=== PATIENT | male | born 1950 | race Caucasian/White ===

== ENCOUNTER 2017-03-16 16:30 | Inpatient (IN) | payer MEDICARE ==
[~2017-03-16] VITALS: Ht 182.9 cm; Wt 173.9 kg
[2017-03-16 16:53] LABS: POTASSIUM ISTAT 3.9 mmol/L (3.5-5.0)
[2017-03-16 17:15] LABS: BASO # 0.1 x10^3/uL (0.0-0.2); BASO % 1 % (0-3); EOS % 2 % (0-3); HEMATOCRIT 40.4 % (39.0-53.0); HEMOGLOBIN 13.7 g/dL (13.0-17.5); LYMPH # 2.6 x10^3/uL (1.0-4.8); LYMPH % 28 % (24-48); MEAN CORPUSCULAR HEMOGLOBIN 31 pg (25-35); MEAN CORPUSCULAR HGB CONC 34 g/dL (31-37); MEAN CORPUSCULAR VOLUME 91 fL (79-100); MONO % 8 % (0-9); NEUT % 61 % (31-73); PLATELET COUNT 238 x10^3/uL (140-400); RED BLOOD COUNT 4.44 x10^6/uL (4.30-5.70); RED CELL DISTRIBUTION WIDTH 12.5 % (11.5-14.5); WHITE BLOOD COUNT 9.3 x10^3/uL (4.0-11.0)
[2017-03-16] MEDS ORDERED: ASPIRIN 325 MG TABLET PO ONE (17:15)
[2017-03-16] MEDS ORDERED: MORPHINE SULFATE 4 MG/ML DISP.SYRIN. IV/SQ PRN (17:15)
[2017-03-16] MEDS ORDERED: NITROGLYCERIN SUBLINGUAL 0.4 MG BOTTLE OF 25. SL PRN ×2 (17:15→19:00)
[2017-03-16 17:20] LABS: CALCIUM 8.8 mg/dL (8.5-10.1); POTASSIUM 3.9 mmol/L (3.5-5.1)
[2017-03-16 17:25] LABS: ALBUMIN 3.2 g/dL (3.4-5.0); ALBUMIN/GLOBULIN RATIO 0.8 (1.0-1.7); PROTHROMBIN TIME PATIENT 12.4 SEC (11.7-14.0); TOTAL BILIRUBIN 0.3 mg/dL (0.2-1.0)
[2017-03-16] MEDS ORDERED: ACETAMINOPHEN 325 MG TABLET. PO PRN (19:00)
[2017-03-16] MEDS ORDERED: MORPHINE SULFATE 4 MG/ML DISP.SYRIN. IV PRN (19:00)
[2017-03-16] MEDS ORDERED: ONDANSETRON PF 4 MG/2 ML VIAL. IV PRN (19:00)
[2017-03-16 20:05] VITALS: BP 184/100
--- NOTE | 2017-03-16 21:14 | PHYS DOC ---
Past Medical History Past Medical History: CHF, COPD, High Cholesterol, Heart Disease, Hypertension , Stroke Past Surgical History: No Surgical History Alcohol Use: None Drug Use: None Adult General Chief Complaint Chief Complaint: CHEST PAIN HPI HPI Patient is a 66 year old male who presents with chest pain. The patient reports onset of pain about 2 hours prior to arrival while at rest. Pain is sharp, substernal, radiating to right arm. Associated with shortness of breath and nausea, denies diaphoresis. Denies fevers or chills, cough, reports bilateral lower extremity edema. Pain improved while being transported by EMS. Denies previous history of similar pain. History of CHF, HTN. Denies history of CAD or cardiac stents. He is a nonsmoker. 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 Review of Systems Review of Systems Constitutional: Denies fever or chills Eyes: Denies change in visual acuity HENT: Denies nasal congestion or sore throat Respiratory: Denies cough, reports shortness of breath Cardiovascular: Reports chest pain & edema GI: Denies abdominal pain, nausea, vomiting, bloody stools or diarrhea Musculoskeletal: Denies back pain or joint pain Integument: Denies rash or skin lesions Neurologic: Denies headache, focal weakness or sensory changes Current Medications Current Medications Current Medications Medications (Trade) Dose Ordered Sig/Mitul Start Time Stop Time Status Last Admin Dose Admin Aspirin ([place] Aspirin) 325 mg 1X ONCE 03/16/17 17:15 03/16/17 17:18 DC Morphine Sulfate 4 mg PRN Q15MIN PRN 03/16/17 17:15 03/17/17 17:14 Nitroglycerin (Nitrostat) 0.4 mg PRN Q5MIN PRN 03/16/17 17:15 03/16/17 18:58 0.4 MG Allergies Allergies Allergies Coded Allergies Type Severity Reaction Last Updated Verified No Known Drug Allergies 03/16/17 No Physical Exam Physical Exam Constitutional: morbidly obese, no acute distress, non-toxic appearance. HENT: Normocephalic, atraumatic, bilateral external ears normal, oropharynx moist, nose normal. Eyes: conjunctiva normal, no discharge. Neck: supple, no stridor. Cardiovascular: RRR, no murmurs, 2+ nonpitting edema to bilateral LE Lungs & Thorax: diminished, LCTAB, no wheezing, no respiratory distress. Abdomen: soft, nontender, nondistended. Skin: Warm, dry, no erythema, no rash. Back: No tenderness. Extremities: No tenderness, bilateral lower extremity edema as above. Neurologic: Alert and oriented X 3, no focal deficits noted. Psychologic: Affect normal, judgement normal, mood normal. Current Patient Data Vital Signs Vital Signs Date Time Temp Pulse Resp B/P (MAP) Pulse Ox O2 Delivery O2 Flow Rate FiO2 03/16/17 18:08 94 175/81 (112) 94 03/16/17 16:43 98.8 18 Room Air 98.8 Lab Values Laboratory Tests Test 03/16/17 16:41 03/16/17 16:44 03/16/17 16:48 White Blood Count 9.3 x10^3/uL (4.0-11.0) Red Blood Count 4.44 x10^6/uL (4.30-5.70) Hemoglobin 13.7 g/dL (13.0-17.5) Hematocrit 40.4 % (39.0-53.0) Mean Corpuscular Volume 91 fL (79-100) Mean Corpuscular Hemoglobin 31 pg (25-35) Mean Corpuscular Hemoglobin Concent 34 g/dL (31-37) Red Cell Distribution Width 12.5 % (11.5-14.5) Platelet Count 238 x10^3/uL (140-400) Neutrophils (%) (Auto) 61 % (31-73) Lymphocytes (%) (Auto) 28 % (24-48) Monocytes (%) (Auto) 8 % (0-9) Eosinophils (%) (Auto) 2 % (0-3) Basophils (%) (Auto) 1 % (0-3) Neutrophils # (Auto) 5.7 x10^3uL (1.8-7.7) Lymphocytes # (Auto) 2.6 x10^3/uL (1.0-4.8) Monocytes # (Auto) 0.7 x10^3/uL (0.0-1.1) Eosinophils # (Auto) 0.2 x10^3/uL (0.0-0.7) Basophils # (Auto) 0.1 x10^3/uL (0.0-0.2) Prothrombin Time 12.4 SEC (11.7-14.0) Prothrombin Time INR 1.0 (0.8-1.1) PTT 24 SEC (24-38) Sodium Level 140 mmol/L (136-145) Potassium Level 3.9 mmol/L (3.5-5.1) Chloride Level 102 mmol/L (98-107) Carbon Dioxide Level 33 mmol/L (21-32) H Anion Gap 5 (6-14) L 18 mmol/L (6-14) H Blood Urea Nitrogen 16 mg/dL (8-26) Creatinine 1.0 mg/dL (0.7-1.3) Estimated GFR (Cockcroft-Gault) 75.0 BUN/Creatinine Ratio 16 (6-20) Glucose Level 228 mg/dL (70-99) H 229 mg/dL (70-99) H Calcium Level 8.8 mg/dL (8.5-10.1) Total Bilirubin 0.3 mg/dL (0.2-1.0) Aspartate Amino Transferase (AST) 11 U/L (15-37) L Alanine Aminotransferase (ALT) 19 U/L (16-63) Alkaline Phosphatase 89 U/L (46-116) Troponin I Quantitative < 0.017 ng/mL (0.000-0.055) AA-Snf-P-Type Natriuretic Peptide 90 pg/mL (0-124) Total Protein 7.0 g/dL (6.4-8.2) Albumin 3.2 g/dL (3.4-5.0) L Albumin/Globulin Ratio 0.8 (1.0-1.7) L POC Troponin I 0.00 ng/ml (<0.08) POC Hemoglobin 13.6 g/dL (14-18) L POC Hematocrit 40 % (37-52) POC Sodium 137 mmol/L (135-145) POC Potassium 3.9 mmol/L (3.5-5.0) POC Chloride 96 mmol/L (98-110) L POC Total CO2 28 mmol/L (23-32) POC Blood Urea Nitrogen 15 mg/dL (8-26) POC Creatinine 0.8 mg/dL (0.5-1.4) POC Ionized Calcium (Sophy) 1.21 mmol/L (1.13-1.32) Laboratory Tests 03/16/17 16:41 Laboratory Tests 03/16/17 16:41 03/16/17 16:48 EKG EKG interpreted by me: 1633 NSR rate 99, no acute ST/T wave changes, Q waves in inferior leads as well as V1-V4, normal intervals, no ectopy. interpreted by me: 1859 NSR rate 97, no acute ST/T wave changes, Q waves persist, normal intervals, no ectopy. unchanged from prior.[] Radiology/Procedures Radiology/Procedures CXR: interpreted by me: cardiomegaly, no infiltrate, no pneumothorax. no prior for comparison.[] Course & Med Decision Making Course & Med Decision Making Pertinent Labs and Imaging studies reviewed. (See chart for details) The patient presents with chest pain. He was pain-free at time of arrival. Gave aspirin. Obtained labs, EKG, chest x-ray. No acute abnormality. When I reassessed him he had new onset of pain. Obtained repeat EKG which was unchanged from initial. DIANA score is 4. I did recommend admission to the hospital for further evaluation and treatment. Patient agrees with plan of care. Discussed with Dr. crockett who agrees to admit to inpatient status. Cardiology consult to Dr. Pennington. The patient is being admitted in stable condition. [] Dragon Disclaimer Dragon Disclaimer This electronic medical record was generated, in whole or in part, using a voice recognition dictation system. Departure Departure Impression: Primary Impression: Chest pain Additional Impression: Essential hypertension Disposition: ADMITTED INPATIENT Admitting Physician: Alea Crockett Condition: STABLE Referrals: UNKNOWN PCP NAME (PCP) Problem Qualifiers MARIA ELENA MENDEZ MD Mar 16, 2017 21:14
[2017-03-16] MEDS ORDERED: DONE10TA7 PO (21:21)
[2017-03-16] MEDS ORDERED: CLON0.2T PO (21:21)
[2017-03-16] MEDS ORDERED: DIPH25CA58 PO (21:21)
[2017-03-16] MEDS ORDERED: CARV25TA2 PO (21:21)
[2017-03-16] MEDS ORDERED: MELO7.5T29 PO (21:21)
[2017-03-16] MEDS ORDERED: INSU100C4 SQ (21:21)
[2017-03-16] MEDS ORDERED: PROAIR HFA8.5 GM INH (21:21)
[2017-03-16] MEDS ORDERED: GABA-586 PO (21:21)
[2017-03-16] MEDS ORDERED: METF-620 PO (21:21)
[2017-03-16] MEDS ORDERED: BUDE10.2 IH (21:21)
[2017-03-16] MEDS ORDERED: ASPI-482 PO (21:21)
[2017-03-16] MEDS ORDERED: LOSA100T6 PO (21:21)
[2017-03-16] MEDS ORDERED: ACET1TAB33 PO (21:21)
[2017-03-16] MEDS ORDERED: TRAZ50TA15 PO (21:21)
[2017-03-16] MEDS ORDERED: DOXY100T PO (21:21)
[2017-03-16] MEDS ORDERED: FURO20TA3 PO (21:21)
[2017-03-16] MEDS ORDERED: INSU100I13 SQ (21:21)
[2017-03-16] MEDS ORDERED: cloNIDine HCL 0.2 MG TABLET PO PRN (22:00)
[2017-03-16] MEDS ORDERED: NON FORMULARY ITEM (Albuterol Sulfate (Proair Hfa Inhaler) 1 PUFF) INH PRN (22:00)
[2017-03-16] MEDS ORDERED: LABETALOL 20 MG/4 ML DISP.SYRIN. IVP PRN (22:00)
[2017-03-16] MEDS ORDERED: ACETAMINOPHEN/CODEINE 300/30MG TABLET. PO PRN (22:00)
[2017-03-16] MEDS ORDERED: traZODone 50 MG TABLET. PO PRN (22:00)
[2017-03-16] MEDS ORDERED: ALBUTEROL SULFATE 2.5 MG/3 ML NEBU. NEB PRN (22:15)
--- NOTE | 2017-03-16 22:19 | PDOC1 ---
History and Physical Date of Admission Date of Admission DATE: 03/16/17 TIME: 22:10 History of Present Illness History of Present Illness Mr. Melchor, is a 66 year old male admit from ER with acute chest pain. Sudden pain tonight, mid sternal sharp pain, radiated to the right arm, some dyspnea , no nausea or diaphoresis. Hx The patient reports onset of pain about 2 hours prior to arrival while at rest. Pain is sharp, substernal, radiating to right arm. Associated with shortness of breath and nausea, denies diaphoresis. Denies fevers or chills, cough, reports bilateral lower extremity edema. Pain improved while being transported by EMS. Denies previous history of similar pain. History of CHF, HTN. Denies history of CAD or cardiac stents. He is a nonsmoker. 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 he is taking doxy for the past 4 days for a sinus infection Past Medical History Cardiovascular: CHF, HTN Pulmonary: No pertinent hx CENTRAL NERVOUS SYSTEM: CVA (with left leg weakness, gets outpatient PT at [facility], walks with a cane) GI: No pertinent hx Heme/Onc: No pertinent hx Hepatobiliary: No pertinent hx Psych: No pertinent hx Musculoskeletal: low back pain, Osteoarthritis Social History Smoke: No ALCOHOL: none Drugs: None Current Problem List Problem List Problems Medical Problems: (1) Essential hypertension Status: Acute Problems: Current Medications Current Medications Current Medications Aspirin ([place] Aspirin) 325 mg 1X ONCE PO ; Start 03/16/17 at 17:15; Stop 03/16 at 17:18; Status DC Nitroglycerin (Nitrostat) 0.4 mg PRN Q5MIN PRN SL CHEST PAIN Last administered on 03/16/17t 18:58; Start 03/16/17 at 17:15 Morphine Sulfate 4 mg PRN Q15MIN PRN IV/SQ PAIN GREATER THAN 3/10; Start at 17:15; Stop 03/17/17 at 17:14 Ondansetron HCl (Zofran) 4 mg PRN Q8HRS PRN IV NAUSEA/VOMITING; Start 03/16/17 at 19:00; Stop 03/17/17 at 18:59 Morphine Sulfate 4 mg PRN Q2HR PRN IV PAIN; Start 03/16/17 at 19:00; Stop 7/25 /17 at 18:59 Acetaminophen (Tylenol) 650 mg PRN Q4HRS PRN PO FEVER; Start 03/16/17 at 19:00 ; Stop 03/17/17 at 18:59 Nitroglycerin (Nitrostat) 0.4 mg PRN Q5MIN PRN SL CHEST PAIN; Start 03/16/17 at 19:00; Stop 03/17/17 at 18:59; Status UNV Active Scripts Active Reported Trazodone Hcl 50 Mg Tablet 50 Mg PO PRN QHS PRN Carvedilol 25 Mg Tablet 25 Mg PO BIDWMEALS Acetaminophen-Cod #3 Tablet (Acetaminophen/Codeine Phosphate) 1 Each Tablet 1 Tab PO PRN Q6HRS PRN Losartan Potassium 100 Mg Tablet 100 Mg PO DAILY Benadryl (Diphenhydramine Hcl) 25 Mg Capsule 1 Cap PO QHS Meloxicam 7.5 Mg Tablet 7.5 Mg PO DAILY Donepezil Hcl 10 Mg Tablet 1 Tab PO DAILY Furosemide 20 Mg Tablet 60 Mg PO DAILY Gabapentin 300 Mg Capsule 300 Mg PO TID Metformin Hcl 1,000 Mg Tablet 1,000 Mg PO TIDAFTMEAL Novolog (Insulin Aspart) 100 Unit/1 Ml Cartridge 20 Unit SQ TIDBFRMEAL Lantus Solostar (Insulin Glargine,Hum.rec.anlog) 100 Unit/1 Ml Insuln.pen 75 Unit SQ HS Proair Hfa Inhaler (Albuterol Sulfate) 8.5 Gm Hfa.aer.ad 1 Puff INH PRN Q4HRS PRN Symbicort 160-4.5 Mcg Inhaler (Budesonide/Formoterol Fumarate) 10.2 Gm Hfa.aer.ad 2 Puff IH BID Doxycycline Hyclate 100 Mg Tablet 1 Tab PO BID Clonidine Hcl 0.2 Mg Tablet 0.2 Mg PO PRN TID PRN if sbp > 180 and dbp>105 Aspir 81 (Aspirin) 81 Mg Tablet. 1 Tab PO DAILY Allergies Allergies: Coded Allergies: No Known Drug Allergies (Unverified , 03/16/17) ROS General: No: Chills, Night Sweats, Fatigue, Malaise, Appetite, Other PSYCHOLOGICAL ROS: No: Anxiety, Behavioral Disorder, Concentration difficultie , Decreased libido, Depression, Disorientation, Hallucinations, Hostility, Irritablity, Memory difficulties, Mood Swings, Obsessive thoughts, Physical abuse, Sexual abuse, Sleep disturbances, Suicidal ideation, Other Eyes: No Blurry vision, No Decreased vision, No Double vision, No Dry eyes, No Excessive tearing, No Eye Pain, No Itchy Eyes, No Loss of vision, No Photophobia , No Scotomata, No Uses contacts, No Uses glasses, No Other HEENT: No: Heacaches, Visual Changes, Hearing change, Nasal congestion, Nasal discharge, Oral lesions, Sinus pain, Sore Throat, Epistaxis, Sneezing, Snoring, Tinnitus, Vertigo, Vocal changes, Other Hematological and Lymphatic: No: Bleeding Problems, Blood Clots, Blood Transfusions, Brusing, Night Sweats, Pallor, Swollen Lymph Nodes, Other Respiratory: YES: SOB with excertion, No: Cough, Hemoptysis, Orthopnea, Pleuritic Pain, Shortness of breath, Sputum Changes, Stridor, Tachypnea, Wheezing, Other Cardiovascular: yes Chest Pain, No Palpitations, No Orthopnea, No Paroxysmal Noc. Dyspnea, No Edema, No Lt Headedness, No Other Gastrointestinal: No Nausea, No Vomiting, No Abdominal Pain, No Diarrhea, No Constipation, No Melena, No Hematochezia, No Other Genitourinary: No Dysuria, No Frequency, No Incontinence, No Hematuria, No Retention, No Discharge, No Urgency, No Pain, No Flank Pain, No Other, No , No , No , No , No , No , No Musculoskeletal: No Gait Disturbance, No Joint Pain, No Joint Stiffness, No Joint Swelling, No Muscle Pain, No Muscular Weakness, No Pain In:, No Swelling In:, No Other Neurological: No Behavorial Changes, No Bowel/Bladder ControlChng, No Confusion , No Dizziness, No Gait Disturbance, No Headaches, No Impaired Coord/balance, No Memory Loss, No Numbness/Tingling, No Seizures, No Speech Problems, No Tremors, No Visual Changes, No Weakness, No Other Skin: Yes Dry Skin, No Eczema, No Hair Changes, No Lumps, No Mole Changes, No Mottling, No Nail Changes, No Pruritus, No Rash, No Skin Lesion Changes, No Other, No Acne Physical Exam General: Alert, Oriented X3, Cooperative HEENT: Atraumatic, PERRLA Lungs: Clear to auscultation Abdomen: Normal bowel sounds, Soft (very obese) Rectal Exam: not examined Extremities: No clubbing, Normal pulses, Other (1+ BLE edema, he says normal for him) Skin: No rashes Neuro: Normal gait Vitals Vitals Vital Signs Date Time Temp Pulse Resp B/P (MAP) Pulse Ox O2 Delivery O2 Flow Rate FiO2 03/16/17 20:05 97.6 90 20 184/100 (128) 96 Room Air 97.6 Labs Labs Laboratory Tests Test 03/16/17 16:41 03/16/17 16:44 03/16/17 16:48 03/16/17 20:59 White Blood Count 9.3 x10^3/uL (4.0-11.0) Red Blood Count 4.44 x10^6/uL (4.30-5.70) Hemoglobin 13.7 g/dL (13.0-17.5) Hematocrit 40.4 % (39.0-53.0) Mean Corpuscular Volume 91 fL (79-100) Mean Corpuscular Hemoglobin 31 pg (25-35) Mean Corpuscular Hemoglobin Concent 34 g/dL (31-37) Red Cell Distribution Width 12.5 % (11.5-14.5) Platelet Count 238 x10^3/uL (140-400) Neutrophils (%) (Auto) 61 % (31-73) Lymphocytes (%) (Auto) 28 % (24-48) Monocytes (%) (Auto) 8 % (0-9) Eosinophils (%) (Auto) 2 % (0-3) Basophils (%) (Auto) 1 % (0-3) Neutrophils # (Auto) 5.7 x10^3uL (1.8-7.7) Lymphocytes # (Auto) 2.6 x10^3/uL (1.0-4.8) Monocytes # (Auto) 0.7 x10^3/uL (0.0-1.1) Eosinophils # (Auto) 0.2 x10^3/uL (0.0-0.7) Basophils # (Auto) 0.1 x10^3/uL (0.0-0.2) Prothrombin Time 12.4 SEC (11.7-14.0) Prothromb Time International Ratio 1.0 (0.8-1.1) Activated Partial Thromboplast Time 24 SEC (24-38) Sodium Level 140 mmol/L (136-145) Potassium Level 3.9 mmol/L (3.5-5.1) Chloride Level 102 mmol/L (98-107) Carbon Dioxide Level 33 mmol/L (21-32) Anion Gap 5 (6-14) 18 mmol/L (6-14) Blood Urea Nitrogen 16 mg/dL (8-26) Creatinine 1.0 mg/dL (0.7-1.3) Estimated GFR (Cockcroft-Gault) 75.0 BUN/Creatinine Ratio 16 (6-20) Glucose Level 228 mg/dL (70-99) 229 mg/dL (70-99) Calcium Level 8.8 mg/dL (8.5-10.1) Total Bilirubin 0.3 mg/dL (0.2-1.0) Aspartate Amino Transf (AST/SGOT) 11 U/L (15-37) Alanine Aminotransferase (ALT/SGPT) 19 U/L (16-63) Alkaline Phosphatase 89 U/L (46-116) Troponin I Quantitative < 0.017 ng/mL (0.000-0.055) BM-Apf-Z-Type Natriuretic Peptide 90 pg/mL (0-124) Total Protein 7.0 g/dL (6.4-8.2) Albumin 3.2 g/dL (3.4-5.0) Albumin/Globulin Ratio 0.8 (1.0-1.7) Bedside Troponin I 0.00 ng/ml (<0.08) Bedside Hemoglobin 13.6 g/dL (14-18) Bedside Hematocrit 40 % (37-52) Bedside Sodium 137 mmol/L (135-145) Bedside Potassium 3.9 mmol/L (3.5-5.0) Bedside Chloride 96 mmol/L (98-110) Bedside Total CO2 28 mmol/L (23-32) Bedside Blood Urea Nitrogen 15 mg/dL (8-26) Bedside Creatinine 0.8 mg/dL (0.5-1.4) Bedside Ionized Calcium (Sophy) 1.21 mmol/L (1.13-1.32) Glucose (Fingerstick) 175 mg/dL (70-99) Laboratory Tests Test 03/16/17 16:41 03/16/17 16:44 03/16/17 16:48 03/16/17 20:59 White Blood Count 9.3 x10^3/uL (4.0-11.0) Red Blood Count 4.44 x10^6/uL (4.30-5.70) Hemoglobin 13.7 g/dL (13.0-17.5) Hematocrit 40.4 % (39.0-53.0) Mean Corpuscular Volume 91 fL (79-100) Mean Corpuscular Hemoglobin 31 pg (25-35) Mean Corpuscular Hemoglobin Concent 34 g/dL (31-37) Red Cell Distribution Width 12.5 % (11.5-14.5) Platelet Count 238 x10^3/uL (140-400) Neutrophils (%) (Auto) 61 % (31-73) Lymphocytes (%) (Auto) 28 % (24-48) Monocytes (%) (Auto) 8 % (0-9) Eosinophils (%) (Auto) 2 % (0-3) Basophils (%) (Auto) 1 % (0-3) Neutrophils # (Auto) 5.7 x10^3uL (1.8-7.7) Lymphocytes # (Auto) 2.6 x10^3/uL (1.0-4.8) Monocytes # (Auto) 0.7 x10^3/uL (0.0-1.1) Eosinophils # (Auto) 0.2 x10^3/uL (0.0-0.7) Basophils # (Auto) 0.1 x10^3/uL (0.0-0.2) Prothrombin Time 12.4 SEC (11.7-14.0) Prothromb Time International Ratio 1.0 (0.8-1.1) Activated Partial Thromboplast Time 24 SEC (24-38) Sodium Level 140 mmol/L (136-145) Potassium Level 3.9 mmol/L (3.5-5.1) Chloride Level 102 mmol/L (98-107) Carbon Dioxide Level 33 mmol/L (21-32) Anion Gap 5 (6-14) 18 mmol/L (6-14) Blood Urea Nitrogen 16 mg/dL (8-26) Creatinine 1.0 mg/dL (0.7-1.3) Estimated GFR (Cockcroft-Gault) 75.0 BUN/Creatinine Ratio 16 (6-20) Glucose Level 228 mg/dL (70-99) 229 mg/dL (70-99) Calcium Level 8.8 mg/dL (8.5-10.1) Total Bilirubin 0.3 mg/dL (0.2-1.0) Aspartate Amino Transf (AST/SGOT) 11 U/L (15-37) Alanine Aminotransferase (ALT/SGPT) 19 U/L (16-63) Alkaline Phosphatase 89 U/L (46-116) Troponin I Quantitative < 0.017 ng/mL (0.000-0.055) BB-Hgc-C-Type Natriuretic Peptide 90 pg/mL (0-124) Total Protein 7.0 g/dL (6.4-8.2) Albumin 3.2 g/dL (3.4-5.0) Albumin/Globulin Ratio 0.8 (1.0-1.7) Bedside Troponin I 0.00 ng/ml (<0.08) Bedside Hemoglobin 13.6 g/dL (14-18) Bedside Hematocrit 40 % (37-52) Bedside Sodium 137 mmol/L (135-145) Bedside Potassium 3.9 mmol/L (3.5-5.0) Bedside Chloride 96 mmol/L (98-110) Bedside Total CO2 28 mmol/L (23-32) Bedside Blood Urea Nitrogen 15 mg/dL (8-26) Bedside Creatinine 0.8 mg/dL (0.5-1.4) Bedside Ionized Calcium (Sophy) 1.21 mmol/L (1.13-1.32) Glucose (Fingerstick) 175 mg/dL (70-99) VTE Prophylaxis Ordered VTE Prophylaxis Devices: No VTE Pharmacological Prophylaxi: Yes Assessment/Plan Assessment/Plan Acute chest pain, angina, Hx CAD, r.o ACS, CV consult to stratify risk, may need stress test, Dm2, insulin and metformin, hold metformin, may need cath, given small dose lantus tonight for NPO in AM for CV eval morbid obesity, BMI 52, with mild hypoalbuminemia htn prior CVA with left sided residual pickwickian, possible chronic resp acidosis with metabolic compensation, serum bicarb high admit GATITO LESLIE MD Mar 16, 2017 22:19
[2017-03-16] MEDS ORDERED: INSULIN DETEMIR 300 UNITS/3 ML INSULN.PEN. SQ SCH (22:30)
[2017-03-16] MEDS ORDERED: INSULIN DETEMIR 300 UNITS/3 ML INSULN.PEN. SQ ONE (22:30)
[2017-03-16] MEDS ORDERED: diphenhydrAMINE HCL 25 MG CAPSULE PO SCH (22:30)
[2017-03-16] MEDS: DOXYCYCLINE HYCLATE 100 MG TABLET PO SCH (22:41)
[2017-03-16] MEDS: GABAPENTIN 300 MG CAPSULE. PO SCH (22:41)
[2017-03-16 23:10] VITALS: BP 171/86
[2017-03-17 01:21] LABS: BASO # 0.1 x10^3/uL (0.0-0.2); BASO % 1 % (0-3); EOS % 3 % (0-3); HEMATOCRIT 38.5 % (39.0-53.0); HEMOGLOBIN 12.9 g/dL (13.0-17.5); LYMPH # 2.9 x10^3/uL (1.0-4.8); LYMPH % 31 % (24-48); MEAN CORPUSCULAR HEMOGLOBIN 31 pg (25-35); MEAN CORPUSCULAR HGB CONC 34 g/dL (31-37); MEAN CORPUSCULAR VOLUME 92 fL (79-100); MONO % 9 % (0-9); NEUT % 58 % (31-73); PLATELET COUNT 240 x10^3/uL (140-400); RED BLOOD COUNT 4.19 x10^6/uL (4.30-5.70); RED CELL DISTRIBUTION WIDTH 12.6 % (11.5-14.5); WHITE BLOOD COUNT 9.6 x10^3/uL (4.0-11.0)
[2017-03-17 01:36] LABS: ALBUMIN 2.8 g/dL (3.4-5.0); ALBUMIN/GLOBULIN RATIO 0.9 (1.0-1.7); CALCIUM 9.1 mg/dL (8.5-10.1); CREATININE 0.9 mg/dL (0.7-1.3); GFR 84.7; POTASSIUM 4.2 mmol/L (3.5-5.1); TOTAL BILIRUBIN 0.3 mg/dL (0.2-1.0)
--- NOTE | 2017-03-17 01:41 | ACF ---
Admission Forms Criteria CHEST PAIN Clinical Indications for Admission to Inpatient Care (Place 'X' for any and all applicable criteria): Admission is indicated for chest pain and ANY ONE of the following(1)(2)(3)(4)(5 ): [ ]I. Angina with acute coronary syndrome (Also use Myocardial Infarction or Angina guideline) [ ]II. Hemodynamic instability [ ]III. Angina needing acute intervention as indicated by ALL of the following( 11)(12): [ ]a) Unstable angina is present as indicated by angina that is ANY ONE of the following: [ ]i) New onset [ ]ii) Nocturnal [ ]iii) Prolonged at rest [ ]iv) Progressive [ ]b) Angina warrants acute intervention as indicated by ANY ONE of the following: [ ]i) Recurrent angina (e.g, not responding as previously to treatment) [ ]ii) Angina at rest or with low-level activities despite initial medical therapy [ ]iii) New or presumably new ST-segment depression on ECG [ ]iv) Signs or symptoms of heart failure (eg, dyspnea, pulmonary edema) [ ]v) New or worsening mitral regurgitation [ ]vi) Hemodynamic instability [ ]vii) Dangerous arrhythmia (eg, sustained ventricular tachycardia) [ ]viii) History of percutaneous coronary intervention within 6 months [ ]ix) History of coronary artery bypass graft surgery [ ]x) DIANA risk score of 2 or greater[A] [ ]xi) History of Diabetes(14) [ ]xii) High-risk cardiac ischemia findings on noninvasive testing (e.g, echocardiogram, treadmill testing, nuclear scan) [ ]xiii) Chronic renal insufficiency (ie, estimated GFR less than 60 mL/min/1.732m) [ ]xiv) Left ventricular ejection fraction less than 40% [ ]IV. Evidence of OH (eg, cardiac biomarkers positive, ST-segment elevation on ECG) also use Myocardial Infarction Criteria Form. [ ]V. Pulmonary edema [ ]. Respiratory distress [ ]VII. Chest pain indicative of serious diagnosis other than coronary artery disease (eg, aortic dissection) [ ]VIII. Contraindications and/or Inappropriate clinical situations for Observational Care in patients with Chest Pain, when ANY ONE of the following is required: [ ]a) Patient with risk factor for pulmonary embolism, acute coronary syndrome and myocardial infarction (18) [ ]b) Patient with Pulmonary embolism require an average LOS of 4.3 days, therefore emergency department observation management is inappropriate 18,23 [ ]c) Painful condition/s in the elderly, have the highest rate of recidivism after emergency department observation management (10.8%) 20,21,22 [ ]d) Elevated cardiac biomarker requires intensive and exhaustive care (19) [X]IX. General contraindications and/or Inappropriate clinical situations for Observational Care in patients with Chest Pain, when ANY ONE of the following is required: [X]a) Prediction of prolongation of LOS based on ANY ONE of the following may be considered as a contraindication for observational care 2, 3, 4, 5, 6, 7, 8, 9, 10, 11 [ ]i) Age > 65 yrs. [ ]ii) Patient arriving by ambulance [ ]iii) Patient with high acuity [X]iv) Patient requiring vital sign monitoring [ ]v) Patient on IV medication [ ]b) Systolic blood pressures 180mmHg 3,12 [ ]c) Patient with altered mental status including delirium and other alteration of consciousness, (3) [ ]d) Patient whose discharge disposition will be to a nursing home home or rehabilitation home should not be managed in Emergency Department Observation Unit. CMS rule requires 3 days hospital stay before such placement. 3,13 [ ]e) Patient with failure to thrive due to broad array of etiologies 3,16,17 [ ]f) Inability to ambulate 3,14 Extended stay beyond goal length of stay may be needed for (1)(28): [ ]a) Specific condition diagnosed after evaluation (eg, pulmonary embolism, aortic dissection) [ ]b) Unstable angina [ ]c) Continued suspicion of acute coronary syndrome with inability to complete needed cardiac evaluation (eg, patient clinically unable to undergo stress testing) [ ]d) Myocardial infarction (Contents from ANGINA and CHEST PAIN clinical indications for admission to inpatient care have been integrated in this form) The original [facility] content created by [employer] has been revised. The portions of the content which have been revised are identified through the use of italic text or in bold, and [facility] has neither reviewed nor approved the modified material. All other unmodified content is copyright [facility]. Please see references footnoted in the original [facility] [employer] edition 2016 Admission Criteria Met?: Yes MILTON HERNADEZ Mar 17, 2017 01:41
[2017-03-17 01:50] LABS: CHOLESTEROL/HDL RATIO 3.5
[2017-03-17 03:05] VITALS: BP 111/63
--- NOTE | 2017-03-17 07:04 | EKG ---
[facility] [address] [place] [address] Test Date: 2017-03-16 Test Time: 16:33:40 Pat Name: DOM RODRÍGUEZ Department: Room: 207 1 Gender: M Court Usher: : 1950 Requested By: MARIA ELENA MENDEZ Order Number: [id number] Reading MD: Jovany Pennington Measurements Intervals [place] Rate: 99 P: 38 [place]: 202 QRS: -34 QRSD: 76 T: 59 QT: 320 QTc: 416 Interpretive Statements SINUS RHYTHM ABNORMAL LEFT AXIS DEVIATION QRS(T) CONTOUR ABNORMALITY CONSISTENT WITH ANTERIOR INFARCT PROBABLY OLD CONSISTENT WITH INFERIOR INFARCT PROBABLY OLD ABNORMAL ECG Electronically Signed On 03-19-2017 8:43:15 CDT by Jovany Pennington
--- NOTE | 2017-03-17 07:09 | EKG ---
[facility] [address] [place] [address] Test Date: 2017-03-16 Test Time: 18:59:16 Pat Name: DOM RODRÍGUEZ Department: Room: 207 1 Gender: M Color Consultant: : 1950 Requested By: MARIA ELENA MENDEZ Order Number: [id number] Reading MD: Jovany Pennington Measurements Intervals [place] Rate: 97 P: 28 [place]: 200 QRS: -38 QRSD: 76 T: 49 QT: 330 QTc: 423 Interpretive Statements SINUS RHYTHM CONSISTENT WITH ANTERIOR INFARCT PROBABLY OLD Electronically Signed On 03-19-2017 8:44:46 CDT by Jovany Pennington
--- NOTE | 2017-03-17 07:16 | RAD ---
CHEST AP ONLY Clinical Indication: cp Comparison: None Findings: Low lung volumes. Bibasilar heterogenous air space opacities. Pulmonary vascular distinctness. Possible small bilateral pleural effusions. No pneumothorax. The cardiomediastinal silhouette is enlarged. The great vessels of the thorax are normal. No acute osseous abnormality. IMPRESSION: 1. Bibasilar heterogenous air space opacities. Although this could relate to atelectasis, pulmonary edema or an infectious process cannot be excluded. 2. Possible small bilateral pleural effusions. 3. Cardiomegaly.
[2017-03-17] MEDS: INSULIN ASPART 300 UNITS/3 ML INSULN.PEN SQ SCH ×2 (07:30→12:01)
[2017-03-17 07:40] VITALS: BP 122/71
--- NOTE | 2017-03-17 07:58 | EKG ---
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
[2017-03-17] MEDS ORDERED: CARVEDILOL 12.5 MG TABLET. PO SCH (08:00)
[2017-03-17] MEDS ORDERED: BUDESONIDE 0.5 MG/2 ML NEBU. NEB SCH (08:00)
[2017-03-17] MEDS ORDERED: MELOXICAM 7.5 MG TABLET PO SCH (09:00)
[2017-03-17] MEDS ORDERED: NON FORMULARY ITEM (Budesonide/Formoterol Fumarate (Symbicort 160-4.5 Mcg Inhaler) 2 PUFF) IH SCH (09:00)
[2017-03-17] MEDS ORDERED: ASPIRIN ENTERIC COATED 81 MG TABLET.DR. PO SCH ×2 (09:00→10:00)
[2017-03-17] MEDS ORDERED: DONEPEZIL HCL 10 MG TABLET. PO SCH (09:00)
[2017-03-17] MEDS ORDERED: LOSARTAN POTASSIUM 50 MG TABLET. PO SCH (09:00)
[2017-03-17] MEDS ORDERED: FUROSEMIDE 20 MG TABLET PO SCH (09:00)
--- NOTE | 2017-03-17 09:48 | PDOC2 ---
MARIE CAGLE SR. PAYROLL PROCESSOR 03/17/17 0948: CARDIAC CONSULT DATE OF CONSULT Date of Consult DATE: 03/17/17 TIME: 09:20 REASON FOR CONSULT Reason for Consult: Chest pain REFERRING PHYSICIAN Referring Physician: Juve SOURCE Source: Chart review, Patient HISTORY OF PRESENT ILLNESS HISTORY OF PRESENT ILLNESS This is a pleasant 66 yo male admitted for complains of chest pain. Reports that this started in the afternoon yesterday. This was retrosternal sharp that radiated to his right arm. This was associated with SOA as well. Denies any palpitations. Overnight he has done well with no recurrence of CP. His CP yesterday was relieved by EMS via 1 NTG. He was told of an AR in the but no intervention. Denies any orthopnea, increased leg swelling. He has chronic lymphedema, morbid obesity, GERA in which he is compliant with his CPAP. He has HTN, CHF, DM2 and compliant with his medications. Denies any VTE, bleeding history or arrhythmia. He mainly has limited mobility uses cane and WC. Has not had any recent MPI or seen a c recent circle saw operator. PAST MEDICAL HISTORY Cardiovascular: Other (pericarditis likely from infection per pt prompting pericardial window; chronic lymphedema) Pulmonary: COPD, Other (GERA) CENTRAL NERVOUS SYSTEM: CVA, Dementia GI: Other (ventral hernia) Heme/Onc: No pertinent hx Hepatobiliary: No pertinent hx Psych: No pertinent hx Musculoskeletal: Osteoarthritis, Other (morbid obesity) Rheumatologic: No pertinent hx Infectious disease: No pertinent hx ENT: No pertinent hx Renal/: No pertinent hx Endocrine: Diabetes (2) Dermatology: Other (foot venous stasis blisters) PAST SURGICAL HISTORY Past Surgical History: Appendectomy, Hernia Repair (9 ventral repairs), Tonsillectomy, Other (pericardial window; [facility]) FAMILY HISTORY Family History: Heart Disease (mother) SOCIAL HISTORY Smoke: No (kalpesh >30 pk yr) ALCOHOL: none Drugs: None Lives: with Family CURRENT MEDICATIONS CURRENT MEDICATIONS Current Medications Medications (Trade) Dose Ordered Sig/Mitul Route PRN Reason Start Time Stop Time Status Last Admin Dose Admin Nitroglycerin (Nitrostat) 0.4 mg PRN Q5MIN PRN SL CHEST PAIN 03/16/17 17:15 03/16/17 18:58 Acetaminophen/ Codeine Phosphate (Tylenol #3) 1 tab PRN Q6HRS PRN PO moderate pain 03/16/17 22:00 03/16/17 22:41 Clonidine HCl (Catapres) 0.2 mg PRN TID PRN PO HYPERTENSION 03/16/17 22:00 03/16/17 22:41 Diphenhydramine HCl (Benadryl) 25 mg QHS PO 03/16/17 22:30 03/16/17 22:40 Doxycycline Hyclate (Vibra-Tab) 100 mg BID PO 03/16/17 22:30 03/16/17 22:41 Gabapentin (Neurontin) 300 mg TID PO 03/16/17 22:30 03/16/17 22:41 Insulin Detemir (Levemir) 50 units 1X ONCE SQ 03/16/17 22:30 03/16/17 22:31 DC 03/16/17 22:44 ALLERGIES ALLERGIES: Coded Allergies: No Known Drug Allergies (Unverified , 03/16/17) ROS Review of System 14 poknt ROS evaluated with pertinent positives noted per HPI PHYSICAL EXAM General: Alert, Oriented X3, Cooperative, No acute distress HEENT: Atraumatic, Mucous membr. moist/pink Lungs: Clear to auscultation, Other Heart: Regular rate (SR), Other (distant heart sounds) Extremities: Other (3+ bilateral LE pitting edema. Chronic lymphedema) Skin: Other (venous stasis blisters to left foot) Neuro: Normal speech, Sensation intact Psych/Mental Status: Mood NL MUSCULOSKELETAL: Osteoarthritic changes both hands VITALS VITALS Vital Signs Date Time Temp Pulse Resp B/P (MAP) Pulse Ox O2 Delivery O2 Flow Rate FiO2 03/17/17 07:40 97.7 63 20 122/71 (88) 99 Nasal Cannula 2.0 97.7 LABS Lab: Laboratory Tests Test 03/16/17 16:41 03/16/17 16:44 03/16/17 16:48 03/16/17 20:59 White Blood Count 9.3 x10^3/uL (4.0-11.0) Red Blood Count 4.44 x10^6/uL (4.30-5.70) Hemoglobin 13.7 g/dL (13.0-17.5) Hematocrit 40.4 % (39.0-53.0) Mean Corpuscular Volume 91 fL (79-100) Mean Corpuscular Hemoglobin 31 pg (25-35) Mean Corpuscular Hemoglobin Concent 34 g/dL (31-37) Red Cell Distribution Width 12.5 % (11.5-14.5) Platelet Count 238 x10^3/uL (140-400) Neutrophils (%) (Auto) 61 % (31-73) Lymphocytes (%) (Auto) 28 % (24-48) Monocytes (%) (Auto) 8 % (0-9) Eosinophils (%) (Auto) 2 % (0-3) Basophils (%) (Auto) 1 % (0-3) Neutrophils # (Auto) 5.7 x10^3uL (1.8-7.7) Lymphocytes # (Auto) 2.6 x10^3/uL (1.0-4.8) Monocytes # (Auto) 0.7 x10^3/uL (0.0-1.1) Eosinophils # (Auto) 0.2 x10^3/uL (0.0-0.7) Basophils # (Auto) 0.1 x10^3/uL (0.0-0.2) Prothrombin Time 12.4 SEC (11.7-14.0) Prothromb Time International Ratio 1.0 (0.8-1.1) Activated Partial Thromboplast Time 24 SEC (24-38) Sodium Level 140 mmol/L (136-145) Potassium Level 3.9 mmol/L (3.5-5.1) Chloride Level 102 mmol/L (98-107) Carbon Dioxide Level 33 mmol/L (21-32) Anion Gap 5 (6-14) 18 mmol/L (6-14) Blood Urea Nitrogen 16 mg/dL (8-26) Creatinine 1.0 mg/dL (0.7-1.3) Estimated GFR (Cockcroft-Gault) 75.0 BUN/Creatinine Ratio 16 (6-20) Glucose Level 228 mg/dL (70-99) 229 mg/dL (70-99) Calcium Level 8.8 mg/dL (8.5-10.1) Total Bilirubin 0.3 mg/dL (0.2-1.0) Aspartate Amino Transf (AST/SGOT) 11 U/L (15-37) Alanine Aminotransferase (ALT/SGPT) 19 U/L (16-63) Alkaline Phosphatase 89 U/L (46-116) Troponin I Quantitative < 0.017 ng/mL (0.000-0.055) BJ-Jfl-U-Type Natriuretic Peptide 90 pg/mL (0-124) Total Protein 7.0 g/dL (6.4-8.2) Albumin 3.2 g/dL (3.4-5.0) Albumin/Globulin Ratio 0.8 (1.0-1.7) Bedside Troponin I 0.00 ng/ml (<0.08) Bedside Hemoglobin 13.6 g/dL (14-18) Bedside Hematocrit 40 % (37-52) Bedside Sodium 137 mmol/L (135-145) Bedside Potassium 3.9 mmol/L (3.5-5.0) Bedside Chloride 96 mmol/L (98-110) Bedside Total CO2 28 mmol/L (23-32) Bedside Blood Urea Nitrogen 15 mg/dL (8-26) Bedside Creatinine 0.8 mg/dL (0.5-1.4) Bedside Ionized Calcium (Sophy) 1.21 mmol/L (1.13-1.32) Glucose (Fingerstick) 175 mg/dL (70-99) Test 03/17/17 01:00 03/17/17 07:00 03/17/17 07:51 White Blood Count 9.6 x10^3/uL (4.0-11.0) Red Blood Count 4.19 x10^6/uL (4.30-5.70) Hemoglobin 12.9 g/dL (13.0-17.5) Hematocrit 38.5 % (39.0-53.0) Mean Corpuscular Volume 92 fL (79-100) Mean Corpuscular Hemoglobin 31 pg (25-35) Mean Corpuscular Hemoglobin Concent 34 g/dL (31-37) Red Cell Distribution Width 12.6 % (11.5-14.5) Platelet Count 240 x10^3/uL (140-400) Neutrophils (%) (Auto) 58 % (31-73) Lymphocytes (%) (Auto) 31 % (24-48) Monocytes (%) (Auto) 9 % (0-9) Eosinophils (%) (Auto) 3 % (0-3) Basophils (%) (Auto) 1 % (0-3) Neutrophils # (Auto) 5.5 x10^3uL (1.8-7.7) Lymphocytes # (Auto) 2.9 x10^3/uL (1.0-4.8) Monocytes # (Auto) 0.8 x10^3/uL (0.0-1.1) Eosinophils # (Auto) 0.3 x10^3/uL (0.0-0.7) Basophils # (Auto) 0.1 x10^3/uL (0.0-0.2) Sodium Level 139 mmol/L (136-145) Potassium Level 4.2 mmol/L (3.5-5.1) Chloride Level 101 mmol/L (98-107) Carbon Dioxide Level 33 mmol/L (21-32) Anion Gap 5 (6-14) Blood Urea Nitrogen 14 mg/dL (8-26) Creatinine 0.9 mg/dL (0.7-1.3) Estimated GFR (Cockcroft-Gault) 84.7 BUN/Creatinine Ratio 16 (6-20) Glucose Level 210 mg/dL (70-99) Calcium Level 9.1 mg/dL (8.5-10.1) Total Bilirubin 0.3 mg/dL (0.2-1.0) Aspartate Amino Transf (AST/SGOT) 12 U/L (15-37) Alanine Aminotransferase (ALT/SGPT) 15 U/L (16-63) Alkaline Phosphatase 77 U/L (46-116) Troponin I Quantitative < 0.017 ng/mL (0.000-0.055) < 0.017 ng/mL (0.000-0.055) Total Protein 6.0 g/dL (6.4-8.2) Albumin 2.8 g/dL (3.4-5.0) Albumin/Globulin Ratio 0.9 (1.0-1.7) Triglycerides Level 87 mg/dL (0-150) Cholesterol Level 166 mg/dL (0-200) LDL Cholesterol, Calculated 102 mg/dL (0-100) VLDL Cholesterol, Calculated 17 mg/dL (0-40) Non-HDL Cholesterol Calculated 119 mg/dL (0-129) HDL Cholesterol 47 mg/dL (40-60) Cholesterol/HDL Ratio 3.5 Glucose (Fingerstick) 98 mg/dL (70-99) ASSESSMENT/PLAN ASSESSMENT/PLAN 1. Chest pain: likely GI. Significant risk factors. 2. Chronic diastolic CHF: compensated 3. HTN 4. DM2/HLP 5. Morbid obesity/GERA 6. CAD 7. Hx of CVA: 2015 Recommendations 1. TTE, MPI today 2. Continue with po lasix, home CPAP, and secondary prevention Problems: ALICE ANDRADE MD 03/17/17 1723: CARDIAC CONSULT ALLERGIES ALLERGIES: Coded Allergies: No Known Drug Allergies (Unverified , 03/16/17) ASSESSMENT/PLAN ASSESSMENT/PLAN Patient seen and examined. Agree with CLEARING DISTRIBUTION CLERK's assessment and plan. Chest pain with atypical features and most probably GI etiology. Myocardial infarction ruled out 2-D echo showed normal LV function without any wall motion abnormalities. Nuclear stress test did not show any significant ischemia. Okay for discharge from cardiac standpoint. Thank you for your consultation.. Problems: MARIE CAGLE APRN Mar 17, 2017 09:48 ALICE ANDRADE MD Mar 17, 2017 17:23
[2017-03-17] MEDS ORDERED: REGADENOSON 0.4 MG/5 ML DISP.SYRIN. IV ONE (10:45)
[2017-03-17 11:28] VITALS: BP 149/86
[2017-03-17] MEDS: DOXYCYCLINE HYCLATE 100 MG TABLET PO SCH (11:55)
[2017-03-17] MEDS: GABAPENTIN 300 MG CAPSULE. PO SCH ×2 (11:55→14:00)
[2017-03-17] MEDS: ALBUTEROL SULFATE 2.5 MG/3 ML NEBU. NEB SCH ×2 (12:00→16:14)
--- NOTE | 2017-03-17 14:50 | RAD ---
APPROVED REPORT Test Type: Pharmacological Stress Nurse/Tech: Mesha Strong R.N. Test Indications: Chest pain. Cardiac History: Pericardial window, HTN Medications: SEE EMR Medical History: DM, Former smoker, CVA 2014 Resting ECG: SR Resting Heart Rate: 72 bpm Resting Blood Pressure: 142/67mmHg Pretest Chest Pain: None Nurse/Tech Notes S1S2, lungs CTA, denied chest pain, SOA and dizziness. Consent: The procedure was explained to the patient in lay terms. Informed consent was witnessed. Moshe eout was entered into [employer]. History and Stress Test performed by Mesha Strong R.N. Pharm. Details Pharmacologic stress testing was performed using 0.4mg per 5ml of regadenoson given intravenously ove r 7-10 seconds. Stress Symptoms Slightly SOA. POST EXERCISE Reason for Termination: Infusion complete Max HR: 82 bpm Max Blood Pressure: 164/64mmHg Blood Pressure response to exercise: Normal blood pressure response during stress. Heart Rate response to exercise: Normal Chest Pain: No. Arrhythmia: No. ST Change: No. INTERPRETATION Stress EKG Conclusion: No acute changes were noted. Imaging Protocol IMAGE PROTOCOL: Stress Tc-99m/rest Tc-99m 2 days Rest: Stress: Viability: Radiopharm.Tc99m Sestamibi Dose34.5mCi Duration 15min. Img Date 03/17/2017 Inj-Img [id number]. Rest Admin Site:lAdministrator: Stress Admin Site: IV - Right AntecubitalAdministrator: Kasi Quevedo, RT (R)(N) STRESS DATA End Diast. Vol.119.0mlAv. Heart Rate88.0bpm End Syst. Vol.34.0mlCO Index BSA0.0L/min Myocardial Ccba477.0gEject. Sekpkaor51.0% Stress Rates Pk. Fill Rate4.33EDV/secLVtime Pk. Fill 158.25msec Pk. Empty Rate4.31ESV/secLVtime Pk. Kgnhv250.54msec 08/26 Pk. Fill1.03EDV/sec Stress Scores Regional WT2.00Summed WT12.00 Regional WM0.00Summed WM4.00 LV Perfusion Normal perfusion at stress. Wall Motion normal. LV Perf. Quant 17 Seg. SSS0.00 Stress Defect Extent (% LAD)0.00Rest Defect Extent (% LAD)Rev. Defect Extent (% LAD)0.00 Stress Defect Extent (% LCX) 15.00Rest Defect Extent (% LCX)Rev. Defect Extent (% LCX)0.00 Stress Defect Extent (% RCA)0.00Rest Defect Extent (% RCA)Rev. Defect Extent (% RCA)0.00 Stress Defect Extent (% RUFINO)2.60Rest Defect Extent (% RUFINO)Rev. Defect Extent (% RUFINO)0.00 Other Information Quality:Average Risk Assessment: Low Risk Conclusion 1. No evidence of EKG changes with stress testing. Baseline EKG suggestive of prior inferior/anterola teral infarct but no perfusion abnormality seen on nuclear testing. 2. Normal perfusion at stress. Rest images not performed. 3. Low risk study. 4. EF > 60%.
[2017-03-17 15:00] VITALS: BP 112/53
--- NOTE | 2017-03-17 15:40 | CARD ---
APPROVED REPORT EXAM: Two-dimensional and M-mode echocardiogram with Doppler and color Doppler. Other Information Quality : Good INDICATION Chest Pain 2D DIMENSIONS RVDd3.2 (2.9-3.5cm)Left Atrium(2D)4.5 (1.6-4.0cm) IVSd1.2 (0.7-1.1cm)Aortic Root(2D)3.1 (2.0-3.7cm) LVDd4.3 (3.9-5.9cm)LVOT Diameter2.3 (1.8-2.4cm) PWd1.4 (0.7-1.1cm)LVDs2.5 (2.5-4.0cm) FS (%) 42.2 %SV61.4 ml LVEF(%)60.0 (>50%) Aortic Valve AoV Peak Koby.122.2cm/sAoV VTI25.2cm AO Peak GR.6.0mmHgLVOT Peak Koby.93.1cm/s LVOT VTI 18.65cmAO Mean GR.4mmHg NILTON (VMAX)3.18fq9ZIL (VTI)3.06cm2 Mitral Valve MV E Nytxsewh47.8cm/sMV DECEL AHKA680az MV A Cadheoee38.8cm/sMV COL60cd E/A Ratio1.2MVA (PHT)3.29cm2 TDI E/Lateral E'13.9E/Medial E'13.1 Tricuspid Valve TR P. Zalkrhti352qf/sRAP TJOOKGHH1wdFr TR Peak Gr.16jtXiFJYI37moVh Pulmonary Vein S1 Jisbfkua90.5cm/sD2 Epdffent39.0cm/s PVa cigviodq964qjfk LEFT VENTRICLE The left ventricle is normal size. There is mild concentric left ventricular hypertrophy. The left ve ntricular systolic function is normal and the ejection fraction is within normal range. The Ejection Fraction is 55-60%. There is normal LV segmental wall motion. Tissue Doppler imaging reveals moderate left ventricular diastolic dysfunction. RIGHT VENTRICLE The right ventricle is normal size. The right ventricular systolic function is normal. ATRIA The left atrium is mildly dilated. The right atrium size is normal. The interatrial septum is intact with no evidence for an atrial septal defect or patent foramen ovale as noted on 2-D or Doppler imagi ng. AORTIC VALVE Not well visualized. Doppler and Color Flow revealed no significant aortic regurgitation. There is no significant aortic valvular stenosis. MITRAL VALVE Not well visualized. There is no evidence of mitral valve prolapse. There is no mitral valve stenosis . Doppler and Color Flow revealed no mitral valve regurgitation noted. TRICUSPID VALVE Not well visualized. Doppler and Color Flow revealed physiological tricuspid regurgitation. The PA pr essure was estimated at 29 mmHg. There is no tricuspid valve stenosis. PULMONIC VALVE The pulmonary valve is not well visualized but appears to be functioniong normally by Doppler interro gation. Doppler and Color Flow revealed no pulmonic valvular regurgitation. There is no pulmonic valv ular stenosis. GREAT VESSELS The aortic root is normal in size. The ascending aorta is not well seen. The IVC is normal in size an d collapses >50% with inspiration. PERICARDIAL EFFUSION There is no evidence of significant pericardial effusion. Critical Notification Critical Value: No <Conclusion> The left ventricular systolic function is normal and the ejection fraction is within normal range. Th e Ejection Fraction is 55-60%. There is grossly normal LV segmental wall motion. Overall, images are suboptimal to ruleout any subtl e wall motion issues.
--- NOTE | 2017-03-17 16:19 | PDOC3 ---
Discharge Summary [facility] Date of Admission: Mar 16, 2017 Discharge Date: Mar 17, 2017 Admitting Diagnosis Acute chest pain, muscular pain likely h/o CAD Dm2, insulin and metformin, morbid obesity, BMI 52, with mild hypoalbuminemia htn prior CVA with left sided residual pickwickian, possible chronic resp acidosis with metabolic compensation, Problems: Final Diagnosis CONSULTS card Brief Hospital Course Mr. Melchor is a 66 old M, OBESITY, DM2 ON insulin , htn, remote history of CAD , came for chest pain, + tenderness. CE neg. pt is pain free now. MPI neg. dc home dc time 35min General: Alert, Oriented X3, Cooperative HEENT: Atraumatic, PERRLA Lungs: Clear to auscultation Abdomen: Normal bowel sounds, Soft (very obese) Rectal Exam: not examined Extremities: No clubbing, Normal pulses, Other (1+ BLE edema, he says normal for him) Skin: No rashes Neuro: Normal gait Patient History: FH: CHF (congestive heart failure) 32 MOTHER FH: pneumonia 32 MOTHER FH: skin cancer 33 FATHER Problems: Disposition home CONDITION AT DISCHARGE: Improved Diet cardiac Scheduled Aspirin (Aspir 81), 1 TAB PO DAILY, (Reported) Budesonide/Formoterol Fumarate (Symbicort 160-4.5 Mcg Inhaler), 2 PUFF IH BID, ( Reported) Carvedilol (Carvedilol), 25 MG PO BIDWMEALS, (Reported) Diphenhydramine Hcl (Benadryl), 1 CAP PO QHS, (Reported) Donepezil Hcl (Donepezil Hcl), 1 TAB PO DAILY, (Reported) Doxycycline Hyclate (Doxycycline Hyclate), 1 TAB PO BID, (Reported) Furosemide (Furosemide), 60 MG PO DAILY, (Reported) Gabapentin (Gabapentin), 300 MG PO TID, (Reported) Insulin Aspart (Novolog), 20 UNIT SQ TIDBFRMEAL, (Reported) Insulin Glargine,Hum.rec.anlog (Lantus Solostar), 75 UNIT SQ HS, (Reported) Losartan Potassium (Losartan Potassium), 100 MG PO DAILY, (Reported) Meloxicam (Meloxicam), 7.5 MG PO DAILY, (Reported) Metformin Hcl (Metformin Hcl), 1,000 MG PO TIDAFTMEAL, (Reported) Scheduled PRN Acetaminophen With Codeine (Acetaminophen-Cod #3 Tablet), 1 TAB PO PRN Q6HRS PRN for PAIN, (Reported) Albuterol Sulfate (Proair Hfa Inhaler), 1 PUFF INH PRN Q4HRS PRN for SHORTNESS OF BREATH, (Reported) Clonidine Hcl (Clonidine Hcl), 0.2 MG PO PRN TID PRN for tid, (Reported) Trazodone Hcl (Trazodone Hcl), 50 MG PO PRN QHS PRN for INSOMNIA, (Reported) Follow Up pcp in 2 weeks NIRMAL SCHWARTZ MD Mar 17, 2017 16:19
--- NOTE | 2017-03-17 16:37 | EKG ---
[facility] [address] [place] [address] Test Date: 2017-03-17 Test Time: 16:31:50 Pat Name: DOM RODRÍGUEZ Department: Room: 207 1 Gender: M Graphic Coordinator: SAMIA : 1950 Requested By: MARIA ELENA MENDEZ Order Number: [id number] Reading MD: Jovany Pennington Measurements Intervals [place] Rate: 74 P: 43 MT: 206 QRS: -42 QRSD: 76 T: 22 QT: 372 QTc: 413 Interpretive Statements SINUS RHYTHM ABNORMAL LEFT AXIS DEVIATION CONSISTENT WITH ANTERIOR INFARCT PROBABLY OLD CONSISTENT WITH INFERIOR INFARCT PROBABLY OLD Electronically Signed On 03-19-2017 8:52:18 CDT by Jovany Pennington
[2017-03-17] MEDS ORDERED: INSULIN DETEMIR 300 UNITS/3 ML INSULN.PEN. SQ SCH (21:00)
[2017-03-17] MEDS ORDERED: ATORVASTATIN CALCIUM 10 MG TABLET. PO SCH (21:00)
== END 2017-03-17 18:00 | disposition home or self-care (01) | DRG 313 ==
LOC: ER 16:30 → 2 NORTH 18:17
PROVIDERS: ADMIT Internal Medicine; ATTEND Internal Medicine
DX: R07.89 Other chest pain (principal); E66.2 Morbid (severe) obesity with alveolar hypoventilation; I50.32 Chronic diastolic (congestive) heart failure; Z68.43 Body mass index [BMI] 50.0-59.9, adult; E87.2 Acidosis; E11.9 Type 2 diabetes mellitus without complications; E78.00 Pure hypercholesterolemia, unspecified; E78.5 Hyperlipidemia, unspecified; F03.90 Unspecified dementia, unspecified severity, without behavioral disturbance, psychotic disturbance, mood disturbance, and anxiety; M19.90 Unspecified osteoarthritis, unspecified site; M54.5 Low back pain; R10.819 Abdominal tenderness, unspecified site; I87.8 Other specified disorders of veins; I11.0 Hypertensive heart disease with heart failure; G83.14 Monoplegia of lower limb affecting left nondominant side; I25.10 Atherosclerotic heart disease of native coronary artery without angina pectoris; I25.2 Old myocardial infarction; Z79.4 Long term (current) use of insulin; Z82.49 Family history of ischemic heart disease and other diseases of the circulatory system; Z86.73 Personal history of transient ischemic attack (TIA), and cerebral infarction without residual deficits; Z90.49 Acquired absence of other specified parts of digestive tract; Z87.891 Personal history of nicotine dependence; Z80.8 Family history of malignant neoplasm of other organs or systems
CPT/HCPCS: 36415; 71010; 78452; 80047; 80053; 80061; 82962; 83036; 83880; 84484; 85027; 85610; 85730; 93005; 93017; 93306; 94250; 94640; 94760; 96374; 96375; A9500; J1815; J2785; J7613; J7626; Q0163; 99285-25

== ENCOUNTER 2017-04-03 10:04 | Emergency (ER) | payer MEDICARE, OTHER ==
[~2017-04-03 10:04] MED LIST: ACET1TAB33 PO; ASPI-482 PO; BUDE10.2 IH; CARV25TA2 PO; CLON0.2T PO; DIPH25CA58 PO; DONE10TA7 PO; DOXY100T PO; FURO20TA3 PO; GABA-586 PO; INSU100C4 SQ; INSU100I13 SQ; LOSA100T6 PO; MELO7.5T29 PO; METF-620 PO; PROAIR HFA8.5 GM INH; TRAZ50TA15 PO
[2017-04-03] MEDS ORDERED: levETIRAcetam 500 MG TABLET PO ONE (10:30)
[2017-04-03] MEDS ORDERED: 0.9 % SODIUM CHLORIDE 10 ML DISP.SYRIN. IV PRN (10:30)
--- NOTE | 2017-04-03 10:31 | EKG ---
[facility] [address] [place] [address] Test Date: 2017-04-03 Test Time: 10:10:01 Pat Name: DOM RODRÍGUEZ Department: Room: Gender: M Multimedia Coordinator: : 1950 Requested By: GALINDO DIANE Order Number: [id number] Reading MD: Measurements Intervals [place] Rate: 97 P: 48 IA: 206 QRS: -38 QRSD: 80 T: 62 QT: 342 QTc: 438 Interpretive Statements SINUS RHYTHM PROLONGED IA INTERVAL ABNORMAL LEFT AXIS DEVIATION QRS(T) CONTOUR ABNORMALITY CONSISTENT WITH ANTEROSEPTAL INFARCT PROBABLY OLD CONSISTENT WITH INFERIOR INFARCT PROBABLY OLD RI6.01 Unconfirmed report No previous ECG available for comparison
[2017-04-03 10:32] LABS: BASO # 0.1 x10^3/uL (0.0-0.2); BASO % 1 % (0-3); EOS % 3 % (0-3); HEMATOCRIT 39.7 % (39.0-53.0); HEMOGLOBIN 13.7 g/dL (13.0-17.5); LYMPH # 2.9 x10^3/uL (1.0-4.8); LYMPH % 30 % (24-48); MEAN CORPUSCULAR HEMOGLOBIN 31 pg (25-35); MEAN CORPUSCULAR HGB CONC 35 g/dL (31-37); MEAN CORPUSCULAR VOLUME 90 fL (79-100); MONO % 8 % (0-9); NEUT % 59 % (31-73); PLATELET COUNT 232 x10^3/uL (140-400); RED BLOOD COUNT 4.41 x10^6/uL (4.30-5.70); RED CELL DISTRIBUTION WIDTH 12.6 % (11.5-14.5); WHITE BLOOD COUNT 9.8 x10^3/uL (4.0-11.0)
[2017-04-03 10:39] LABS: CALCIUM 8.5 mg/dL (8.5-10.1); CREATININE 1.2 mg/dL (0.7-1.3); GFR 60.8; POTASSIUM 3.9 mmol/L (3.5-5.1)
[2017-04-03 10:46] LABS: ALBUMIN 3.4 g/dL (3.4-5.0); DIRECT BILIRUBIN 0.2 mg/dL (0.0-0.2); TOTAL BILIRUBIN 0.6 mg/dL (0.2-1.0); TOTAL PROTEIN 7.4 g/dL (6.4-8.2)
[2017-04-03 10:54] LABS: PROTHROMBIN TIME PATIENT 12.8 SEC (11.7-14.0)
--- NOTE | 2017-04-03 11:09 | RAD ---
Indication seizure. Noncontrast images of the head were obtained. No prior imaging of the head is available. The calvarium appears unremarkable. The visualized paranasal sinuses appear normal. There is no subdural or epidural hematoma. There is no mass or midline shift. No hemorrhage is seen. No acute intracranial finding is apparent. IMPRESSION: No acute intracranial finding PQRS Compliance Statement: One or more of the following individualized dose reduction techniques were utilized for this examination: 1. Automated exposure control 2. Adjustment of the mA and/or kV according to patient size 3. Use of iterative reconstruction technique
--- NOTE | 2017-04-03 11:13 | PHYS DOC ---
Past Medical History Past Medical History: CHF, COPD, High Cholesterol, Heart Disease, Hypertension , Stroke Past Surgical History: No Surgical History Alcohol Use: None Drug Use: None Adult General Chief Complaint Chief Complaint: SEIZURE HPI HPI 66-year-old male presenting to the emergency department today after sustaining a seizure that was tonic-clonic in nature. It was there for approximately less than 1 minute. It was witnessed. He had a postictal period afterwards. He does not have a history of seizures. He denies any recent head injury or chronic drinking. He denies any drug use. After the patient arrived by ambulance the patient had a short period of seizure that was less than 30 seconds. He then returned to baseline and was feeling much better. He did not bite his tongue. ROS is negative for chest pain shortness of breath abdominal pain nausea vomiting fevers or chills. He denies neck stiffness confusion. All other review of systems is negative unless otherwise noted in history of present illness. ED course: 66-year-old gentleman presenting with a new onset seizure today in the emergency department. The patient was given oral Keppra after I discussed the case with Dr. Mello our neurologist. CT the head obtained along with blood work. EKG reviewed by myself shows sinus rhythm with a regular rate. [place] is mildly leftward. Intervals are within normal limits other than a mildly prolonged [place] interval. ST segments are congruent. Not suggestive of ACS. Dr. Mello recommends the patient be followed up in clinic with an outpatient MRI. The patient is feeling better now and is agreeable with plan. The patient was instructed not to drive. I prescribed him oral Keppra to be taken until he sees Dr. Mello tomorrow in clinic. Review of Systems Review of Systems SEE ABOVE. Current Medications Current Medications Current Medications Medications (Trade) Dose Ordered Sig/Mitul Start Time Stop Time Status Last Admin Dose Admin Levetiracetam (Keppra) 500 mg 1X ONCE 04/03/17 10:30 04/03/17 10:33 DC 04/03/17 11:05 500 MG Sodium Chloride (Normal Saline Flush) 10 ml QSHIFT PRN 04/03/17 10:30 Allergies Allergies Allergies Coded Allergies Type Severity Reaction Last Updated Verified Ewkincm-Igp-Veq Reductase Inhibitor Allergy Intermediate 04/03/17 Yes erythromycin base Allergy Intermediate 04/03/17 Yes iodine Allergy Intermediate 04/03/17 Yes niacin Allergy Intermediate 04/03/17 Yes simvastatin Allergy Intermediate 04/03/17 Yes Physical Exam Physical Exam SEE ABOVE Constitutional: Well developed, well nourished, no acute distress, non-toxic appearance. [] HENT: Normocephalic, atraumatic, bilateral external ears normal, oropharynx moist, no oral exudates, nose normal. [] Eyes: PERRLA, EOMI, conjunctiva normal, no discharge. [] Neck: Normal range of motion, no tenderness, supple, no stridor. [] Cardiovascular:Heart rate regular rhythm, no murmur [] Lungs & Thorax: Bilateral breath sounds clear to auscultation [] Abdomen: Bowel sounds normal, soft, no tenderness, no masses, no pulsatile masses. [] Skin: Warm, dry, no erythema, no rash. [] Back: No tenderness, no CVA tenderness. [] Extremities: No tenderness, no cyanosis, no clubbing, ROM intact, no edema. [] Neurologic: Mental status: Awake oriented and alert x3 Cranial nerves: Extraocular movements intact, eyebrows herbie bilaterally smile symmetric, uvula elevation, shoulder shrug intact, tongue protrusion normal DTRs: 2+ Sensation: equal and normal in all extremities Strength: 5/5 in upper and lower extremities bilaterally Psychologic: Affect normal, judgement normal, mood normal. [] Current Patient Data Vital Signs Vital Signs Date Time Temp Pulse Resp B/P (MAP) Pulse Ox O2 Delivery O2 Flow Rate FiO2 04/03/17 10:27 98.3 94 16 197/93 (127) 96 Nasal Cannula 3.0 98.3 Lab Values Laboratory Tests Test 04/03/17 10:16 04/03/17 10:31 04/03/17 11:35 White Blood Count 9.8 x10^3/uL (4.0-11.0) Red Blood Count 4.41 x10^6/uL (4.30-5.70) Hemoglobin 13.7 g/dL (13.0-17.5) Hematocrit 39.7 % (39.0-53.0) Mean Corpuscular Volume 90 fL (79-100) Mean Corpuscular Hemoglobin 31 pg (25-35) Mean Corpuscular Hemoglobin Concent 35 g/dL (31-37) Red Cell Distribution Width 12.6 % (11.5-14.5) Platelet Count 232 x10^3/uL (140-400) Neutrophils (%) (Auto) 59 % (31-73) Lymphocytes (%) (Auto) 30 % (24-48) Monocytes (%) (Auto) 8 % (0-9) Eosinophils (%) (Auto) 3 % (0-3) Basophils (%) (Auto) 1 % (0-3) Neutrophils # (Auto) 5.7 x10^3uL (1.8-7.7) Lymphocytes # (Auto) 2.9 x10^3/uL (1.0-4.8) Monocytes # (Auto) 0.8 x10^3/uL (0.0-1.1) Eosinophils # (Auto) 0.3 x10^3/uL (0.0-0.7) Basophils # (Auto) 0.1 x10^3/uL (0.0-0.2) Prothrombin Time 12.8 SEC (11.7-14.0) Prothrombin Time INR 1.0 (0.8-1.1) PTT 27 SEC (24-38) Sodium Level 134 mmol/L (136-145) L Potassium Level 3.9 mmol/L (3.5-5.1) Chloride Level 95 mmol/L (98-107) L Carbon Dioxide Level 33 mmol/L (21-32) H Anion Gap 6 (6-14) Blood Urea Nitrogen 20 mg/dL (8-26) Creatinine 1.2 mg/dL (0.7-1.3) Estimated GFR (Cockcroft-Gault) 60.8 Glucose Level 421 mg/dL (70-99) H Calcium Level 8.5 mg/dL (8.5-10.1) Magnesium Level 1.8 mg/dL (1.8-2.4) Total Bilirubin 0.6 mg/dL (0.2-1.0) Direct Bilirubin 0.2 mg/dL (0.0-0.2) Aspartate Amino Transferase (AST) 10 U/L (15-37) L Alanine Aminotransferase (ALT) 22 U/L (16-63) Alkaline Phosphatase 97 U/L (46-116) Ammonia 11 mcmol/L (11-34) Total Protein 7.4 g/dL (6.4-8.2) Albumin 3.4 g/dL (3.4-5.0) Lactic Acid Level 1.8 mmol/L (0.4-2.0) Urine Opiates Screen Neg (NEG) Urine Methadone Screen Neg (NEG) Urine Barbiturates Neg (NEG) Urine Phencyclidine Screen Neg (NEG) Urine Amphetamine/Methamphetamine Neg (NEG) Urine Benzodiazepines Screen Neg (NEG) Urine Cocaine Screen Neg (NEG) Urine Cannabinoids Screen Neg (NEG) Urine Ethyl Alcohol Neg (NEG) Laboratory Tests 04/03/17 10:16 Laboratory Tests 04/03/17 10:16 EKG EKG [] Radiology/Procedures Radiology/Procedures [] Course & Med Decision Making Course & Med Decision Making Pertinent Labs and Imaging studies reviewed. (See chart for details) [] Dragon Disclaimer Dragon Disclaimer This electronic medical record was generated, in whole or in part, using a voice recognition dictation system. Departure Departure Impression: Primary Impression: Seizure Disposition: HOME, SELF-CARE Condition: STABLE Referrals: UNKNOWN PCP NAME (PCP) MONICA AUSTIN MD Patient Instructions: Seizure, Adult Additional Instructions: Thank you for allowing us to participate in your care today. Do not drive for at least 6 months or until cleared by a physician because of the seizure you had today. Followup with Dr. Mello our neurologist tomorrow or the next day. You will need an MRI of the brain in the next 1-2 days. Call your Primary Doctor tomorrow and inform them of your visit today. If you do not have a primary care provider you can ask for a list of our primary care providers. Return to the emergency department you have any new or concerning findings. This should be evaluated by the primary care physician and any necessary consulting services for continued management within a few days after discharge. Return to emergency room if you have any new or concerning symptoms including but not limited to fever, chills, nausea, vomiting, intractable pain, any new rashes, chest pain, shortness of air, uncontrolled bleeding, difficulty breathing, and/or vision loss. Scripts Levetiracetam (KEPPRA) 500 Mg Tablet 1 TAB PO BID, #14 TAB 0 Refills Prov: GALINDO DIANE MD 04/03/17 GALINDO DIANE MD Apr 03, 2017 11:13
[2017-04-03] MEDS ORDERED: LEVE500T56 PO (11:17)
[2017-04-03 11:54] LABS: BARBITURATES NEG (NEG); BENZODIAZEPINES NEG (NEG); CANNABINOIDS NEG (NEG); COCAINE NEG (NEG); METHADONE NEG (NEG); OPIATES NEG (NEG); PHENCYCLIDINE NEG (NEG)
[2017-04-03] MEDS ORDERED: ACETAMINOPHEN 325 MG TABLET. PO ONE (12:30)
[2017-04-03 12:49] VITALS: BP 167/93
[2017-04-04] MEDS ORDERED: CLOP75TA PO (21:50)
[2017-04-04] MEDS ORDERED: DOXY100T PO (21:50)
[2017-04-04] MEDS ORDERED: AMLO10TA2 PO (21:50)
[2017-04-04] MEDS ORDERED: INSU100I17 SQ ×2 (21:50)
[2017-04-04] MEDS ORDERED: MULT-208 PO (21:50)
[2017-04-04] MEDS ORDERED: DOCU-109 PO (21:50)
[2017-04-04] MEDS ORDERED: HYDR-971 PO (21:50)
[2017-04-04] MEDS ORDERED: BENZ100C15 PO (21:50)
[2017-04-04] MEDS ORDERED: POTA20TA82 PO (21:50)
[2017-04-04] MEDS ORDERED: FURO40TA4 PO (21:50)
[2017-04-04] MEDS ORDERED: PANT40TA5 PO (21:50)
[2017-04-04] MEDS ORDERED: TRIA15CR3 TP (21:50)
[2017-04-04] MEDS ORDERED: POLY255P PO (21:50)
[2017-04-04] MEDS ORDERED: LEVO500T8 PO (21:50)
[2017-04-04] MEDS ORDERED: ACET325T9 PO (21:50)
[2017-04-04] MEDS ORDERED: METH-37 PO (21:50)
[2017-04-04] MEDS ORDERED: MAGN200T PO (21:50)
== END 2017-04-03 12:57 | disposition home or self-care (01) ==
LOC: ER 10:04
DX: R56.9 Unspecified convulsions (principal); I11.0 Hypertensive heart disease with heart failure; I50.9 Heart failure, unspecified; J44.9 Chronic obstructive pulmonary disease, unspecified; E78.00 Pure hypercholesterolemia, unspecified; Z86.73 Personal history of transient ischemic attack (TIA), and cerebral infarction without residual deficits; Z88.1 Allergy status to other antibiotic agents; Z88.8 Allergy status to other drugs, medicaments and biological substances
CPT/HCPCS: 36415; 70450; 80048; 80076; 80307; 82140; 83605; 83735; 85027; 85610; 85730; 93005; 99285-25; G0479

== ENCOUNTER 2017-04-04 18:02 | Inpatient (IN) | payer MEDICARE, OTHER ==
[~2017-04-04] VITALS: Ht 182.9 cm; Wt 158.9 kg
[~2017-04-04 18:02] MED LIST changes: +LEVE500T56 PO
[2017-04-04 19:08] LABS: BASO # 0.1 x10^3/uL (0.0-0.2); BASO % 1 % (0-3); EOS % 3 % (0-3); HEMATOCRIT 37.5 % (39.0-53.0); LYMPH % 32 % (24-48); MEAN CORPUSCULAR HEMOGLOBIN 31 pg (25-35); MEAN CORPUSCULAR HGB CONC 35 g/dL (31-37); MEAN CORPUSCULAR VOLUME 90 fL (79-100); MONO % 8 % (0-9); NEUT % 56 % (31-73); PLATELET COUNT 229 x10^3/uL (140-400); RED BLOOD COUNT 4.15 x10^6/uL (4.30-5.70); RED CELL DISTRIBUTION WIDTH 12.8 % (11.5-14.5); WHITE BLOOD COUNT 9.4 x10^3/uL (4.0-11.0)
[2017-04-04 19:28] LABS: CALCIUM 8.7 mg/dL (8.5-10.1); CREATININE 1.1 mg/dL (0.7-1.3); GFR 67.2; POTASSIUM 4.4 mmol/L (3.5-5.1)
[2017-04-04 19:31] LABS: ALBUMIN 3.4 g/dL (3.4-5.0); TOTAL BILIRUBIN 0.3 mg/dL (0.2-1.0); TOTAL PROTEIN 6.7 g/dL (6.4-8.2)
[2017-04-04] MEDS ORDERED: fentaNYL PF VIAL 100 MCG/2 ML VIAL IV PRN (20:15)
[2017-04-04] MEDS ORDERED: DEXTROSE 50% 25 GM / 50ML DISP.SYRIN. IV PRN (20:15)
[2017-04-04] MEDS ORDERED: IV NORMAL SALINE 500ML BAG 500 ML IV ONE (20:15)
[2017-04-04] MEDS ORDERED: ACETAMINOPHEN 325 MG TABLET. PO PRN (20:15)
[2017-04-04] MEDS ORDERED: cloNIDine HCL 0.1 MG TABLET PO PRN (20:15)
[2017-04-04] MEDS ORDERED: ONDANSETRON PF 4 MG/2 ML VIAL. IV PRN (20:15)
[2017-04-04] MEDS ORDERED: INSULIN REGULAR 100 UNIT/ML 10ML VIAL. SQ ONE (20:15)
[2017-04-04 21:15] VITALS: BP 154/85
[2017-04-04] MEDS ORDERED: MULT-208 PO (21:50)
[2017-04-04] MEDS ORDERED: ACET325T9 PO (21:50)
[2017-04-04] MEDS ORDERED: HYDR-971 PO (21:50)
[2017-04-04] MEDS ORDERED: POTA20TA82 PO (21:50)
[2017-04-04] MEDS ORDERED: BENZ100C15 PO (21:50)
[2017-04-04] MEDS ORDERED: AMLO10TA2 PO (21:50)
[2017-04-04] MEDS ORDERED: MAGN200T PO (21:50)
[2017-04-04] MEDS ORDERED: DOXY100T PO (21:50)
[2017-04-04] MEDS ORDERED: CLOP75TA PO (21:50)
[2017-04-04] MEDS ORDERED: PANT40TA5 PO (21:50)
[2017-04-04] MEDS ORDERED: INSU100I17 SQ ×2 (21:50)
[2017-04-04] MEDS ORDERED: LEVO500T8 PO (21:50)
[2017-04-04] MEDS ORDERED: TRIA15CR3 TP (21:50)
[2017-04-04] MEDS ORDERED: METH-37 PO (21:50)
[2017-04-04] MEDS ORDERED: DOCU-109 PO (21:50)
[2017-04-04] MEDS ORDERED: FURO40TA4 PO (21:50)
[2017-04-04] MEDS ORDERED: POLY255P PO (21:50)
[2017-04-04 23:15] VITALS: BP 152/72
--- NOTE | 2017-04-05 00:17 | PHYS DOC ---
Past Medical History Past Medical History: CHF, COPD, High Cholesterol, Heart Disease, Hypertension , Seizure, Stroke Past Surgical History: No Surgical History Alcohol Use: None Drug Use: None Adult General Chief Complaint Chief Complaint: SEIZURE HPI HPI Patient is a 66 year old male who presents with possible seizure activity. Patient presents after family witnessed 2 episodes of decreased level of consciousness associated with fluttering eyelids. Episodes were brief followed by extreme fatigue and confusion. Patient feels back to baseline at time of my exam. He denies headache, vision changes, extremity numbness or weakness. Denies tongue biting, bowel or bladder incontinence. Denies fall or injury during these episodes. Denies chest pain, palpitations, shortness of breath. Seen here yesterday after first time generalized tonic-clonic seizure, after emergency department workup was discharged home on Keppra 500 mg twice a day. He was instructed to follow-up in the neurology clinic and to undergo outpatient MRI. He has history of CVA in 2015. [facility] Review of Systems Review of Systems Constitutional: Denies fever or chills Eyes: Denies change in visual acuity HENT: Denies nasal congestion or sore throat Respiratory: Denies cough or shortness of breath Cardiovascular: Denies chest pain or edema GI: Denies abdominal pain, nausea, vomiting, or diarrhea Musculoskeletal: Denies back pain or joint pain Integument: Denies rash or skin lesions Neurologic: Reports possible seizure Denies headache, focal weakness or sensory changes Allergies Allergies Allergies Coded Allergies Type Severity Reaction Last Updated Verified Rakucnw-Mvq-Hae Reductase Inhibitor Allergy Intermediate 04/03/17 Yes erythromycin base Allergy Intermediate 04/03/17 Yes iodine Allergy Intermediate 04/03/17 Yes niacin Allergy Intermediate 04/03/17 Yes simvastatin Allergy Intermediate 04/03/17 Yes Physical Exam Physical Exam Constitutional: Obese, no acute distress, non-toxic appearance. HENT: Normocephalic, atraumatic, bilateral external ears normal, oropharynx moist, nose normal. Eyes: PERRLA, EOMI, conjunctiva normal, no discharge. Neck: supple, no stridor. No meningismus Cardiovascular: RRR, no murmurs, no edema. Lungs & Thorax: LCTAB, no wheezing, no respiratory distress. Abdomen: soft, nontender, nondistended. Skin: Warm, dry, no erythema, no rash. Back: No tenderness. Extremities: No tenderness, no edema. Neurologic: Alert and oriented X 3, cranial nerves II through XII grossly intact , symmetric strength and sensation upper and lower extremities, no focal deficits noted. Psychologic: Affect normal, judgement normal, mood normal. Current Patient Data Vital Signs Vital Signs Date Time Temp Pulse Resp B/P (MAP) Pulse Ox O2 Delivery O2 Flow Rate FiO2 04/04/17 20:00 92 18 185/82 (116) 98 Nasal Cannula 2.0 04/04/17 18:02 98.4 98.4 Lab Values Laboratory Tests Test 04/04/17 18:20 04/04/17 19:00 White Blood Count 9.4 x10^3/uL (4.0-11.0) Red Blood Count 4.15 x10^6/uL (4.30-5.70) L Hemoglobin 13.0 g/dL (13.0-17.5) Hematocrit 37.5 % (39.0-53.0) L Mean Corpuscular Volume 90 fL (79-100) Mean Corpuscular Hemoglobin 31 pg (25-35) Mean Corpuscular Hemoglobin Concent 35 g/dL (31-37) Red Cell Distribution Width 12.8 % (11.5-14.5) Platelet Count 229 x10^3/uL (140-400) Neutrophils (%) (Auto) 56 % (31-73) Lymphocytes (%) (Auto) 32 % (24-48) Monocytes (%) (Auto) 8 % (0-9) Eosinophils (%) (Auto) 3 % (0-3) Basophils (%) (Auto) 1 % (0-3) Neutrophils # (Auto) 5.2 x10^3uL (1.8-7.7) Lymphocytes # (Auto) 3.0 x10^3/uL (1.0-4.8) Monocytes # (Auto) 0.8 x10^3/uL (0.0-1.1) Eosinophils # (Auto) 0.3 x10^3/uL (0.0-0.7) Basophils # (Auto) 0.1 x10^3/uL (0.0-0.2) Sodium Level 133 mmol/L (136-145) L Potassium Level 4.4 mmol/L (3.5-5.1) Chloride Level 95 mmol/L (98-107) L Carbon Dioxide Level 35 mmol/L (21-32) H Anion Gap 3 (6-14) L Blood Urea Nitrogen 18 mg/dL (8-26) Creatinine 1.1 mg/dL (0.7-1.3) Estimated GFR (Cockcroft-Gault) 67.2 BUN/Creatinine Ratio 16 (6-20) Glucose Level 500 mg/dL (70-99) *H Calcium Level 8.7 mg/dL (8.5-10.1) Total Bilirubin 0.3 mg/dL (0.2-1.0) Aspartate Amino Transferase (AST) 9 U/L (15-37) L Alanine Aminotransferase (ALT) 22 U/L (16-63) Alkaline Phosphatase 121 U/L (46-116) H Troponin I Quantitative < 0.017 ng/mL (0.000-0.055) Total Protein 6.7 g/dL (6.4-8.2) Albumin 3.4 g/dL (3.4-5.0) Albumin/Globulin Ratio 1.0 (1.0-1.7) Ethyl Alcohol Level < 10 mg/dL (0-10) Lactic Acid Level 1.3 mmol/L (0.4-2.0) Laboratory Tests 04/04/17 18:20 Laboratory Tests 04/04/17 18:20 EKG EKG Interpreted by me: Normal sinus rhythm rate 93, no acute ST or T wave changes, Q waves in inferior leads as well as V1 through V4, normal intervals, no ectopy [] Radiology/Procedures Radiology/Procedures CXR, portable: interpreted by me: cardiomegaly, no infiltrate, no pneumothorax. Head CT from previous visit 04/03/2017 PROCEDURE: CT HEAD WO CONTRAST Indication seizure. Noncontrast images of the head were obtained. No prior imaging of the head is available. The calvarium appears unremarkable. The visualized paranasal sinuses appear normal. There is no subdural or epidural hematoma. There is no mass or midline shift. No hemorrhage is seen. No acute intracranial finding is apparent. IMPRESSION: No acute intracranial finding PQRS Compliance Statement: One or more of the following individualized dose reduction techniques were utilized for this examination: 1. Automated exposure control 2. Adjustment of the mA and/or kV according to patient size 3. Use of iterative reconstruction technique DICTATED and SIGNED BY: EMRE BRASHER MD DATE: 04/03/17 1102 [] Course & Med Decision Making Course & Med Decision Making Pertinent Labs and Imaging studies reviewed. (See chart for details) The patient presents with likely seizure episode although different from the episode that occurred yesterday. He is back to baseline at time of my evaluation , no seizure activity witnessed here. Obtained labs, EKG, chest x-ray. No acute abnormality identified. I did recommend admission to the hospital for further evaluation of seizure versus possibly syncope. Patient agrees with plan of care. Discussed with Dr. Vitale blocking machine operator second for neurology who recommends loading with Keppra 1000 mg IV, continue 500 mg IV twice a day thereafter. Glucose is elevated without DKA. This has been a recent trend for the patient. We'll give insulin and IV fluids, placed on sliding scale. Discussed with Dr. Sandoval who agrees to admit to inpatient status. The patient is being admitted in stable condition. [] Dragon Disclaimer Dragon Disclaimer This electronic medical record was generated, in whole or in part, using a voice recognition dictation system. Departure Departure Impression: Primary Impression: Seizure Additional Impression: Hyperglycemia Disposition: ADMITTED INPATIENT Admitting Physician: Jamie Sandoval Condition: STABLE Problem Qualifiers MARIA ELENA MENDEZ MD Apr 05, 2017 00:17
[2017-04-05 03:32] VITALS: BP 162/79
--- NOTE | 2017-04-05 04:37 | ACF ---
Admission Forms Criteria SEIZURE ( Place 'X' for any and all applicable criteria): Admission is indicated for seizure and 1 or more of the following (1)(2)(3)(4)( 5)(6) [X ]I. Inpatient admission required rather than observation care (Also use Seizure: Observation Care Criteria as appropriate) because of 1 or more of the following: [ ]1) Altered mental status that is severe or persistent [ ]2) New focal neurologic deficit that is severe or persistent [ ]3) Metabolic disorder (eg, hypoglycemia, hyponatremia) that is severe or persistent [X ]4) Recurrent seizure [ ]5) Outpatient antiseizure regimen cannot be established (eg , patient cannot tolerate medication, initiation requires inpatient care) [ ]6) Need for ongoing intravenous infusion of anti-seizure medication [ ]7) Cerebral bleeding, hydrocephalus, or vasospasm monitoring [ ]8) Increased intracranial pressure or cerebral edema monitoring [ ]9) Other conditions, treatment or monitoring requiring inpatient admission [ ]II. Status epilepticus [A] or repetitive seizures not controlled with emergent treatment (6)(8) [ ]III. Brain disorder (eg, tumor, edema, and hydrocephalus) that requiring monitoring or intervention available only at inpatient level of care. [ ]IV. Brain insult (eg, severe trauma, stroke, drug toxicity, or withdrawal) that requires monitoring or intervention available only at inpatient level of care (10)(11) [ ]V. Cardiac arrhythmias of immediate concern Extended stay beyond goal length of stay may be needed for (22) [ ]a) Complications of status epilepticus [ ]b) Refractory status epilepticus [ ]c) Etiology-specific therapy for conditions such as CHAIR PAD MAKER infection, head injury,eclampsia, severe metabolic abnormalities, and brain tumor [ ]d) Residual neurologic damage, [ ]e) Initiation of significant change to anticonvulsant treatment [ ]f) Older patients (65 years or older) [ ]g) Patient requiring intubation (eg, to protect airway) The original [employer] content created by [employer] has been revised. The portions of the content which have been revised are identified through the use of italic text, and [facility] has neither reviewed nor approved the modified material. All other unmodified content is copyright [employer] [employer]. Please see references footnoted in the original [email or web address] [employer] edition 2015 Admission Criteria Met?: Yes AVULA,PARIMALA Apr 05, 2017 04:37
[2017-04-05 05:31] LABS: BASO # 0.1 x10^3/uL (0.0-0.2); BASO % 1 % (0-3); EOS % 4 % (0-3); HEMATOCRIT 35.4 % (39.0-53.0); HEMOGLOBIN 12.7 g/dL (13.0-17.5); LYMPH # 2.7 x10^3/uL (1.0-4.8); LYMPH % 32 % (24-48); MEAN CORPUSCULAR HEMOGLOBIN 32 pg (25-35); MEAN CORPUSCULAR HGB CONC 36 g/dL (31-37); MEAN CORPUSCULAR VOLUME 89 fL (79-100); MONO % 8 % (0-9); NEUT % 55 % (31-73); PLATELET COUNT 209 x10^3/uL (140-400); RED BLOOD COUNT 3.99 x10^6/uL (4.30-5.70); WHITE BLOOD COUNT 8.6 x10^3/uL (4.0-11.0)
[2017-04-05 05:58] LABS: CALCIUM 8.5 mg/dL (8.5-10.1); POTASSIUM 3.9 mmol/L (3.5-5.1)
[2017-04-05 07:46] VITALS: BP 155/78
[2017-04-05 07:47] LABS: BILIRUBIN,URINE NEGATIVE (NEG); GLUCOSE,URINE >=1000 mg/dL (NEG); NITRITE,URINE NEGATIVE (NEG); PROTEIN,URINE 30 mg/dL (NEG-TRACE); UROBILINOGEN,URINE 0.2 mg/dL (0.2 mg/dL)
[2017-04-05 07:56] LABS: SQUAMOUS EPITHELIAL CELL,UR FEW /LPF
[2017-04-05 07:58] LABS: BACTERIA,URINE 0 /HPF (0-FEW); WBC,URINE OCC /HPF (0-4)
[2017-04-05] MEDS ORDERED: INSULIN ASPART 300 UNITS/3 ML INSULN.PEN SQ SCH ×2 (08:00→17:00)
[2017-04-05 08:03] LABS: BARBITURATES NEG (NEG); BENZODIAZEPINES NEG (NEG); CANNABINOIDS NEG (NEG); COCAINE NEG (NEG); METHADONE NEG (NEG); OPIATES NEG (NEG); PHENCYCLIDINE NEG (NEG)
[2017-04-05] MEDS ORDERED: ONDANSETRON PF 4 MG/2 ML VIAL. IV PRN (09:44)
[2017-04-05] MEDS ORDERED: ACETAMINOPHEN/CODEINE 300/30MG TABLET. PO PRN (09:45)
[2017-04-05] MEDS ORDERED: TRIAMCINOLONE ACETONIDE 0.1% TOPICAL CREAM 15GM TUBE. TP PRN (09:45)
[2017-04-05] MEDS ORDERED: NON FORMULARY ITEM (Albuterol Sulfate (Proair Hfa Inhaler) 1 PUFF) INH PRN (09:45)
[2017-04-05] MEDS ORDERED: traZODone 50 MG TABLET. PO PRN (09:45)
[2017-04-05] MEDS ORDERED: cloNIDine HCL 0.2 MG TABLET PO PRN (09:45)
[2017-04-05] MEDS ORDERED: HYDROcodone/APAP 5/325MG 1 TAB TABLET PO PRN (09:45)
[2017-04-05] MEDS ORDERED: METHOCARBAMOL 500 MG TABLET PO PRN (09:45)
[2017-04-05] MEDS: DOCUSATE SODIUM 100 MG CAPSULE. PO SCH ×2 (10:00→20:56)
[2017-04-05] MEDS ORDERED: ALBUTEROL SULFATE 2.5 MG/3 ML NEBU. NEB PRN (10:15)
[2017-04-05] MEDS: MAGNESIUM OXIDE 400 MG TABLET PO SCH (10:30)
[2017-04-05] MEDS: LOSARTAN POTASSIUM 50 MG TABLET. PO SCH (10:54)
[2017-04-05] MEDS: POLYETHYLENE GLYCOL 3350 17 GM PACKET. PO SCH ×2 (10:54→11:00)
[2017-04-05] MEDS: POTASSIUM CHLORIDE 20 MEQ TABLET.ER. PO SCH (10:54)
[2017-04-05] MEDS: FUROSEMIDE 40 MG TABLET. PO SCH (10:54)
[2017-04-05] MEDS: PANTOPRAZOLE 40 MG TABLET.DR. PO SCH (10:55)
[2017-04-05] MEDS: BENZONATATE 100 MG CAPSULE. PO SCH (10:55)
[2017-04-05] MEDS: MELOXICAM 7.5 MG TABLET PO SCH (10:55)
[2017-04-05] MEDS: ASPIRIN ENTERIC COATED 81 MG TABLET.DR. PO SCH (10:55)
[2017-04-05] MEDS: CLOPIDOGREL BISULFATE 75 MG TABLET PO SCH (10:55)
[2017-04-05] MEDS: CARVEDILOL 12.5 MG TABLET. PO SCH ×2 (10:55→17:22)
[2017-04-05] MEDS: MULTIVITAMIN with MINERAL TABLET. PO SCH (10:56)
[2017-04-05 11:10] VITALS: BP 152/71
--- NOTE | 2017-04-05 11:18 | RAD ---
AP portable chest radiograph 04/04/2017 Clinical History: Bilateral leg swelling and shortness of breath. Two AP portable erect digital radiographs of the chest were obtained. Comparison study is dated 03/16/2017. The cardiac silhouette is mild to moderately enlarged. The thoracic aorta is mildly tortuous. No acute pulmonary infiltrate is seen. No pleural effusion or pneumothorax is noted. Degenerative changes are seen involving the thoracic spine and both shoulders. Impression: No acute abnormality is seen.
[2017-04-05] MEDS: ALBUTEROL SULFATE 2.5 MG/3 ML NEBU. NEB SCH ×3 (11:48→20:07)
[2017-04-05] MEDS: BUDESONIDE 0.5 MG/2 ML NEBU. NEB SCH ×2 (11:48→20:07)
[2017-04-05] MEDS: INSULIN ASPART 300 UNITS/3 ML INSULN.PEN SQ SCH (12:09)
[2017-04-05] MEDS: ACETAMINOPHEN 325 MG TABLET. PO SCH ×3 (13:00→20:57)
[2017-04-05] MEDS ORDERED: IV NORMAL SALINE 500ML BAG 500 ML IV ONE (13:30)
[2017-04-05 14:23] VITALS: BP 132/64
[2017-04-05] MEDS: GABAPENTIN 300 MG CAPSULE. PO SCH ×2 (14:34→20:57)
--- NOTE | 2017-04-05 14:43 | EKG ---
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
[2017-04-05] MEDS ORDERED: VALPROIC ACID IV STA (15:28)
[2017-04-05] MEDS ORDERED: NORMAL SALINE IV STA (15:28)
--- NOTE | 2017-04-05 15:41 | PDOC1 ---
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 HE did it again few mins ago, total LOC but no GTC, lasted mins, DTtr at [facility], neuro. 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, Rt residual Past Medical History Cardiovascular: Other Pulmonary: COPD, Other CENTRAL NERVOUS SYSTEM: CVA, Dementia GI: Other Heme/Onc: No pertinent hx Hepatobiliary: No pertinent hx Psych: No pertinent hx Musculoskeletal: Osteoarthritis, Other Rheumatologic: No pertinent hx Infectious disease: No pertinent hx Renal/: No pertinent hx Endocrine: Diabetes Past Surgical History Past Surgical History: Appendectomy, Hernia Repair, Tonsillectomy, Other Family History Family History: Heart Disease Social History Smoke: No ALCOHOL: none Drugs: None Current Problem List Problem List Problems Medical Problems: (1) Hyperglycemia Status: Acute (2) Seizure Status: Acute Problems: Current Medications Current Medications Current Medications Ondansetron HCl (Zofran) 4 mg PRN Q8HRS PRN IV NAUSEA/VOMITING; Start 04/04/17 at 20:15; Stop 04/05/17 at 09:47; Status DC Fentanyl Citrate (Fentanyl 2ml Vial) 50 mcg PRN Q2HR PRN IV PAIN; Start at 20:15; Stop 04/05/17 at 20:14 Acetaminophen (Tylenol) 650 mg PRN Q4HRS PRN PO FEVER; Start 04/04/17 at 20:15 ; Stop 04/05/17 at 20:14 Insulin Aspart (NovoLOG) 0-7 UNITS TIDWMEALS SQ Last administered on 04/05/17t 08:33; Start 04/05/17 at 08:00; Stop 04/05/17 at 09:47; Status DC Dextrose (Dextrose 50%-Water Syringe) 12.5 gm PRN Q15MIN PRN IV SEE COMMENTS; Start 04/04/17 at 20:15 Levetiracetam 500 mg/Sodium Chloride 100 ml @ 400 mls/hr Q12HR IV Last administered on 04/05/17 08:25; Start 04/05/17 at 09:00 Levetiracetam 1000 mg/Sodium Chloride 110 ml @ 440 mls/hr 1X ONCE IV Last administered on 04/04/17 20:25; Start 04/04/17 at 20:30; Stop 04/04/17 at 20:44 ; Status DC Sodium Chloride 500 ml @ 0 mls/hr 1X ONCE IV Last administered on 04/04/17 20 :25; Start 04/04/17 at 20:15; Stop 04/05/17 at 13:35; Status DC Clonidine HCl (Catapres) 0.1 mg PRN Q1HR PRN PO HYPERTENSION, SEE COMMENTS Last administered on 04/04/17 20:26; Start 04/04/17 at 20:15; Stop 04/05/17 at 14:01; Status DC Insulin Human Regular (NovoLIN R VIAL) 10 unit 1X ONCE SQ Last administered on 04/04/17 20:24; Start 04/04/17 at 20:15; Stop 04/04/17 at 20:16; Status DC Ondansetron HCl (Zofran) 4 mg PRN Q6HRS PRN IV NAUSEA/VOMITING; Start 04/05/17 at 09:44; Stop 04/06/17 at 09:43 Lorazepam (Ativan) 2 mg PRN Q4HRS PRN IV ANXIETY / AGITATION Last administered on 04/05/17 15:30; Start 04/05/17 at 09:45 Acetaminophen (Tylenol) 650 mg QID PO ; Start 04/05/17 at 13:00 Acetaminophen/ Codeine Phosphate (Tylenol #3) 1 tab PRN Q6HRS PRN PO PAIN; Start 04/05/17 at 09:45 Amlodipine Besylate (Norvasc) 10 mg HS PO ; Start 04/05/17 at 21:00 Aspirin (Ecotrin) 81 mg DAILY PO Last administered on 04/05/17 10:55; Start at 10:30 Benzonatate (Tessalon Perle) 100 mg DAILY PO Last administered on 04/05/17 10: 55; Start 04/05/17 at 10:30 Clonidine HCl (Catapres) 0.2 mg PRN TID PRN PO HTN; Start 04/05/17 at 09:45 Clopidogrel Bisulfate (Plavix) 75 mg DAILY PO Last administered on 04/05/17 10 :55; Start 04/05/17 at 10:30 Diphenhydramine HCl (Benadryl) 25 mg QHS PO ; Start 04/05/17 at 21:00 Docusate Sodium (Colace) 100 mg BID PO ; Start 04/05/17 at 10:00 Furosemide (Lasix) 40 mg DAILY PO Last administered on 04/05/17 10:54; Start 04/05/17 at 10:00 Acetaminophen/ Hydrocodone Bitart (Lortab 5/325) 1 tab PRN Q8HRS PRN PO PAIN; Start 04/05/17 at 09:45 Insulin Aspart (NovoLOG) 18 units DAILYAC SQ Last administered on 04/05/17 12: 09; Start 04/05/17 at 10:00 Insulin Aspart (NovoLOG) 24 units DAILYBFRSUP SQ ; Start 04/05/17 at 17:00 Meloxicam (Mobic) 7.5 mg DAILY PO Last administered on 04/05/17 10:55; Start 04/05/17 at 10:00 Metformin HCl (Glucophage) 1,000 mg BIDWMEALS PO Last administered on 10:53; Start 04/05/17 at 10:00 Methocarbamol (Robaxin) 500 mg PRN QID PRN PO MUSCLE SPASMS; Start 04/05/17 at 09:45 Pantoprazole Sodium (Protonix) 40 mg DAILYAC PO Last administered on 04/05/17 10:55; Start 04/05/17 at 10:00 Polyethylene Glycol (miraLAX PACKET) 17 gm DAILY PO ; Start 04/05/17 at 11:00 Trazodone HCl (Desyrel) 50 mg PRN QHS PRN PO INSOMNIA; Start 04/05/17 at 09:45 Triamcinolone Acetonide (Kenalog) 1 uma PRN TID PRN TP RASH; Start 04/05/17 at 09:45 Non-Formulary Medication 1 puff PRN Q4HRS PRN INH SHORTNESS OF BREATH; Start at 09:45; Status UNV Non-Formulary Medication 2 puff BID IH ; Start 04/05/17 at 21:00; Status UNV Carvedilol (Coreg) 25 mg BIDWMEALS PO Last administered on 04/05/17 10:55; Start 04/05/17 at 10:30 Gabapentin (Neurontin) 300 mg TID PO Last administered on 04/05/17 14:34; Start 04/05/17 at 14:00 Insulin Detemir (Levemir) 75 units QHS SQ ; Start 04/05/17 at 21:00 Losartan Potassium (Cozaar) 100 mg DAILY PO Last administered on 04/05/17 10: 54; Start 04/05/17 at 10:30 Magnesium Oxide (Magnesium Oxide) 400 mg DAILY PO Last administered on 10:30; Start 04/05/17 at 10:30 Multivitamins (Thera M Plus) 1 tab DAILY PO Last administered on 04/05/17 10: 56; Start 04/05/17 at 10:30 Potassium Chloride (Klor-Con) 20 meq DAILYWBKFT PO Last administered on 10:54; Start 04/05/17 at 10:30 Albuterol Sulfate (Ventolin Neb Soln) 2.5 mg RTQID NEB Last administered on 11:48; Start 04/05/17 at 12:00 Albuterol Sulfate (Ventolin Neb Soln) 2.5 mg PRN Q4HRS PRN NEB SHORTNESS OF BREATH; Start 04/05/17 at 10:15 Budesonide (Pulmicort) 0.5 mg RTBID NEB Last administered on 04/05/17 11:48; Start 04/05/17 at 10:30 Sodium Chloride 500 ml @ 500 mls/hr 1X ONCE IV ; Start 04/05/17 at 13:30; Stop 04/05/17 at 14:29; Status DC Valproic Acid 1000 mg/Sodium Chloride 60 ml @ 55 mls/hr 1X STAT IV ; Start at 15:28; Stop 04/05/17 at 16:33 Valproic Acid 500 mg/Sodium Chloride 55 ml @ 55 mls/hr Q12HR IV ; Start at 21:00 Active Scripts Active Keppra (Levetiracetam) 500 Mg Tablet 1 Tab PO BID Reported Triamcinolone Acetonide 0.1% Cream (Triamcinolone Acetonide) 15 Gm Cream..g. 1 Uma TP PRN TID PRN Magnesium 200 Mg Tablet 400 Mg PO DAILY Potassium Chloride 20 Meq Tablet.er 20 Meq PO DAILY Polyethylene Glycol 3350 255 Gm Powder 17 Gm PO DAILY Pantoprazole Sodium 40 Mg Tablet.dr 40 Mg PO DAILY Multi-Day Vitamins (Multivitamin) 1 Each Tablet 1 Tab PO DAILY Robaxin (Methocarbamol) 500 Mg Tablet 500 Mg PO PRN QID PRN Levofloxacin 500 Mg Tablet 500 Mg PO DAILY Novolog Flexpen (Insulin Aspart) 100 Unit/1 Ml Insuln.pen 24 Unit SQ DAILYBFRSUP Novolog Flexpen (Insulin Aspart) 100 Unit/1 Ml Insuln.pen 18 Unit SQ DAILYAC [place] 5-325 Tablet (Acetaminophen/Hydrocodone Bitart) 1 Each Tablet 1-2 Tab PO PRN Q8HRS PRN Furosemide 40 Mg Tablet 1 Tab PO DAILY Doxycycline Hyclate 100 Mg Tablet 100 Mg PO BID Colace (Docusate Sodium) 100 Mg Capsule 1 Cap PO BID Clopidogrel (Clopidogrel Bisulfate) 75 Mg Tablet 75 Mg PO DAILY Benzonatate 100 Mg Capsule 1 Cap PO DAILY Amlodipine Besylate 10 Mg Tablet 10 Mg PO HS Tylenol (Acetaminophen) 325 Mg Tablet 650 Mg PO QID Trazodone Hcl 50 Mg Tablet 50 Mg PO PRN QHS PRN Carvedilol 25 Mg Tablet 25 Mg PO BIDWMEALS Acetaminophen-Cod #3 Tablet (Acetaminophen/Codeine Phosphate) 1 Each Tablet 1 Tab PO PRN Q6HRS PRN Losartan Potassium 100 Mg Tablet 100 Mg PO DAILY Benadryl (Diphenhydramine Hcl) 25 Mg Capsule 1 Cap PO QHS Meloxicam 7.5 Mg Tablet 7.5 Mg PO DAILY Gabapentin 300 Mg Capsule 300 Mg PO TID Metformin Hcl 1,000 Mg Tablet 1,000 Mg PO BIDWMEALS Lantus Solostar (Insulin Glargine,Hum.rec.anlog) 100 Unit/1 Ml Insuln.pen 75 Unit SQ HS Proair Hfa Inhaler (Albuterol Sulfate) 8.5 Gm Hfa.aer.ad 1 Puff INH PRN Q4HRS PRN Symbicort 160-4.5 Mcg Inhaler (Budesonide/Formoterol Fumarate) 10.2 Gm Hfa.aer.ad 2 Puff IH BID Clonidine Hcl 0.2 Mg Tablet 0.2 Mg PO PRN TID PRN if sbp > 180 and dbp>105 Aspir 81 (Aspirin) 81 Mg Tablet. 1 Tab PO DAILY Allergies Allergies: Coded Allergies: [id number] Reductase Inhibitor (Verified Allergy, Intermediate, ) erythromycin base (Verified Allergy, Intermediate, 04/03/17) iodine (Verified Allergy, Intermediate, 04/03/17) niacin (Verified Allergy, Intermediate, 04/03/17) simvastatin (Verified Allergy, Intermediate, 04/03/17) ROS Review of System unable to get now post ictal Physical Exam General: No acute distress, Other (drowsy just got ativan) HEENT: Atraumatic Lungs: Clear to auscultation Heart: S1S2 Cardiovascular: S1, S2 Breasts: Normal Abdomen: Normal bowel sounds, Soft, No tenderness, No hepatosplenomegaly, No masses Male Genitals Exam: normal genitalia, normal prostate Rectal Exam: not examined PELVIC: Nml ext genitalia Extremities: No clubbing, No cyanosis, No edema, Normal pulses, No tenderness/ swelling Skin: Other (very dry skin legs and feet) Neuro: Normal gait, Normal speech, Strength at 5/5 X4 ext, Normal tone, Sensation intact, Cranial nerves 3-12 NL, Reflexes 2+ Vitals Vitals Vital Signs Date Time Temp Pulse Resp B/P (MAP) Pulse Ox O2 Delivery O2 Flow Rate FiO2 04/05/17 14:23 98.2 69 16 132/64 (86) 100 Nasal Cannula 2.0 98.2 Labs Labs Laboratory Tests Test 04/04/17 18:20 04/04/17 19:00 04/04/17 21:09 04/05/17 05:00 White Blood Count 9.4 x10^3/uL (4.0-11.0) 8.6 x10^3/uL (4.0-11.0) Red Blood Count 4.15 x10^6/uL (4.30-5.70) 3.99 x10^6/uL (4.30-5.70) Hemoglobin 13.0 g/dL (13.0-17.5) 12.7 g/dL (13.0-17.5) Hematocrit 37.5 % (39.0-53.0) 35.4 % (39.0-53.0) Mean Corpuscular Volume 90 fL (79-100) 89 fL (79-100) Mean Corpuscular Hemoglobin 31 pg (25-35) 32 pg (25-35) Mean Corpuscular Hemoglobin Concent 35 g/dL (31-37) 36 g/dL (31-37) Red Cell Distribution Width 12.8 % (11.5-14.5) 13.0 % (11.5-14.5) Platelet Count 229 x10^3/uL (140-400) 209 x10^3/uL (140-400) Neutrophils (%) (Auto) 56 % (31-73) 55 % (31-73) Lymphocytes (%) (Auto) 32 % (24-48) 32 % (24-48) Monocytes (%) (Auto) 8 % (0-9) 8 % (0-9) Eosinophils (%) (Auto) 3 % (0-3) 4 % (0-3) Basophils (%) (Auto) 1 % (0-3) 1 % (0-3) Neutrophils # (Auto) 5.2 x10^3uL (1.8-7.7) 4.7 x10^3uL (1.8-7.7) Lymphocytes # (Auto) 3.0 x10^3/uL (1.0-4.8) 2.7 x10^3/uL (1.0-4.8) Monocytes # (Auto) 0.8 x10^3/uL (0.0-1.1) 0.7 x10^3/uL (0.0-1.1) Eosinophils # (Auto) 0.3 x10^3/uL (0.0-0.7) 0.4 x10^3/uL (0.0-0.7) Basophils # (Auto) 0.1 x10^3/uL (0.0-0.2) 0.1 x10^3/uL (0.0-0.2) Sodium Level 133 mmol/L (136-145) 136 mmol/L (136-145) Potassium Level 4.4 mmol/L (3.5-5.1) 3.9 mmol/L (3.5-5.1) Chloride Level 95 mmol/L (98-107) 100 mmol/L (98-107) Carbon Dioxide Level 35 mmol/L (21-32) 34 mmol/L (21-32) Anion Gap 3 (6-14) 2 (6-14) Blood Urea Nitrogen 18 mg/dL (8-26) 15 mg/dL (8-26) Creatinine 1.1 mg/dL (0.7-1.3) 1.0 mg/dL (0.7-1.3) Estimated GFR (Cockcroft-Gault) 67.2 75.0 BUN/Creatinine Ratio 16 (6-20) Glucose Level 500 mg/dL (70-99) 330 mg/dL (70-99) Calcium Level 8.7 mg/dL (8.5-10.1) 8.5 mg/dL (8.5-10.1) Total Bilirubin 0.3 mg/dL (0.2-1.0) Aspartate Amino Transf (AST/SGOT) 9 U/L (15-37) Alanine Aminotransferase (ALT/SGPT) 22 U/L (16-63) Alkaline Phosphatase 121 U/L (46-116) Troponin I Quantitative < 0.017 ng/mL (0.000-0.055) Total Protein 6.7 g/dL (6.4-8.2) Albumin 3.4 g/dL (3.4-5.0) Albumin/Globulin Ratio 1.0 (1.0-1.7) Ethyl Alcohol Level < 10 mg/dL (0-10) Lactic Acid Level 1.3 mmol/L (0.4-2.0) Glucose (Fingerstick) 438 mg/dL (70-99) Test 04/05/17 06:52 04/05/17 07:45 04/05/17 11:47 Urine Collection Type Unknown Urine Color Yellow Urine Clarity Clear Urine pH 6.0 Urine Specific [place] 1.020 Urine Protein 30 mg/dL (NEG-TRACE) Urine Glucose (UA) >=1000 mg/dL (NEG) Urine Ketones (Stick) Negative mg/dL (NEG) Urine Blood Negative (NEG) Urine Nitrite Negative (NEG) Urine Bilirubin Negative (NEG) Urine Urobilinogen Dipstick 0.2 mg/dL (0.2 mg/dL) Urine Leukocyte Esterase Negative (NEG) Urine RBC 1-2 /HPF (0-2) Urine WBC Occ /HPF (0-4) Urine Squamous Epithelial Cells Few /LPF Urine Bacteria 0 /HPF (0-FEW) Urine Opiates Screen Neg (NEG) Urine Methadone Screen Neg (NEG) Urine Barbiturates Neg (NEG) Urine Phencyclidine Screen Neg (NEG) Urine Amphetamine/Methamphetamine Neg (NEG) Urine Benzodiazepines Screen Neg (NEG) Urine Cocaine Screen Neg (NEG) Urine Cannabinoids Screen Neg (NEG) Urine Ethyl Alcohol Neg (NEG) Glucose (Fingerstick) 302 mg/dL (70-99) 320 mg/dL (70-99) Laboratory Tests Test 04/04/17 18:20 04/04/17 19:00 04/04/17 21:09 04/05/17 05:00 White Blood Count 9.4 x10^3/uL (4.0-11.0) 8.6 x10^3/uL (4.0-11.0) Red Blood Count 4.15 x10^6/uL (4.30-5.70) 3.99 x10^6/uL (4.30-5.70) Hemoglobin 13.0 g/dL (13.0-17.5) 12.7 g/dL (13.0-17.5) Hematocrit 37.5 % (39.0-53.0) 35.4 % (39.0-53.0) Mean Corpuscular Volume 90 fL (79-100) 89 fL (79-100) Mean Corpuscular Hemoglobin 31 pg (25-35) 32 pg (25-35) Mean Corpuscular Hemoglobin Concent 35 g/dL (31-37) 36 g/dL (31-37) Red Cell Distribution Width 12.8 % (11.5-14.5) 13.0 % (11.5-14.5) Platelet Count 229 x10^3/uL (140-400) 209 x10^3/uL (140-400) Neutrophils (%) (Auto) 56 % (31-73) 55 % (31-73) Lymphocytes (%) (Auto) 32 % (24-48) 32 % (24-48) Monocytes (%) (Auto) 8 % (0-9) 8 % (0-9) Eosinophils (%) (Auto) 3 % (0-3) 4 % (0-3) Basophils (%) (Auto) 1 % (0-3) 1 % (0-3) Neutrophils # (Auto) 5.2 x10^3uL (1.8-7.7) 4.7 x10^3uL (1.8-7.7) Lymphocytes # (Auto) 3.0 x10^3/uL (1.0-4.8) 2.7 x10^3/uL (1.0-4.8) Monocytes # (Auto) 0.8 x10^3/uL (0.0-1.1) 0.7 x10^3/uL (0.0-1.1) Eosinophils # (Auto) 0.3 x10^3/uL (0.0-0.7) 0.4 x10^3/uL (0.0-0.7) Basophils # (Auto) 0.1 x10^3/uL (0.0-0.2) 0.1 x10^3/uL (0.0-0.2) Sodium Level 133 mmol/L (136-145) 136 mmol/L (136-145) Potassium Level 4.4 mmol/L (3.5-5.1) 3.9 mmol/L (3.5-5.1) Chloride Level 95 mmol/L (98-107) 100 mmol/L (98-107) Carbon Dioxide Level 35 mmol/L (21-32) 34 mmol/L (21-32) Anion Gap 3 (6-14) 2 (6-14) Blood Urea Nitrogen 18 mg/dL (8-26) 15 mg/dL (8-26) Creatinine 1.1 mg/dL (0.7-1.3) 1.0 mg/dL (0.7-1.3) Estimated GFR (Cockcroft-Gault) 67.2 75.0 BUN/Creatinine Ratio 16 (6-20) Glucose Level 500 mg/dL (70-99) 330 mg/dL (70-99) Calcium Level 8.7 mg/dL (8.5-10.1) 8.5 mg/dL (8.5-10.1) Total Bilirubin 0.3 mg/dL (0.2-1.0) Aspartate Amino Transf (AST/SGOT) 9 U/L (15-37) Alanine Aminotransferase (ALT/SGPT) 22 U/L (16-63) Alkaline Phosphatase 121 U/L (46-116) Troponin I Quantitative < 0.017 ng/mL (0.000-0.055) Total Protein 6.7 g/dL (6.4-8.2) Albumin 3.4 g/dL (3.4-5.0) Albumin/Globulin Ratio 1.0 (1.0-1.7) Ethyl Alcohol Level < 10 mg/dL (0-10) Lactic Acid Level 1.3 mmol/L (0.4-2.0) Glucose (Fingerstick) 438 mg/dL (70-99) Test 04/05/17 06:52 04/05/17 07:45 04/05/17 11:47 Urine Collection Type Unknown Urine Color Yellow Urine Clarity Clear Urine pH 6.0 Urine Specific [place] 1.020 Urine Protein 30 mg/dL (NEG-TRACE) Urine Glucose (UA) >=1000 mg/dL (NEG) Urine Ketones (Stick) Negative mg/dL (NEG) Urine Blood Negative (NEG) Urine Nitrite Negative (NEG) Urine Bilirubin Negative (NEG) Urine Urobilinogen Dipstick 0.2 mg/dL (0.2 mg/dL) Urine Leukocyte Esterase Negative (NEG) Urine RBC 1-2 /HPF (0-2) Urine WBC Occ /HPF (0-4) Urine Squamous Epithelial Cells Few /LPF Urine Bacteria 0 /HPF (0-FEW) Urine Opiates Screen Neg (NEG) Urine Methadone Screen Neg (NEG) Urine Barbiturates Neg (NEG) Urine Phencyclidine Screen Neg (NEG) Urine Amphetamine/Methamphetamine Neg (NEG) Urine Benzodiazepines Screen Neg (NEG) Urine Cocaine Screen Neg (NEG) Urine Cannabinoids Screen Neg (NEG) Urine Ethyl Alcohol Neg (NEG) Glucose (Fingerstick) 302 mg/dL (70-99) 320 mg/dL (70-99) VTE Prophylaxis Ordered VTE Prophylaxis Devices: Yes VTE Pharmacological Prophylaxi: Yes Assessment/Plan Assessment/Plan 1. New onset SZ, complex 2. Hx CVA with RT residual weakness 3. 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 Dry skin 6. HTN PLAN: Admit Keppra iV Ativan 2 mgs prn FAll/sz prec Though his BS are high, I did keep his current insulin regimen as he might not eat much given sz now May check [id number] MRI brain Neuro consult would rather do EEG in house -Dw dtr and RN at bedside PT/OT VENUS DALAL MD Apr 05, 2017 15:41
--- NOTE | 2017-04-05 16:05 | PDOC2 ---
CONSULT Date of Consult Date of Consult DATE: 04/05/17 TIME: 16:02 Reason for Consult Reason for Consult: Seizures History of Present Illness Reason for Visit: This patient is 66-year-old man with past medical history of hypertension, diabetes, CVA, he presented to emergency room with complaint of seizures. Formation obtained from patient and patient's daughter at bedside. They report patient has been treated for stroke in 2014 when he was in [place]. He has right- sided weakness on baseline. AP using cane or a walker for balance. His report he has an episode when he was having stiffness in his extremity he was confused not able to talk. He had another episode in the afternoon when he was having episode of confusion he had staring eyeballs rolled back, also associated with loss of bladder control. He denies any tongue bite. Patient was loaded with Keppra 1 g IV in the ER. And had another episode of complex partial seizure with staring off eyeballs, clear slow, not able to follow command with postictal confusion there was no generalized jerking activity. He shouldn't was given Ativan 2 mg IV and was also started on Depakote Complex partial seizures with history of stroke. Continue aspirin for secondary stroke prevention. Past Medical History Cardiovascular: Other Pulmonary: COPD, Other CENTRAL NERVOUS SYSTEM: CVA, Dementia GI: Other Heme/Onc: No pertinent hx Hepatobiliary: No pertinent hx Psych: No pertinent hx Musculoskeletal: Osteoarthritis, Other Rheumatologic: No pertinent hx Infectious disease: No pertinent hx Renal/: No pertinent hx Endocrine: Diabetes Past Surgical History Past Surgical History: Appendectomy, Hernia Repair, Tonsillectomy, Other Family History Family History: Heart Disease Social History No ALCOHOL: none Drugs: None Lives: with Family Current Problem List Problem List Problems Medical Problems: (1) Hyperglycemia Status: Acute (2) Seizure Status: Acute Current Medications Current Medications Current Medications Ondansetron HCl (Zofran) 4 mg PRN Q8HRS PRN IV NAUSEA/VOMITING; Start 04/04/17 at 20:15; Stop 04/05/17 at 09:47; Status DC Fentanyl Citrate (Fentanyl 2ml Vial) 50 mcg PRN Q2HR PRN IV PAIN; Start at 20:15; Stop 04/05/17 at 20:14 Acetaminophen (Tylenol) 650 mg PRN Q4HRS PRN PO FEVER; Start 04/04/17 at 20:15 ; Stop 04/05/17 at 20:14 Insulin Aspart (NovoLOG) 0-7 UNITS TIDWMEALS SQ Last administered on 04/05/17 08:33; Start 04/05/17 at 08:00; Stop 04/05/17 at 09:47; Status DC Dextrose (Dextrose 50%-Water Syringe) 12.5 gm PRN Q15MIN PRN IV SEE COMMENTS; Start 04/04/17 at 20:15 Levetiracetam 500 mg/Sodium Chloride 100 ml @ 400 mls/hr Q12HR IV Last administered on 04/05/17 08:25; Start 04/05/17 at 09:00 Levetiracetam 1000 mg/Sodium Chloride 110 ml @ 440 mls/hr 1X ONCE IV Last administered on 04/04/17 20:25; Start 04/04/17 at 20:30; Stop 04/04/17 at 20:44 ; Status DC Sodium Chloride 500 ml @ 0 mls/hr 1X ONCE IV Last administered on 04/04/17 20 :25; Start 04/04/17 at 20:15; Stop 04/05/17 at 13:35; Status DC Clonidine HCl (Catapres) 0.1 mg PRN Q1HR PRN PO HYPERTENSION, SEE COMMENTS Last administered on 04/04/17 20:26; Start 04/04/17 at 20:15; Stop 04/05/17 at 14:01; Status DC Insulin Human Regular (NovoLIN R VIAL) 10 unit 1X ONCE SQ Last administered on 04/04/17 20:24; Start 04/04/17 at 20:15; Stop 04/04/17 at 20:16; Status DC Ondansetron HCl (Zofran) 4 mg PRN Q6HRS PRN IV NAUSEA/VOMITING; Start 04/05/17 at 09:44; Stop 04/06/17 at 09:43 Lorazepam (Ativan) 2 mg PRN Q4HRS PRN IV ANXIETY / AGITATION Last administered on 04/05/17 15:41; Start 04/05/17 at 09:45 Acetaminophen (Tylenol) 650 mg QID PO ; Start 04/05/17 at 13:00 Acetaminophen/ Codeine Phosphate (Tylenol #3) 1 tab PRN Q6HRS PRN PO PAIN; Start 04/05/17 at 09:45 Amlodipine Besylate (Norvasc) 10 mg HS PO ; Start 04/05/17 at 21:00 Aspirin (Ecotrin) 81 mg DAILY PO Last administered on 04/05/17 10:55; Start at 10:30 Benzonatate (Tessalon Perle) 100 mg DAILY PO Last administered on 04/05/17 10: 55; Start 04/05/17 at 10:30 Clonidine HCl (Catapres) 0.2 mg PRN TID PRN PO HTN; Start 04/05/17 at 09:45 Clopidogrel Bisulfate (Plavix) 75 mg DAILY PO Last administered on 04/05/17 10 :55; Start 04/05/17 at 10:30 Diphenhydramine HCl (Benadryl) 25 mg QHS PO ; Start 04/05/17 at 21:00 Docusate Sodium (Colace) 100 mg BID PO ; Start 04/05/17 at 10:00 Furosemide (Lasix) 40 mg DAILY PO Last administered on 04/05/17 10:54; Start 04/05/17 at 10:00 Acetaminophen/ Hydrocodone Bitart (Lortab 5/325) 1 tab PRN Q8HRS PRN PO PAIN; Start 04/05/17 at 09:45 Insulin Aspart (NovoLOG) 18 units DAILYAC SQ Last administered on 04/05/17 12: 09; Start 04/05/17 at 10:00 Insulin Aspart (NovoLOG) 24 units DAILYBFRSUP SQ ; Start 04/05/17 at 17:00 Meloxicam (Mobic) 7.5 mg DAILY PO Last administered on 04/05/17 10:55; Start 04/05/17 at 10:00 Metformin HCl (Glucophage) 1,000 mg BIDWMEALS PO Last administered on 10:53; Start 04/05/17 at 10:00 Methocarbamol (Robaxin) 500 mg PRN QID PRN PO MUSCLE SPASMS; Start 04/05/17 at 09:45 Pantoprazole Sodium (Protonix) 40 mg DAILYAC PO Last administered on 04/05/17 10:55; Start 04/05/17 at 10:00 Polyethylene Glycol (miraLAX PACKET) 17 gm DAILY PO ; Start 04/05/17 at 11:00 Trazodone HCl (Desyrel) 50 mg PRN QHS PRN PO INSOMNIA; Start 04/05/17 at 09:45 Triamcinolone Acetonide (Kenalog) 1 uma PRN TID PRN TP RASH; Start 04/05/17 at 09:45 Non-Formulary Medication 1 puff PRN Q4HRS PRN INH SHORTNESS OF BREATH; Start at 09:45; Status UNV Non-Formulary Medication 2 puff BID IH ; Start 04/05/17 at 21:00; Status UNV Carvedilol (Coreg) 25 mg BIDWMEALS PO Last administered on 04/05/17 10:55; Start 04/05/17 at 10:30 Gabapentin (Neurontin) 300 mg TID PO Last administered on 04/05/17 14:34; Start 04/05/17 at 14:00 Insulin Detemir (Levemir) 75 units QHS SQ ; Start 04/05/17 at 21:00 Losartan Potassium (Cozaar) 100 mg DAILY PO Last administered on 04/05/17 10: 54; Start 04/05/17 at 10:30 Magnesium Oxide (Magnesium Oxide) 400 mg DAILY PO Last administered on 10:30; Start 04/05/17 at 10:30 Multivitamins (Thera M Plus) 1 tab DAILY PO Last administered on 04/05/17 10: 56; Start 04/05/17 at 10:30 Potassium Chloride (Klor-Con) 20 meq DAILYWBKFT PO Last administered on 10:54; Start 04/05/17 at 10:30 Albuterol Sulfate (Ventolin Neb Soln) 2.5 mg RTQID NEB Last administered on 11:48; Start 04/05/17 at 12:00 Albuterol Sulfate (Ventolin Neb Soln) 2.5 mg PRN Q4HRS PRN NEB SHORTNESS OF BREATH; Start 04/05/17 at 10:15 Budesonide (Pulmicort) 0.5 mg RTBID NEB Last administered on 04/05/17 11:48; Start 04/05/17 at 10:30 Sodium Chloride 500 ml @ 500 mls/hr 1X ONCE IV ; Start 04/05/17 at 13:30; Stop 04/05/17 at 14:29; Status DC Valproic Acid 1000 mg/Sodium Chloride 60 ml @ 55 mls/hr 1X STAT IV Last administered on 04/05/17t 15:39; Start 04/05/17 at 15:28; Stop 04/05/17 at 16:33 Valproic Acid 500 mg/Sodium Chloride 55 ml @ 55 mls/hr Q12HR IV ; Start at 21:00 Multi-Ingred Cream/Lotion/Oil/ Oint (Hydrocerin) 1 uma TID TP ; Start 04/05/17 at 21:00 Active Scripts Active Keppra (Levetiracetam) 500 Mg Tablet 1 Tab PO BID Reported Triamcinolone Acetonide 0.1% Cream (Triamcinolone Acetonide) 15 Gm Cream..g. 1 Uma TP PRN TID PRN Magnesium 200 Mg Tablet 400 Mg PO DAILY Potassium Chloride 20 Meq Tablet.er 20 Meq PO DAILY Polyethylene Glycol 3350 255 Gm Powder 17 Gm PO DAILY Pantoprazole Sodium 40 Mg Tablet.dr 40 Mg PO DAILY Multi-Day Vitamins (Multivitamin) 1 Each Tablet 1 Tab PO DAILY Robaxin (Methocarbamol) 500 Mg Tablet 500 Mg PO PRN QID PRN Levofloxacin 500 Mg Tablet 500 Mg PO DAILY Novolog Flexpen (Insulin Aspart) 100 Unit/1 Ml Insuln.pen 24 Unit SQ DAILYBFRSUP Novolog Flexpen (Insulin Aspart) 100 Unit/1 Ml Insuln.pen 18 Unit SQ DAILYAC Trinity 5-325 Tablet (Acetaminophen/Hydrocodone Bitart) 1 Each Tablet 1-2 Tab PO PRN Q8HRS PRN Furosemide 40 Mg Tablet 1 Tab PO DAILY Doxycycline Hyclate 100 Mg Tablet 100 Mg PO BID Colace (Docusate Sodium) 100 Mg Capsule 1 Cap PO BID Clopidogrel (Clopidogrel Bisulfate) 75 Mg Tablet 75 Mg PO DAILY Benzonatate 100 Mg Capsule 1 Cap PO DAILY Amlodipine Besylate 10 Mg Tablet 10 Mg PO HS Tylenol (Acetaminophen) 325 Mg Tablet 650 Mg PO QID Trazodone Hcl 50 Mg Tablet 50 Mg PO PRN QHS PRN Carvedilol 25 Mg Tablet 25 Mg PO BIDWMEALS Acetaminophen-Cod #3 Tablet (Acetaminophen/Codeine Phosphate) 1 Each Tablet 1 Tab PO PRN Q6HRS PRN Losartan Potassium 100 Mg Tablet 100 Mg PO DAILY Benadryl (Diphenhydramine Hcl) 25 Mg Capsule 1 Cap PO QHS Meloxicam 7.5 Mg Tablet 7.5 Mg PO DAILY Gabapentin 300 Mg Capsule 300 Mg PO TID Metformin Hcl 1,000 Mg Tablet 1,000 Mg PO BIDWMEALS Lantus Solostar (Insulin Glargine,Hum.rec.anlog) 100 Unit/1 Ml Insuln.pen 75 Unit SQ HS Proair Hfa Inhaler (Albuterol Sulfate) 8.5 Gm Hfa.aer.ad 1 Puff INH PRN Q4HRS PRN Symbicort 160-4.5 Mcg Inhaler (Budesonide/Formoterol Fumarate) 10.2 Gm Hfa.aer.ad 2 Puff IH BID Clonidine Hcl 0.2 Mg Tablet 0.2 Mg PO PRN TID PRN if sbp > 180 and dbp>105 Aspir 81 (Aspirin) 81 Mg Tablet.dr 1 Tab PO DAILY Allergies Allergies: Coded Allergies: [id number]-[id number] Reductase Inhibitor (Verified Allergy, Intermediate, ) erythromycin base (Verified Allergy, Intermediate, 04/03/17) iodine (Verified Allergy, Intermediate, 04/03/17) niacin (Verified Allergy, Intermediate, 04/03/17) simvastatin (Verified Allergy, Intermediate, 04/03/17) Physical Exam Physical Exam REVIEW OF SYSTEMS: Otherwise, not [id number] review of systems. PHYSICAL EXAMINATION: General appearance is in acute distress. HEENT: Normocephalic and nontraumatic. Neck is supple. No lymphadenopathy. No crepitus. Cardiovascular: S1, S2, regular rate and rhythm. Pulmonary: Clear to auscultation bilaterally. Abdomen: Bowel sounds are positive. Abdomen is soft, nontender, and nondistended. NEUROLOGICAL EXAMINATION: Alert Oriented to time, place and person. PERRL. EOMI. CN: no focal findings. Muscle tone: within normal. Muscle strength: 5 left side slight weakness on right side. DTR: 1-2 Plantar reflex: Flexor response bilaterally Gait: not examined in bed. Sensory exam: no abnormal findings. No obvious cerebellar signs elicited. Vitals VITALS Vital Signs Date Time Temp Pulse Resp B/P (MAP) Pulse Ox O2 Delivery O2 Flow Rate FiO2 04/05/17 14:23 98.2 69 16 132/64 (86) 100 Nasal Cannula 2.0 98.2 Labs Labs Laboratory Tests Test 04/04/17 18:20 04/04/17 19:00 04/04/17 21:09 04/05/17 05:00 White Blood Count 9.4 x10^3/uL (4.0-11.0) 8.6 x10^3/uL (4.0-11.0) Red Blood Count 4.15 x10^6/uL (4.30-5.70) 3.99 x10^6/uL (4.30-5.70) Hemoglobin 13.0 g/dL (13.0-17.5) 12.7 g/dL (13.0-17.5) Hematocrit 37.5 % (39.0-53.0) 35.4 % (39.0-53.0) Mean Corpuscular Volume 90 fL (79-100) 89 fL (79-100) Mean Corpuscular Hemoglobin 31 pg (25-35) 32 pg (25-35) Mean Corpuscular Hemoglobin Concent 35 g/dL (31-37) 36 g/dL (31-37) Red Cell Distribution Width 12.8 % (11.5-14.5) 13.0 % (11.5-14.5) Platelet Count 229 x10^3/uL (140-400) 209 x10^3/uL (140-400) Neutrophils (%) (Auto) 56 % (31-73) 55 % (31-73) Lymphocytes (%) (Auto) 32 % (24-48) 32 % (24-48) Monocytes (%) (Auto) 8 % (0-9) 8 % (0-9) Eosinophils (%) (Auto) 3 % (0-3) 4 % (0-3) Basophils (%) (Auto) 1 % (0-3) 1 % (0-3) Neutrophils # (Auto) 5.2 x10^3uL (1.8-7.7) 4.7 x10^3uL (1.8-7.7) Lymphocytes # (Auto) 3.0 x10^3/uL (1.0-4.8) 2.7 x10^3/uL (1.0-4.8) Monocytes # (Auto) 0.8 x10^3/uL (0.0-1.1) 0.7 x10^3/uL (0.0-1.1) Eosinophils # (Auto) 0.3 x10^3/uL (0.0-0.7) 0.4 x10^3/uL (0.0-0.7) Basophils # (Auto) 0.1 x10^3/uL (0.0-0.2) 0.1 x10^3/uL (0.0-0.2) Sodium Level 133 mmol/L (136-145) 136 mmol/L (136-145) Potassium Level 4.4 mmol/L (3.5-5.1) 3.9 mmol/L (3.5-5.1) Chloride Level 95 mmol/L (98-107) 100 mmol/L (98-107) Carbon Dioxide Level 35 mmol/L (21-32) 34 mmol/L (21-32) Anion Gap 3 (6-14) 2 (6-14) Blood Urea Nitrogen 18 mg/dL (8-26) 15 mg/dL (8-26) Creatinine 1.1 mg/dL (0.7-1.3) 1.0 mg/dL (0.7-1.3) Estimated GFR (Cockcroft-Gault) 67.2 75.0 BUN/Creatinine Ratio 16 (6-20) Glucose Level 500 mg/dL (70-99) 330 mg/dL (70-99) Calcium Level 8.7 mg/dL (8.5-10.1) 8.5 mg/dL (8.5-10.1) Total Bilirubin 0.3 mg/dL (0.2-1.0) Aspartate Amino Transf (AST/SGOT) 9 U/L (15-37) Alanine Aminotransferase (ALT/SGPT) 22 U/L (16-63) Alkaline Phosphatase 121 U/L (46-116) Troponin I Quantitative < 0.017 ng/mL (0.000-0.055) Total Protein 6.7 g/dL (6.4-8.2) Albumin 3.4 g/dL (3.4-5.0) Albumin/Globulin Ratio 1.0 (1.0-1.7) Ethyl Alcohol Level < 10 mg/dL (0-10) Lactic Acid Level 1.3 mmol/L (0.4-2.0) Glucose (Fingerstick) 438 mg/dL (70-99) Test 04/05/17 06:52 04/05/17 07:45 04/05/17 11:47 Urine Collection Type Unknown Urine Color Yellow Urine Clarity Clear Urine pH 6.0 Urine Specific [place] 1.020 Urine Protein 30 mg/dL (NEG-TRACE) Urine Glucose (UA) >=1000 mg/dL (NEG) Urine Ketones (Stick) Negative mg/dL (NEG) Urine Blood Negative (NEG) Urine Nitrite Negative (NEG) Urine Bilirubin Negative (NEG) Urine Urobilinogen Dipstick 0.2 mg/dL (0.2 mg/dL) Urine Leukocyte Esterase Negative (NEG) Urine RBC 1-2 /HPF (0-2) Urine WBC Occ /HPF (0-4) Urine Squamous Epithelial Cells Few /LPF Urine Bacteria 0 /HPF (0-FEW) Urine Opiates Screen Neg (NEG) Urine Methadone Screen Neg (NEG) Urine Barbiturates Neg (NEG) Urine Phencyclidine Screen Neg (NEG) Urine Amphetamine/Methamphetamine Neg (NEG) Urine Benzodiazepines Screen Neg (NEG) Urine Cocaine Screen Neg (NEG) Urine Cannabinoids Screen Neg (NEG) Urine Ethyl Alcohol Neg (NEG) Glucose (Fingerstick) 302 mg/dL (70-99) 320 mg/dL (70-99) Laboratory Tests Test 04/04/17 18:20 04/04/17 19:00 04/04/17 21:09 04/05/17 05:00 White Blood Count 9.4 x10^3/uL (4.0-11.0) 8.6 x10^3/uL (4.0-11.0) Red Blood Count 4.15 x10^6/uL (4.30-5.70) 3.99 x10^6/uL (4.30-5.70) Hemoglobin 13.0 g/dL (13.0-17.5) 12.7 g/dL (13.0-17.5) Hematocrit 37.5 % (39.0-53.0) 35.4 % (39.0-53.0) Mean Corpuscular Volume 90 fL (79-100) 89 fL (79-100) Mean Corpuscular Hemoglobin 31 pg (25-35) 32 pg (25-35) Mean Corpuscular Hemoglobin Concent 35 g/dL (31-37) 36 g/dL (31-37) Red Cell Distribution Width 12.8 % (11.5-14.5) 13.0 % (11.5-14.5) Platelet Count 229 x10^3/uL (140-400) 209 x10^3/uL (140-400) Neutrophils (%) (Auto) 56 % (31-73) 55 % (31-73) Lymphocytes (%) (Auto) 32 % (24-48) 32 % (24-48) Monocytes (%) (Auto) 8 % (0-9) 8 % (0-9) Eosinophils (%) (Auto) 3 % (0-3) 4 % (0-3) Basophils (%) (Auto) 1 % (0-3) 1 % (0-3) Neutrophils # (Auto) 5.2 x10^3uL (1.8-7.7) 4.7 x10^3uL (1.8-7.7) Lymphocytes # (Auto) 3.0 x10^3/uL (1.0-4.8) 2.7 x10^3/uL (1.0-4.8) Monocytes # (Auto) 0.8 x10^3/uL (0.0-1.1) 0.7 x10^3/uL (0.0-1.1) Eosinophils # (Auto) 0.3 x10^3/uL (0.0-0.7) 0.4 x10^3/uL (0.0-0.7) Basophils # (Auto) 0.1 x10^3/uL (0.0-0.2) 0.1 x10^3/uL (0.0-0.2) Sodium Level 133 mmol/L (136-145) 136 mmol/L (136-145) Potassium Level 4.4 mmol/L (3.5-5.1) 3.9 mmol/L (3.5-5.1) Chloride Level 95 mmol/L (98-107) 100 mmol/L (98-107) Carbon Dioxide Level 35 mmol/L (21-32) 34 mmol/L (21-32) Anion Gap 3 (6-14) 2 (6-14) Blood Urea Nitrogen 18 mg/dL (8-26) 15 mg/dL (8-26) Creatinine 1.1 mg/dL (0.7-1.3) 1.0 mg/dL (0.7-1.3) Estimated GFR (Cockcroft-Gault) 67.2 75.0 BUN/Creatinine Ratio 16 (6-20) Glucose Level 500 mg/dL (70-99) 330 mg/dL (70-99) Calcium Level 8.7 mg/dL (8.5-10.1) 8.5 mg/dL (8.5-10.1) Total Bilirubin 0.3 mg/dL (0.2-1.0) Aspartate Amino Transf (AST/SGOT) 9 U/L (15-37) Alanine Aminotransferase (ALT/SGPT) 22 U/L (16-63) Alkaline Phosphatase 121 U/L (46-116) Troponin I Quantitative < 0.017 ng/mL (0.000-0.055) Total Protein 6.7 g/dL (6.4-8.2) Albumin 3.4 g/dL (3.4-5.0) Albumin/Globulin Ratio 1.0 (1.0-1.7) Ethyl Alcohol Level < 10 mg/dL (0-10) Lactic Acid Level 1.3 mmol/L (0.4-2.0) Glucose (Fingerstick) 438 mg/dL (70-99) Test 04/05/17 06:52 04/05/17 07:45 04/05/17 11:47 Urine Collection Type Unknown Urine Color Yellow Urine Clarity Clear Urine pH 6.0 Urine Specific [place] 1.020 Urine Protein 30 mg/dL (NEG-TRACE) Urine Glucose (UA) >=1000 mg/dL (NEG) Urine Ketones (Stick) Negative mg/dL (NEG) Urine Blood Negative (NEG) Urine Nitrite Negative (NEG) Urine Bilirubin Negative (NEG) Urine Urobilinogen Dipstick 0.2 mg/dL (0.2 mg/dL) Urine Leukocyte Esterase Negative (NEG) Urine RBC 1-2 /HPF (0-2) Urine WBC Occ /HPF (0-4) Urine Squamous Epithelial Cells Few /LPF Urine Bacteria 0 /HPF (0-FEW) Urine Opiates Screen Neg (NEG) Urine Methadone Screen Neg (NEG) Urine Barbiturates Neg (NEG) Urine Phencyclidine Screen Neg (NEG) Urine Amphetamine/Methamphetamine Neg (NEG) Urine Benzodiazepines Screen Neg (NEG) Urine Cocaine Screen Neg (NEG) Urine Cannabinoids Screen Neg (NEG) Urine Ethyl Alcohol Neg (NEG) Glucose (Fingerstick) 302 mg/dL (70-99) 320 mg/dL (70-99) Assessment/Plan Assessment/Plan This patient is 66-year-old man with past medical history of hypertension, diabetes, CVA, he presented to emergency room with complaint of seizures. Formation obtained from patient and patient's daughter at bedside. They report patient has been treated for stroke in 2014 when he was in [place]. He has right- sided weakness on baseline. AP using cane or a walker for balance. His report he has an episode when he was having stiffness in his extremity he was confused not able to talk. He had another episode in the afternoon when he was having episode of confusion he had staring eyeballs rolled back, also associated with loss of bladder control. He denies any tongue bite. Patient was loaded with Keppra 1 g IV in the ER. And had another episode of complex partial seizure with staring off eyeballs, clear slow, not able to follow command with postictal confusion there was no generalized jerking activity. He shouldn't was given Ativan 2 mg IV and was also started on Depakote Complex partial seizures with history of stroke. Continue aspirin for secondary stroke prevention. Check lipid profile. Will check MRI brain to rule out any acute intracranial process. continue Keppra 500 mg twice a day. We will titrate the dose if needed. Continue Depakote 500 mg IV every 12. Check for infectious or metabolic etiology. Seizure precautions. No driving until 6 months seizure free. History of obstructive sleep apnea on CPAP. History of diabetes continue treat and monitor History of hypertension continue treat and monitor Ativan 2 mg when necessary seizures. PTOT evaluation LUZ MARQUIS MD Apr 05, 2017 16:05
--- NOTE | 2017-04-05 18:45 | RAD ---
EXAM: Head CT without contrast. HISTORY: Seizures. TECHNIQUE: Computed tomographic images of the head were obtained without contrast. *One or more of the following individualized dose reduction techniques were utilized for this examination: 1. Automated exposure control. 2. Adjustment of the mA and/or kV according to patient size. 3. Use of iterative reconstruction technique. COMPARISON: None. FINDINGS: There is no acute or subacute extra-axial or intraparenchymal hemorrhage. There is no mass effect or midline shift. There is no hydrocephalus. There are areas of decreased attenuation within the cerebral white matter, nonspecific and likely related to chronic small vessel disease. There is focal mucosal thickening involving the sphenoid sinus. There is minimal fluid within the left mastoid air cells. The visualized orbits and are unremarkable. IMPRESSION: 1. No acute intracranial finding. 2. Subtle areas of hypodensity within the cerebral white matter, likely due to chronic small vessel disease. No acute intracranial findings. Electronically signed by: Anuja You MD (04/05/2017 6:41 PM) [id number]
[2017-04-05 19:15] VITALS: BP 108/57
[2017-04-05] MEDS: VALPROIC ACID (AS SODIUM SALT) 500 MG in IV NORMAL SALINE 50ML 50 ML IV SCH (20:56)
[2017-04-05] MEDS: MINERAL OIL/PETROLATUM TOPICAL CREAM 113GM JAR. TP SCH (20:58)
[2017-04-05] MEDS ORDERED: amLODIPine BESYLATE 10 MG TABLET PO SCH (21:00)
[2017-04-05] MEDS ORDERED: diphenhydrAMINE HCL 25 MG CAPSULE PO SCH (21:00)
[2017-04-05] MEDS ORDERED: INSULIN DETEMIR 300 UNITS/3 ML INSULN.PEN. SQ SCH (21:00)
[2017-04-05] MEDS ORDERED: NON FORMULARY ITEM (Budesonide/Formoterol Fumarate (Symbicort 160-4.5 Mcg Inhaler) 2 PUFF) IH SCH (21:00)
[2017-04-05 23:15] VITALS: BP 125/56
[2017-04-06 03:15] VITALS: BP 126/63
[2017-04-06] MEDS: ALBUTEROL SULFATE 2.5 MG/3 ML NEBU. NEB SCH ×2 (06:59→11:37)
[2017-04-06] MEDS: BUDESONIDE 0.5 MG/2 ML NEBU. NEB SCH (07:00)
[2017-04-06 07:04] VITALS: BP 129/69
[2017-04-06] MEDS: POTASSIUM CHLORIDE 20 MEQ TABLET.ER. PO SCH (08:33)
[2017-04-06] MEDS: MULTIVITAMIN with MINERAL TABLET. PO SCH (08:33)
[2017-04-06] MEDS: MELOXICAM 7.5 MG TABLET PO SCH (08:33)
--- NOTE | 2017-04-06 08:33 | PDOC ---
PROGRESS NOTES Chief Complaint Chief Complaint 1. New onset SZ, complex 2. Hx CVA with RT residual weakness 3. 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 Dry skin 6. HTN History of Present Illness History of Present Illness Feeling well thiS AM NO recurrence of SZ after yesterday's episode FOr EEG today - has ozuna already MRI broke down?? PLAn: Await MRI and EEG SZ prec COnt keppra BID per neuro Vitals Vitals Vital Signs Date Time Temp Pulse Resp B/P (MAP) Pulse Ox O2 Delivery O2 Flow Rate FiO2 04/06/17 08:00 Nasal Cannula 2.0 04/06/17 07:04 97.4 69 17 129/69 (89) 98 97.4 Physical Exam General: Alert, Oriented X3, Cooperative, No acute distress, Other (drowsy just got ativan) Heart: Regular rate, Normal S1, No murmurs Lungs: Clear Abdomen: Normal bowel sounds, Soft, No tenderness, No hepatosplenomegaly, No masses Extremities: No clubbing, No cyanosis, No edema, Normal pulses, No tenderness/ swelling Skin: Other (very dry skin legs and feet) Labs LABS Laboratory Tests Test 04/05/17 11:47 04/05/17 17:02 04/05/17 20:35 04/06/17 07:32 Glucose (Fingerstick) 320 mg/dL (70-99) 178 mg/dL (70-99) 90 mg/dL (70-99) 130 mg/dL (70-99) Review of Systems Review of Systems denies 14 pt reviewed Assessment and Plan Assessmemt and Plan Problems Medical Problems: (1) Hyperglycemia Status: Acute (2) Seizure Status: Acute Problems: Comment Review of Relevant I have reviewed the following items tere (where applicable) has been applied. Labs Laboratory Tests Test 04/04/17 18:20 04/04/17 19:00 04/04/17 21:09 04/05/17 05:00 White Blood Count 9.4 x10^3/uL (4.0-11.0) 8.6 x10^3/uL (4.0-11.0) Red Blood Count 4.15 x10^6/uL (4.30-5.70) 3.99 x10^6/uL (4.30-5.70) Hemoglobin 13.0 g/dL (13.0-17.5) 12.7 g/dL (13.0-17.5) Hematocrit 37.5 % (39.0-53.0) 35.4 % (39.0-53.0) Mean Corpuscular Volume 90 fL (79-100) 89 fL (79-100) Mean Corpuscular Hemoglobin 31 pg (25-35) 32 pg (25-35) Mean Corpuscular Hemoglobin Concent 35 g/dL (31-37) 36 g/dL (31-37) Red Cell Distribution Width 12.8 % (11.5-14.5) 13.0 % (11.5-14.5) Platelet Count 229 x10^3/uL (140-400) 209 x10^3/uL (140-400) Neutrophils (%) (Auto) 56 % (31-73) 55 % (31-73) Lymphocytes (%) (Auto) 32 % (24-48) 32 % (24-48) Monocytes (%) (Auto) 8 % (0-9) 8 % (0-9) Eosinophils (%) (Auto) 3 % (0-3) 4 % (0-3) Basophils (%) (Auto) 1 % (0-3) 1 % (0-3) Neutrophils # (Auto) 5.2 x10^3uL (1.8-7.7) 4.7 x10^3uL (1.8-7.7) Lymphocytes # (Auto) 3.0 x10^3/uL (1.0-4.8) 2.7 x10^3/uL (1.0-4.8) Monocytes # (Auto) 0.8 x10^3/uL (0.0-1.1) 0.7 x10^3/uL (0.0-1.1) Eosinophils # (Auto) 0.3 x10^3/uL (0.0-0.7) 0.4 x10^3/uL (0.0-0.7) Basophils # (Auto) 0.1 x10^3/uL (0.0-0.2) 0.1 x10^3/uL (0.0-0.2) Sodium Level 133 mmol/L (136-145) 136 mmol/L (136-145) Potassium Level 4.4 mmol/L (3.5-5.1) 3.9 mmol/L (3.5-5.1) Chloride Level 95 mmol/L (98-107) 100 mmol/L (98-107) Carbon Dioxide Level 35 mmol/L (21-32) 34 mmol/L (21-32) Anion Gap 3 (6-14) 2 (6-14) Blood Urea Nitrogen 18 mg/dL (8-26) 15 mg/dL (8-26) Creatinine 1.1 mg/dL (0.7-1.3) 1.0 mg/dL (0.7-1.3) Estimated GFR (Cockcroft-Gault) 67.2 75.0 BUN/Creatinine Ratio 16 (6-20) Glucose Level 500 mg/dL (70-99) 330 mg/dL (70-99) Calcium Level 8.7 mg/dL (8.5-10.1) 8.5 mg/dL (8.5-10.1) Total Bilirubin 0.3 mg/dL (0.2-1.0) Aspartate Amino Transf (AST/SGOT) 9 U/L (15-37) Alanine Aminotransferase (ALT/SGPT) 22 U/L (16-63) Alkaline Phosphatase 121 U/L (46-116) Troponin I Quantitative < 0.017 ng/mL (0.000-0.055) Total Protein 6.7 g/dL (6.4-8.2) Albumin 3.4 g/dL (3.4-5.0) Albumin/Globulin Ratio 1.0 (1.0-1.7) Ethyl Alcohol Level < 10 mg/dL (0-10) Lactic Acid Level 1.3 mmol/L (0.4-2.0) Glucose (Fingerstick) 438 mg/dL (70-99) Test 04/05/17 06:52 04/05/17 07:45 04/05/17 11:47 04/05/17 17:02 Urine Collection Type Unknown Urine Color Yellow Urine Clarity Clear Urine pH 6.0 Urine Specific [place] 1.020 Urine Protein 30 mg/dL (NEG-TRACE) Urine Glucose (UA) >=1000 mg/dL (NEG) Urine Ketones (Stick) Negative mg/dL (NEG) Urine Blood Negative (NEG) Urine Nitrite Negative (NEG) Urine Bilirubin Negative (NEG) Urine Urobilinogen Dipstick 0.2 mg/dL (0.2 mg/dL) Urine Leukocyte Esterase Negative (NEG) Urine RBC 1-2 /HPF (0-2) Urine WBC Occ /HPF (0-4) Urine Squamous Epithelial Cells Few /LPF Urine Bacteria 0 /HPF (0-FEW) Urine Opiates Screen Neg (NEG) Urine Methadone Screen Neg (NEG) Urine Barbiturates Neg (NEG) Urine Phencyclidine Screen Neg (NEG) Urine Amphetamine/Methamphetamine Neg (NEG) Urine Benzodiazepines Screen Neg (NEG) Urine Cocaine Screen Neg (NEG) Urine Cannabinoids Screen Neg (NEG) Urine Ethyl Alcohol Neg (NEG) Glucose (Fingerstick) 302 mg/dL (70-99) 320 mg/dL (70-99) 178 mg/dL (70-99) Test 04/05/17 20:35 04/06/17 07:32 Glucose (Fingerstick) 90 mg/dL (70-99) 130 mg/dL (70-99) Laboratory Tests Test 04/05/17 11:47 04/05/17 17:02 04/05/17 20:35 04/06/17 07:32 Glucose (Fingerstick) 320 mg/dL (70-99) 178 mg/dL (70-99) 90 mg/dL (70-99) 130 mg/dL (70-99) Medications Current Medications Ondansetron HCl (Zofran) 4 mg PRN Q8HRS PRN IV NAUSEA/VOMITING; Start 04/04/17 at 20:15; Stop 04/05/17 at 09:47; Status DC Fentanyl Citrate (Fentanyl 2ml Vial) 50 mcg PRN Q2HR PRN IV PAIN; Start at 20:15; Stop 04/05/17 at 20:14; Status DC Acetaminophen (Tylenol) 650 mg PRN Q4HRS PRN PO FEVER; Start 04/04/17 at 20:15 ; Stop 04/05/17 at 20:14; Status DC Insulin Aspart (NovoLOG) 0-7 UNITS TIDWMEALS SQ Last administered on 04/05/17t 08:33; Start 04/05/17 at 08:00; Stop 04/05/17 at 09:47; Status DC Dextrose (Dextrose 50%-Water Syringe) 12.5 gm PRN Q15MIN PRN IV SEE COMMENTS; Start 04/04/17 at 20:15 Levetiracetam 500 mg/Sodium Chloride 100 ml @ 400 mls/hr Q12HR IV Last administered on 04/05/17 20:56; Start 04/05/17 at 09:00 Levetiracetam 1000 mg/Sodium Chloride 110 ml @ 440 mls/hr 1X ONCE IV Last administered on 04/04/17 20:25; Start 04/04/17 at 20:30; Stop 04/04/17 at 20:44 ; Status DC Sodium Chloride 500 ml @ 0 mls/hr 1X ONCE IV Last administered on 04/04/17 20 :25; Start 04/04/17 at 20:15; Stop 04/05/17 at 13:35; Status DC Clonidine HCl (Catapres) 0.1 mg PRN Q1HR PRN PO HYPERTENSION, SEE COMMENTS Last administered on 04/04/17 20:26; Start 04/04/17 at 20:15; Stop 04/05/17 at 14:01; Status DC Insulin Human Regular (NovoLIN R VIAL) 10 unit 1X ONCE SQ Last administered on 04/04/17 20:24; Start 04/04/17 at 20:15; Stop 04/04/17 at 20:16; Status DC Ondansetron HCl (Zofran) 4 mg PRN Q6HRS PRN IV NAUSEA/VOMITING; Start 04/05/17 at 09:44; Stop 04/06/17 at 09:43 Lorazepam (Ativan) 2 mg PRN Q4HRS PRN IV ANXIETY / AGITATION Last administered on 04/05/17 15:41; Start 04/05/17 at 09:45 Acetaminophen (Tylenol) 650 mg QID PO Last administered on 04/05/17 20:57; Start 04/05/17 at 13:00 Acetaminophen/ Codeine Phosphate (Tylenol #3) 1 tab PRN Q6HRS PRN PO PAIN; Start 04/05/17 at 09:45 Amlodipine Besylate (Norvasc) 10 mg HS PO Last administered on 04/05/17 20:57 ; Start 04/05/17 at 21:00 Aspirin (Ecotrin) 81 mg DAILY PO Last administered on 04/05/17 10:55; Start at 10:30 Benzonatate (Tessalon Perle) 100 mg DAILY PO Last administered on 04/05/17 10: 55; Start 04/05/17 at 10:30 Clonidine HCl (Catapres) 0.2 mg PRN TID PRN PO HTN; Start 04/05/17 at 09:45 Clopidogrel Bisulfate (Plavix) 75 mg DAILY PO Last administered on 04/05/17 10 :55; Start 04/05/17 at 10:30 Diphenhydramine HCl (Benadryl) 25 mg QHS PO ; Start 04/05/17 at 21:00 Docusate Sodium (Colace) 100 mg BID PO Last administered on 04/05/17 20:56; Start 04/05/17 at 10:00 Furosemide (Lasix) 40 mg DAILY PO Last administered on 04/05/17 10:54; Start 04/05/17 at 10:00 Acetaminophen/ Hydrocodone Bitart (Lortab 5/325) 1 tab PRN Q8HRS PRN PO PAIN; Start 04/05/17 at 09:45 Insulin Aspart (NovoLOG) 18 units DAILYAC SQ Last administered on 04/05/17 12: 09; Start 04/05/17 at 10:00 Insulin Aspart (NovoLOG) 24 units DAILYBFRSUP SQ Last administered on 17:26; Start 04/05/17 at 17:00 Meloxicam (Mobic) 7.5 mg DAILY PO Last administered on 04/05/17 10:55; Start 04/05/17 at 10:00 Metformin HCl (Glucophage) 1,000 mg BIDWMEALS PO Last administered on 17:21; Start 04/05/17 at 10:00 Methocarbamol (Robaxin) 500 mg PRN QID PRN PO MUSCLE SPASMS; Start 04/05/17 at 09:45 Pantoprazole Sodium (Protonix) 40 mg DAILYAC PO Last administered on 04/05/17 10:55; Start 04/05/17 at 10:00 Polyethylene Glycol (miraLAX PACKET) 17 gm DAILY PO ; Start 04/05/17 at 11:00 Trazodone HCl (Desyrel) 50 mg PRN QHS PRN PO INSOMNIA; Start 04/05/17 at 09:45 Triamcinolone Acetonide (Kenalog) 1 uma PRN TID PRN TP RASH; Start 04/05/17 at 09:45 Non-Formulary Medication 1 puff PRN Q4HRS PRN INH SHORTNESS OF BREATH; Start at 09:45; Status UNV Non-Formulary Medication 2 puff BID IH ; Start 04/05/17 at 21:00; Status UNV Carvedilol (Coreg) 25 mg BIDWMEALS PO Last administered on 04/05/17 17:22; Start 04/05/17 at 10:30 Gabapentin (Neurontin) 300 mg TID PO Last administered on 04/05/17 20:57; Start 04/05/17 at 14:00 Insulin Detemir (Levemir) 75 units QHS SQ Last administered on 04/05/17 21:07 ; Start 04/05/17 at 21:00 Losartan Potassium (Cozaar) 100 mg DAILY PO Last administered on 04/05/17 10: 54; Start 04/05/17 at 10:30 Magnesium Oxide (Magnesium Oxide) 400 mg DAILY PO Last administered on 10:30; Start 04/05/17 at 10:30 Multivitamins (Thera M Plus) 1 tab DAILY PO Last administered on 04/05/17 10: 56; Start 04/05/17 at 10:30 Potassium Chloride (Klor-Con) 20 meq DAILYWBKFT PO Last administered on 10:54; Start 04/05/17 at 10:30 Albuterol Sulfate (Ventolin Neb Soln) 2.5 mg RTQID NEB Last administered on 06:59; Start 04/05/17 at 12:00 Albuterol Sulfate (Ventolin Neb Soln) 2.5 mg PRN Q4HRS PRN NEB SHORTNESS OF BREATH; Start 04/05/17 at 10:15 Budesonide (Pulmicort) 0.5 mg RTBID NEB Last administered on 04/06/17 07:00; Start 04/05/17 at 10:30 Sodium Chloride 500 ml @ 500 mls/hr 1X ONCE IV ; Start 04/05/17 at 13:30; Stop 04/05/17 at 14:29; Status DC Valproic Acid 1000 mg/Sodium Chloride 60 ml @ 55 mls/hr 1X STAT IV Last administered on 04/05/17 15:39; Start 04/05/17 at 15:28; Stop 04/05/17 at 16:33 ; Status DC Valproic Acid 500 mg/Sodium Chloride 55 ml @ 55 mls/hr Q12HR IV Last administered on 04/05/17 20:56; Start 04/05/17 at 21:00 Multi-Ingred Cream/Lotion/Oil/ Oint (Hydrocerin) 1 uma TID TP Last administered on 04/05/17 20:58; Start 04/05/17 at 21:00 Active Scripts Active Keppra (Levetiracetam) 500 Mg Tablet 1 Tab PO BID Reported Triamcinolone Acetonide 0.1% Cream (Triamcinolone Acetonide) 15 Gm Cream..g. 1 Uma TP PRN TID PRN Magnesium 200 Mg Tablet 400 Mg PO DAILY Potassium Chloride 20 Meq Tablet.er 20 Meq PO DAILY Polyethylene Glycol 3350 255 Gm Powder 17 Gm PO DAILY Pantoprazole Sodium 40 Mg Tablet.dr 40 Mg PO DAILY Multi-Day Vitamins (Multivitamin) 1 Each Tablet 1 Tab PO DAILY Robaxin (Methocarbamol) 500 Mg Tablet 500 Mg PO PRN QID PRN Levofloxacin 500 Mg Tablet 500 Mg PO DAILY Novolog Flexpen (Insulin Aspart) 100 Unit/1 Ml Insuln.pen 24 Unit SQ DAILYBFRSUP Novolog Flexpen (Insulin Aspart) 100 Unit/1 Ml Insuln.pen 18 Unit SQ DAILYAC [place] 5-325 Tablet (Acetaminophen/Hydrocodone Bitart) 1 Each Tablet 1-2 Tab PO PRN Q8HRS PRN Furosemide 40 Mg Tablet 1 Tab PO DAILY Doxycycline Hyclate 100 Mg Tablet 100 Mg PO BID Colace (Docusate Sodium) 100 Mg Capsule 1 Cap PO BID Clopidogrel (Clopidogrel Bisulfate) 75 Mg Tablet 75 Mg PO DAILY Benzonatate 100 Mg Capsule 1 Cap PO DAILY Amlodipine Besylate 10 Mg Tablet 10 Mg PO HS Tylenol (Acetaminophen) 325 Mg Tablet 650 Mg PO QID Trazodone Hcl 50 Mg Tablet 50 Mg PO PRN QHS PRN Carvedilol 25 Mg Tablet 25 Mg PO BIDWMEALS Acetaminophen-Cod #3 Tablet (Acetaminophen/Codeine Phosphate) 1 Each Tablet 1 Tab PO PRN Q6HRS PRN Losartan Potassium 100 Mg Tablet 100 Mg PO DAILY Benadryl (Diphenhydramine Hcl) 25 Mg Capsule 1 Cap PO QHS Meloxicam 7.5 Mg Tablet 7.5 Mg PO DAILY Gabapentin 300 Mg Capsule 300 Mg PO TID Metformin Hcl 1,000 Mg Tablet 1,000 Mg PO BIDWMEALS Lantus Solostar (Insulin Glargine,Hum.rec.anlog) 100 Unit/1 Ml Insuln.pen 75 Unit SQ HS Proair Hfa Inhaler (Albuterol Sulfate) 8.5 Gm Hfa.aer.ad 1 Puff INH PRN Q4HRS PRN Symbicort 160-4.5 Mcg Inhaler (Budesonide/Formoterol Fumarate) 10.2 Gm Hfa.aer.ad 2 Puff IH BID Clonidine Hcl 0.2 Mg Tablet 0.2 Mg PO PRN TID PRN if sbp > 180 and dbp>105 Aspir 81 (Aspirin) 81 Mg Tablet. 1 Tab PO DAILY Vitals/I & O Vital Sign - Last 24 Hours 04/05/17 04/05/17 04/05/17 04/05/17 10:54 10:55 11:10 11:48 Temp 97.6 97.6 Pulse 72 72 76 Resp 20 B/P (MAP) 155/78 155/78 152/71 (98) Pulse Ox 99 99 O2 Delivery Nasal Cannula Nasal Cannula O2 Flow Rate 2.0 2.0 04/05/17 04/05/17 04/05/17 04/05/17 14:23 17:22 19:15 20:00 Temp 98.2 97.5 98.2 97.5 Pulse 69 68 66 Resp 16 16 B/P (MAP) 132/64 (86) 127/52 108/57 (74) Pulse Ox 100 99 O2 Delivery Nasal Cannula Nasal Cannula Nasal Cannula O2 Flow Rate 2.0 2.0 2.0 04/05/17 04/05/17 04/05/17 04/05/17 20:09 20:09 20:57 23:15 Temp 96.9 96.9 Pulse 66 64 Resp 16 B/P (MAP) 108/57 125/56 (79) Pulse Ox 99 99 94 O2 Delivery Nasal Cannula Nasal Cannula BiPAP/CPAP O2 Flow Rate 2.0 2.0 8/04/06/17 04/06/17 04/06/17 03:15 05:52 07:00 07:04 Temp 97.2 97.4 97.2 97.4 Pulse 61 69 Resp 16 17 B/P (MAP) 126/63 (84) 129/69 (89) Pulse Ox 97 99 98 O2 Delivery BiPAP/CPAP Nasal Cannula BiPAP/CPAP O2 Flow Rate 2.0 04/06/17 08:00 O2 Delivery Nasal Cannula O2 Flow Rate 2.0 Intake and Output 04/05/17 04/05/17 04/06/17 15:00 23:00 07:00 Intake Total 240 ml 150 ml Output Total 825 ml 0 ml Balance -585 ml 150 ml VENUS DALAL MD Apr 06, 2017 08:33
[2017-04-06] MEDS: MAGNESIUM OXIDE 400 MG TABLET PO SCH (08:34)
[2017-04-06] MEDS: CARVEDILOL 12.5 MG TABLET. PO SCH (08:34)
[2017-04-06] MEDS: BENZONATATE 100 MG CAPSULE. PO SCH (08:34)
[2017-04-06] MEDS: FUROSEMIDE 40 MG TABLET. PO SCH (08:34)
[2017-04-06] MEDS: CLOPIDOGREL BISULFATE 75 MG TABLET PO SCH (08:34)
[2017-04-06] MEDS: DOCUSATE SODIUM 100 MG CAPSULE. PO SCH (08:34)
[2017-04-06] MEDS: GABAPENTIN 300 MG CAPSULE. PO SCH ×2 (08:35→11:53)
[2017-04-06] MEDS: PANTOPRAZOLE 40 MG TABLET.DR. PO SCH (08:35)
[2017-04-06] MEDS: LOSARTAN POTASSIUM 50 MG TABLET. PO SCH (08:35)
[2017-04-06] MEDS: ASPIRIN ENTERIC COATED 81 MG TABLET.DR. PO SCH (08:35)
[2017-04-06] MEDS: POLYETHYLENE GLYCOL 3350 17 GM PACKET. PO SCH (08:40)
[2017-04-06] MEDS: ACETAMINOPHEN 325 MG TABLET. PO SCH ×2 (08:40→11:53)
[2017-04-06] MEDS: VALPROIC ACID (AS SODIUM SALT) 500 MG in IV NORMAL SALINE 50ML 50 ML IV SCH (08:45)
[2017-04-06] MEDS: INSULIN ASPART 300 UNITS/3 ML INSULN.PEN SQ SCH (08:50)
[2017-04-06] MEDS: MINERAL OIL/PETROLATUM TOPICAL CREAM 113GM JAR. TP SCH ×2 (08:51→11:54)
--- NOTE | 2017-04-06 11:43 | RAD ---
MR BRAIN HISTORY: Seizures COMPARISON: Noncontrast CT head from 04/05/2017 Technique: Axial diffusion weighted imaging was obtained. Additional sagittal T1, axial T1, axial FLAIR, coronal gradient echo, and axial T2 weighted imaging of the brain was also performed. Further 3 mm coronal T2 weighted images were also obtained FINDINGS: There are scattered foci of T2/FLAIR signal hyperintensity throughout the periventricular and deep hemispheric white matter bilaterally. This is nonspecific but most likely related to chronic small vessel ischemic disease. The hippocampal formations are symmetric in morphology, size, and signal. No evidence of cortical dysplasia is seen. No regions of restricted diffusion are seen to indicate an acute infarct. There is no evidence of intracranial hemorrhage. Specifically, no abnormal susceptibility is identified on the gradient echo images to indicate a microhemorrhage. No extra-axial fluid collections are identified. No midline shift or mass effect is seen. Ventricular size is within normal limits. Midline structures have a normal anatomic configuration. Pituitary gland and infundibulum are unremarkable. Basal cisterns are patent. Flow voids are preserved at the skull base. Cerebellum and posterior fossa structures are unremarkable. Globes and orbits are within normal limits. Paranasal sinuses and mastoid air cells are clear. IMPRESSION: Unremarkable MR examination of the brain without contrast. Specifically, the hippocampal formations are symmetric in morphology, size, and signal. Electronically signed by: Ashutosh Monge MD (04/06/2017 11:39 AM) [place] [id number]
--- NOTE | 2017-04-06 12:17 | EEG ---
DATE OF SERVICE: EEG NUMBER: [id number]. OBJECTIVE: This is a 66-year-old -[place] male patient with history of new onset seizure, but he had hyperglycemia as well. EEG was requested to evaluate seizure activity. METHODS: Twenty electrodes were applied according to the international 10-20 electrode placement system. EKG monitoring, hyperventilation, intermittent photic stimulation, monopolar and bipolar montages are routinely utilized. The record was obtained on a digital system with video monitoring. FINDINGS: 1. Background: The patient was recorded in the awake, drowsy, and sleep states. The overall background amplitude is 5-10 microvolts. No well-organized posterior dominant rhythm is observed. The overall background rhythm is with diffuse slowing in theta and delta frequencies throughout the entire recording. 2. Abnormalities: No specific epileptiform discharge or electrographic seizure is seen. Diffuse slowing in the theta and delta frequencies throughout the entire recording. 3. Activation: Hyperventilation was performed with fair efforts and normal response. Intermittent photic stimulation was performed with photic driving. No specific epileptiform discharge or electrographic seizure induced by hyperventilation or intermittent photic stimulation. IMPRESSION: This EEG is an abnormal study for the awake, drowsy, and sleep states. No well-organized posterior dominant rhythm is observed. The overall background rhythm is with diffuse slowing in the theta and delta frequencies, but mainly in the theta frequency. No focal, lateralizing, specific epileptiform discharge or electrographic seizure is seen. This pattern of EEG is suggestive of diffuse encephalopathy. MEL VILLATORO MD DR: Kim JOB#: [id number] / [id number] LIANG
[2017-04-06 14:30] VITALS: BP 132/58
--- NOTE | 2017-04-06 14:48 | PDOC3 ---
Discharge Summary Visit Information Date of Admission: Apr 05, 2017 Date of Discharge: Apr 06, 2017 Admitting Diagnosis Comment: Chief Complaint 1. New onset SZ, complex 2. Hx CVA with RT residual weakness 3. 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 Dry skin 6. HTN Final Diagnosis Problems Medical Problems: (1) Hyperglycemia Status: Acute (2) Seizure Status: Acute Brief Hospital Course Allergies Allergies Coded Allergies Type Severity Reaction Last Updated Verified [place]awgbwq-Ske-Onz Reductase Inhibitor Allergy Intermediate 04/03/17 Yes erythromycin base Allergy Intermediate 04/03/17 Yes iodine Allergy Intermediate 04/03/17 Yes niacin Allergy Intermediate 04/03/17 Yes simvastatin Allergy Intermediate 04/03/17 Yes Vital Signs Vital Signs Date Time Temp Pulse Resp B/P (MAP) Pulse Ox O2 Delivery O2 Flow Rate FiO2 04/06/17 14:30 97.8 68 18 132/58 (82) 98 Nasal Cannula 2.0 97.8 Lab Results Laboratory Tests Test 04/04/17 18:20 04/04/17 19:00 04/04/17 21:09 04/05/17 05:00 White Blood Count 9.4 x10^3/uL (4.0-11.0) 8.6 x10^3/uL (4.0-11.0) Red Blood Count 4.15 x10^6/uL (4.30-5.70) 3.99 x10^6/uL (4.30-5.70) Hemoglobin 13.0 g/dL (13.0-17.5) 12.7 g/dL (13.0-17.5) Hematocrit 37.5 % (39.0-53.0) 35.4 % (39.0-53.0) Mean Corpuscular Volume 90 fL (79-100) 89 fL (79-100) Mean Corpuscular Hemoglobin 31 pg (25-35) 32 pg (25-35) Mean Corpuscular Hemoglobin Concent 35 g/dL (31-37) 36 g/dL (31-37) Red Cell Distribution Width 12.8 % (11.5-14.5) 13.0 % (11.5-14.5) Platelet Count 229 x10^3/uL (140-400) 209 x10^3/uL (140-400) Neutrophils (%) (Auto) 56 % (31-73) 55 % (31-73) Lymphocytes (%) (Auto) 32 % (24-48) 32 % (24-48) Monocytes (%) (Auto) 8 % (0-9) 8 % (0-9) Eosinophils (%) (Auto) 3 % (0-3) 4 % (0-3) Basophils (%) (Auto) 1 % (0-3) 1 % (0-3) Neutrophils # (Auto) 5.2 x10^3uL (1.8-7.7) 4.7 x10^3uL (1.8-7.7) Lymphocytes # (Auto) 3.0 x10^3/uL (1.0-4.8) 2.7 x10^3/uL (1.0-4.8) Monocytes # (Auto) 0.8 x10^3/uL (0.0-1.1) 0.7 x10^3/uL (0.0-1.1) Eosinophils # (Auto) 0.3 x10^3/uL (0.0-0.7) 0.4 x10^3/uL (0.0-0.7) Basophils # (Auto) 0.1 x10^3/uL (0.0-0.2) 0.1 x10^3/uL (0.0-0.2) Sodium Level 133 mmol/L (136-145) 136 mmol/L (136-145) Potassium Level 4.4 mmol/L (3.5-5.1) 3.9 mmol/L (3.5-5.1) Chloride Level 95 mmol/L (98-107) 100 mmol/L (98-107) Carbon Dioxide Level 35 mmol/L (21-32) 34 mmol/L (21-32) Anion Gap 3 (6-14) 2 (6-14) Blood Urea Nitrogen 18 mg/dL (8-26) 15 mg/dL (8-26) Creatinine 1.1 mg/dL (0.7-1.3) 1.0 mg/dL (0.7-1.3) Estimated GFR (Cockcroft-Gault) 67.2 75.0 BUN/Creatinine Ratio 16 (6-20) Glucose Level 500 mg/dL (70-99) 330 mg/dL (70-99) Calcium Level 8.7 mg/dL (8.5-10.1) 8.5 mg/dL (8.5-10.1) Total Bilirubin 0.3 mg/dL (0.2-1.0) Aspartate Amino Transf (AST/SGOT) 9 U/L (15-37) Alanine Aminotransferase (ALT/SGPT) 22 U/L (16-63) Alkaline Phosphatase 121 U/L (46-116) Troponin I Quantitative < 0.017 ng/mL (0.000-0.055) Total Protein 6.7 g/dL (6.4-8.2) Albumin 3.4 g/dL (3.4-5.0) Albumin/Globulin Ratio 1.0 (1.0-1.7) Ethyl Alcohol Level < 10 mg/dL (0-10) Lactic Acid Level 1.3 mmol/L (0.4-2.0) Glucose (Fingerstick) 438 mg/dL (70-99) Test 04/05/17 06:52 04/05/17 07:45 04/05/17 11:47 04/05/17 17:02 Urine Collection Type Unknown Urine Color Yellow Urine Clarity Clear Urine pH 6.0 Urine Specific [place] 1.020 Urine Protein 30 mg/dL (NEG-TRACE) Urine Glucose (UA) >=1000 mg/dL (NEG) Urine Ketones (Stick) Negative mg/dL (NEG) Urine Blood Negative (NEG) Urine Nitrite Negative (NEG) Urine Bilirubin Negative (NEG) Urine Urobilinogen Dipstick 0.2 mg/dL (0.2 mg/dL) Urine Leukocyte Esterase Negative (NEG) Urine RBC 1-2 /HPF (0-2) Urine WBC Occ /HPF (0-4) Urine Squamous Epithelial Cells Few /LPF Urine Bacteria 0 /HPF (0-FEW) Urine Opiates Screen Neg (NEG) Urine Methadone Screen Neg (NEG) Urine Barbiturates Neg (NEG) Urine Phencyclidine Screen Neg (NEG) Urine Amphetamine/Methamphetamine Neg (NEG) Urine Benzodiazepines Screen Neg (NEG) Urine Cocaine Screen Neg (NEG) Urine Cannabinoids Screen Neg (NEG) Urine Ethyl Alcohol Neg (NEG) Glucose (Fingerstick) 302 mg/dL (70-99) 320 mg/dL (70-99) 178 mg/dL (70-99) Test 04/05/17 20:35 04/06/17 07:32 04/06/17 11:47 Glucose (Fingerstick) 90 mg/dL (70-99) 130 mg/dL (70-99) 148 mg/dL (70-99) Laboratory Tests Test 04/05/17 17:02 04/05/17 20:35 04/06/17 07:32 04/06/17 11:47 Glucose (Fingerstick) 178 mg/dL (70-99) 90 mg/dL (70-99) 130 mg/dL (70-99) 148 mg/dL (70-99) Brief Hospital Course Mr. Melchor is a 66 old male admitted for new onset SZ, described as flutrtering of eye lids and LOC. DId witness it, Legitimate SZ. Hx CVA with rt residual weakness, EEG and MRI done, the latter, neg, CLeared from neuro for hoem with PO keppra 500 BID. DispO; Santiago Tobias RN Pt seen and examined 2 notes today Discharge Information Condition at Discharge: Improved, Stable Follow Up: Weeks (neuro as instructed) Disposition/Orders: D/C to Home Scheduled Acetaminophen (Tylenol), 650 MG PO QID, (Reported) Amlodipine Besylate (Amlodipine Besylate), 10 MG PO HS, (Reported) Aspirin (Aspir 81), 1 TAB PO DAILY, (Reported) Benzonatate (Benzonatate), 1 CAP PO DAILY, (Reported) Budesonide/Formoterol Fumarate (Symbicort 160-4.5 Mcg Inhaler), 2 PUFF IH BID, ( Reported) Carvedilol (Carvedilol), 25 MG PO BIDWMEALS, (Reported) Clopidogrel Bisulfate (Clopidogrel), 75 MG PO DAILY, (Reported) Diphenhydramine Hcl (Benadryl), 1 CAP PO QHS, (Reported) Docusate Sodium (Colace), 1 CAP PO BID, (Reported) Doxycycline Hyclate (Doxycycline Hyclate), 100 MG PO BID, (Reported) Furosemide (Furosemide), 1 TAB PO DAILY, (Reported) Gabapentin (Gabapentin), 300 MG PO TID, (Reported) Insulin Aspart (Novolog Flexpen), 18 UNIT SQ DAILYAC, (Reported) Insulin Aspart (Novolog Flexpen), 24 UNIT SQ DAILYBFRSUP, (Reported) Insulin Glargine,Hum.rec.anlog (Lantus Solostar), 75 UNIT SQ HS, (Reported) Levetiracetam (Keppra), 1 TAB PO BID Levofloxacin (Levofloxacin), 500 MG PO DAILY, (Reported) Losartan Potassium (Losartan Potassium), 100 MG PO DAILY, (Reported) Magnesium (Magnesium), 400 MG PO DAILY, (Reported) Meloxicam (Meloxicam), 7.5 MG PO DAILY, (Reported) Metformin Hcl (Metformin Hcl), 1,000 MG PO BIDWMEALS, (Reported) Multivitamin (Multi-Day Vitamins), 1 TAB PO DAILY, (Reported) Pantoprazole Sodium (Pantoprazole Sodium), 40 MG PO DAILY, (Reported) Polyethylene Glycol 3350 (Polyethylene Glycol 3350), 17 GM PO DAILY, (Reported) Potassium Chloride (Potassium Chloride), 20 MEQ PO DAILY, (Reported) Scheduled PRN Acetaminophen With Codeine (Acetaminophen-Cod #3 Tablet), 1 TAB PO PRN Q6HRS PRN for PAIN, (Reported) Albuterol Sulfate (Proair Hfa Inhaler), 1 PUFF INH PRN Q4HRS PRN for SHORTNESS OF BREATH, (Reported) Clonidine Hcl (Clonidine Hcl), 0.2 MG PO PRN TID PRN for tid, (Reported) Hydrocodone/Apap 5-325 (Jane Lew 5-325 Tablet), 1-2 TAB PO PRN Q8HRS PRN for PAIN, (Reported) Methocarbamol (Robaxin), 500 MG PO PRN QID PRN for MUSCLE SPASMS, (Reported) Trazodone Hcl (Trazodone Hcl), 50 MG PO PRN QHS PRN for INSOMNIA, (Reported) Triamcinolone Acetonide (Triamcinolone Acetonide 0.1% Cream), 1 WENDIE TP PRN TID PRN for RASH, (Reported) Discontinued Medications Donepezil Hcl (Donepezil Hcl), 1 TAB PO DAILY, (Reported) Furosemide (Furosemide), 60 MG PO DAILY, (Reported) Insulin Aspart (Novolog), 20 UNIT SQ TIDBFRMEAL, (Reported) VENUS DALAL MD Apr 06, 2017 14:48
[2017-04-06] MEDS ORDERED: LEVE500T56 PO (14:49)
--- NOTE | 2017-04-06 15:27 | PDOC ---
PROGRESS NOTES Assessment Assessment IMPRESSION: Seizure, provoked likely. Metabolic encephalopathy. Hyperglycemia, glucose level 500. DM, poorly controlled. HTN COPD Ol;d CVA with right side hemiparesis. OA Obesity. No evidence of CVA this time. RECOMMENDATIONS/PLAN: Control hyperglycemia. Treat medical diseases. OK to continue Keppra 500 mg bid. FU with PCP. FU with Neurology if has further seizures. Brain MRI: No seizure foci found. EEG: Encephalopathy. No seizure activity noted. Past Medical History Cardiovascular: Other Pulmonary: COPD, Other CENTRAL NERVOUS SYSTEM: CVA, Dementia GI: Other Heme/Onc: No pertinent hx Hepatobiliary: No pertinent hx Psych: No pertinent hx Musculoskeletal: Osteoarthritis, Other Rheumatologic: No pertinent hx Infectious disease: No pertinent hx Renal/: No pertinent hx Endocrine: Diabetes Past Surgical History Appendectomy, Hernia Repair, Tonsillectomy, Other Family History Heart Disease Social History No ALCOHOL: none Drugs: None Lives: with Family ALLERGY: Reviewed. MEDICATIONS: Refer to [facility] REVIEW OF SYSTEMS: Constitutional: No malnutrition, weight loss, cachexia. Head: No recent traumatic brain or head injury. Skin: No edema, or rash. Ear: No infection, tinnitus. Eyes: No vision loss, or diplopia. Nose: No bleeding or purulent discharges. Hearing: Hearing decrease. Neck: No injury. Cardiac: HTN Pulmonary: CPOD. GI: No GI Ulcer, GI bleeding Urinary/genital: UTI. Endocrine: Diabetes Mellitus, obesity. Skeletomuscular: No muscular atrophy, deformity. Neurological: see HP. Psychiatric: Denies drug use/abuse. Otherwise, not [id number] review of systems. PHYSICAL EXAMINATION: General appearance in no acute distress. HEENT: Normocephalic and nontraumatic. Eyes, nose, ears, and throat are unremarkable. Hearing decrease. Neck is supple. No lymphadenopathy. No bruits are heard over the carotid artery. No Crepitus. Cardiovascular: S1, S2, regular rate and rhythm. Pulmonary: Clear to auscultation bilaterally. Abdomen: Bowel sounds are positive. Extremities: No rash, lesions, or edema. No restriction of range of motion NEUROLOGICAL EXAMINATION: Awake. Oriented to time, place and person, but reaction was slow. PERRL. EOMI. CN: no focal findings. Muscle tone: within normal. Muscle strength: 4+ DTR: 2_ Plantar reflex: Neutral response bilaterally Gait: not examined in chair. Sensory exam: no abnormal findings. No acute cerebellar signs elicited. F-T-N test fine. Objective Objective Vital Signs Date Time Temp Pulse Resp B/P (MAP) Pulse Ox O2 Delivery O2 Flow Rate FiO2 04/06/17 14:30 97.8 68 18 132/58 (82) 98 Nasal Cannula 2.0 97.8 Intake and Output 04/06/17 07:00 Intake Total 390 ml Output Total 825 ml Balance -435 ml Intake Oral 390 ml Output Urine Total 825 ml # Voids 1 Vitals Signs Vitals VS - Last 72 Hours, by Label Date Time Temp Pulse Resp B/P (MAP) Pulse Ox O2 Delivery O2 Flow Rate FiO2 04/06/17 14:30 97.8 68 18 132/58 (82) 98 Nasal Cannula 2.0 97.8 04/06/17 11:37 Nasal Cannula 2.0 04/06/17 08:35 69 129/69 04/06/17 08:34 69 129/69 04/06/17 08:00 Nasal Cannula 2.0 04/06/17 07:04 97.4 69 17 129/69 (89) 98 BiPAP/CPAP 97.4 04/06/17 07:00 99 Nasal Cannula 2.0 04/06/17 05:52 97.2 97.2 04/06/17 03:15 61 16 126/63 (84) 97 BiPAP/CPAP 04/05/17 23:15 96.9 64 16 125/56 (79) 94 BiPAP/CPAP 96.9 04/05/17 20:57 66 108/57 04/05/17 20:09 99 Nasal Cannula 2.0 04/05/17 20:09 99 Nasal Cannula 2.0 04/05/17 20:00 Nasal Cannula 2.0 04/05/17 19:15 97.5 66 16 108/57 (74) 99 Nasal Cannula 2.0 97.5 04/05/17 17:22 68 127/52 04/05/17 14:23 98.2 69 16 132/64 (86) 100 Nasal Cannula 2.0 98.2 04/05/17 11:48 99 Nasal Cannula 2.0 04/05/17 11:10 97.6 76 20 152/71 (98) 99 Nasal Cannula 2.0 97.6 04/05/17 10:55 72 155/78 04/05/17 10:54 72 155/78 04/05/17 08:00 Room Air 2.0 04/05/17 07:46 97.6 72 16 155/78 (103) 100 Nasal Cannula 2.0 97.6 Laboratory Laboratory Laboratory Tests Test 04/05/17 17:02 04/05/17 20:35 04/06/17 07:32 04/06/17 11:47 Glucose (Fingerstick) 178 mg/dL (70-99) 90 mg/dL (70-99) 130 mg/dL (70-99) 148 mg/dL (70-99) Medication Medications Current Medications Amlodipine Besylate (Norvasc) 10 mg HS PO Last administered on 04/05/17 20:57 ; Start 04/05/17 at 21:00 Diphenhydramine HCl (Benadryl) 25 mg QHS PO ; Start 04/05/17 at 21:00 Insulin Aspart (NovoLOG) 24 units DAILYBFRSUP SQ Last administered on 17:26; Start 04/05/17 at 17:00 Insulin Detemir (Levemir) 75 units QHS SQ Last administered on 04/05/17 21:07 ; Start 04/05/17 at 21:00 Multi-Ingred Cream/Lotion/Oil/ Oint (Hydrocerin) 1 chayito TID TP Last administered on 04/06/17 11:54; Start 04/05/17 at 21:00 Non-Formulary Medication 2 puff BID IH ; Start 04/05/17 at 21:00; Status UNV Valproic Acid 1000 mg/Sodium Chloride 60 ml @ 55 mls/hr 1X STAT IV Last administered on 04/05/17 15:39; Start 04/05/17 at 15:28; Stop 04/05/17 at 16:33 ; Status DC Valproic Acid 500 mg/Sodium Chloride 55 ml @ 55 mls/hr Q12HR IV Last administered on 04/06/17 08:45; Start 04/05/17 at 21:00 Comment Review of Relevant I have reviewed the following items tere (where applicable) has been applied. MEL VILLATORO MD Apr 06, 2017 15:27
[2017-04-07] MEDS ORDERED: PHEN100C PO (16:06)
== END 2017-04-06 16:00 | disposition home or self-care (01) | DRG 100 ==
LOC: ER 18:02 → 6 SOUTH 20:09
PROVIDERS: ADMIT Internal Medicine; ATTEND Internal Medicine
PROC: 5A09357 Assistance with Respiratory Ventilation, Less than 24 Consecutive Hours, Continuous Positive Airway Pressure (ICD-10-PCS; principal; 2017-04-06)
DX: G40.209 Localization-related (focal) (partial) symptomatic epilepsy and epileptic syndromes with complex partial seizures, not intractable, without status epilepticus (principal); G93.41 Metabolic encephalopathy; E11.40 Type 2 diabetes mellitus with diabetic neuropathy, unspecified; I50.9 Heart failure, unspecified; I11.0 Hypertensive heart disease with heart failure; F03.90 Unspecified dementia, unspecified severity, without behavioral disturbance, psychotic disturbance, mood disturbance, and anxiety; Z68.42 Body mass index [BMI] 45.0-49.9, adult; I69.351 Hemiplegia and hemiparesis following cerebral infarction affecting right dominant side; E66.9 Obesity, unspecified; J44.9 Chronic obstructive pulmonary disease, unspecified; E78.00 Pure hypercholesterolemia, unspecified; E11.65 Type 2 diabetes mellitus with hyperglycemia; G47.33 Obstructive sleep apnea (adult) (pediatric); M19.90 Unspecified osteoarthritis, unspecified site; Z79.4 Long term (current) use of insulin; Z90.49 Acquired absence of other specified parts of digestive tract; Z90.89 Acquired absence of other organs; Z88.8 Allergy status to other drugs, medicaments and biological substances; Z91.041 Radiographic dye allergy status; Z79.899 Other long term (current) drug therapy; Z82.49 Family history of ischemic heart disease and other diseases of the circulatory system
CPT/HCPCS: 36415; 70450; 70551; 71010; 80048; 80053; 80076; 80307; 81001; 82140; 82962; 83605; 83735; 84484; 85025; 85027; 85610; 85730; 93005; 94250; 94640; 94760; 95816; 96365; 96372; G0480; J1815; J1953; J2060; J7040; J7613; J7626; 97116; 99285-25; G0479

== ENCOUNTER 2017-04-07 14:28 | Emergency (ER) | payer MEDICARE, OTHER ==
[~2017-04-07] VITALS: Ht 182.9 cm; Wt 174.6 kg
[~2017-04-07 14:28] MED LIST changes: +ACET325T9 PO; +AMLO10TA2 PO; +BENZ100C15 PO; +CLOP75TA PO; +DOCU-109 PO; +FURO40TA4 PO; +HYDR-971 PO; +INSU100I17 SQ; +LEVO500T8 PO; +MAGN200T PO; +METH-37 PO; +MULT-208 PO; +PANT40TA5 PO; +POLY255P PO; +POTA20TA82 PO; +TRIA15CR3 TP
--- NOTE | 2017-04-07 14:32 | PHYS DOC ---
Past Medical History Past Medical History: CHF, COPD, High Cholesterol, Heart Disease, Hypertension , Seizure, Stroke Past Surgical History: No Surgical History Alcohol Use: None Drug Use: None Adult General Chief Complaint Chief Complaint: SEIZURE HPI HPI Patient is a 66 year old male presenting to the emergency department for evaluation of a seizure that occurred shortly prior to arrival. Reportedly it was a partial seizure that lasted for less than 1 minute and a minutes was called. He is initially but now he knows that he has seizures he told me he was discharged from the hospital yesterday with a prescription for Keppra. He said it was too expensive and could not get it filled so patient has not had any seizure medication at this time. Review of Systems Review of Systems Constitutional: Denies fever or chills [] Respiratory: Denies cough or shortness of breath [] Cardiovascular: No additional information not addressed in HPI [] GI: Denies abdominal pain, nausea, vomiting, bloody stools or diarrhea [] Neurologic: Denies headache, No new focal weakness or sensory changes [] Current Medications Current Medications Current Medications Medications (Trade) Dose Ordered Sig/Mitul Start Time Stop Time Status Last Admin Dose Admin Dextrose (Dextrose 50%-Water Syringe) 25 gm 1X ONCE 04/07/17 15:45 04/07/17 15:46 DC 04/07/17 15:53 25 GM Levetiracetam 1000 mg/Sodium Chloride 110 ml @ 440 mls/hr 1X ONCE 04/07/17 15:00 04/07/17 15:14 DC 04/07/17 14:54 440 MLS/HR Magnesium Oxide (Magnesium Oxide) 800 mg 1X STAT 04/07/17 15:45 04/07/17 15:46 DC 04/07/17 15:53 800 MG Allergies Allergies Allergies Coded Allergies Type Severity Reaction Last Updated Verified [id number]-Gfd-Dpy Reductase Inhibitor Allergy Intermediate 04/03/17 Yes erythromycin base Allergy Intermediate 04/03/17 Yes iodine Allergy Intermediate 04/03/17 Yes niacin Allergy Intermediate 04/03/17 Yes simvastatin Allergy Intermediate 04/03/17 Yes Physical Exam Physical Exam Constitutional: Well developed, well nourished, no acute distress, non-toxic appearance. [] Cardiovascular:Heart rate regular rhythm, no murmur [] Lungs & Thorax: Bilateral breath sounds clear to auscultation [] Abdomen: Bowel sounds normal, soft, no tenderness, no masses, no pulsatile masses. [] Skin: Warm, dry, no erythema, no rash. [] Back: No tenderness, no CVA tenderness. [] Extremities: No tenderness, no cyanosis, no clubbing, ROM intact, no edema. [] Neurologic: Alert and oriented X 3, right-sided weakness at his baseline. Current Patient Data Vital Signs Vital Signs Date Time Temp Pulse Resp B/P (MAP) Pulse Ox O2 Delivery O2 Flow Rate FiO2 04/07/17 15:30 85 18 160/69 (99) 97 Room Air 04/07/17 14:44 98.7 98.7 Lab Values Laboratory Tests Test 04/07/17 15:10 White Blood Count 11.0 x10^3/uL (4.0-11.0) Red Blood Count 4.17 x10^6/uL (4.30-5.70) L Hemoglobin 12.8 g/dL (13.0-17.5) L Hematocrit 38.3 % (39.0-53.0) L Mean Corpuscular Volume 92 fL (79-100) Mean Corpuscular Hemoglobin 31 pg (25-35) Mean Corpuscular Hemoglobin Concent 33 g/dL (31-37) Red Cell Distribution Width 12.6 % (11.5-14.5) Platelet Count 261 x10^3/uL (140-400) Neutrophils (%) (Auto) 51 % (31-73) Lymphocytes (%) (Auto) 38 % (24-48) Monocytes (%) (Auto) 8 % (0-9) Eosinophils (%) (Auto) 3 % (0-3) Basophils (%) (Auto) 1 % (0-3) Neutrophils # (Auto) 5.6 x10^3uL (1.8-7.7) Lymphocytes # (Auto) 4.1 x10^3/uL (1.0-4.8) Monocytes # (Auto) 0.9 x10^3/uL (0.0-1.1) Eosinophils # (Auto) 0.3 x10^3/uL (0.0-0.7) Basophils # (Auto) 0.1 x10^3/uL (0.0-0.2) Sodium Level 143 mmol/L (136-145) Potassium Level 3.5 mmol/L (3.5-5.1) Chloride Level 105 mmol/L (98-107) Carbon Dioxide Level 29 mmol/L (21-32) Anion Gap 9 (6-14) Blood Urea Nitrogen 26 mg/dL (8-26) Creatinine 1.1 mg/dL (0.7-1.3) Estimated GFR (Cockcroft-Gault) 67.2 BUN/Creatinine Ratio 24 (6-20) H Glucose Level 60 mg/dL (70-99) L Calcium Level 7.9 mg/dL (8.5-10.1) L Magnesium Level 1.4 mg/dL (1.8-2.4) L Total Bilirubin 0.1 mg/dL (0.2-1.0) L Aspartate Amino Transferase (AST) 9 U/L (15-37) L Alanine Aminotransferase (ALT) 16 U/L (16-63) Alkaline Phosphatase 78 U/L (46-116) Total Protein 6.4 g/dL (6.4-8.2) Albumin 2.8 g/dL (3.4-5.0) L Albumin/Globulin Ratio 0.8 (1.0-1.7) L Laboratory Tests 04/07/17 15:10 Laboratory Tests 04/07/17 15:10 EKG EKG Sinus rhythm at 90 beats per minutes with leftward axis no obvious ST elevation or depression and normal T waves. Radiology/Procedures Radiology/Procedures [] Course & Med Decision Making Course & Med Decision Making Patient had his neurologic baseline with no new symptoms. I spoke to the neurologist tobacco conditioner Dr. villatoro. She recommended discharging the patient on 200 mg of Dilantin twice a day and having patient follow in the neurology clinic. I did feed the patient here and give him magnesium supplementation and told him to eat a balanced diet. Patient Aware and agreeable with plan for discharge and verbalized understanding of the need for short-term follow-up and strict ER return precautions discussed including new weakness pain or other general concerns. Dragon Disclaimer Dragon Disclaimer This electronic medical record was generated, in whole or in part, using a voice recognition dictation system. Departure Departure Impression: Primary Impression: Seizure Additional Impressions: Hypomagnesemia Hypoglycemia Disposition: 01 HOME, SELF-CARE Condition: GOOD Referrals: MEL VILLATORO MD Patient Instructions: Seizure, Adult Additional Instructions: EAT A BALANCED DIET. FOLLOW WITH YOUR NEUROLOGIST AND COME BACK TO THE ED WITH ANY NEW OR WORSENING PAIN, SEIZURES, OR OTHER GENERAL CONCERNS. THANK YOU! Scripts Phenytoin Sodium Extended (DILANTIN) 100 Mg Capsule 2 CAP PO BID, #120 CAP 2 Refills Prov: SELENA TIRADO DO 04/07/17 Problem Qualifiers SELENA TIRADO DO Apr 07, 2017 14:32
[2017-04-07 15:19] LABS: BASO # 0.1 x10^3/uL (0.0-0.2); BASO % 1 % (0-3); EOS % 3 % (0-3); HEMATOCRIT 38.3 % (39.0-53.0); HEMOGLOBIN 12.8 g/dL (13.0-17.5); LYMPH # 4.1 x10^3/uL (1.0-4.8); LYMPH % 38 % (24-48); MEAN CORPUSCULAR HEMOGLOBIN 31 pg (25-35); MEAN CORPUSCULAR HGB CONC 33 g/dL (31-37); MEAN CORPUSCULAR VOLUME 92 fL (79-100); MONO % 8 % (0-9); NEUT % 51 % (31-73); PLATELET COUNT 261 x10^3/uL (140-400); RED BLOOD COUNT 4.17 x10^6/uL (4.30-5.70); RED CELL DISTRIBUTION WIDTH 12.6 % (11.5-14.5)
[2017-04-07 15:28] LABS: CALCIUM 7.9 mg/dL (8.5-10.1); CREATININE 1.1 mg/dL (0.7-1.3); GFR 67.2; POTASSIUM 3.5 mmol/L (3.5-5.1)
[2017-04-07 15:30] VITALS: BP 160/69
[2017-04-07 15:34] LABS: ALBUMIN 2.8 g/dL (3.4-5.0); ALBUMIN/GLOBULIN RATIO 0.8 (1.0-1.7); MAGNESIUM 1.4 mg/dL (1.8-2.4); TOTAL BILIRUBIN 0.1 mg/dL (0.2-1.0); TOTAL PROTEIN 6.4 g/dL (6.4-8.2)
[2017-04-07] MEDS ORDERED: MAGNESIUM OXIDE 400 MG TABLET PO STA (15:45)
[2017-04-07] MEDS ORDERED: DEXTROSE 50% 25 GM / 50ML DISP.SYRIN. IV ONE (15:45)
[2017-04-07] MEDS ORDERED: PHEN100C PO (16:06)
== END 2017-04-07 16:16 | disposition home or self-care (01) ==
LOC: ER 14:28
DX: R56.9 Unspecified convulsions (principal); E83.42 Hypomagnesemia; E16.2 Hypoglycemia, unspecified; I11.0 Hypertensive heart disease with heart failure; I50.9 Heart failure, unspecified; J44.9 Chronic obstructive pulmonary disease, unspecified; E78.00 Pure hypercholesterolemia, unspecified; Z86.73 Personal history of transient ischemic attack (TIA), and cerebral infarction without residual deficits; Z88.8 Allergy status to other drugs, medicaments and biological substances; Z88.1 Allergy status to other antibiotic agents; Z91.041 Radiographic dye allergy status
CPT/HCPCS: 36415; 80053; 83735; 85025; 96365; 96375; 99284; J1953; J7042

== ENCOUNTER → 2017-04-16 | Outpatient (CLI) | payer MEDICARE, OTHER ==
[2017-04-07 15:30] VITALS: BP 160/69
[~2017-04-16] MED LIST changes: +PHEN100C PO
--- NOTE | 2017-04-20 16:41 | EEG ---
DATE OF SERVICE: 04/16/2017 EEG NUMBER: [id number]. OBJECTIVE: This is a 66-year-old male patient with history of seizure. EEG was requested to evaluate the seizure activity. METHODS: Twenty electrodes were applied according to the international 10-20 electrode placement system. EKG monitoring, hyperventilation, intermittent photic stimulation, monopolar and bipolar montages are routinely utilized. The record was obtained on a digital system with video monitoring. FINDINGS: 1. Background: The patient was recorded in the awake, drowsy, and sleep states. The overall background amplitude is 5-15 microvolts. A posterior dominant rhythm of 8 Hz is observed with superimposed fast activity in beta frequency. 2. Abnormalities: No specific epileptiform discharge or electrographic seizure is seen. No focal or diffuse slowing. 3. Activation: Hyperventilation was performed with good efforts and normal response. Intermittent photic stimulation was performed with photic driving. No specific epileptiform discharge or electrographic seizure induced by hyperventilation or intermittent photic stimulation. IMPRESSION: This EEG is a borderline study for the awake, drowsy, and sleep states. There is superimposed fast activity in beta frequency. No focal, lateralizing, specific epileptiform discharge, or electrographic seizure is seen. However, even a normal EEG does not rule out seizure. MEL VILLATORO MD DR: ELENA/lino JOB#: [id number] / [id number] LIANG
== END | disposition home or self-care (01) ==
LOC: RT 07:52
PROVIDERS: ATTEND Psychiatry & Neurology Neurology
DX: R56.9 Unspecified convulsions (principal); R06.4 Hyperventilation
CPT/HCPCS: 95816

== ENCOUNTER 2017-04-29 12:03 | Emergency (ER) | payer MEDICARE, OTHER ==
[~2017-04-29] VITALS: Ht 180.3 cm; Wt 177.4 kg
[2017-04-29] MEDS ORDERED: LABETALOL 20 MG/4 ML DISP.SYRIN. IVP PRN ×2 (12:30)
[2017-04-29] MEDS ORDERED: LABETALOL 20 MG/4 ML DISP.SYRIN. IVP ONE (12:30)
--- NOTE | 2017-04-29 12:35 | RAD ---
Indication sudden onset of weakness. Code stroke. Noncontrast images of the head were obtained. Comparison is made to a study 04/05/2017. Preliminary results were communicated to Dr. Elias, in the emergency room, at the time of dictation . The calvarium appears unremarkable. The visualized paranasal sinuses appear unremarkable. There is no subdural or epidural hematoma. There is no mass or midline shift. No hemorrhage is seen. A significant change when compared to the prior exam is not seen. IMPRESSION: No acute finding seen on noncontrast CT images of the head. PQRS Compliance Statement: One or more of the following individualized dose reduction techniques were utilized for this examination: 1. Automated exposure control 2. Adjustment of the mA and/or kV according to patient size 3. Use of iterative reconstruction technique
[2017-04-29 12:44] LABS: HEMATOCRIT 39.8 % (39.0-53.0); HEMOGLOBIN 13.6 g/dL (13.0-17.5); RED BLOOD COUNT 4.35 x10^6/uL (4.30-5.70); RED CELL DISTRIBUTION WIDTH 13.1 % (11.5-14.5); WHITE BLOOD COUNT 9.9 x10^3/uL (4.0-11.0)
[2017-04-29 12:58] LABS: CALCIUM 9.5 mg/dL (8.5-10.1); CREATININE 1.1 mg/dL (0.7-1.3); GFR 67.2; POTASSIUM 4.7 mmol/L (3.5-5.1)
[2017-04-29 13:00] LABS: PROTHROMBIN TIME PATIENT 12.9 SEC (11.7-14.0)
[2017-04-29] MEDS ORDERED: IV NORMAL SALINE 50ML 50 ML IV ONE (13:00)
[2017-04-29] MEDS ORDERED: ALTEPLASE 9 MG IV ONE (13:00)
[2017-04-29] MEDS ORDERED: ALTEPLASE 81 MG IV ONE (13:00)
--- NOTE | 2017-04-29 13:01 | RAD ---
Portable chest, 04/29/2017: History: Sudden weakness Comparison is made to a study from 04/04/2017. The heart is enlarged. The pulmonary vascularity is normal. No pulmonary infiltrate is seen. There is no evidence of pleural fluid. Moderate spurring is present in the spine. IMPRESSION: 1. Cardiomegaly. 2. No acute abnormality is detected.
[2017-04-29] MEDS ORDERED: diphenhydrAMINE 50 MG/ML VIAL IVP ONE (13:15)
[2017-04-29] MEDS ORDERED: IV RINGERS,LACTATED 500ML 500 ML IV ONE (13:15)
[2017-04-29] MEDS ORDERED: INSULIN REGULAR 100 UNIT/ML 10ML VIAL. IV ONE (13:15)
[2017-04-29] MEDS ORDERED: methylPREDNISolone SOD SUCC PF 125 MG/2 ML VIAL. IV ONE (13:15)
[2017-04-29] MEDS ORDERED: FAMOTIDINE 20 MG/2 ML VIAL IVP ONE (13:30)
[2017-04-29] MEDS ORDERED: NALOXONE 0.4 MG/ML VIAL. IV ONE (13:30)
[2017-04-29 13:34] VITALS: BP 207/91
[2017-04-29] MEDS ORDERED: ONDANSETRON PF 4 MG/2 ML VIAL. ONE (13:38)
--- NOTE | 2017-04-29 13:46 | EKG ---
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
[2017-04-29] MEDS ORDERED: ONDANSETRON PF 4 MG/2 ML VIAL. IV ONE (14:00)
--- NOTE | 2017-04-29 16:59 | PHYS DOC ---
Past Medical History Past Medical History: CHF, COPD, High Cholesterol, Heart Disease, Hypertension , Seizure, Stroke Past Surgical History: No Surgical History Alcohol Use: None Drug Use: None Adult General Chief Complaint Chief Complaint: ALTERED MENTAL STATUS HPI HPI 66-year-old male presenting to the emergency department today by [facility] for sudden altered mental status. EMS reports that the patient was going to the bathroom to take a shower when all of a sudden he went unresponsive. His daughter who is with him at the time reports that this happened around 11:00 AM. She later came and helped expand the story. She reports finding him unresponsive and called The paramedics. He has a history of seizures and strokes in the past. She denies him having a shaking episode time. Upon arrival EMS states the patient continued not to respond however was opening his eyes spontaneously and breathing without difficulty. No meds given prior to arrival. The patient's daughter reports that he was feeling well until then. Review of systems is negative for chest pain shortness of breath nausea vomiting fevers or chills. All other review of systems is negative unless otherwise noted in history of present illness. ED course: 66-year-old male presenting with sudden change in mental status. Upon arrival the patient was awake and opening his eyes spontaneously however did not follow commands and did not respond to painful stimuli. He was not having movements that would be suggestive of generalized tonic-clonic seizure. He did not follow or track with his eyes. NIH stroke obtained which was 33. Unfortunately the patient's blood pressure remained around 220 resistant to labetalol given 3 times and subsequently the patient was no longer eligible for TPA. I explained this to the daughter who is here with him. She demonstrated verbal understanding. I discussed the case with Dr. Blum and the [facility] neurologists. I talked with him at 1303 and again at 1311. I ordered the patient to receive intravenous steroids and Benadryl. We are unable to obtain a CT angiography because of the patient's iodine allergy. I also initiated treatment with IV glucose and a nicardipine drip. There was difficulty getting these medications from the pharmacy. Our nurse Vickei is going to follow-up on the difficulty getting the medications to the patient who was needing them acutely. I explained my concern to the [facility]'s neurologist of the possible basilar infarction for which the patient was transferred to be evaluated for. I did give the patient a dose of Ativan for an empiric trial for possible atypical nonconvulsive status presentation. The patient did not respond to Ativan. I also empirically give the patient Narcan which did not improve the patient's symptoms. EKG reviewed by myself shows sinus rhythm with tachycardia. [place] is mildly leftward. ST segments congruent. Not consistent with ACS. Chest x -ray obtained which was unremarkable for acute pathology. Head CT negative. Patient's blood sugar was elevated around 500 without acidosis. I also considered HHS. Review of Systems Review of Systems SEE ABOVE. Current Medications Current Medications Current Medications Medications (Trade) Dose Ordered Sig/Mitul Start Time Stop Time Status Last Admin Dose Admin Alteplase, Recombinant 81 ml @ 81 mls/hr 1X ONCE 04/29/17 13:00 04/29/17 13:59 DC Diphenhydramine HCl (Benadryl) 25 mg 1X ONCE 04/29/17 13:15 04/29/17 13:16 DC Famotidine (Pepcid) 20 mg 1X ONCE 04/29/17 13:30 04/29/17 13:31 DC Insulin Human Regular (NovoLIN R VIAL) 10 unit 1X ONCE 04/29/17 13:15 04/29/17 13:16 DC Labetalol HCl (Normodyne) 10 mg PRN Q10MIN PRN 04/29/17 12:30 04/29/17 13:16 10 MG Lorazepam (Ativan) 1 mg 1X ONCE 04/29/17 13:15 04/29/17 13:16 DC 04/29/17 13:15 1 MG Methylprednisolone Sodium Succinate (SOLU-Medrol 125MG VIAL) 125 mg 1X ONCE 04/29/17 13:15 04/29/17 13:16 DC Naloxone HCl (Narcan) 0.4 mg 1X ONCE 04/29/17 13:30 04/29/17 13:31 DC Nicardipine HCl 50 mg/Sodium Chloride 270 ml @ 0 mls/hr CONT PRN 04/29/17 13:15 Ondansetron HCl (Zofran) 4 mg 1X ONCE 04/29/17 14:00 04/29/17 14:01 DC 04/29/17 13:40 4 MG Ringer's Solution 500 ml @ 500 mls/hr 1X ONCE 04/29/17 13:15 04/29/17 14:14 DC Sodium Chloride 50 ml @ 0 mls/hr 1X ONCE 04/29/17 13:00 04/29/17 13:01 DC Allergies Allergies Allergies Coded Allergies Type Severity Reaction Last Updated Verified Upijpwp-Gpp-Lux Reductase Inhibitor Allergy Intermediate 04/03/17 Yes erythromycin base Allergy Intermediate 04/03/17 Yes iodine Allergy Intermediate 04/03/17 Yes niacin Allergy Intermediate 04/03/17 Yes simvastatin Allergy Intermediate 04/03/17 Yes Physical Exam Physical Exam SEE ABOVE Constitutional: Well developed, well nourished. Patient is lying in bed with spontaneously opened eyes. Patient does not respond to commands. Patient has tremulous jaw but is otherwise not shaking extremities. Patient is breathing without difficulty and maintains a patent airway. No gurgling, no stridor. Normal respiratory status. HENT: Normocephalic, atraumatic, bilateral external ears normal, oropharynx moist, no oral exudates, nose normal. [] Eyes: PERRLA, EOMI, conjunctiva normal, no discharge. [] Neck: Normal range of motion, no tenderness, supple, no stridor. [] Cardiovascular:Heart rate regular rhythm, no murmur [] Lungs & Thorax: Bilateral breath sounds clear to auscultation [] Abdomen: Bowel sounds normal, soft, no tenderness, no masses, no pulsatile masses. [] Skin: Warm, dry, no erythema, no rash. [] Back: No tenderness, no CVA tenderness. [] Extremities: No tenderness, no cyanosis, no clubbing, ROM intact, no edema. [] Neurologic: Mental status: Awake and unresponsive. Cranial nerves: Extraocular movements unable to assess, facial muscles unable to assess, tongue protrusion unable to assess DTRs: 2+ Sensation: unable Strength: 1/5 in all extremities Psychologic: Affect normal, judgement normal, mood normal. [] Current Patient Data Vital Signs Vital Signs Date Time Temp Pulse Resp B/P (MAP) Pulse Ox O2 Delivery O2 Flow Rate FiO2 04/29/17 13:34 94 18 207/91 (129) 98 Nasal Cannula 2.0 04/29/17 12:10 98.7 98.7 SEE ABOVE. Lab Values Laboratory Tests Test 04/29/17 12:10 04/29/17 12:33 White Blood Count 9.9 x10^3/uL (4.0-11.0) Red Blood Count 4.35 x10^6/uL (4.30-5.70) Hemoglobin 13.6 g/dL (13.0-17.5) Hematocrit 39.8 % (39.0-53.0) Mean Corpuscular Volume 92 fL (79-100) Mean Corpuscular Hemoglobin 31 pg (25-35) Mean Corpuscular Hemoglobin Concent 34 g/dL (31-37) Red Cell Distribution Width 13.1 % (11.5-14.5) Platelet Count 221 x10^3/uL (140-400) Prothrombin Time 12.9 SEC (11.7-14.0) Prothrombin Time INR 1.0 (0.8-1.1) PTT 30 SEC (24-38) Sodium Level 133 mmol/L (136-145) L Potassium Level 4.7 mmol/L (3.5-5.1) Chloride Level 95 mmol/L (98-107) L Carbon Dioxide Level 32 mmol/L (21-32) Anion Gap 6 (6-14) Blood Urea Nitrogen 17 mg/dL (8-26) Creatinine 1.1 mg/dL (0.7-1.3) Estimated GFR (Cockcroft-Gault) 67.2 Glucose Level 532 mg/dL (70-99) *H Calcium Level 9.5 mg/dL (8.5-10.1) Troponin I Quantitative < 0.017 ng/mL (0.000-0.055) Glucose (Fingerstick) 507 mg/dL (70-99) *H Laboratory Tests 04/29/17 12:10 Laboratory Tests 04/29/17 12:10 EKG EKG [] Radiology/Procedures Radiology/Procedures SEE ABOVE[] Course & Med Decision Making Course & Med Decision Making Pertinent Labs and Imaging studies reviewed. (See chart for details) [] Dragon Disclaimer Dragon Disclaimer This electronic medical record was generated, in whole or in part, using a voice recognition dictation system. Departure Departure Impression: Primary Impression: Stroke-like symptom Additional Impression: Encephalopathy acute Disposition: 02 TRANSFER [facility] ([facility] dr blum.) Condition: STABLE Referrals: LEIGHA KAUFMAN [facility] [place] [facility] (PCP) Critical Care Time Critical care time was [45] minutes exclusive of procedures. Time was spent evaluating the patient, ordering the administration of medications, discussing with consulting providers and coordinating transfer, and documenting. Problem Qualifiers GALINDO DIANE MD Apr 29, 2017 16:59
== END 2017-04-29 13:44 | disposition short-term general hospital (02) ==
LOC: ER 12:03
DX: G93.40 Encephalopathy, unspecified (principal); I11.0 Hypertensive heart disease with heart failure; I50.9 Heart failure, unspecified; J44.9 Chronic obstructive pulmonary disease, unspecified; E78.00 Pure hypercholesterolemia, unspecified; Z86.73 Personal history of transient ischemic attack (TIA), and cerebral infarction without residual deficits; Z88.1 Allergy status to other antibiotic agents; Z88.8 Allergy status to other drugs, medicaments and biological substances
CPT/HCPCS: 36415; 51702; 70450; 71010; 80048; 82962; 84484; 85027; 85610; 85730; 93005; 96374; 96375; 99291; J2060; J2405; J3490

== ENCOUNTER 2017-07-03 14:03 | Inpatient (IN) | payer MEDICARE, OTHER ==
[~2017-07-03] VITALS: Ht 182.9 cm; Wt 179.2 kg
[~2017-07-03 14:03] MED LIST changes: +BENZ-8 PO; -BENZ100C15 PO
[2017-07-03 14:34] LABS: BASO # 0.1 x10^3/uL (0.0-0.2); BASO % 1 % (0-3); EOS % 4 % (0-3); HEMATOCRIT 36.5 % (39.0-53.0); HEMOGLOBIN 12.2 g/dL (13.0-17.5); LYMPH # 2.5 x10^3/uL (1.0-4.8); LYMPH % 27 % (24-48); MEAN CORPUSCULAR HEMOGLOBIN 31 pg (25-35); MEAN CORPUSCULAR HGB CONC 34 g/dL (31-37); MEAN CORPUSCULAR VOLUME 92 fL (79-100); MONO % 8 % (0-9); NEUT % 60 % (31-73); PLATELET COUNT 256 x10^3/uL (140-400); RED BLOOD COUNT 3.96 x10^6/uL (4.30-5.70); RED CELL DISTRIBUTION WIDTH 13.2 % (11.5-14.5); WHITE BLOOD COUNT 9.3 x10^3/uL (4.0-11.0)
[2017-07-03 14:46] LABS: INR 1.1 (0.8-1.1); PROTHROMBIN TIME PATIENT 13.2 SEC (11.7-14.0)
[2017-07-03 14:56] LABS: ALBUMIN 3.4 g/dL (3.4-5.0); ALBUMIN/GLOBULIN RATIO 0.8 (1.0-1.7); CALCIUM 9.8 mg/dL (8.5-10.1); CREATININE 1.1 mg/dL (0.7-1.3); GFR 67.2; MAGNESIUM 1.4 mg/dL (1.8-2.4); POTASSIUM 4.9 mmol/L (3.5-5.1); TOTAL BILIRUBIN 0.4 mg/dL (0.2-1.0); TOTAL PROTEIN 7.8 g/dL (6.4-8.2)
--- NOTE | 2017-07-03 15:02 | RAD ---
EXAM: Chest one view. HISTORY: Chest pain. COMPARISON: 04/29/2017. FINDINGS: A frontal view of the chest is obtained. Bibasilar mild hazy opacities most likely indicate mild pulmonary edema and possibly posteriorly layering small pleural effusions. There is no pneumothorax. The heart is moderately to severely enlarged. IMPRESSION: 1. Moderate to severe cardiomegaly. 2. Suspect mild pulmonary edema.
--- NOTE | 2017-07-03 15:34 | EKG ---
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
[2017-07-03 15:40] LABS: BILIRUBIN,URINE NEGATIVE (NEG); GLUCOSE,URINE 100 mg/dL (NEG); NITRITE,URINE NEGATIVE (NEG); PROTEIN,URINE 30 mg/dL (NEG-TRACE); UROBILINOGEN,URINE 0.2 mg/dL (0.2 mg/dL)
[2017-07-03] MEDS ORDERED: cloNIDine HCL 0.2 MG TABLET PO PRN (16:00)
[2017-07-03] MEDS ORDERED: hydrALAZINE 20 MG/ML VIAL. IVP PRN (16:00)
[2017-07-03] MEDS ORDERED: NON FORMULARY ITEM (Albuterol Sulfate (Proair Hfa Inhaler) 1 PUFF) INH PRN (16:00)
[2017-07-03] MEDS ORDERED: traZODone 50 MG TABLET. PO PRN (16:00)
[2017-07-03] MEDS ORDERED: ONDANSETRON ODT 4 MG TAB.RAPDIS. PO PRN (16:00)
[2017-07-03] MEDS ORDERED: ACETAMINOPHEN/CODEINE 300/30MG TABLET. PO PRN (16:00)
[2017-07-03] MEDS ORDERED: HYDROcodone/APAP 5/325MG 1 TAB TABLET PO PRN ×2 (16:00)
[2017-07-03] MEDS ORDERED: ACETAMINOPHEN 500 MG TABLET PO PRN (16:00)
[2017-07-03] MEDS ORDERED: ONDANSETRON PF 4 MG/2 ML VIAL. IV PRN (16:00)
[2017-07-03] MEDS ORDERED: MORPHINE SULFATE 4 MG/ML DISP.SYRIN. IV PRN (16:00)
[2017-07-03] MEDS ORDERED: TRIAMCINOLONE ACETONIDE 0.1% TOPICAL CREAM 15GM TUBE. TP PRN (16:00)
[2017-07-03] MEDS ORDERED: DEXTROSE 50% 25 GM / 50ML DISP.SYRIN. IV PRN (16:00)
[2017-07-03 16:03] LABS: BACTERIA,URINE FEW /HPF (0-FEW); RBC,URINE 0 /HPF (0-2); SQUAMOUS EPITHELIAL CELL,UR FEW /LPF; WBC,URINE OCC /HPF (0-4)
--- NOTE | 2017-07-03 16:07 | PDOC1 ---
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 HE had CP left sided today, radiated to left arm, he thought was another heart attack, SOA, EMS was called and in ambulance enroute reported to have SZ, He claims compliance to AED and cardiac meds he was dcd with, NOw feels fine, needed CPAP en route but now sats ok at 2 L NC, CXR shows cardiomegaly and mild pulm edema, will get lasix here, BNP elevated, BP high, Hgb 12. Dtr getting the records from the [place] hosp from their car. Ambulates with a cane prn, unknown hgba1c Past Medical History Cardiovascular: Other Pulmonary: COPD, Other CENTRAL NERVOUS SYSTEM: CVA, Dementia GI: Other Heme/Onc: No pertinent hx Hepatobiliary: No pertinent hx Psych: No pertinent hx Musculoskeletal: Osteoarthritis, Other Rheumatologic: No pertinent hx Infectious disease: No pertinent hx Renal/: No pertinent hx Endocrine: Diabetes Past Surgical History Past Surgical History: Appendectomy, Hernia Repair, Tonsillectomy, Other (PCI x 1 3 weeks ago in [place]) Family History Family History: Heart Disease Social History Smoke: No ALCOHOL: none Drugs: None Current Medications Current Medications Active Scripts Active Dilantin (Phenytoin Sodium Extended) 100 Mg Capsule 2 Cap PO BID Keppra (Levetiracetam) 500 Mg Tablet 1 Tab PO BID Keppra (Levetiracetam) 500 Mg Tablet 1 Tab PO BID Reported Triamcinolone Acetonide 0.1% Cream (Triamcinolone Acetonide) 15 Gm Cream..g. 1 Uma TP PRN TID PRN Magnesium 200 Mg Tablet 400 Mg PO DAILY Potassium Chloride 20 Meq Tablet.er 20 Meq PO DAILY Polyethylene Glycol 3350 255 Gm Powder 17 Gm PO DAILY Pantoprazole Sodium 40 Mg Tablet.dr 40 Mg PO DAILY Multi-Day Vitamins (Multivitamin) 1 Each Tablet 1 Tab PO DAILY Robaxin (Methocarbamol) 500 Mg Tablet 500 Mg PO PRN QID PRN Levofloxacin 500 Mg Tablet 500 Mg PO DAILY Novolog Flexpen (Insulin Aspart) 100 Unit/1 Ml Insuln.pen 24 Unit SQ DAILYBFRSUP Novolog Flexpen (Insulin Aspart) 100 Unit/1 Ml Insuln.pen 18 Unit SQ DAILYAC [place] 5-325 Tablet (Acetaminophen/Hydrocodone Bitart) 1 Each Tablet 1-2 Tab PO PRN Q8HRS PRN Furosemide 40 Mg Tablet 1 Tab PO DAILY Doxycycline Hyclate 100 Mg Tablet 100 Mg PO BID Colace (Docusate Sodium) 100 Mg Capsule 1 Cap PO BID Clopidogrel (Clopidogrel Bisulfate) 75 Mg Tablet 75 Mg PO DAILY Benzonatate 100 Mg Capsule 1 Cap PO DAILY Amlodipine Besylate 10 Mg Tablet 10 Mg PO HS Tylenol (Acetaminophen) 325 Mg Tablet 650 Mg PO QID Trazodone Hcl 50 Mg Tablet 50 Mg PO PRN QHS PRN Carvedilol 25 Mg Tablet 25 Mg PO BIDWMEALS Acetaminophen-Cod #3 Tablet (Acetaminophen/Codeine Phosphate) 1 Each Tablet 1 Tab PO PRN Q6HRS PRN Losartan Potassium 100 Mg Tablet 100 Mg PO DAILY Benadryl (Diphenhydramine Hcl) 25 Mg Capsule 1 Cap PO QHS Meloxicam 7.5 Mg Tablet 7.5 Mg PO DAILY Gabapentin 300 Mg Capsule 300 Mg PO TID Metformin Hcl 1,000 Mg Tablet 1,000 Mg PO BIDWMEALS Lantus Solostar (Insulin Glargine,Hum.rec.anlog) 100 Unit/1 Ml Insuln.pen 75 Unit SQ HS Proair Hfa Inhaler (Albuterol Sulfate) 8.5 Gm Hfa.aer.ad 1 Puff INH PRN Q4HRS PRN Symbicort 160-4.5 Mcg Inhaler (Budesonide/Formoterol Fumarate) 10.2 Gm Hfa.aer.ad 2 Puff IH BID Clonidine Hcl 0.2 Mg Tablet 0.2 Mg PO PRN TID PRN if sbp > 180 and dbp>105 Aspir 81 (Aspirin) 81 Mg Tablet.dr 1 Tab PO DAILY Allergies Allergies: Coded Allergies: Zhumnmc-Pad-Wei Reductase Inhibitor (Verified Allergy, Intermediate, ) erythromycin base (Verified Allergy, Intermediate, 04/03/17) iodine (Verified Allergy, Intermediate, 04/03/17) niacin (Verified Allergy, Intermediate, 04/03/17) simvastatin (Verified Allergy, Intermediate, 04/03/17) ROS Review of System as per HPI, all else 14 pt reviewed, neg Physical Exam General: Alert, Oriented X3, Cooperative, No acute distress HEENT: Atraumatic, PERRLA Lungs: Normal air movement, Other (diminsihed, poor effort) Heart: S1S2, RRR, no thrills, no rubs, no gallops, no murmurs Cardiovascular: S1, S2 Breasts: Normal, Rt breast nml w/o mass, Lt breast nml w/o mass, Nipples normal Abdomen: Normal bowel sounds, Soft, No tenderness, No hepatosplenomegaly, No masses Male Genitals Exam: normal genitalia, normal prostate PELVIC: Nml ext genitalia Extremities: Other (chronicleg edema, long toe nails) Skin: Other (chronc leg rash, no open wounds, very dry skin) Neuro: Normal gait, Normal speech, Strength at 5/5 X4 ext, Normal tone, Sensation intact, Cranial nerves 3-12 NL, Reflexes 2+ Psych/Mental Status: Mental status NL, Mood NL Vitals Vitals Vital Signs Date Time Temp Pulse Resp B/P (MAP) Pulse Ox O2 Delivery O2 Flow Rate FiO2 07/03/17 14:04 98.4 75 24 186/73 (110) 100 NonRebreather Mask 15.0 98.4 Labs Labs Laboratory Tests Test 07/03/17 14:15 White Blood Count 9.3 x10^3/uL (4.0-11.0) Red Blood Count 3.96 x10^6/uL (4.30-5.70) Hemoglobin 12.2 g/dL (13.0-17.5) Hematocrit 36.5 % (39.0-53.0) Mean Corpuscular Volume 92 fL (79-100) Mean Corpuscular Hemoglobin 31 pg (25-35) Mean Corpuscular Hemoglobin Concent 34 g/dL (31-37) Red Cell Distribution Width 13.2 % (11.5-14.5) Platelet Count 256 x10^3/uL (140-400) Neutrophils (%) (Auto) 60 % (31-73) Lymphocytes (%) (Auto) 27 % (24-48) Monocytes (%) (Auto) 8 % (0-9) Eosinophils (%) (Auto) 4 % (0-3) Basophils (%) (Auto) 1 % (0-3) Neutrophils # (Auto) 5.5 x10^3uL (1.8-7.7) Lymphocytes # (Auto) 2.5 x10^3/uL (1.0-4.8) Monocytes # (Auto) 0.7 x10^3/uL (0.0-1.1) Eosinophils # (Auto) 0.4 x10^3/uL (0.0-0.7) Basophils # (Auto) 0.1 x10^3/uL (0.0-0.2) Prothrombin Time 13.2 SEC (11.7-14.0) Prothromb Time International Ratio 1.1 (0.8-1.1) Activated Partial Thromboplast Time 34 SEC (24-38) Sodium Level 137 mmol/L (136-145) Potassium Level 4.9 mmol/L (3.5-5.1) Chloride Level 101 mmol/L (98-107) Carbon Dioxide Level 32 mmol/L (21-32) Anion Gap 4 (6-14) Blood Urea Nitrogen 27 mg/dL (8-26) Creatinine 1.1 mg/dL (0.7-1.3) Estimated GFR (Cockcroft-Gault) 67.2 BUN/Creatinine Ratio 25 (6-20) Glucose Level 229 mg/dL (70-99) Calcium Level 9.8 mg/dL (8.5-10.1) Magnesium Level 1.4 mg/dL (1.8-2.4) Total Bilirubin 0.4 mg/dL (0.2-1.0) Aspartate Amino Transf (AST/SGOT) 19 U/L (15-37) Alanine Aminotransferase (ALT/SGPT) 19 U/L (16-63) Alkaline Phosphatase 82 U/L (46-116) Troponin I Quantitative < 0.017 ng/mL (0.000-0.055) DS-Qum-F-Type Natriuretic Peptide 774 pg/mL (0-124) Total Protein 7.8 g/dL (6.4-8.2) Albumin 3.4 g/dL (3.4-5.0) Albumin/Globulin Ratio 0.8 (1.0-1.7) Laboratory Tests Test 07/03/17 14:15 White Blood Count 9.3 x10^3/uL (4.0-11.0) Red Blood Count 3.96 x10^6/uL (4.30-5.70) Hemoglobin 12.2 g/dL (13.0-17.5) Hematocrit 36.5 % (39.0-53.0) Mean Corpuscular Volume 92 fL (79-100) Mean Corpuscular Hemoglobin 31 pg (25-35) Mean Corpuscular Hemoglobin Concent 34 g/dL (31-37) Red Cell Distribution Width 13.2 % (11.5-14.5) Platelet Count 256 x10^3/uL (140-400) Neutrophils (%) (Auto) 60 % (31-73) Lymphocytes (%) (Auto) 27 % (24-48) Monocytes (%) (Auto) 8 % (0-9) Eosinophils (%) (Auto) 4 % (0-3) Basophils (%) (Auto) 1 % (0-3) Neutrophils # (Auto) 5.5 x10^3uL (1.8-7.7) Lymphocytes # (Auto) 2.5 x10^3/uL (1.0-4.8) Monocytes # (Auto) 0.7 x10^3/uL (0.0-1.1) Eosinophils # (Auto) 0.4 x10^3/uL (0.0-0.7) Basophils # (Auto) 0.1 x10^3/uL (0.0-0.2) Prothrombin Time 13.2 SEC (11.7-14.0) Prothromb Time International Ratio 1.1 (0.8-1.1) Activated Partial Thromboplast Time 34 SEC (24-38) Sodium Level 137 mmol/L (136-145) Potassium Level 4.9 mmol/L (3.5-5.1) Chloride Level 101 mmol/L (98-107) Carbon Dioxide Level 32 mmol/L (21-32) Anion Gap 4 (6-14) Blood Urea Nitrogen 27 mg/dL (8-26) Creatinine 1.1 mg/dL (0.7-1.3) Estimated GFR (Cockcroft-Gault) 67.2 BUN/Creatinine Ratio 25 (6-20) Glucose Level 229 mg/dL (70-99) Calcium Level 9.8 mg/dL (8.5-10.1) Magnesium Level 1.4 mg/dL (1.8-2.4) Total Bilirubin 0.4 mg/dL (0.2-1.0) Aspartate Amino Transf (AST/SGOT) 19 U/L (15-37) Alanine Aminotransferase (ALT/SGPT) 19 U/L (16-63) Alkaline Phosphatase 82 U/L (46-116) Troponin I Quantitative < 0.017 ng/mL (0.000-0.055) VR-Jrz-D-Type Natriuretic Peptide 774 pg/mL (0-124) Total Protein 7.8 g/dL (6.4-8.2) Albumin 3.4 g/dL (3.4-5.0) Albumin/Globulin Ratio 0.8 (1.0-1.7) VTE Prophylaxis Ordered VTE Prophylaxis Devices: Yes VTE Pharmacological Prophylaxi: Yes Assessment/Plan Assessment/Plan 1. Chest pain, recent PCI x 1 3 weeks ago, unknown site, in [place] - awaiting records from dtr, consult cards, resume antiplatelets and other cardiac meds 2. PUlm edema, leg edema - lasix 40 IV x 1 , resume home dose lasix, cards consulted, trend CE, await records 3. 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 SZ, known SZ - check keppra and phenytoin levels, neuro consult,ativan prn, SZ prec 5. Obesity, BMI 53 - has been losing weight as advised per pt account 6. HTN, uncontrolled - add prns, resume home meds for now PLAN: As above Admit 2MN Add pT>oT [facility] records Cards and neuro consults Seen at [facility] MD Jul 03, 2017 16:07
[2017-07-03] MEDS ORDERED: FUROSEMIDE 40 MG/4 ML VIAL. IVP ONE (16:15)
[2017-07-03] MEDS ORDERED: MAGNESIUM SULFATE 2GM 50 ML IV ONE (16:15)
[2017-07-03] MEDS: INSULIN ASPART 300 UNITS/3 ML INSULN.PEN SQ SCH (17:00)
[2017-07-03] MEDS ORDERED: INSULIN ASPART 300 UNITS/3 ML INSULN.PEN SQ SCH (17:00)
[2017-07-03] MEDS ORDERED: ALBUTEROL SULFATE 2.5 MG/3 ML NEBU. NEB PRN (17:45)
[2017-07-03] MEDS: ALBUTEROL SULFATE 2.5 MG/3 ML NEBU. NEB SCH (19:18)
[2017-07-03] MEDS: BUDESONIDE 0.5 MG/2 ML NEBU. NEB SCH (19:18)
[2017-07-03 19:20] VITALS: BP 154/73
--- NOTE | 2017-07-03 20:19 | PHYS DOC ---
Past Medical History Past Medical History: CHF, COPD, High Cholesterol, Heart Disease, Hypertension , Seizure, Stroke Past Surgical History: Angioplasty, Appendectomy, Other Additional Past Surgical Histo: HERNIA,PERICARDIAL WINDOW Alcohol Use: None Drug Use: None Adult General Chief Complaint Chief Complaint: CHEST PAIN-CARDIAC NATURE HPI HPI Patient is a 66 year old male who presents with chest pain. The patient reports onset of pain just prior to arrival. States pain is pressure-like, substernal. Denies radiation of pain. Reports associated shortness of breath, denies nausea or diaphoresis. Reports increased bilateral lower extremity edema without unilateral calf pain, denies fever or cough. EMS stated he was using home CPAP when they arrived on scene. He was noted to have 45 seconds generalized tonic-clonic seizure in route. He has history of CHF, CAD status post recent cardiac stent placement 3 weeks ago in [place]. Uses CPAP at night. Also has history of seizure disorder, takes unknown seizure medication and states he is compliant. PCP is at the [facility]. Review of Systems Review of Systems Constitutional: Denies fever or chills Eyes: Denies change in visual acuity HENT: Denies nasal congestion or sore throat Respiratory: Denies cough, reports shortness of breath Cardiovascular: For chest pain and edema GI: Denies abdominal pain, nausea, vomiting, bloody stools or diarrhea : Denies dysuria or hematuria Musculoskeletal: Denies back pain or joint pain Integument: Denies rash or skin lesions Neurologic: Reports seizure. Denies headache, focal weakness or sensory changes All other systems were reviewed and found to be within normal limits, except as documented in this note. Allergies Allergies Allergies Coded Allergies Type Severity Reaction Last Updated Verified Amlvlcf-Oed-Ntv Reductase Inhibitor Allergy Intermediate 04/03/17 Yes erythromycin base Allergy Intermediate 04/03/17 Yes iodine Allergy Intermediate 04/03/17 Yes niacin Allergy Intermediate 04/03/17 Yes simvastatin Allergy Intermediate 04/03/17 Yes Physical Exam Physical Exam Constitutional: Morbidly obese, no acute distress, non-toxic appearance. Sleeping on arrival, shortly thereafter awake and interactive. HENT: Normocephalic, atraumatic, bilateral external ears normal, oropharynx moist, nose normal. Eyes: PERRLA, EOMI, conjunctiva normal, no discharge. Neck: supple, no stridor. No meningismus Cardiovascular: RRR, no murmurs, 2+ pitting edema to bilateral lower extremities. Lungs & Thorax: Diminished in bases. No definite crackles heard. LCTAB, no wheezing, no respiratory distress. Reproducible tenderness with palpation of her anterior chest wall. Abdomen: soft, nontender, nondistended. Skin: Warm, dry, no erythema, no rash. Back: No tenderness. Extremities: No tenderness, bilateral lower extremity edema as above without calf tenderness Neurologic: Alert and oriented X 3, cranial nerves II through XII grossly intact , symmetric strength and sensation upper and lower extremities, no focal deficits noted. Psychologic: Affect normal, judgement normal, mood normal. Current Patient Data Vital Signs Vital Signs Date Time Temp Pulse Resp B/P (MAP) Pulse Ox O2 Delivery O2 Flow Rate FiO2 07/03/17 15:15 65 24 148/62 (90) 99 Nasal Cannula 2.0 07/03/17 14:04 98.4 98.4 Lab Values Laboratory Tests Test 07/03/17 14:15 07/03/17 15:20 White Blood Count 9.3 x10^3/uL (4.0-11.0) Red Blood Count 3.96 x10^6/uL (4.30-5.70) L Hemoglobin 12.2 g/dL (13.0-17.5) L Hematocrit 36.5 % (39.0-53.0) L Mean Corpuscular Volume 92 fL (79-100) Mean Corpuscular Hemoglobin 31 pg (25-35) Mean Corpuscular Hemoglobin Concent 34 g/dL (31-37) Red Cell Distribution Width 13.2 % (11.5-14.5) Platelet Count 256 x10^3/uL (140-400) Neutrophils (%) (Auto) 60 % (31-73) Lymphocytes (%) (Auto) 27 % (24-48) Monocytes (%) (Auto) 8 % (0-9) Eosinophils (%) (Auto) 4 % (0-3) H Basophils (%) (Auto) 1 % (0-3) Neutrophils # (Auto) 5.5 x10^3uL (1.8-7.7) Lymphocytes # (Auto) 2.5 x10^3/uL (1.0-4.8) Monocytes # (Auto) 0.7 x10^3/uL (0.0-1.1) Eosinophils # (Auto) 0.4 x10^3/uL (0.0-0.7) Basophils # (Auto) 0.1 x10^3/uL (0.0-0.2) Prothrombin Time 13.2 SEC (11.7-14.0) Prothrombin Time INR 1.1 (0.8-1.1) PTT 34 SEC (24-38) Sodium Level 137 mmol/L (136-145) Potassium Level 4.9 mmol/L (3.5-5.1) Chloride Level 101 mmol/L (98-107) Carbon Dioxide Level 32 mmol/L (21-32) Anion Gap 4 (6-14) L Blood Urea Nitrogen 27 mg/dL (8-26) H Creatinine 1.1 mg/dL (0.7-1.3) Estimated GFR (Cockcroft-Gault) 67.2 BUN/Creatinine Ratio 25 (6-20) H Glucose Level 229 mg/dL (70-99) H Calcium Level 9.8 mg/dL (8.5-10.1) Magnesium Level 1.4 mg/dL (1.8-2.4) L Total Bilirubin 0.4 mg/dL (0.2-1.0) Aspartate Amino Transferase (AST) 19 U/L (15-37) Alanine Aminotransferase (ALT) 19 U/L (16-63) Alkaline Phosphatase 82 U/L (46-116) Troponin I Quantitative < 0.017 ng/mL (0.000-0.055) KJ-Uto-Q-Type Natriuretic Peptide 774 pg/mL (0-124) H Total Protein 7.8 g/dL (6.4-8.2) Albumin 3.4 g/dL (3.4-5.0) Albumin/Globulin Ratio 0.8 (1.0-1.7) L Urine Collection Type Unknown Urine Color Yellow Urine Clarity Clear Urine pH 6.0 Urine Specific [place] 1.010 Urine Protein 30 mg/dL (NEG-TRACE) Urine Glucose (UA) 100 mg/dL (NEG) Urine Ketones (Stick) Negative mg/dL (NEG) Urine Blood Negative (NEG) Urine Nitrite Negative (NEG) Urine Bilirubin Negative (NEG) Urine Urobilinogen Dipstick 0.2 mg/dL (0.2 mg/dL) Urine Leukocyte Esterase Negative (NEG) Urine RBC 0 /HPF (0-2) Urine WBC Occ /HPF (0-4) Urine Squamous Epithelial Cells Few /LPF Urine Bacteria Few /HPF (0-FEW) Urine Mucus Slight /LPF Laboratory Tests 07/03/17 14:15 Laboratory Tests 07/03/17 14:15 EKG EKG interpreted by me: NSR rate 73, no acute ST/T wave changes, Q waves in inferior leads, normal intervals, no ectopy/[] Radiology/Procedures Radiology/Procedures PROCEDURE: CHEST AP ONLY EXAM: Chest one view. HISTORY: Chest pain. COMPARISON: 04/29/2017. FINDINGS: A frontal view of the chest is obtained. Bibasilar mild hazy opacities most likely indicate mild pulmonary edema and possibly posteriorly layering small pleural effusions. There is no pneumothorax. The heart is moderately to severely enlarged. IMPRESSION: 1. Moderate to severe cardiomegaly. 2. Suspect mild pulmonary edema. DICTATED and SIGNED BY: RADHA GARCIA MD DATE: 07/03/17 1452[] Course & Med Decision Making Course & Med Decision Making Pertinent Labs and Imaging studies reviewed. (See chart for details) The patient presents with chest pain. EMS administered aspirin & nitro en route. Weaned from nonrebreather mask to oxygen by nasal cannula. He was initially postictal, woke up & neurologically intact. Pain improving but still dyspneic with lower extremity edema. Obtained labs, EKG, CXR. Could not check antiepileptic med levels as he did not know his medications. He had findings consistent with CHF exacerbation. Gave IV lasix here. Recommend admission for further evaluation & treatment. Patient agrees with plan of care. Discussed with Dr. Haydne who agrees to admit to inpatient status. C ardiology consult to Dr. Grant. The patient is being admitted in stable condition. [] Dragon Disclaimer Dragon Disclaimer This electronic medical record was generated, in whole or in part, using a voice recognition dictation system. Departure Departure Impression: Primary Impression: Chest pain Additional Impressions: Congestive heart failure Seizure Pulmonary edema Disposition: ADMITTED INPATIENT Admitting Physician: Agustina Hayden Condition: STABLE Problem Qualifiers MARIA ELENA MENDEZ MD Jul 03, 2017 20:19
[2017-07-03] MEDS: CARVEDILOL 12.5 MG TABLET. PO SCH (20:44)
[2017-07-03] MEDS: diphenhydrAMINE HCL 25 MG CAPSULE PO SCH (20:44)
[2017-07-03] MEDS: DOCUSATE SODIUM 100 MG CAPSULE. PO SCH (20:44)
[2017-07-03] MEDS: PHENYTOIN SODIUM EXTENDED 100 MG CAPSULE PO SCH (20:48)
[2017-07-03] MEDS: levETIRAcetam 500 MG TABLET PO SCH (20:48)
[2017-07-03] MEDS: GABAPENTIN 300 MG CAPSULE. PO SCH (20:48)
[2017-07-03] MEDS: INSULIN DETEMIR 300 UNITS/3 ML INSULN.PEN. SQ SCH (20:57)
[2017-07-03] MEDS ORDERED: amLODIPine BESYLATE 10 MG TABLET PO SCH (21:00)
[2017-07-03] MEDS ORDERED: NON FORMULARY ITEM (Budesonide/Formoterol Fumarate (Symbicort 160-4.5 Mcg Inhaler) 2 PUFF) IH SCH (21:00)
[2017-07-03 23:30] VITALS: BP 164/79
[2017-07-04] VITALS (9 sets, daily range): BP systolic 115–186; BP diastolic 55–84
[2017-07-04 04:56] LABS: CALCIUM 9.5 mg/dL (8.5-10.1); CREATININE 1.3 mg/dL (0.7-1.3); GFR 55.4; MAGNESIUM 1.7 mg/dL (1.8-2.4); POTASSIUM 4.4 mmol/L (3.5-5.1)
[2017-07-04 05:08] LABS: CKMB MASS < 0.5 ng/mL (0.0-3.6); CREATINE KINASE 17 U/L (39-308)
[2017-07-04] MEDS: ALBUTEROL SULFATE 2.5 MG/3 ML NEBU. NEB SCH ×4 (06:00→18:00)
[2017-07-04] MEDS ORDERED: INSULIN ASPART 300 UNITS/3 ML INSULN.PEN SQ SCH (07:30)
[2017-07-04] MEDS: INSULIN ASPART 300 UNITS/3 ML INSULN.PEN SQ SCH ×3 (08:00→16:41)
[2017-07-04] MEDS ORDERED: MAGNESIUM SULFATE 2GM 50 ML IV ONE (08:00)
--- NOTE | 2017-07-04 08:04 | PDOC2 ---
CARDIAC CONSULT DATE OF CONSULT Date of Consult DATE: 07/04/17 TIME: 07:51 REASON FOR CONSULT Reason for Consult: CP, 3 wks ago stents, chf REFERRING PHYSICIAN Referring Physician: Jackelyn SOURCE Source: Chart review, Patient HISTORY OF PRESENT ILLNESS HISTORY OF PRESENT ILLNESS This is a pleasant 66 yo male admitted for complains of chest pain. Reports that he just had PCI/stent to "right side of heart" about 3 weeks ago. He has been taking his medications regularly including DAPT and has been complinat with his CPAP and pulmonary medications. He was visiting his daughter at [place] when he started having chest pain with nausea and ended up with PCI. This admission he was having chest pressure to left with radiating discomfort to his left arm. He did not have nausea like what he had before and no associated palpitations, dizziness, diaphoresis and no further recurrence. He presents with high BP and CHF and improving.. PAST MEDICAL HISTORY Past Medical History Cardiovascular: Other (pericarditis likely from infection per pt prompting pericardial window; chronic lymphedema), CAD, HTN, HLP Pulmonary: COPD, Other (GERA) CENTRAL NERVOUS SYSTEM: CVA, Dementia GI: Other (ventral hernia) Heme/Onc: No pertinent hx Hepatobiliary: No pertinent hx Psych: No pertinent hx Musculoskeletal: Osteoarthritis, Other (morbid obesity) Rheumatologic: No pertinent hx Infectious disease: No pertinent hx ENT: No pertinent hx Renal/: No pertinent hx Endocrine: Diabetes (2) Dermatology: Other (foot venous stasis blisters) PAST SURGICAL HISTORY Past Surgical History PCI/stent 3 weeks ago Appendectomy, Hernia Repair (9 ventral repairs), Tonsillectomy, Other (pericardial window; LHC) FAMILY HISTORY Family History: Heart Disease (mother) SOCIAL HISTORY Social History Smoke: No (quit >30 pk yr) ALCOHOL: none Drugs: None Lives: with Family CURRENT MEDICATIONS CURRENT MEDICATIONS Current Medications Medications (Trade) Dose Ordered Sig/Mitul Route PRN Reason Start Time Stop Time Status Last Admin Dose Admin Acetaminophen/ Hydrocodone Bitart (Lortab 5/325) 1 tab PRN Q4HRS PRN PO PAIN 07/03/17 16:00 07/04/17 05:06 Amlodipine Besylate (Norvasc) 10 mg HS PO 07/03/17 21:00 07/03/17 20:44 Diphenhydramine HCl (Benadryl) 25 mg QHS PO 07/03/17 21:00 07/03/17 20:44 Docusate Sodium (Colace) 100 mg BID PO 07/03/17 21:00 07/03/17 20:44 Levetiracetam (Keppra) 500 mg BID PO 07/03/17 21:00 07/03/17 20:48 Metformin HCl (Glucophage) 1,000 mg BIDWMEALS PO 07/03/17 18:00 07/03/17 20:45 Phenytoin Sodium (Dilantin) 200 mg BID PO 07/03/17 21:00 07/03/17 20:48 Carvedilol (Coreg) 25 mg BIDWMEALS PO 07/03/17 18:00 07/03/17 20:44 Gabapentin (Neurontin) 300 mg TID PO 07/03/17 21:00 07/03/17 20:48 Insulin Detemir (Levemir) 75 units QHS SQ 07/03/17 21:00 07/03/17 20:57 Magnesium Sulfate/ Dextrose 50 ml @ 25 mls/hr 1X ONCE IV 07/03/17 16:15 07/03/17 18:14 DC 07/03/17 16:21 Furosemide (Lasix) 40 mg 1X ONCE IVP 07/03/17 16:15 07/03/17 16:16 DC 07/03/17 16:30 Albuterol Sulfate (Ventolin Neb Soln) 2.5 mg Q6HRS [facility] 07/03/17 18:00 07/03/17 19:18 Budesonide (Pulmicort) 0.5 mg RTBID [facility] 07/03/17 20:00 07/03/17 19:18 ALLERGIES ALLERGIES: Coded Allergies: Irfatzk-Inx-Njw Reductase Inhibitor (Verified Allergy, Intermediate, ) erythromycin base (Verified Allergy, Intermediate, 04/03/17) iodine (Verified Allergy, Intermediate, 04/03/17) niacin (Verified Allergy, Intermediate, 04/03/17) simvastatin (Verified Allergy, Intermediate, 04/03/17) ROS Review of System 14 point ROS evaluated with pertinent positives noted per HPI PHYSICAL EXAM General: Alert, Oriented X3, Cooperative, No acute distress HEENT: Atraumatic, Mucous membr. moist/pink Lungs: Other (basilar crackles) Heart: Regular rate (SR), Other (distant heart sounds) Abdomen: Soft, Other (obese) Extremities: No cyanosis, Other (2+ bilateral LE pitting edema) Skin: No breakdown, No significant lesion Neuro: Normal speech, Sensation intact Psych/Mental Status: Mental status NL, Mood NL MUSCULOSKELETAL: Osteoarthritic changes both hands VITALS VITALS Vital Signs Date Time Temp Pulse Resp B/P (MAP) Pulse Ox O2 Delivery O2 Flow Rate FiO2 07/04/17 04:53 60 147/74 (98) 07/04/17 04:20 97.9 99 Nasal Cannula 2.0 97.9 07/04/17 03:30 16 LABS Lab: Laboratory Tests Test 07/03/17 14:15 07/03/17 15:20 07/03/17 16:01 07/03/17 20:49 White Blood Count 9.3 x10^3/uL (4.0-11.0) Red Blood Count 3.96 x10^6/uL (4.30-5.70) Hemoglobin 12.2 g/dL (13.0-17.5) Hematocrit 36.5 % (39.0-53.0) Mean Corpuscular Volume 92 fL (79-100) Mean Corpuscular Hemoglobin 31 pg (25-35) Mean Corpuscular Hemoglobin Concent 34 g/dL (31-37) Red Cell Distribution Width 13.2 % (11.5-14.5) Platelet Count 256 x10^3/uL (140-400) Neutrophils (%) (Auto) 60 % (31-73) Lymphocytes (%) (Auto) 27 % (24-48) Monocytes (%) (Auto) 8 % (0-9) Eosinophils (%) (Auto) 4 % (0-3) Basophils (%) (Auto) 1 % (0-3) Neutrophils # (Auto) 5.5 x10^3uL (1.8-7.7) Lymphocytes # (Auto) 2.5 x10^3/uL (1.0-4.8) Monocytes # (Auto) 0.7 x10^3/uL (0.0-1.1) Eosinophils # (Auto) 0.4 x10^3/uL (0.0-0.7) Basophils # (Auto) 0.1 x10^3/uL (0.0-0.2) Prothrombin Time 13.2 SEC (11.7-14.0) Prothromb Time International Ratio 1.1 (0.8-1.1) Activated Partial Thromboplast Time 34 SEC (24-38) Sodium Level 137 mmol/L (136-145) Potassium Level 4.9 mmol/L (3.5-5.1) Chloride Level 101 mmol/L (98-107) Carbon Dioxide Level 32 mmol/L (21-32) Anion Gap 4 (6-14) Blood Urea Nitrogen 27 mg/dL (8-26) Creatinine 1.1 mg/dL (0.7-1.3) Estimated GFR (Cockcroft-Gault) 67.2 BUN/Creatinine Ratio 25 (6-20) Glucose Level 229 mg/dL (70-99) Calcium Level 9.8 mg/dL (8.5-10.1) Magnesium Level 1.4 mg/dL (1.8-2.4) Total Bilirubin 0.4 mg/dL (0.2-1.0) Aspartate Amino Transf (AST/SGOT) 19 U/L (15-37) Alanine Aminotransferase (ALT/SGPT) 19 U/L (16-63) Alkaline Phosphatase 82 U/L (46-116) Troponin I Quantitative < 0.017 ng/mL (0.000-0.055) QO-Bwi-C-Type Natriuretic Peptide 774 pg/mL (0-124) Total Protein 7.8 g/dL (6.4-8.2) Albumin 3.4 g/dL (3.4-5.0) Albumin/Globulin Ratio 0.8 (1.0-1.7) Urine Collection Type Unknown Urine Color Yellow Urine Clarity Clear Urine pH 6.0 Urine Specific [place] 1.010 Urine Protein 30 mg/dL (NEG-TRACE) Urine Glucose (UA) 100 mg/dL (NEG) Urine Ketones (Stick) Negative mg/dL (NEG) Urine Blood Negative (NEG) Urine Nitrite Negative (NEG) Urine Bilirubin Negative (NEG) Urine Urobilinogen Dipstick 0.2 mg/dL (0.2 mg/dL) Urine Leukocyte Esterase Negative (NEG) Urine RBC 0 /HPF (0-2) Urine WBC Occ /HPF (0-4) Urine Squamous Epithelial Cells Few /LPF Urine Bacteria Few /HPF (0-FEW) Urine Mucus Slight /LPF Phenytoin (Dilantin) Level < 0.5 mcg/mL (10.0-20.0) Phenytoin Last Dose Date 07/03/17 Phenytoin Last Dose Time 1200 Glucose (Fingerstick) 211 mg/dL (70-99) Test 07/04/17 04:15 Sodium Level 142 mmol/L (136-145) Potassium Level 4.4 mmol/L (3.5-5.1) Chloride Level 102 mmol/L (98-107) Carbon Dioxide Level 35 mmol/L (21-32) Anion Gap 5 (6-14) Blood Urea Nitrogen 32 mg/dL (8-26) Creatinine 1.3 mg/dL (0.7-1.3) Estimated GFR (Cockcroft-Gault) 55.4 Glucose Level 132 mg/dL (70-99) Glucose (Fingerstick) 120 mg/dL (70-99) Calcium Level 9.5 mg/dL (8.5-10.1) Magnesium Level 1.7 mg/dL (1.8-2.4) Creatine Kinase 17 U/L (39-308) Creatine Kinase MB (Mass) < 0.5 ng/mL (0.0-3.6) Creatine Kinase MB Relative Index % (0-4) Troponin I Quantitative < 0.017 ng/mL (0.000-0.055) ECHOCARDIOGRAM ECHOCARDIOGRAM <Conclusion> The left ventricular systolic function is normal and the ejection fraction is within normal range. The Ejection Fraction is 55-60%. There is grossly normal LV segmental wall motion. Overall, images are suboptimal to ruleout any subtle wall motion issues. DATE: 03/17/17 1540 STRESS TEST STRESS TEST Conclusion 1. No evidence of EKG changes with stress testing. Baseline EKG suggestive of prior inferior/anterolateral infarct but no perfusion abnormality seen on nuclear testing. 2. Normal perfusion at stress. Rest images not performed. 3. Low risk study. 4. EF > 60%. DATE: 03/17/17 1450 ASSESSMENT/PLAN ASSESSMENT/PLAN 1. Acute on chronic CHF with possible diastolic dysfunction: improved 2. Atypical CP: Doubt ACS. possible vasopasm and from uncontrolled HTN. trop normal initial, no acute EKG changes 3. HTN: was labile 4. CAD: recent PCI/stent 3 wks ago possibly RCA 5. Hx of seizures: possible seizure en route to ED 6. Morbid obesity 7. Dementia 8. COPD/GERA: CPAP compliant Recommendations 1. Obtain records from [place]. Repeat CXR 2. Continue to diurese Add imdur decrease norvasc tentatively and uptitrate per BP trend 3. Home BP monitoring 4. Continue with DAPT and secondary prevention measures. Allergy to statin, may consider praluent Problems: MARIE CAGLE APRN Jul 04, 2017 08:03
[2017-07-04 08:37] LABS: CHOLESTEROL/HDL RATIO 4.5
--- NOTE | 2017-07-04 08:44 | RAD ---
EXAM: Chest, single view. HISTORY: Congestive heart failure. COMPARISON: 07/03/2017. FINDINGS: A frontal view of the chest obtained. There is stable diffuse increased interstitial opacity. There is no consolidation, effusion or pneumothorax. There is stable enlargement of the cardiac silhouette. IMPRESSION: Stable mild pulmonary congestion and enlargement of the cardiac silhouette.
[2017-07-04] MEDS: BUDESONIDE 0.5 MG/2 ML NEBU. NEB SCH ×2 (08:51→19:50)
[2017-07-04] MEDS ORDERED: FUROSEMIDE 40 MG TABLET. PO SCH (09:00)
[2017-07-04] MEDS: MULTIVITAMIN with MINERAL TABLET. PO SCH (09:21)
[2017-07-04] MEDS: levETIRAcetam 500 MG TABLET PO SCH ×2 (09:22→20:50)
[2017-07-04] MEDS: GABAPENTIN 300 MG CAPSULE. PO SCH ×3 (09:22→20:50)
[2017-07-04] MEDS: POLYETHYLENE GLYCOL 3350 17 GM PACKET. PO SCH (09:22)
[2017-07-04] MEDS: BENZONATATE 100 MG CAPSULE. PO SCH (09:22)
[2017-07-04] MEDS: MELOXICAM 7.5 MG TABLET PO SCH (09:23)
[2017-07-04] MEDS: PANTOPRAZOLE 40 MG TABLET.DR. PO SCH (09:23)
[2017-07-04] MEDS: MAGNESIUM OXIDE 400 MG TABLET PO SCH (09:23)
[2017-07-04] MEDS: CLOPIDOGREL BISULFATE 75 MG TABLET PO SCH (09:24)
[2017-07-04] MEDS: PHENYTOIN SODIUM EXTENDED 100 MG CAPSULE PO SCH (09:24)
[2017-07-04] MEDS: DOCUSATE SODIUM 100 MG CAPSULE. PO SCH ×2 (09:25→20:50)
[2017-07-04] MEDS: CARVEDILOL 12.5 MG TABLET. PO SCH ×2 (09:26→16:40)
[2017-07-04] MEDS: FUROSEMIDE 40 MG/4 ML VIAL. IVP SCH (09:28)
[2017-07-04] MEDS: POTASSIUM CHLORIDE 20 MEQ TABLET.ER. PO SCH (09:52)
[2017-07-04] MEDS: ASPIRIN ENTERIC COATED 81 MG TABLET.DR. PO SCH (09:52)
--- NOTE | 2017-07-04 12:41 | PDOC ---
PROGRESS NOTES Chief Complaint Chief Complaint Chest pain Pericarditis likely from infection per pt prompting pericardial window; chronic lymphedema CAD HTN HLP COPD GERA CVA Dementia Ventral hernia Osteoarthritis Morbid obesity DM 2 Foot venous stasis blisters History of Present Illness History of Present Illness This is a nice 66 year old gentleman who was admitted to the hospital with a cc of chest pain. Today he was examined at bedside. He was resting comfortably in bed and was not in acute distress. Pt is being followed by cardio re: chest pain. Will continue to monitor. Vitals Vitals Vital Signs Date Time Temp Pulse Resp B/P (MAP) Pulse Ox O2 Delivery O2 Flow Rate FiO2 07/04/17 12:03 Room Air 07/04/17 11:00 97.5 65 20 131/58 (82) 98 2.0 97.5 Physical Exam General: Alert, Oriented X3, Cooperative, No acute distress Lungs: Clear Abdomen: Normal bowel sounds, Soft, No tenderness, No hepatosplenomegaly, No masses Extremities: Normal pulses, Other (chronicleg edema, long toe nails) Skin: Other (chronc leg rash, no open wounds, very dry skin) Labs LABS Laboratory Tests Test 07/03/17 14:15 07/03/17 15:20 07/03/17 16:01 07/03/17 20:49 White Blood Count 9.3 x10^3/uL (4.0-11.0) Red Blood Count 3.96 x10^6/uL (4.30-5.70) Hemoglobin 12.2 g/dL (13.0-17.5) Hematocrit 36.5 % (39.0-53.0) Mean Corpuscular Volume 92 fL (79-100) Mean Corpuscular Hemoglobin 31 pg (25-35) Mean Corpuscular Hemoglobin Concent 34 g/dL (31-37) Red Cell Distribution Width 13.2 % (11.5-14.5) Platelet Count 256 x10^3/uL (140-400) Neutrophils (%) (Auto) 60 % (31-73) Lymphocytes (%) (Auto) 27 % (24-48) Monocytes (%) (Auto) 8 % (0-9) Eosinophils (%) (Auto) 4 % (0-3) Basophils (%) (Auto) 1 % (0-3) Neutrophils # (Auto) 5.5 x10^3uL (1.8-7.7) Lymphocytes # (Auto) 2.5 x10^3/uL (1.0-4.8) Monocytes # (Auto) 0.7 x10^3/uL (0.0-1.1) Eosinophils # (Auto) 0.4 x10^3/uL (0.0-0.7) Basophils # (Auto) 0.1 x10^3/uL (0.0-0.2) Prothrombin Time 13.2 SEC (11.7-14.0) Prothromb Time International Ratio 1.1 (0.8-1.1) Activated Partial Thromboplast Time 34 SEC (24-38) Sodium Level 137 mmol/L (136-145) Potassium Level 4.9 mmol/L (3.5-5.1) Chloride Level 101 mmol/L (98-107) Carbon Dioxide Level 32 mmol/L (21-32) Anion Gap 4 (6-14) Blood Urea Nitrogen 27 mg/dL (8-26) Creatinine 1.1 mg/dL (0.7-1.3) Estimated GFR (Cockcroft-Gault) 67.2 BUN/Creatinine Ratio 25 (6-20) Glucose Level 229 mg/dL (70-99) Calcium Level 9.8 mg/dL (8.5-10.1) Magnesium Level 1.4 mg/dL (1.8-2.4) Total Bilirubin 0.4 mg/dL (0.2-1.0) Aspartate Amino Transf (AST/SGOT) 19 U/L (15-37) Alanine Aminotransferase (ALT/SGPT) 19 U/L (16-63) Alkaline Phosphatase 82 U/L (46-116) Troponin I Quantitative < 0.017 ng/mL (0.000-0.055) FI-Ctr-R-Type Natriuretic Peptide 774 pg/mL (0-124) Total Protein 7.8 g/dL (6.4-8.2) Albumin 3.4 g/dL (3.4-5.0) Albumin/Globulin Ratio 0.8 (1.0-1.7) Urine Collection Type Unknown Urine Color Yellow Urine Clarity Clear Urine pH 6.0 Urine Specific Enigma 1.010 Urine Protein 30 mg/dL (NEG-TRACE) Urine Glucose (UA) 100 mg/dL (NEG) Urine Ketones (Stick) Negative mg/dL (NEG) Urine Blood Negative (NEG) Urine Nitrite Negative (NEG) Urine Bilirubin Negative (NEG) Urine Urobilinogen Dipstick 0.2 mg/dL (0.2 mg/dL) Urine Leukocyte Esterase Negative (NEG) Urine RBC 0 /HPF (0-2) Urine WBC Occ /HPF (0-4) Urine Squamous Epithelial Cells Few /LPF Urine Bacteria Few /HPF (0-FEW) Urine Mucus Slight /LPF Phenytoin (Dilantin) Level < 0.5 mcg/mL (10.0-20.0) Phenytoin Last Dose Date 07/03/17 Phenytoin Last Dose Time 1200 Glucose (Fingerstick) 211 mg/dL (70-99) Test 07/04/17 04:15 07/04/17 07:29 Sodium Level 142 mmol/L (136-145) Potassium Level 4.4 mmol/L (3.5-5.1) Chloride Level 102 mmol/L (98-107) Carbon Dioxide Level 35 mmol/L (21-32) Anion Gap 5 (6-14) Blood Urea Nitrogen 32 mg/dL (8-26) Creatinine 1.3 mg/dL (0.7-1.3) Estimated GFR (Cockcroft-Gault) 55.4 Glucose Level 132 mg/dL (70-99) Glucose (Fingerstick) 120 mg/dL (70-99) 85 mg/dL (70-99) Calcium Level 9.5 mg/dL (8.5-10.1) Magnesium Level 1.7 mg/dL (1.8-2.4) Creatine Kinase 17 U/L (39-308) Creatine Kinase MB (Mass) < 0.5 ng/mL (0.0-3.6) Creatine Kinase MB Relative Index % (0-4) Troponin I Quantitative < 0.017 ng/mL (0.000-0.055) Triglycerides Level 131 mg/dL (0-150) Cholesterol Level 187 mg/dL (0-200) LDL Cholesterol, Calculated 119 mg/dL (0-100) VLDL Cholesterol, Calculated 26 mg/dL (0-40) Non-HDL Cholesterol Calculated 145 mg/dL (0-129) HDL Cholesterol 42 mg/dL (40-60) Cholesterol/HDL Ratio 4.5 Review of Systems Review of Systems fatigue and weakness Assessment and Plan Assessmemt and Plan Problems Medical Problems: (1) Congestive heart failure Status: Acute (2) Pulmonary edema Status: Acute (3) Seizure Status: Acute Assessment: Chest pain Pericarditis likely from infection per pt prompting pericardial window; chronic lymphedema CAD HTN HLP COPD GERA CVA Dementia Ventral hernia Osteoarthritis Morbid obesity DM 2 Foot venous stasis blisters Plan: Continue current medications IV Mg Continue diuresis Serial EKG Serial enzymes Awaiting cardiac input Recheck labs PT/OT Problems: Comment Review of Relevant I have reviewed the following items tere (where applicable) has been applied. Labs Laboratory Tests Test 07/03/17 14:15 07/03/17 15:20 07/03/17 16:01 07/03/17 20:49 White Blood Count 9.3 x10^3/uL (4.0-11.0) Red Blood Count 3.96 x10^6/uL (4.30-5.70) Hemoglobin 12.2 g/dL (13.0-17.5) Hematocrit 36.5 % (39.0-53.0) Mean Corpuscular Volume 92 fL (79-100) Mean Corpuscular Hemoglobin 31 pg (25-35) Mean Corpuscular Hemoglobin Concent 34 g/dL (31-37) Red Cell Distribution Width 13.2 % (11.5-14.5) Platelet Count 256 x10^3/uL (140-400) Neutrophils (%) (Auto) 60 % (31-73) Lymphocytes (%) (Auto) 27 % (24-48) Monocytes (%) (Auto) 8 % (0-9) Eosinophils (%) (Auto) 4 % (0-3) Basophils (%) (Auto) 1 % (0-3) Neutrophils # (Auto) 5.5 x10^3uL (1.8-7.7) Lymphocytes # (Auto) 2.5 x10^3/uL (1.0-4.8) Monocytes # (Auto) 0.7 x10^3/uL (0.0-1.1) Eosinophils # (Auto) 0.4 x10^3/uL (0.0-0.7) Basophils # (Auto) 0.1 x10^3/uL (0.0-0.2) Prothrombin Time 13.2 SEC (11.7-14.0) Prothromb Time International Ratio 1.1 (0.8-1.1) Activated Partial Thromboplast Time 34 SEC (24-38) Sodium Level 137 mmol/L (136-145) Potassium Level 4.9 mmol/L (3.5-5.1) Chloride Level 101 mmol/L (98-107) Carbon Dioxide Level 32 mmol/L (21-32) Anion Gap 4 (6-14) Blood Urea Nitrogen 27 mg/dL (8-26) Creatinine 1.1 mg/dL (0.7-1.3) Estimated GFR (Cockcroft-Gault) 67.2 BUN/Creatinine Ratio 25 (6-20) Glucose Level 229 mg/dL (70-99) Calcium Level 9.8 mg/dL (8.5-10.1) Magnesium Level 1.4 mg/dL (1.8-2.4) Total Bilirubin 0.4 mg/dL (0.2-1.0) Aspartate Amino Transf (AST/SGOT) 19 U/L (15-37) Alanine Aminotransferase (ALT/SGPT) 19 U/L (16-63) Alkaline Phosphatase 82 U/L (46-116) Troponin I Quantitative < 0.017 ng/mL (0.000-0.055) OX-Yzt-A-Type Natriuretic Peptide 774 pg/mL (0-124) Total Protein 7.8 g/dL (6.4-8.2) Albumin 3.4 g/dL (3.4-5.0) Albumin/Globulin Ratio 0.8 (1.0-1.7) Urine Collection Type Unknown Urine Color Yellow Urine Clarity Clear Urine pH 6.0 Urine Specific Enigma 1.010 Urine Protein 30 mg/dL (NEG-TRACE) Urine Glucose (UA) 100 mg/dL (NEG) Urine Ketones (Stick) Negative mg/dL (NEG) Urine Blood Negative (NEG) Urine Nitrite Negative (NEG) Urine Bilirubin Negative (NEG) Urine Urobilinogen Dipstick 0.2 mg/dL (0.2 mg/dL) Urine Leukocyte Esterase Negative (NEG) Urine RBC 0 /HPF (0-2) Urine WBC Occ /HPF (0-4) Urine Squamous Epithelial Cells Few /LPF Urine Bacteria Few /HPF (0-FEW) Urine Mucus Slight /LPF Phenytoin (Dilantin) Level < 0.5 mcg/mL (10.0-20.0) Phenytoin Last Dose Date 07/03/17 Phenytoin Last Dose Time 1200 Glucose (Fingerstick) 211 mg/dL (70-99) Test 07/04/17 04:15 07/04/17 07:29 Sodium Level 142 mmol/L (136-145) Potassium Level 4.4 mmol/L (3.5-5.1) Chloride Level 102 mmol/L (98-107) Carbon Dioxide Level 35 mmol/L (21-32) Anion Gap 5 (6-14) Blood Urea Nitrogen 32 mg/dL (8-26) Creatinine 1.3 mg/dL (0.7-1.3) Estimated GFR (Cockcroft-Gault) 55.4 Glucose Level 132 mg/dL (70-99) Glucose (Fingerstick) 120 mg/dL (70-99) 85 mg/dL (70-99) Calcium Level 9.5 mg/dL (8.5-10.1) Magnesium Level 1.7 mg/dL (1.8-2.4) Creatine Kinase 17 U/L (39-308) Creatine Kinase MB (Mass) < 0.5 ng/mL (0.0-3.6) Creatine Kinase MB Relative Index % (0-4) Troponin I Quantitative < 0.017 ng/mL (0.000-0.055) Triglycerides Level 131 mg/dL (0-150) Cholesterol Level 187 mg/dL (0-200) LDL Cholesterol, Calculated 119 mg/dL (0-100) VLDL Cholesterol, Calculated 26 mg/dL (0-40) Non-HDL Cholesterol Calculated 145 mg/dL (0-129) HDL Cholesterol 42 mg/dL (40-60) Cholesterol/HDL Ratio 4.5 Laboratory Tests Test 07/03/17 14:15 07/03/17 15:20 07/03/17 16:01 07/03/17 20:49 White Blood Count 9.3 x10^3/uL (4.0-11.0) Red Blood Count 3.96 x10^6/uL (4.30-5.70) Hemoglobin 12.2 g/dL (13.0-17.5) Hematocrit 36.5 % (39.0-53.0) Mean Corpuscular Volume 92 fL (79-100) Mean Corpuscular Hemoglobin 31 pg (25-35) Mean Corpuscular Hemoglobin Concent 34 g/dL (31-37) Red Cell Distribution Width 13.2 % (11.5-14.5) Platelet Count 256 x10^3/uL (140-400) Neutrophils (%) (Auto) 60 % (31-73) Lymphocytes (%) (Auto) 27 % (24-48) Monocytes (%) (Auto) 8 % (0-9) Eosinophils (%) (Auto) 4 % (0-3) Basophils (%) (Auto) 1 % (0-3) Neutrophils # (Auto) 5.5 x10^3uL (1.8-7.7) Lymphocytes # (Auto) 2.5 x10^3/uL (1.0-4.8) Monocytes # (Auto) 0.7 x10^3/uL (0.0-1.1) Eosinophils # (Auto) 0.4 x10^3/uL (0.0-0.7) Basophils # (Auto) 0.1 x10^3/uL (0.0-0.2) Prothrombin Time 13.2 SEC (11.7-14.0) Prothromb Time International Ratio 1.1 (0.8-1.1) Activated Partial Thromboplast Time 34 SEC (24-38) Sodium Level 137 mmol/L (136-145) Potassium Level 4.9 mmol/L (3.5-5.1) Chloride Level 101 mmol/L (98-107) Carbon Dioxide Level 32 mmol/L (21-32) Anion Gap 4 (6-14) Blood Urea Nitrogen 27 mg/dL (8-26) Creatinine 1.1 mg/dL (0.7-1.3) Estimated GFR (Cockcroft-Gault) 67.2 BUN/Creatinine Ratio 25 (6-20) Glucose Level 229 mg/dL (70-99) Calcium Level 9.8 mg/dL (8.5-10.1) Magnesium Level 1.4 mg/dL (1.8-2.4) Total Bilirubin 0.4 mg/dL (0.2-1.0) Aspartate Amino Transf (AST/SGOT) 19 U/L (15-37) Alanine Aminotransferase (ALT/SGPT) 19 U/L (16-63) Alkaline Phosphatase 82 U/L (46-116) Troponin I Quantitative < 0.017 ng/mL (0.000-0.055) TI-Oei-M-Type Natriuretic Peptide 774 pg/mL (0-124) Total Protein 7.8 g/dL (6.4-8.2) Albumin 3.4 g/dL (3.4-5.0) Albumin/Globulin Ratio 0.8 (1.0-1.7) Urine Collection Type Unknown Urine Color Yellow Urine Clarity Clear Urine pH 6.0 Urine Specific Enigma 1.010 Urine Protein 30 mg/dL (NEG-TRACE) Urine Glucose (UA) 100 mg/dL (NEG) Urine Ketones (Stick) Negative mg/dL (NEG) Urine Blood Negative (NEG) Urine Nitrite Negative (NEG) Urine Bilirubin Negative (NEG) Urine Urobilinogen Dipstick 0.2 mg/dL (0.2 mg/dL) Urine Leukocyte Esterase Negative (NEG) Urine RBC 0 /HPF (0-2) Urine WBC Occ /HPF (0-4) Urine Squamous Epithelial Cells Few /LPF Urine Bacteria Few /HPF (0-FEW) Urine Mucus Slight /LPF Phenytoin (Dilantin) Level < 0.5 mcg/mL (10.0-20.0) Phenytoin Last Dose Date 07/03/17 Phenytoin Last Dose Time 1200 Glucose (Fingerstick) 211 mg/dL (70-99) Test 07/04/17 04:15 07/04/17 07:29 Sodium Level 142 mmol/L (136-145) Potassium Level 4.4 mmol/L (3.5-5.1) Chloride Level 102 mmol/L (98-107) Carbon Dioxide Level 35 mmol/L (21-32) Anion Gap 5 (6-14) Blood Urea Nitrogen 32 mg/dL (8-26) Creatinine 1.3 mg/dL (0.7-1.3) Estimated GFR (Cockcroft-Gault) 55.4 Glucose Level 132 mg/dL (70-99) Glucose (Fingerstick) 120 mg/dL (70-99) 85 mg/dL (70-99) Calcium Level 9.5 mg/dL (8.5-10.1) Magnesium Level 1.7 mg/dL (1.8-2.4) Creatine Kinase 17 U/L (39-308) Creatine Kinase MB (Mass) < 0.5 ng/mL (0.0-3.6) Creatine Kinase MB Relative Index % (0-4) Troponin I Quantitative < 0.017 ng/mL (0.000-0.055) Triglycerides Level 131 mg/dL (0-150) Cholesterol Level 187 mg/dL (0-200) LDL Cholesterol, Calculated 119 mg/dL (0-100) VLDL Cholesterol, Calculated 26 mg/dL (0-40) Non-HDL Cholesterol Calculated 145 mg/dL (0-129) HDL Cholesterol 42 mg/dL (40-60) Cholesterol/HDL Ratio 4.5 Medications Current Medications Lorazepam (Ativan) 2 mg PRN Q4HRS PRN IV ANXIETY / AGITATION; Start 07/03/17 at 16:00 Hydralazine HCl (Apresoline Inj) 10 mg PRN Q4HRS PRN IVP ELEVATED BP, SEE COMMENTS; Start 07/03/17 at 16:00 Morphine Sulfate 2 mg PRN Q2HR PRN IV PAIN; Start 07/03/17 at 16:00 Ondansetron HCl (Zofran) 4 mg PRN Q6HRS PRN IV NAUSEA/VOMITING; Start at 16:00 Ondansetron HCl (Zofran Odt) 4 mg PRN Q6HRS PRN PO NAUSEA/VOMITING; Start 06/09 at 16:00 Acetaminophen (Tylenol) 500 mg PRN Q6HRS PRN PO MILD PAIN / TEMP; Start at 16:00 Acetaminophen/ Hydrocodone Bitart (Lortab 5/325) 1 tab PRN Q4HRS PRN PO PAIN Last administered on 07/04/17 05:06; Start 07/03/17 at 16:00 Insulin Aspart (NovoLOG) 0-9 UNITS TIDWMEALS SQ ; Start 07/03/17 at 17:00 Dextrose (Dextrose 50%-Water Syringe) 12.5 gm PRN Q15MIN PRN IV SEE COMMENTS; Start 07/03/17 at 16:00 Acetaminophen/ Codeine Phosphate (Tylenol #3) 1 tab PRN Q6HRS PRN PO PAIN; Start 07/03/17 at 16:00 Amlodipine Besylate (Norvasc) 10 mg HS PO Last administered on 07/03/17t 20:44 ; Start 07/03/17 at 21:00; Stop 07/04/17 at 09:49; Status DC Aspirin (Ecotrin) 81 mg DAILY PO Last administered on 07/04/17 09:52; Start 07/04/17 at 09:00 Benzonatate (Tessalon Perle) 100 mg DAILY PO Last administered on 07/04/17 09 :22; Start 07/04/17 at 09:00 Clonidine HCl (Catapres) 0.2 mg PRN TID PRN PO tid; Start 07/03/17 at 16:00 Clopidogrel Bisulfate (Plavix) 75 mg DAILY PO Last administered on 07/04/17 09:24; Start 07/04/17 at 09:00 Diphenhydramine HCl (Benadryl) 25 mg QHS PO Last administered on 07/03/17 20: 44; Start 07/03/17 at 21:00 Docusate Sodium (Colace) 100 mg BID PO Last administered on 07/04/17 09:25; Start 07/03/17 at 21:00 Furosemide (Lasix) 40 mg DAILY PO ; Start 07/04/17 at 09:00; Stop 07/04/17 at 09:00; Status DC Acetaminophen/ Hydrocodone Bitart (Lortab 5/325) 1 tab PRN Q8HRS PRN PO PAIN; Start 07/03/17 at 16:00 Insulin Aspart (NovoLOG) 18 units DAILYAC SQ Last administered on 07/04/17 09 :52; Start 07/04/17 at 07:30 Insulin Aspart (NovoLOG) 24 units DAILYBFRSUP SQ ; Start 07/03/17 at 17:00 Levetiracetam (Keppra) 500 mg BID PO Last administered on 07/04/17 09:22; Start 07/03/17 at 21:00 Meloxicam (Mobic) 7.5 mg DAILY PO Last administered on 07/04/17 09:23; Start 07/04/17 at 09:00 Metformin HCl (Glucophage) 1,000 mg BIDWMEALS PO Last administered on 09:24; Start 07/03/17 at 18:00 Methocarbamol (Robaxin) 500 mg PRN QID PRN PO MUSCLE SPASMS; Start 07/03/17 at 16:00 Pantoprazole Sodium (Protonix) 40 mg DAILY PO Last administered on 07/04/17 09:23; Start 07/04/17 at 09:00 Phenytoin Sodium (Dilantin) 200 mg BID PO Last administered on 07/04/17 09:24 ; Start 07/03/17 at 21:00 Polyethylene Glycol (miraLAX PACKET) 17 gm DAILY PO Last administered on 09:22; Start 07/04/17 at 09:00 Trazodone HCl (Desyrel) 50 mg PRN QHS PRN PO INSOMNIA; Start 07/03/17 at 16:00 Triamcinolone Acetonide (Kenalog) 1 chayito PRN TID PRN TP RASH; Start 07/03/17 at 16:00 Non-Formulary Medication 1 puff PRN Q4HRS PRN INH SHORTNESS OF BREATH; Start 07/03/17 at 16:00; Stop 07/03/17 at 17:52; Status DC Non-Formulary Medication 2 puff BID IH ; Start 07/03/17 at 21:00; Stop at 21:00; Status DC Carvedilol (Coreg) 25 mg BIDWMEALS PO Last administered on 07/04/17 09:26; Start 07/03/17 at 18:00 Gabapentin (Neurontin) 300 mg TID PO Last administered on 07/04/17 09:22; Start 07/03/17 at 21:00 Insulin Detemir (Levemir) 75 units QHS SQ Last administered on 07/03/17 20:57 ; Start 07/03/17 at 21:00 Losartan Potassium (Cozaar) 100 mg DAILY PO ; Start 07/04/17 at 09:00 Magnesium Oxide (Magnesium Oxide) 400 mg DAILY PO Last administered on 09:23; Start 07/04/17 at 09:00 Multivitamins (Thera M Plus) 1 tab DAILY PO Last administered on 07/04/17 09: 21; Start 07/04/17 at 09:00 Potassium Chloride (Klor-Con) 20 meq DAILYWBKFT PO Last administered on 09:52; Start 07/04/17 at 08:00 Magnesium Sulfate/ Dextrose 50 ml @ 25 mls/hr 1X ONCE IV Last administered on 07/03/17 16:21; Start 07/03/17 at 16:15; Stop 07/03/17 at 18:14; Status DC Furosemide (Lasix) 40 mg 1X ONCE IVP Last administered on 07/03/17 16:30; Start 07/03/17 at 16:15; Stop 07/03/17 at 16:16; Status DC Albuterol Sulfate (Ventolin Neb Soln) 2.5 mg PRN Q4HRS PRN NEB SHORTNESS OF BREATH; Start 07/03/17 at 17:45 Albuterol Sulfate (Ventolin Neb Soln) 2.5 mg Q6HRS NEB Last administered on 12:02; Start 07/03/17 at 18:00 Budesonide (Pulmicort) 0.5 mg RTBID NEB Last administered on 07/04/17 08:51; Start 07/03/17 at 20:00 Furosemide (Lasix) 40 mg DAILY IVP Last administered on 07/04/17 09:28; Start 07/04/17 at 09:00 Magnesium Sulfate/ Dextrose 50 ml @ 25 mls/hr 1X ONCE IV Last administered on 07/04/17 09:56; Start 07/04/17 at 08:00; Stop 07/04/17 at 09:59; Status DC Amlodipine Besylate (Norvasc) 5 mg HS PO ; Start 07/04/17 at 21:00 Isosorbide Mononitrate (Imdur) 30 mg DAILY PO ; Start 07/04/17 at 10:30 Active Scripts Active Dilantin (Phenytoin Sodium Extended) 100 Mg Capsule 2 Cap PO BID Keppra (Levetiracetam) 500 Mg Tablet 1 Tab PO BID Keppra (Levetiracetam) 500 Mg Tablet 1 Tab PO BID Reported Triamcinolone Acetonide 0.1% Cream (Triamcinolone Acetonide) 15 Gm Cream..g. 1 Chayito TP PRN TID PRN Magnesium 200 Mg Tablet 400 Mg PO DAILY Potassium Chloride 20 Meq Tablet.er 20 Meq PO DAILY Polyethylene Glycol 3350 255 Gm Powder 17 Gm PO DAILY Pantoprazole Sodium 40 Mg Tablet.dr 40 Mg PO DAILY Multi-Day Vitamins (Multivitamin) 1 Each Tablet 1 Tab PO DAILY Robaxin (Methocarbamol) 500 Mg Tablet 500 Mg PO PRN QID PRN Levofloxacin 500 Mg Tablet 500 Mg PO DAILY Novolog Flexpen (Insulin Aspart) 100 Unit/1 Ml Insuln.pen 24 Unit SQ DAILYBFRSUP Novolog Flexpen (Insulin Aspart) 100 Unit/1 Ml Insuln.pen 18 Unit SQ DAILYAC Alfred 5-325 Tablet (Acetaminophen/Hydrocodone Bitart) 1 Each Tablet 1-2 Tab PO PRN Q8HRS PRN Furosemide 40 Mg Tablet 1 Tab PO DAILY Doxycycline Hyclate 100 Mg Tablet 100 Mg PO BID Colace (Docusate Sodium) 100 Mg Capsule 1 Cap PO BID Clopidogrel (Clopidogrel Bisulfate) 75 Mg Tablet 75 Mg PO DAILY Benzonatate 100 Mg Capsule 1 Cap PO DAILY Amlodipine Besylate 10 Mg Tablet 10 Mg PO HS Tylenol (Acetaminophen) 325 Mg Tablet 650 Mg PO QID Trazodone Hcl 50 Mg Tablet 50 Mg PO PRN QHS PRN Carvedilol 25 Mg Tablet 25 Mg PO BIDWMEALS Acetaminophen-Cod #3 Tablet (Acetaminophen/Codeine Phosphate) 1 Each Tablet 1 Tab PO PRN Q6HRS PRN Losartan Potassium 100 Mg Tablet 100 Mg PO DAILY Benadryl (Diphenhydramine Hcl) 25 Mg Capsule 1 Cap PO QHS Meloxicam 7.5 Mg Tablet 7.5 Mg PO DAILY Gabapentin 300 Mg Capsule 300 Mg PO TID Metformin Hcl 1,000 Mg Tablet 1,000 Mg PO BIDWMEALS Lantus Solostar (Insulin Glargine,Hum.rec.anlog) 100 Unit/1 Ml Insuln.pen 75 Unit SQ HS Proair Hfa Inhaler (Albuterol Sulfate) 8.5 Gm Hfa.aer.ad 1 Puff INH PRN Q4HRS PRN Symbicort 160-4.5 Mcg Inhaler (Budesonide/Formoterol Fumarate) 10.2 Gm Hfa.aer.ad 2 Puff IH BID Clonidine Hcl 0.2 Mg Tablet 0.2 Mg PO PRN TID PRN if sbp > 180 and dbp>105 Aspir 81 (Aspirin) 81 Mg Tablet. 1 Tab PO DAILY Vitals/I & O Vital Sign - Last 24 Hours 07/03/17 07/03/17 07/03/17 07/03/17 14:04 14:15 14:30 14:45 Temp 98.4 98.4 Pulse 75 72 72 68 Resp 24 20 23 24 B/P (MAP) 186/73 (110) 149/58 (88) 142/60 (87) 150/60 (90) Pulse Ox 100 99 99 99 O2 Delivery NonRebreather Mask Nasal Cannula Nasal Cannula Nasal Cannula O2 Flow Rate 15.0 2.0 2.0 2.0 07/03/17 07/03/17 07/03/17 07/03/17 15:00 15:15 15:45 16:15 Pulse 61 65 62 64 Resp 24 24 20 20 B/P (MAP) 155/61 (92) 148/62 (90) 146/65 (92) 142/60 (87) Pulse Ox 99 99 99 99 O2 Delivery Nasal Cannula Nasal Cannula Nasal Cannula Nasal Cannula O2 Flow Rate 2.0 2.0 2.0 2.0 07/03/17 07/03/17 07/03/17 07/03/17 16:45 17:30 19:20 19:20 Temp 98.4 98.4 Pulse 64 62 72 Resp 20 18 17 B/P (MAP) 142/59 (86) 139/62 (87) 154/73 (100) Pulse Ox 99 100 94 99 O2 Delivery Nasal Cannula Nasal Cannula BiPAP/CPAP Room Air O2 Flow Rate 2.0 2.0 07/03/17 07/03/17 07/03/17 07/03/17 20:00 20:44 20:44 21:49 Pulse 62 62 B/P (MAP) 139/62 139/62 O2 Delivery Nasal Cannula O2 Flow Rate 2.0 2.0 07/03/17 07/04/17 07/04/17 07/04/17 23:30 03:30 04:20 04:53 Temp 98.4 98.4 97.9 98.4 98.4 97.9 Pulse 68 59 65 60 Resp 16 16 B/P (MAP) 164/79 (107) 128/63 (84) 186/84 (118) 147/74 (98) Pulse Ox 92 88 99 O2 Delivery BiPAP/CPAP BiPAP/CPAP Nasal Cannula O2 Flow Rate 2.0 07/04/17 07/04/17 07/04/17 07/04/17 07:00 08:00 08:53 08:54 Temp 97.4 97.4 Pulse 61 Resp 20 B/P (MAP) 121/55 (77) Pulse Ox 94 98 98 O2 Delivery Nasal Cannula Nasal Cannula Room Air Room Air O2 Flow Rate 2.0 2.0 07/04/17 07/04/17 07/04/17 09:26 11:00 12:03 Temp 97.5 97.5 Pulse 61 65 Resp 20 B/P (MAP) 121/55 131/58 (82) Pulse Ox 98 O2 Delivery Nasal Cannula Room Air O2 Flow Rate 2.0 Intake and Output 07/04/17 07/04/17 07/05/17 14:59 22:59 06:59 Intake Total 500 ml Output Total 200 ml Balance 300 ml JOSIAS KUNZ III DO Jul 04, 2017 12:41
[2017-07-04] MEDS: LOSARTAN POTASSIUM 50 MG TABLET. PO SCH (14:08)
[2017-07-04] MEDS: ISOSORBIDE MONONITRATE ER 30 MG TAB.ER.24H PO SCH (14:09)
--- NOTE | 2017-07-04 16:14 | EKG ---
[facility] [address] [place] [address] Test Date: 2017-07-04 Test Time: 16:12:25 Pat Name: DOM RODRÍGUEZ Department: Room: 246 1 Gender: M [employer]: SUNIL : 1950 Requested By: VENUS DALAL Order Number: [id number] Reading MD: Jovany Pennington MD Measurements Intervals [place] Rate: 66 P: [place]: QRS: -49 QRSD: 82 T: 3 QT: 378 QTc: 398 Interpretive Statements SR INFERIOR INFARCT - LIKELY OLD NON-SPECIFIC ST/T CHANGES Electronically Signed On 07-06-2017 10:00:18 PHYSICIAN OFFICE CLIN ASST by Jovany Pennington MD
[2017-07-04] MEDS: METHOCARBAMOL 500 MG TABLET PO PRN (16:40)
[2017-07-04] MEDS: diphenhydrAMINE HCL 25 MG CAPSULE PO SCH (20:50)
[2017-07-04] MEDS: amLODIPine BESYLATE 5 MG TABLET PO SCH (20:50)
[2017-07-04] MEDS: INSULIN DETEMIR 300 UNITS/3 ML INSULN.PEN. SQ SCH (21:04)
--- NOTE | 2017-07-04 22:08 | CONS ---
DATE OF CONSULTATION: 07/04/2017 REFERRING PHYSICIAN: Dr. Hayden. REASON FOR CONSULTATION: Seizure. HISTORY OF PRESENT ILLNESS: The patient is a 66-year-old man who admitted yesterday to [facility] because of chest pain. He has been having episodes which are concerning for seizure. He was seen by Dr. Vitale last February when he had seizure activity associated with tongue biting, incontinence and postictal confusion. The current spells are quite different. I had arrived on the unit and the nurse called me into the room because of such a spell occurring at the moment. The patient is able to talk during the spells and has his head going from left to right and some irregular movements of his shoulders and arms. This does not alter his consciousness at all. It is also distractible where if I start talking to him he does not have the activity. He denies being under undue stress. He has been switching back and forth living between [place] and this area with his daughters and granddaughters. He last spent 6 months in [place] and now plans to spend about 6 months here. This arrangement has been working well. He gets along with both daughters. He reports being from his for a number of years. He is no longer having chest pain. He has not had headache. There has been no major injury. He does not believe he is on Dilantin and is not certain if he is on Keppra. He does not have good knowledge of his medications. PAST MEDICAL HISTORY: 1. Chronic obstructive pulmonary disease. 2. Osteoarthritis. 3. Diabetes. 4. History of stroke affecting the right side of his body. 5. History of dementia. 6. Congestive heart failure. 7. Hyperlipidemia. 8. Angioplasty. 9. Appendectomy. 10. Hernia repair. 11. Pericardial window. ALLERGIES: STATINS, ERYTHROMYCIN BASE, IODINE, NIACIN. MEDICATIONS PRIOR TO ADMISSION: Tylenol, Tylenol with Codeine as needed, Tylenol with hydrocodone as needed, albuterol metered dose inhaler, amlodipine 10 mg, aspirin 81 mg, benzonatate 100 mg, Symbicort twice per day 2 puffs, carvedilol 25 mg twice per day, clonidine 0.2 mg 3 times per day as needed, clopidogrel 75 mg, diphenhydramine 25 mg at night, Colace 100 mg twice per day, doxycycline 100 mg twice per day, furosemide 40 mg, gabapentin 300 mg, 3 times per day; insulin, levetiracetam 500 mg twice per day, levofloxacin 500 mg, losartan 100 mg, magnesium 400 mg, meloxicam 7.5 mg, metformin 1000 mg with meals, methocarbamol 500 mg as needed, multivitamin, Protonix 40 mg, phenytoin 200 mg twice per day, MiraLax 17 grams, potassium chloride sustained release 20 mEq, trazodone 50 mg as needed and triamcinolone cream. These medicines are unverified and it is not clear if he is actually on all these medicines. FAMILY HISTORY: Heart disease. SOCIAL HISTORY: He is , but . He does not smoke tobacco or drink alcohol, having quit in 1984. He does not use recreational drugs. He lives with his daughters alternating between [place] and [place]. REVIEW OF SYSTEMS: He does not complain of any headache. He has not had any change in vision or hearing. He is not aware of any cognitive changes. He has been able to eat and swallow without choking. He has had intermittent shortness of breath. He did have chest pain, but not presently. He does not have abdominal pain. He does not complain of bone or joint pain. He has not had fever or rash. Denies gastrointestinal or genitourinary complaints. He does not have any psychiatric complaints. He has had some depression, but feels it has been in remission for a number of months. He does have edema in the lower extremities and does sometimes get ulcerative sores on his ankles. He does have numbness of his feet and legs from his diabetes. He does not complain of excessive bleeding or bruising. PHYSICAL EXAMINATION: VITAL SIGNS: The blood pressure 131/58, pulse 65, respirations 20, temperature 97.5 degrees Fahrenheit. Oximetry was 98% on 2 liters nasal cannula. His weight was 389 pounds with a height of 72 inches and a calculated body mass index of 52.8. GENERAL: He was alert, awake and cooperative. Speech was fluent and clear. He had a good fund of recent and remote knowledge. Attention and concentration was intact. When I entered the room, he was having head movements side to side and some irregular jerking of arms, but was fully conscious and had normal cognition. With distraction the movements would stop. He was well oriented. He appeared well groomed and well nourished. NEUROLOGIC: Examination of the cranial nerves revealed visual wise were full to confrontation. Extraocular movements were intact. The eyes were conjugate. Pursuit movements were smooth and saccadic eye movements were without dysmetria. There was no nystagmus. Pupils are 3 mm. Funduscopic exam did not reveal papilledema. Facial sensation was intact. The muscles of mastication and facial expression were powerful symmetrically. Hearing was intact to finger rub. The palate arched symmetrically and tongue was midline with full range of motion. Sternocleidomastoid and trapezius were powerful. Muscle bulk and tone was normal. There was no arm drift or asterixis. Power was full and symmetric in the upper extremities. He was generally weak in both legs with respect to hip flexion, knee flexion, but dorsi and plantar flexion were quite powerful. Reflexes 1/4 in the upper extremities and at the knees, absent at the ankles bilaterally. Toes were not upgoing. Coordination testing with [id number], fine motor and rapid alternating movements, he had difficulty with [id number] due to weakness. He did not have any ataxia. Sensory exam was intact to pain, light touch, proprioception, graphesthesia, cold thermal and vibration in the upper extremities. There was no extinction to double simultaneous stimulation. In the lower extremities, there was sensory shading half way up the legs to pain, cold thermal and light touch. Proprioception was impaired, but still perceived in the feet with larger movements. Vibratory sense was better perceived at the knee than at the ankle. Gait was not testable. Auscultation of the carotid arteries did not reveal a bruit. HEART: Rhythm was regular without a murmur. EXTREMITIES: Peripheral pulses were 1-2/4 and symmetric at the wrist and in the feet. There was edema in the lower extremities with redness especially about the left ankle. LABORATORY DATA: CBC revealed a normal white blood cell count and platelet count. The hemoglobin was low at 12.2, hematocrit at 36.5. Fasting lipid profile revealed a total cholesterol of 187, triglycerides at 131, HDL was 42, LDL calculated was 119 and VLDL 26. The electrolytes were normal, but CO2 was 35. BUN was 32 and creatinine 1.1 with a calculated GFR of 55.4. Calcium was normal. Magnesium was low at 1.7. CPK and troponin were not elevated. BNP on admission was 774. Phenytoin level was not detected, measured yesterday afternoon. Urinalysis revealed glucose and occasional white blood cells and a few epithelial cells and a few bacteria. PT/INR was 1.1 and PTT was 34. IMPRESSION: The patient is a 66-year-old man who is having spells of shaking that do not represent seizure. I suspect Dilantin was discontinued, although it is not clear if he has been noncompliant with both Dilantin and levetiracetam. It sounds convincing that the spell seen by the neurologist, Dr. Vitale, back in February was seizure. These are quite different than those described spells. These spells are more anxiety or possibly pseudoseizure. He may be unaware that he is doing the spells as sometimes it is on the subconscious level. He does have a psychiatrist that he works with for underlying depression, but does feel the depression is better. I am relieved that neurologic exam, although revealing deconditioning and weakness in the legs bilaterally as well as a very prominent peripheral polyneuropathy, was nonfocal. RECOMMENDATIONS: I would continue levetiracetam 500 mg twice per day and discontinue Dilantin. Further investigation is not needed at this time from a neurologic perspective. He may need rehabilitation to gain back some strength in his legs. He does have congestive heart failure and swelling in his legs and there may be the onset of a cellulitis as well. I will leave this investigation to the primary care physician and wood flooring specialist. PAULY TRAN MD DR: PABLO/lino JOB#: [id number] / [id number] MONICA Moralez MD, FERILYN MD TERMULO, CHERRIE MD
[2017-07-05 03:15] VITALS: BP 158/70
[2017-07-05 05:12] LABS: BASO % 1 % (0-3); EOS % 4 % (0-3); HEMATOCRIT 33.5 % (39.0-53.0); HEMOGLOBIN 11.4 g/dL (13.0-17.5); LYMPH # 3.1 x10^3/uL (1.0-4.8); LYMPH % 33 % (24-48); MEAN CORPUSCULAR HEMOGLOBIN 32 pg (25-35); MEAN CORPUSCULAR HGB CONC 34 g/dL (31-37); MEAN CORPUSCULAR VOLUME 93 fL (79-100); MONO % 8 % (0-9); NEUT % 54 % (31-73); PLATELET COUNT 229 x10^3/uL (140-400); RED CELL DISTRIBUTION WIDTH 13.3 % (11.5-14.5); WHITE BLOOD COUNT 9.2 x10^3/uL (4.0-11.0)
[2017-07-05 05:38] LABS: CALCIUM 8.7 mg/dL (8.5-10.1); CREATININE 1.7 mg/dL (0.7-1.3); GFR 40.7; POTASSIUM 4.5 mmol/L (3.5-5.1)
[2017-07-05] MEDS: BUDESONIDE 0.5 MG/2 ML NEBU. NEB SCH ×2 (07:32→21:27)
[2017-07-05] MEDS: ALBUTEROL SULFATE 2.5 MG/3 ML NEBU. NEB SCH ×5 (07:32→23:58)
[2017-07-05 07:45] VITALS: BP 146/71
[2017-07-05] MEDS: INSULIN ASPART 300 UNITS/3 ML INSULN.PEN SQ SCH ×3 (08:00→17:00)
[2017-07-05] MEDS: POTASSIUM CHLORIDE 20 MEQ TABLET.ER. PO SCH (08:46)
[2017-07-05] MEDS: CARVEDILOL 12.5 MG TABLET. PO SCH ×2 (08:46→17:36)
[2017-07-05] MEDS: PANTOPRAZOLE 40 MG TABLET.DR. PO SCH (08:46)
[2017-07-05] MEDS: MULTIVITAMIN with MINERAL TABLET. PO SCH (09:28)
[2017-07-05] MEDS: POLYETHYLENE GLYCOL 3350 17 GM PACKET. PO SCH (09:28)
[2017-07-05] MEDS: CLOPIDOGREL BISULFATE 75 MG TABLET PO SCH (09:28)
[2017-07-05] MEDS: levETIRAcetam 500 MG TABLET PO SCH ×2 (09:28→20:37)
[2017-07-05] MEDS: BENZONATATE 100 MG CAPSULE. PO SCH (09:28)
[2017-07-05] MEDS: MELOXICAM 7.5 MG TABLET PO SCH (09:29)
[2017-07-05] MEDS: MAGNESIUM OXIDE 400 MG TABLET PO SCH (09:29)
[2017-07-05] MEDS: DOCUSATE SODIUM 100 MG CAPSULE. PO SCH ×2 (09:29→20:38)
[2017-07-05] MEDS: LOSARTAN POTASSIUM 50 MG TABLET. PO SCH (09:29)
[2017-07-05] MEDS: ISOSORBIDE MONONITRATE ER 30 MG TAB.ER.24H PO SCH (09:29)
[2017-07-05] MEDS: ASPIRIN ENTERIC COATED 81 MG TABLET.DR. PO SCH (09:30)
[2017-07-05] MEDS: GABAPENTIN 300 MG CAPSULE. PO SCH ×3 (09:30→20:38)
[2017-07-05] MEDS: FUROSEMIDE 40 MG/4 ML VIAL. IVP SCH (09:30)
[2017-07-05 11:00] VITALS: BP 153/81
--- NOTE | 2017-07-05 12:08 | PDOC ---
PROGRESS NOTES Subjective Subjective The patient is more comfortable today. Objective Objective Vital Signs Date Time Temp Pulse Resp B/P (MAP) Pulse Ox O2 Delivery O2 Flow Rate FiO2 07/05/17 11:00 98.4 70 20 153/81 (105) 94 Nasal Cannula 2.0 98.4 Intake and Output 07/06/17 07:00 Output Total 300 ml Balance -300 ml Output Urine Total 300 ml Physical Exam Abdomen: Normal bowel sounds Heart: Regular rate General: mild distress Lungs: Other (decreased breath sounds) Assessment Assessment Problems Medical Problems: (1) Congestive heart failure Status: Acute (2) Pulmonary edema Status: Acute (3) Seizure Status: Acute 1. Acute on chronic CHF with possible diastolic dysfunction: improved. continue present treatment and increase activity. 2. Atypical CP: trop normal initial, no acute EKG changes. His pain resolved. Still awaiting appropriate old records. 3. HTN: continue medications 4. CAD: recent PCI/stent 3 wks ago possibly RCA 5. Hx of seizures: possible seizure en route to ED 6. Morbid obesity 7. Dementia 8. COPD/GERA: CPAP compliant Comment Review of Relevant I have reviewed the following items teer (where applicable) has been applied. Labs Laboratory Tests Test 07/03/17 14:15 07/03/17 15:20 07/03/17 16:01 07/03/17 20:49 White Blood Count 9.3 x10^3/uL (4.0-11.0) Red Blood Count 3.96 x10^6/uL (4.30-5.70) Hemoglobin 12.2 g/dL (13.0-17.5) Hematocrit 36.5 % (39.0-53.0) Mean Corpuscular Volume 92 fL (79-100) Mean Corpuscular Hemoglobin 31 pg (25-35) Mean Corpuscular Hemoglobin Concent 34 g/dL (31-37) Red Cell Distribution Width 13.2 % (11.5-14.5) Platelet Count 256 x10^3/uL (140-400) Neutrophils (%) (Auto) 60 % (31-73) Lymphocytes (%) (Auto) 27 % (24-48) Monocytes (%) (Auto) 8 % (0-9) Eosinophils (%) (Auto) 4 % (0-3) Basophils (%) (Auto) 1 % (0-3) Neutrophils # (Auto) 5.5 x10^3uL (1.8-7.7) Lymphocytes # (Auto) 2.5 x10^3/uL (1.0-4.8) Monocytes # (Auto) 0.7 x10^3/uL (0.0-1.1) Eosinophils # (Auto) 0.4 x10^3/uL (0.0-0.7) Basophils # (Auto) 0.1 x10^3/uL (0.0-0.2) Prothrombin Time 13.2 SEC (11.7-14.0) Prothromb Time International Ratio 1.1 (0.8-1.1) Activated Partial Thromboplast Time 34 SEC (24-38) Sodium Level 137 mmol/L (136-145) Potassium Level 4.9 mmol/L (3.5-5.1) Chloride Level 101 mmol/L (98-107) Carbon Dioxide Level 32 mmol/L (21-32) Anion Gap 4 (6-14) Blood Urea Nitrogen 27 mg/dL (8-26) Creatinine 1.1 mg/dL (0.7-1.3) Estimated GFR (Cockcroft-Gault) 67.2 BUN/Creatinine Ratio 25 (6-20) Glucose Level 229 mg/dL (70-99) Calcium Level 9.8 mg/dL (8.5-10.1) Magnesium Level 1.4 mg/dL (1.8-2.4) Total Bilirubin 0.4 mg/dL (0.2-1.0) Aspartate Amino Transf (AST/SGOT) 19 U/L (15-37) Alanine Aminotransferase (ALT/SGPT) 19 U/L (16-63) Alkaline Phosphatase 82 U/L (46-116) Troponin I Quantitative < 0.017 ng/mL (0.000-0.055) GK-Eyu-C-Type Natriuretic Peptide 774 pg/mL (0-124) Total Protein 7.8 g/dL (6.4-8.2) Albumin 3.4 g/dL (3.4-5.0) Albumin/Globulin Ratio 0.8 (1.0-1.7) Urine Collection Type Unknown Urine Color Yellow Urine Clarity Clear Urine pH 6.0 Urine Specific [place] 1.010 Urine Protein 30 mg/dL (NEG-TRACE) Urine Glucose (UA) 100 mg/dL (NEG) Urine Ketones (Stick) Negative mg/dL (NEG) Urine Blood Negative (NEG) Urine Nitrite Negative (NEG) Urine Bilirubin Negative (NEG) Urine Urobilinogen Dipstick 0.2 mg/dL (0.2 mg/dL) Urine Leukocyte Esterase Negative (NEG) Urine RBC 0 /HPF (0-2) Urine WBC Occ /HPF (0-4) Urine Squamous Epithelial Cells Few /LPF Urine Bacteria Few /HPF (0-FEW) Urine Mucus Slight /LPF Phenytoin (Dilantin) Level < 0.5 mcg/mL (10.0-20.0) Phenytoin Last Dose Date 07/03/17 Phenytoin Last Dose Time 1200 Glucose (Fingerstick) 211 mg/dL (70-99) Test 07/04/17 04:15 07/04/17 07:29 07/04/17 11:17 07/04/17 12:33 Sodium Level 142 mmol/L (136-145) Potassium Level 4.4 mmol/L (3.5-5.1) Chloride Level 102 mmol/L (98-107) Carbon Dioxide Level 35 mmol/L (21-32) Anion Gap 5 (6-14) Blood Urea Nitrogen 32 mg/dL (8-26) Creatinine 1.3 mg/dL (0.7-1.3) Estimated GFR (Cockcroft-Gault) 55.4 Glucose Level 132 mg/dL (70-99) Glucose (Fingerstick) 120 mg/dL (70-99) 85 mg/dL (70-99) 61 mg/dL (70-99) 40 mg/dL (70-99) Calcium Level 9.5 mg/dL (8.5-10.1) Magnesium Level 1.7 mg/dL (1.8-2.4) Creatine Kinase 17 U/L (39-308) Creatine Kinase MB (Mass) < 0.5 ng/mL (0.0-3.6) Creatine Kinase MB Relative Index % (0-4) Troponin I Quantitative < 0.017 ng/mL (0.000-0.055) Triglycerides Level 131 mg/dL (0-150) Cholesterol Level 187 mg/dL (0-200) LDL Cholesterol, Calculated 119 mg/dL (0-100) VLDL Cholesterol, Calculated 26 mg/dL (0-40) Non-HDL Cholesterol Calculated 145 mg/dL (0-129) HDL Cholesterol 42 mg/dL (40-60) Cholesterol/HDL Ratio 4.5 Test 07/04/17 13:04 07/04/17 13:31 07/04/17 16:03 07/04/17 20:57 Glucose (Fingerstick) 110 mg/dL (70-99) 80 mg/dL (70-99) 138 mg/dL (70-99) 130 mg/dL (70-99) Test 07/05/17 04:30 07/05/17 07:49 07/05/17 11:46 White Blood Count 9.2 x10^3/uL (4.0-11.0) Red Blood Count 3.60 x10^6/uL (4.30-5.70) Hemoglobin 11.4 g/dL (13.0-17.5) Hematocrit 33.5 % (39.0-53.0) Mean Corpuscular Volume 93 fL (79-100) Mean Corpuscular Hemoglobin 32 pg (25-35) Mean Corpuscular Hemoglobin Concent 34 g/dL (31-37) Red Cell Distribution Width 13.3 % (11.5-14.5) Platelet Count 229 x10^3/uL (140-400) Neutrophils (%) (Auto) 54 % (31-73) Lymphocytes (%) (Auto) 33 % (24-48) Monocytes (%) (Auto) 8 % (0-9) Eosinophils (%) (Auto) 4 % (0-3) Basophils (%) (Auto) 1 % (0-3) Neutrophils # (Auto) 5.0 x10^3uL (1.8-7.7) Lymphocytes # (Auto) 3.1 x10^3/uL (1.0-4.8) Monocytes # (Auto) 0.7 x10^3/uL (0.0-1.1) Eosinophils # (Auto) 0.4 x10^3/uL (0.0-0.7) Basophils # (Auto) 0.0 x10^3/uL (0.0-0.2) Sodium Level 139 mmol/L (136-145) Potassium Level 4.5 mmol/L (3.5-5.1) Chloride Level 101 mmol/L (98-107) Carbon Dioxide Level 34 mmol/L (21-32) Anion Gap 4 (6-14) Blood Urea Nitrogen 42 mg/dL (8-26) Creatinine 1.7 mg/dL (0.7-1.3) Estimated GFR (Cockcroft-Gault) 40.7 Glucose Level 108 mg/dL (70-99) Calcium Level 8.7 mg/dL (8.5-10.1) Glucose (Fingerstick) 97 mg/dL (70-99) 176 mg/dL (70-99) Laboratory Tests Test 07/04/17 12:33 07/04/17 13:04 07/04/17 13:31 07/04/17 16:03 Glucose (Fingerstick) 40 mg/dL (70-99) 110 mg/dL (70-99) 80 mg/dL (70-99) 138 mg/dL (70-99) Test 07/04/17 20:57 07/05/17 04:30 07/05/17 07:49 07/05/17 11:46 Glucose (Fingerstick) 130 mg/dL (70-99) 97 mg/dL (70-99) 176 mg/dL (70-99) White Blood Count 9.2 x10^3/uL (4.0-11.0) Red Blood Count 3.60 x10^6/uL (4.30-5.70) Hemoglobin 11.4 g/dL (13.0-17.5) Hematocrit 33.5 % (39.0-53.0) Mean Corpuscular Volume 93 fL (79-100) Mean Corpuscular Hemoglobin 32 pg (25-35) Mean Corpuscular Hemoglobin Concent 34 g/dL (31-37) Red Cell Distribution Width 13.3 % (11.5-14.5) Platelet Count 229 x10^3/uL (140-400) Neutrophils (%) (Auto) 54 % (31-73) Lymphocytes (%) (Auto) 33 % (24-48) Monocytes (%) (Auto) 8 % (0-9) Eosinophils (%) (Auto) 4 % (0-3) Basophils (%) (Auto) 1 % (0-3) Neutrophils # (Auto) 5.0 x10^3uL (1.8-7.7) Lymphocytes # (Auto) 3.1 x10^3/uL (1.0-4.8) Monocytes # (Auto) 0.7 x10^3/uL (0.0-1.1) Eosinophils # (Auto) 0.4 x10^3/uL (0.0-0.7) Basophils # (Auto) 0.0 x10^3/uL (0.0-0.2) Sodium Level 139 mmol/L (136-145) Potassium Level 4.5 mmol/L (3.5-5.1) Chloride Level 101 mmol/L (98-107) Carbon Dioxide Level 34 mmol/L (21-32) Anion Gap 4 (6-14) Blood Urea Nitrogen 42 mg/dL (8-26) Creatinine 1.7 mg/dL (0.7-1.3) Estimated GFR (Cockcroft-Gault) 40.7 Glucose Level 108 mg/dL (70-99) Calcium Level 8.7 mg/dL (8.5-10.1) Medications Current Medications Lorazepam (Ativan) 2 mg PRN Q4HRS PRN IV ANXIETY / AGITATION; Start 07/03/17 at 16:00 Hydralazine HCl (Apresoline Inj) 10 mg PRN Q4HRS PRN IVP ELEVATED BP, SEE COMMENTS; Start 07/03/17 at 16:00 Morphine Sulfate 2 mg PRN Q2HR PRN IV PAIN; Start 07/03/17 at 16:00 Ondansetron HCl (Zofran) 4 mg PRN Q6HRS PRN IV NAUSEA/VOMITING; Start at 16:00 Ondansetron HCl (Zofran Odt) 4 mg PRN Q6HRS PRN PO NAUSEA/VOMITING; Start 06/09 at 16:00 Acetaminophen (Tylenol) 500 mg PRN Q6HRS PRN PO MILD PAIN / TEMP; Start at 16:00 Acetaminophen/ Hydrocodone Bitart (Lortab 5/325) 1 tab PRN Q4HRS PRN PO PAIN Last administered on 07/04/17t 05:06; Start 07/03/17 at 16:00 Insulin Aspart (NovoLOG) 0-9 UNITS TIDWMEALS SQ ; Start 07/03/17 at 17:00 Dextrose (Dextrose 50%-Water Syringe) 12.5 gm PRN Q15MIN PRN IV SEE COMMENTS Last administered on 07/04/17 12:35; Start 07/03/17 at 16:00 Acetaminophen/ Codeine Phosphate (Tylenol #3) 1 tab PRN Q6HRS PRN PO PAIN; Start 07/03/17 at 16:00 Amlodipine Besylate (Norvasc) 10 mg HS PO Last administered on 07/03/17 20:44 ; Start 07/03/17 at 21:00; Stop 07/04/17 at 09:49; Status DC Aspirin (Ecotrin) 81 mg DAILY PO Last administered on 07/05/17 09:30; Start 07/04/17 at 09:00 Benzonatate (Tessalon Perle) 100 mg DAILY PO Last administered on 07/05/17 09 :28; Start 07/04/17 at 09:00 Clonidine HCl (Catapres) 0.2 mg PRN TID PRN PO tid; Start 07/03/17 at 16:00 Clopidogrel Bisulfate (Plavix) 75 mg DAILY PO Last administered on 07/05/17 09:28; Start 07/04/17 at 09:00 Diphenhydramine HCl (Benadryl) 25 mg QHS PO Last administered on 07/04/17 20: 50; Start 07/03/17 at 21:00 Docusate Sodium (Colace) 100 mg BID PO Last administered on 07/05/17 09:29; Start 07/03/17 at 21:00 Furosemide (Lasix) 40 mg DAILY PO ; Start 07/04/17 at 09:00; Stop 07/04/17 at 09:00; Status DC Acetaminophen/ Hydrocodone Bitart (Lortab 5/325) 1 tab PRN Q8HRS PRN PO PAIN; Start 07/03/17 at 16:00 Insulin Aspart (NovoLOG) 18 units DAILYAC SQ Last administered on 07/04/17 09 :52; Start 07/04/17 at 07:30; Stop 07/04/17 at 17:15; Status DC Insulin Aspart (NovoLOG) 24 units DAILYBFRSUP SQ ; Start 07/03/17 at 17:00; Stop 07/04/17 at 17:15; Status DC Levetiracetam (Keppra) 500 mg BID PO Last administered on 07/05/17 09:28; Start 07/03/17 at 21:00 Meloxicam (Mobic) 7.5 mg DAILY PO Last administered on 07/05/17 09:29; Start 07/04/17 at 09:00 Metformin HCl (Glucophage) 1,000 mg BIDWMEALS PO Last administered on 08:46; Start 07/03/17 at 18:00 Methocarbamol (Robaxin) 500 mg PRN QID PRN PO MUSCLE SPASMS Last administered on 07/04/17 16:40; Start 07/03/17 at 16:00 Pantoprazole Sodium (Protonix) 40 mg DAILY PO Last administered on 07/05/17 08:46; Start 07/04/17 at 09:00 Phenytoin Sodium (Dilantin) 200 mg BID PO Last administered on 07/04/17 09:24 ; Start 07/03/17 at 21:00; Stop 07/04/17 at 13:15; Status DC Polyethylene Glycol (miraLAX PACKET) 17 gm DAILY PO Last administered on 09:28; Start 07/04/17 at 09:00 Trazodone HCl (Desyrel) 50 mg PRN QHS PRN PO INSOMNIA; Start 07/03/17 at 16:00 Triamcinolone Acetonide (Kenalog) 1 uma PRN TID PRN TP RASH; Start 07/03/17 at 16:00 Non-Formulary Medication 1 puff PRN Q4HRS PRN INH SHORTNESS OF BREATH; Start 07/03/17 at 16:00; Stop 07/03/17 at 17:52; Status DC Non-Formulary Medication 2 puff BID IH ; Start 07/03/17 at 21:00; Stop at 21:00; Status DC Carvedilol (Coreg) 25 mg BIDWMEALS PO Last administered on 07/05/17 08:46; Start 07/03/17 at 18:00 Gabapentin (Neurontin) 300 mg TID PO Last administered on 07/05/17 09:30; Start 07/03/17 at 21:00 Insulin Detemir (Levemir) 75 units QHS SQ Last administered on 07/04/17 21:04 ; Start 07/03/17 at 21:00 Losartan Potassium (Cozaar) 100 mg DAILY PO Last administered on 07/05/17 09: 29; Start 07/04/17 at 09:00 Magnesium Oxide (Magnesium Oxide) 400 mg DAILY PO Last administered on 09:29; Start 07/04/17 at 09:00 Multivitamins (Thera M Plus) 1 tab DAILY PO Last administered on 07/05/17 09: 28; Start 07/04/17 at 09:00 Potassium Chloride (Klor-Con) 20 meq DAILYWBKFT PO Last administered on 08:46; Start 07/04/17 at 08:00 Magnesium Sulfate/ Dextrose 50 ml @ 25 mls/hr 1X ONCE IV Last administered on 07/03/17 16:21; Start 07/03/17 at 16:15; Stop 07/03/17 at 18:14; Status DC Furosemide (Lasix) 40 mg 1X ONCE IVP Last administered on 07/03/17 16:30; Start 07/03/17 at 16:15; Stop 07/03/17 at 16:16; Status DC Albuterol Sulfate (Ventolin Neb Soln) 2.5 mg PRN Q4HRS PRN NEB SHORTNESS OF BREATH; Start 07/03/17 at 17:45 Albuterol Sulfate (Ventolin Neb Soln) 2.5 mg Q6HRS NEB Last administered on 07:32; Start 07/03/17 at 18:00 Budesonide (Pulmicort) 0.5 mg RTBID NEB Last administered on 07/05/17 07:32; Start 07/03/17 at 20:00 Furosemide (Lasix) 40 mg DAILY IVP Last administered on 07/05/17 09:30; Start 07/04/17 at 09:00 Magnesium Sulfate/ Dextrose 50 ml @ 25 mls/hr 1X ONCE IV Last administered on 07/04/17 09:56; Start 07/04/17 at 08:00; Stop 07/04/17 at 09:59; Status DC Amlodipine Besylate (Norvasc) 5 mg HS PO Last administered on 07/04/17 20:50 ; Start 07/04/17 at 21:00 Isosorbide Mononitrate (Imdur) 30 mg DAILY PO Last administered on 07/05/17t 09:29; Start 07/04/17 at 10:30 Active Scripts Active Dilantin (Phenytoin Sodium Extended) 100 Mg Capsule 2 Cap PO BID Keppra (Levetiracetam) 500 Mg Tablet 1 Tab PO BID Keppra (Levetiracetam) 500 Mg Tablet 1 Tab PO BID Reported Triamcinolone Acetonide 0.1% Cream (Triamcinolone Acetonide) 15 Gm Cream..g. 1 Uma TP PRN TID PRN Magnesium 200 Mg Tablet 400 Mg PO DAILY Potassium Chloride 20 Meq Tablet.er 20 Meq PO DAILY Polyethylene Glycol 3350 255 Gm Powder 17 Gm PO DAILY Pantoprazole Sodium 40 Mg Tablet.dr 40 Mg PO DAILY Multi-Day Vitamins (Multivitamin) 1 Each Tablet 1 Tab PO DAILY Robaxin (Methocarbamol) 500 Mg Tablet 500 Mg PO PRN QID PRN Levofloxacin 500 Mg Tablet 500 Mg PO DAILY Novolog Flexpen (Insulin Aspart) 100 Unit/1 Ml Insuln.pen 24 Unit SQ DAILYBFRSUP Novolog Flexpen (Insulin Aspart) 100 Unit/1 Ml Insuln.pen 18 Unit SQ DAILYAC [place] 5-325 Tablet (Acetaminophen/Hydrocodone Bitart) 1 Each Tablet 1-2 Tab PO PRN Q8HRS PRN Furosemide 40 Mg Tablet 1 Tab PO DAILY Doxycycline Hyclate 100 Mg Tablet 100 Mg PO BID Colace (Docusate Sodium) 100 Mg Capsule 1 Cap PO BID Clopidogrel (Clopidogrel Bisulfate) 75 Mg Tablet 75 Mg PO DAILY Benzonatate 100 Mg Capsule 1 Cap PO DAILY Amlodipine Besylate 10 Mg Tablet 10 Mg PO HS Tylenol (Acetaminophen) 325 Mg Tablet 650 Mg PO QID Trazodone Hcl 50 Mg Tablet 50 Mg PO PRN QHS PRN Carvedilol 25 Mg Tablet 25 Mg PO BIDWMEALS Acetaminophen-Cod #3 Tablet (Acetaminophen/Codeine Phosphate) 1 Each Tablet 1 Tab PO PRN Q6HRS PRN Losartan Potassium 100 Mg Tablet 100 Mg PO DAILY Benadryl (Diphenhydramine Hcl) 25 Mg Capsule 1 Cap PO QHS Meloxicam 7.5 Mg Tablet 7.5 Mg PO DAILY Gabapentin 300 Mg Capsule 300 Mg PO TID Metformin Hcl 1,000 Mg Tablet 1,000 Mg PO BIDWMEALS Lantus Solostar (Insulin Glargine,Hum.rec.anlog) 100 Unit/1 Ml Insuln.pen 75 Unit SQ HS Proair Hfa Inhaler (Albuterol Sulfate) 8.5 Gm Hfa.aer.ad 1 Puff INH PRN Q4HRS PRN Symbicort 160-4.5 Mcg Inhaler (Budesonide/Formoterol Fumarate) 10.2 Gm Hfa.aer.ad 2 Puff IH BID Clonidine Hcl 0.2 Mg Tablet 0.2 Mg PO PRN TID PRN if sbp > 180 and dbp>105 Aspir 81 (Aspirin) 81 Mg Tablet. 1 Tab PO DAILY Vitals/I & O Vital Sign - Last 24 Hours 07/04/17 07/04/17 07/04/17 07/04/17 13:55 14:08 14:09 15:33 Temp 98.2 98.2 Pulse 56 56 56 62 Resp 18 B/P (MAP) 118/56 (76) 118/56 118/56 135/62 (86) Pulse Ox 97 99 O2 Delivery Nasal Cannula Nasal Cannula O2 Flow Rate 2.0 2.0 07/04/17 07/04/17 07/04/17 07/04/17 16:40 19:00 20:00 20:50 Temp 98.2 98.2 Pulse 65 67 67 Resp 17 B/P (MAP) 123/58 115/55 (75) 115/55 Pulse Ox 89 O2 Delivery BiPAP/CPAP Nasal Cannula O2 Flow Rate 2.0 07/04/17 07/05/17 07/05/17 07/05/17 23:26 03:15 07:32 07:45 Temp 98.1 98.1 98.4 98.1 98.1 98.4 Pulse 66 67 73 Resp 16 16 20 B/P (MAP) 133/61 (85) 158/70 (99) 146/71 (96) Pulse Ox 92 90 92 92 O2 Delivery BiPAP/CPAP BiPAP/CPAP BiPAP/CPAP BiPAP/CPAP 07/05/17 07/05/17 07/05/17 07/05/17 08:00 08:46 09:29 09:29 Pulse 73 73 73 B/P (MAP) 146/71 146/71 146/71 O2 Delivery Nasal Cannula O2 Flow Rate 2.0 07/05/17 11:00 Temp 98.4 98.4 Pulse 70 Resp 20 B/P (MAP) 153/81 (105) Pulse Ox 94 O2 Delivery Nasal Cannula O2 Flow Rate 2.0 Intake and Output 07/05/17 07/05/17 07/06/17 15:00 23:00 07:00 Output Total 300 ml Balance -300 ml OSITO RIOJAS MD Jul 05, 2017 12:08
--- NOTE | 2017-07-05 14:41 | PDOC ---
PROGRESS NOTES Chief Complaint Chief Complaint Chest pain Pericarditis likely from infection per pt prompting pericardial window; chronic lymphedema CAD HTN HLP COPD GERA CVA Dementia Ventral hernia Osteoarthritis Morbid obesity DM 2 Foot venous stasis blisters History of Present Illness History of Present Illness This is a nice 66 year old gentleman who was admitted to the hospital with a cc of chest pain. Today he was examined at bedside. He was resting comfortably in bed and was not in acute distress. Fine crackles are heard in the lungs. There is 2+ pitting edema on the LE b/l. Pt is being followed by cardio re: chest pain and neuro re: seizures. Will continue to monitor. Vitals Vitals Vital Signs Date Time Temp Pulse Resp B/P (MAP) Pulse Ox O2 Delivery O2 Flow Rate FiO2 07/05/17 13:04 94 BiPAP/CPAP 07/05/17 11:00 98.4 70 20 153/81 (105) 2.0 98.4 Physical Exam General: Alert, Oriented X3, Cooperative, mild distress Heart: Regular rate, Normal S1, Normal S2 Lungs: Crackles Abdomen: Normal bowel sounds Extremities: Normal pulses, Other (chronicleg edema, long toe nails, 2+ pitting edema) Skin: No breakdown, No significant lesion Labs LABS Laboratory Tests Test 07/04/17 16:03 07/04/17 20:57 07/05/17 04:30 07/05/17 07:49 Glucose (Fingerstick) 138 mg/dL (70-99) 130 mg/dL (70-99) 97 mg/dL (70-99) White Blood Count 9.2 x10^3/uL (4.0-11.0) Red Blood Count 3.60 x10^6/uL (4.30-5.70) Hemoglobin 11.4 g/dL (13.0-17.5) Hematocrit 33.5 % (39.0-53.0) Mean Corpuscular Volume 93 fL (79-100) Mean Corpuscular Hemoglobin 32 pg (25-35) Mean Corpuscular Hemoglobin Concent 34 g/dL (31-37) Red Cell Distribution Width 13.3 % (11.5-14.5) Platelet Count 229 x10^3/uL (140-400) Neutrophils (%) (Auto) 54 % (31-73) Lymphocytes (%) (Auto) 33 % (24-48) Monocytes (%) (Auto) 8 % (0-9) Eosinophils (%) (Auto) 4 % (0-3) Basophils (%) (Auto) 1 % (0-3) Neutrophils # (Auto) 5.0 x10^3uL (1.8-7.7) Lymphocytes # (Auto) 3.1 x10^3/uL (1.0-4.8) Monocytes # (Auto) 0.7 x10^3/uL (0.0-1.1) Eosinophils # (Auto) 0.4 x10^3/uL (0.0-0.7) Basophils # (Auto) 0.0 x10^3/uL (0.0-0.2) Sodium Level 139 mmol/L (136-145) Potassium Level 4.5 mmol/L (3.5-5.1) Chloride Level 101 mmol/L (98-107) Carbon Dioxide Level 34 mmol/L (21-32) Anion Gap 4 (6-14) Blood Urea Nitrogen 42 mg/dL (8-26) Creatinine 1.7 mg/dL (0.7-1.3) Estimated GFR (Cockcroft-Gault) 40.7 Glucose Level 108 mg/dL (70-99) Calcium Level 8.7 mg/dL (8.5-10.1) Test 07/05/17 11:46 Glucose (Fingerstick) 176 mg/dL (70-99) Review of Systems Review of Systems fatigue and weakness Assessment and Plan Assessmemt and Plan Problems Medical Problems: (1) Congestive heart failure Status: Acute (2) Pulmonary edema Status: Acute (3) Seizure Status: Acute Assessment: Chest pain Pericarditis likely from infection per pt prompting pericardial window; chronic lymphedema CAD HTN HLP COPD GERA CVA Dementia Ventral hernia Osteoarthritis Morbid obesity DM 2 Foot venous stasis blisters Plan: Continue diuresis Continue cardiac monitoring cPAP Continue home meds Recheck labs Monitor BUN PT/OT Problems: Comment Review of Relevant I have reviewed the following items tere (where applicable) has been applied. Labs Laboratory Tests Test 07/03/17 15:20 07/03/17 16:01 07/03/17 20:49 07/04/17 04:15 Urine Collection Type Unknown Urine Color Yellow Urine Clarity Clear Urine pH 6.0 Urine Specific Panther 1.010 Urine Protein 30 mg/dL (NEG-TRACE) Urine Glucose (UA) 100 mg/dL (NEG) Urine Ketones (Stick) Negative mg/dL (NEG) Urine Blood Negative (NEG) Urine Nitrite Negative (NEG) Urine Bilirubin Negative (NEG) Urine Urobilinogen Dipstick 0.2 mg/dL (0.2 mg/dL) Urine Leukocyte Esterase Negative (NEG) Urine RBC 0 /HPF (0-2) Urine WBC Occ /HPF (0-4) Urine Squamous Epithelial Cells Few /LPF Urine Bacteria Few /HPF (0-FEW) Urine Mucus Slight /LPF Phenytoin (Dilantin) Level < 0.5 mcg/mL (10.0-20.0) Phenytoin Last Dose Date 07/03/17 Phenytoin Last Dose Time 1200 Glucose (Fingerstick) 211 mg/dL (70-99) 120 mg/dL (70-99) Sodium Level 142 mmol/L (136-145) Potassium Level 4.4 mmol/L (3.5-5.1) Chloride Level 102 mmol/L (98-107) Carbon Dioxide Level 35 mmol/L (21-32) Anion Gap 5 (6-14) Blood Urea Nitrogen 32 mg/dL (8-26) Creatinine 1.3 mg/dL (0.7-1.3) Estimated GFR (Cockcroft-Gault) 55.4 Glucose Level 132 mg/dL (70-99) Calcium Level 9.5 mg/dL (8.5-10.1) Magnesium Level 1.7 mg/dL (1.8-2.4) Creatine Kinase 17 U/L (39-308) Creatine Kinase MB (Mass) < 0.5 ng/mL (0.0-3.6) Creatine Kinase MB Relative Index % (0-4) Troponin I Quantitative < 0.017 ng/mL (0.000-0.055) Triglycerides Level 131 mg/dL (0-150) Cholesterol Level 187 mg/dL (0-200) LDL Cholesterol, Calculated 119 mg/dL (0-100) VLDL Cholesterol, Calculated 26 mg/dL (0-40) Non-HDL Cholesterol Calculated 145 mg/dL (0-129) HDL Cholesterol 42 mg/dL (40-60) Cholesterol/HDL Ratio 4.5 Test 07/04/17 07:29 07/04/17 11:17 07/04/17 12:33 07/04/17 13:04 Glucose (Fingerstick) 85 mg/dL (70-99) 61 mg/dL (70-99) 40 mg/dL (70-99) 110 mg/dL (70-99) Test 07/04/17 13:31 07/04/17 16:03 07/04/17 20:57 07/05/17 04:30 Glucose (Fingerstick) 80 mg/dL (70-99) 138 mg/dL (70-99) 130 mg/dL (70-99) White Blood Count 9.2 x10^3/uL (4.0-11.0) Red Blood Count 3.60 x10^6/uL (4.30-5.70) Hemoglobin 11.4 g/dL (13.0-17.5) Hematocrit 33.5 % (39.0-53.0) Mean Corpuscular Volume 93 fL (79-100) Mean Corpuscular Hemoglobin 32 pg (25-35) Mean Corpuscular Hemoglobin Concent 34 g/dL (31-37) Red Cell Distribution Width 13.3 % (11.5-14.5) Platelet Count 229 x10^3/uL (140-400) Neutrophils (%) (Auto) 54 % (31-73) Lymphocytes (%) (Auto) 33 % (24-48) Monocytes (%) (Auto) 8 % (0-9) Eosinophils (%) (Auto) 4 % (0-3) Basophils (%) (Auto) 1 % (0-3) Neutrophils # (Auto) 5.0 x10^3uL (1.8-7.7) Lymphocytes # (Auto) 3.1 x10^3/uL (1.0-4.8) Monocytes # (Auto) 0.7 x10^3/uL (0.0-1.1) Eosinophils # (Auto) 0.4 x10^3/uL (0.0-0.7) Basophils # (Auto) 0.0 x10^3/uL (0.0-0.2) Sodium Level 139 mmol/L (136-145) Potassium Level 4.5 mmol/L (3.5-5.1) Chloride Level 101 mmol/L (98-107) Carbon Dioxide Level 34 mmol/L (21-32) Anion Gap 4 (6-14) Blood Urea Nitrogen 42 mg/dL (8-26) Creatinine 1.7 mg/dL (0.7-1.3) Estimated GFR (Cockcroft-Gault) 40.7 Glucose Level 108 mg/dL (70-99) Calcium Level 8.7 mg/dL (8.5-10.1) Test 07/05/17 07:49 07/05/17 11:46 Glucose (Fingerstick) 97 mg/dL (70-99) 176 mg/dL (70-99) Laboratory Tests Test 07/04/17 16:03 07/04/17 20:57 07/05/17 04:30 07/05/17 07:49 Glucose (Fingerstick) 138 mg/dL (70-99) 130 mg/dL (70-99) 97 mg/dL (70-99) White Blood Count 9.2 x10^3/uL (4.0-11.0) Red Blood Count 3.60 x10^6/uL (4.30-5.70) Hemoglobin 11.4 g/dL (13.0-17.5) Hematocrit 33.5 % (39.0-53.0) Mean Corpuscular Volume 93 fL (79-100) Mean Corpuscular Hemoglobin 32 pg (25-35) Mean Corpuscular Hemoglobin Concent 34 g/dL (31-37) Red Cell Distribution Width 13.3 % (11.5-14.5) Platelet Count 229 x10^3/uL (140-400) Neutrophils (%) (Auto) 54 % (31-73) Lymphocytes (%) (Auto) 33 % (24-48) Monocytes (%) (Auto) 8 % (0-9) Eosinophils (%) (Auto) 4 % (0-3) Basophils (%) (Auto) 1 % (0-3) Neutrophils # (Auto) 5.0 x10^3uL (1.8-7.7) Lymphocytes # (Auto) 3.1 x10^3/uL (1.0-4.8) Monocytes # (Auto) 0.7 x10^3/uL (0.0-1.1) Eosinophils # (Auto) 0.4 x10^3/uL (0.0-0.7) Basophils # (Auto) 0.0 x10^3/uL (0.0-0.2) Sodium Level 139 mmol/L (136-145) Potassium Level 4.5 mmol/L (3.5-5.1) Chloride Level 101 mmol/L (98-107) Carbon Dioxide Level 34 mmol/L (21-32) Anion Gap 4 (6-14) Blood Urea Nitrogen 42 mg/dL (8-26) Creatinine 1.7 mg/dL (0.7-1.3) Estimated GFR (Cockcroft-Gault) 40.7 Glucose Level 108 mg/dL (70-99) Calcium Level 8.7 mg/dL (8.5-10.1) Test 07/05/17 11:46 Glucose (Fingerstick) 176 mg/dL (70-99) Medications Current Medications Lorazepam (Ativan) 2 mg PRN Q4HRS PRN IV ANXIETY / AGITATION; Start 07/03/17 at 16:00 Hydralazine HCl (Apresoline Inj) 10 mg PRN Q4HRS PRN IVP ELEVATED BP, SEE COMMENTS; Start 07/03/17 at 16:00 Morphine Sulfate 2 mg PRN Q2HR PRN IV PAIN; Start 07/03/17 at 16:00 Ondansetron HCl (Zofran) 4 mg PRN Q6HRS PRN IV NAUSEA/VOMITING; Start at 16:00 Ondansetron HCl (Zofran Odt) 4 mg PRN Q6HRS PRN PO NAUSEA/VOMITING; Start 06/09 at 16:00 Acetaminophen (Tylenol) 500 mg PRN Q6HRS PRN PO MILD PAIN / TEMP; Start at 16:00 Acetaminophen/ Hydrocodone Bitart (Lortab 5/325) 1 tab PRN Q4HRS PRN PO PAIN Last administered on 07/04/17 05:06; Start 07/03/17 at 16:00 Insulin Aspart (NovoLOG) 0-9 UNITS TIDWMEALS SQ Last administered on 13:37; Start 07/03/17 at 17:00 Dextrose (Dextrose 50%-Water Syringe) 12.5 gm PRN Q15MIN PRN IV SEE COMMENTS Last administered on 11/11/17at 12:35; Start 07/03/17 at 16:00 Acetaminophen/ Codeine Phosphate (Tylenol #3) 1 tab PRN Q6HRS PRN PO PAIN; Start 07/03/17 at 16:00 Amlodipine Besylate (Norvasc) 10 mg HS PO Last administered on 07/03/17 20:44 ; Start 07/03/17 at 21:00; Stop 07/04/17 at 09:49; Status DC Aspirin (Ecotrin) 81 mg DAILY PO Last administered on 07/05/17 09:30; Start 07/04/17 at 09:00 Benzonatate (Tessalon Perle) 100 mg DAILY PO Last administered on 07/05/17 09 :28; Start 07/04/17 at 09:00 Clonidine HCl (Catapres) 0.2 mg PRN TID PRN PO tid; Start 07/03/17 at 16:00 Clopidogrel Bisulfate (Plavix) 75 mg DAILY PO Last administered on 07/05/17 09:28; Start 07/04/17 at 09:00 Diphenhydramine HCl (Benadryl) 25 mg QHS PO Last administered on 07/04/17 20: 50; Start 07/03/17 at 21:00 Docusate Sodium (Colace) 100 mg BID PO Last administered on 07/05/17 09:29; Start 07/03/17 at 21:00 Furosemide (Lasix) 40 mg DAILY PO ; Start 07/04/17 at 09:00; Stop 07/04/17 at 09:00; Status DC Acetaminophen/ Hydrocodone Bitart (Lortab 5/325) 1 tab PRN Q8HRS PRN PO PAIN; Start 07/03/17 at 16:00 Insulin Aspart (NovoLOG) 18 units DAILYAC SQ Last administered on 07/04/17 09 :52; Start 07/04/17 at 07:30; Stop 07/04/17 at 17:15; Status DC Insulin Aspart (NovoLOG) 24 units DAILYBFRSUP SQ ; Start 07/03/17 at 17:00; Stop 07/04/17 at 17:15; Status DC Levetiracetam (Keppra) 500 mg BID PO Last administered on 07/05/17 09:28; Start 07/03/17 at 21:00 Meloxicam (Mobic) 7.5 mg DAILY PO Last administered on 07/05/17 09:29; Start 07/04/17 at 09:00 Metformin HCl (Glucophage) 1,000 mg BIDWMEALS PO Last administered on 08:46; Start 07/03/17 at 18:00 Methocarbamol (Robaxin) 500 mg PRN QID PRN PO MUSCLE SPASMS Last administered on 07/04/17 16:40; Start 07/03/17 at 16:00 Pantoprazole Sodium (Protonix) 40 mg DAILY PO Last administered on 07/05/17 08:46; Start 07/04/17 at 09:00 Phenytoin Sodium (Dilantin) 200 mg BID PO Last administered on 07/04/17 09:24 ; Start 07/03/17 at 21:00; Stop 07/04/17 at 13:15; Status DC Polyethylene Glycol (miraLAX PACKET) 17 gm DAILY PO Last administered on 09:28; Start 07/04/17 at 09:00 Trazodone HCl (Desyrel) 50 mg PRN QHS PRN PO INSOMNIA; Start 07/03/17 at 16:00 Triamcinolone Acetonide (Kenalog) 1 uma PRN TID PRN TP RASH; Start 07/03/17 at 16:00 Non-Formulary Medication 1 puff PRN Q4HRS PRN INH SHORTNESS OF BREATH; Start 07/03/17 at 16:00; Stop 07/03/17 at 17:52; Status DC Non-Formulary Medication 2 puff BID IH ; Start 07/03/17 at 21:00; Stop at 21:00; Status DC Carvedilol (Coreg) 25 mg BIDWMEALS PO Last administered on 07/05/17 08:46; Start 07/03/17 at 18:00 Gabapentin (Neurontin) 300 mg TID PO Last administered on 07/05/17 09:30; Start 07/03/17 at 21:00 Insulin Detemir (Levemir) 75 units QHS SQ Last administered on 07/04/17 21:04 ; Start 07/03/17 at 21:00 Losartan Potassium (Cozaar) 100 mg DAILY PO Last administered on 07/05/17 09: 29; Start 07/04/17 at 09:00 Magnesium Oxide (Magnesium Oxide) 400 mg DAILY PO Last administered on 09:29; Start 07/04/17 at 09:00 Multivitamins (Thera M Plus) 1 tab DAILY PO Last administered on 07/05/17 09: 28; Start 07/04/17 at 09:00 Potassium Chloride (Klor-Con) 20 meq DAILYWBKFT PO Last administered on 08:46; Start 07/04/17 at 08:00 Magnesium Sulfate/ Dextrose 50 ml @ 25 mls/hr 1X ONCE IV Last administered on 07/03/17 16:21; Start 07/03/17 at 16:15; Stop 07/03/17 at 18:14; Status DC Furosemide (Lasix) 40 mg 1X ONCE IVP Last administered on 07/03/17 16:30; Start 07/03/17 at 16:15; Stop 07/03/17 at 16:16; Status DC Albuterol Sulfate (Ventolin Neb Soln) 2.5 mg PRN Q4HRS PRN NEB SHORTNESS OF BREATH; Start 07/03/17 at 17:45 Albuterol Sulfate (Ventolin Neb Soln) 2.5 mg Q6HRS NEB Last administered on 13:04; Start 07/03/17 at 18:00 Budesonide (Pulmicort) 0.5 mg RTBID NEB Last administered on 07/05/17 07:32; Start 07/03/17 at 20:00 Furosemide (Lasix) 40 mg DAILY IVP Last administered on 07/05/17 09:30; Start 07/04/17 at 09:00 Magnesium Sulfate/ Dextrose 50 ml @ 25 mls/hr 1X ONCE IV Last administered on 07/04/17 09:56; Start 07/04/17 at 08:00; Stop 07/04/17 at 09:59; Status DC Amlodipine Besylate (Norvasc) 5 mg HS PO Last administered on 07/04/17 20:50 ; Start 07/04/17 at 21:00 Isosorbide Mononitrate (Imdur) 30 mg DAILY PO Last administered on 07/05/17 09:29; Start 07/04/17 at 10:30 Active Scripts Active Dilantin (Phenytoin Sodium Extended) 100 Mg Capsule 2 Cap PO BID Keppra (Levetiracetam) 500 Mg Tablet 1 Tab PO BID Keppra (Levetiracetam) 500 Mg Tablet 1 Tab PO BID Reported Triamcinolone Acetonide 0.1% Cream (Triamcinolone Acetonide) 15 Gm Cream..g. 1 Uma TP PRN TID PRN Magnesium 200 Mg Tablet 400 Mg PO DAILY Potassium Chloride 20 Meq Tablet.er 20 Meq PO DAILY Polyethylene Glycol 3350 255 Gm Powder 17 Gm PO DAILY Pantoprazole Sodium 40 Mg Tablet.dr 40 Mg PO DAILY Multi-Day Vitamins (Multivitamin) 1 Each Tablet 1 Tab PO DAILY Robaxin (Methocarbamol) 500 Mg Tablet 500 Mg PO PRN QID PRN Levofloxacin 500 Mg Tablet 500 Mg PO DAILY Novolog Flexpen (Insulin Aspart) 100 Unit/1 Ml Insuln.pen 24 Unit SQ DAILYBFRSUP Novolog Flexpen (Insulin Aspart) 100 Unit/1 Ml Insuln.pen 18 Unit SQ DAILYAC Cliff 5-325 Tablet (Acetaminophen/Hydrocodone Bitart) 1 Each Tablet 1-2 Tab PO PRN Q8HRS PRN Furosemide 40 Mg Tablet 1 Tab PO DAILY Doxycycline Hyclate 100 Mg Tablet 100 Mg PO BID Colace (Docusate Sodium) 100 Mg Capsule 1 Cap PO BID Clopidogrel (Clopidogrel Bisulfate) 75 Mg Tablet 75 Mg PO DAILY Benzonatate 100 Mg Capsule 1 Cap PO DAILY Amlodipine Besylate 10 Mg Tablet 10 Mg PO HS Tylenol (Acetaminophen) 325 Mg Tablet 650 Mg PO QID Trazodone Hcl 50 Mg Tablet 50 Mg PO PRN QHS PRN Carvedilol 25 Mg Tablet 25 Mg PO BIDWMEALS Acetaminophen-Cod #3 Tablet (Acetaminophen/Codeine Phosphate) 1 Each Tablet 1 Tab PO PRN Q6HRS PRN Losartan Potassium 100 Mg Tablet 100 Mg PO DAILY Benadryl (Diphenhydramine Hcl) 25 Mg Capsule 1 Cap PO QHS Meloxicam 7.5 Mg Tablet 7.5 Mg PO DAILY Gabapentin 300 Mg Capsule 300 Mg PO TID Metformin Hcl 1,000 Mg Tablet 1,000 Mg PO BIDWMEALS Lantus Solostar (Insulin Glargine,Hum.rec.anlog) 100 Unit/1 Ml Insuln.pen 75 Unit SQ HS Proair Hfa Inhaler (Albuterol Sulfate) 8.5 Gm Hfa.aer.ad 1 Puff INH PRN Q4HRS PRN Symbicort 160-4.5 Mcg Inhaler (Budesonide/Formoterol Fumarate) 10.2 Gm Hfa.aer.ad 2 Puff IH BID Clonidine Hcl 0.2 Mg Tablet 0.2 Mg PO PRN TID PRN if sbp > 180 and dbp>105 Aspir 81 (Aspirin) 81 Mg Tablet. 1 Tab PO DAILY Vitals/I & O Vital Sign - Last 24 Hours 07/04/17 07/04/17 07/04/17 07/04/17 15:33 16:40 19:00 20:00 Temp 98.2 98.2 98.2 98.2 Pulse 62 65 67 Resp 17 B/P (MAP) 135/62 (86) 123/58 115/55 (75) Pulse Ox 99 89 O2 Delivery Nasal Cannula BiPAP/CPAP Nasal Cannula O2 Flow Rate 2.0 2.0 07/04/17 07/04/17 07/05/17 07/05/17 20:50 23:26 03:15 07:32 Temp 98.1 98.1 98.1 98.1 Pulse 67 66 67 Resp 16 16 B/P (MAP) 115/55 133/61 (85) 158/70 (99) Pulse Ox 92 90 92 O2 Delivery BiPAP/CPAP BiPAP/CPAP BiPAP/CPAP 07/05/17 07/05/17 07/05/17 07/05/17 07:45 08:00 08:46 09:29 Temp 98.4 98.4 Pulse 73 73 73 Resp 20 B/P (MAP) 146/71 (96) 146/71 146/71 Pulse Ox 92 O2 Delivery BiPAP/CPAP Nasal Cannula O2 Flow Rate 2.0 07/05/17 07/05/17 07/05/17 09:29 11:00 13:04 Temp 98.4 98.4 Pulse 73 70 Resp 20 B/P (MAP) 146/71 153/81 (105) Pulse Ox 94 94 O2 Delivery Nasal Cannula BiPAP/CPAP O2 Flow Rate 2.0 Intake and Output 07/05/17 07/05/17 07/06/17 15:00 23:00 07:00 Output Total 300 ml Balance -300 ml CASTLE,NIAL K III DO Jul 05, 2017 14:41
[2017-07-05 14:50] VITALS: BP 131/59
[2017-07-05] MEDS: METHOCARBAMOL 500 MG TABLET PO PRN (15:50)
[2017-07-05 19:15] VITALS: BP 119/65
[2017-07-05] MEDS: amLODIPine BESYLATE 5 MG TABLET PO SCH (20:38)
[2017-07-05] MEDS: diphenhydrAMINE HCL 25 MG CAPSULE PO SCH (20:38)
[2017-07-05] MEDS: INSULIN DETEMIR 300 UNITS/3 ML INSULN.PEN. SQ SCH (20:42)
[2017-07-05 22:50] VITALS: BP 126/46
[2017-07-06 03:00] VITALS: BP 149/71
[2017-07-06] MEDS: ALBUTEROL SULFATE 2.5 MG/3 ML NEBU. NEB SCH ×4 (06:00→22:33)
[2017-07-06 07:10] VITALS: BP 165/76
[2017-07-06] MEDS: INSULIN ASPART 300 UNITS/3 ML INSULN.PEN SQ SCH ×3 (07:35→17:57)
[2017-07-06] MEDS: BUDESONIDE 0.5 MG/2 ML NEBU. NEB SCH ×2 (07:49→20:33)
[2017-07-06] MEDS: POTASSIUM CHLORIDE 20 MEQ TABLET.ER. PO SCH (08:00)
[2017-07-06] MEDS: ASPIRIN ENTERIC COATED 81 MG TABLET.DR. PO SCH (08:58)
[2017-07-06] MEDS: BENZONATATE 100 MG CAPSULE. PO SCH (08:58)
[2017-07-06] MEDS: DOCUSATE SODIUM 100 MG CAPSULE. PO SCH ×2 (08:59→21:06)
[2017-07-06] MEDS: levETIRAcetam 500 MG TABLET PO SCH ×2 (08:59→21:06)
[2017-07-06] MEDS: PANTOPRAZOLE 40 MG TABLET.DR. PO SCH (08:59)
[2017-07-06] MEDS: ISOSORBIDE MONONITRATE ER 30 MG TAB.ER.24H PO SCH (08:59)
[2017-07-06] MEDS: MULTIVITAMIN with MINERAL TABLET. PO SCH (08:59)
[2017-07-06] MEDS: MAGNESIUM OXIDE 400 MG TABLET PO SCH (08:59)
[2017-07-06] MEDS: CLOPIDOGREL BISULFATE 75 MG TABLET PO SCH (08:59)
[2017-07-06] MEDS: POLYETHYLENE GLYCOL 3350 17 GM PACKET. PO SCH (09:00)
[2017-07-06] MEDS: CARVEDILOL 12.5 MG TABLET. PO SCH ×2 (09:00→17:53)
[2017-07-06] MEDS: GABAPENTIN 300 MG CAPSULE. PO SCH ×3 (09:00→21:06)
[2017-07-06] MEDS: amLODIPine BESYLATE 10 MG TABLET PO SCH (09:01)
[2017-07-06] MEDS: LOSARTAN POTASSIUM 50 MG TABLET. PO SCH (09:01)
[2017-07-06 09:39] LABS: BASO % 1 % (0-3); EOS % 4 % (0-3); HEMATOCRIT 37.1 % (39.0-53.0); HEMOGLOBIN 12.2 g/dL (13.0-17.5); LYMPH # 2.9 x10^3/uL (1.0-4.8); LYMPH % 36 % (24-48); MEAN CORPUSCULAR HEMOGLOBIN 31 pg (25-35); MEAN CORPUSCULAR HGB CONC 33 g/dL (31-37); MEAN CORPUSCULAR VOLUME 94 fL (79-100); MONO % 10 % (0-9); NEUT % 49 % (31-73); PLATELET COUNT 243 x10^3/uL (140-400); RED BLOOD COUNT 3.96 x10^6/uL (4.30-5.70); RED CELL DISTRIBUTION WIDTH 13.5 % (11.5-14.5); WHITE BLOOD COUNT 7.8 x10^3/uL (4.0-11.0)
[2017-07-06 09:51] LABS: CALCIUM 9.1 mg/dL (8.5-10.1); CREATININE 1.2 mg/dL (0.7-1.3); GFR 60.8; POTASSIUM 4.5 mmol/L (3.5-5.1)
[2017-07-06 10:30] VITALS: BP 115/64
--- NOTE | 2017-07-06 12:14 | PDOC ---
PROGRESS NOTES Chief Complaint Chief Complaint Chest pain recent Pericarditis and recent pericardial window; chronic lymphedema CAD HTN HLP COPD GERA CVA Dementia Ventral hernia Osteoarthritis Morbid obesity, BMI 54 DM 2, poor control at home, on large doses insulin, hypoglycemia here weakness and debility, acquired History of Present Illness History of Present Illness can ambulate with walker only about 40 feet and needs some assist start SNU eval per PT eval he feels well, LE edema ok, still some weakness hypoglycemia on his home dose of insulin, he admits to eatign more carbs at home He was resting comfortably in bed and was not in acute distress. F Vitals Vitals Vital Signs Date Time Temp Pulse Resp B/P (MAP) Pulse Ox O2 Delivery O2 Flow Rate FiO2 07/06/17 10:30 97.7 66 20 115/64 (81) 94 BiPAP/CPAP 97.7 07/06/17 08:05 2.0 Physical Exam General: Alert, Oriented X3, Cooperative, mild distress Heart: Regular rate, Normal S1, Normal S2 Lungs: Other (fine rales, no wheeze, mod volume) Abdomen: Normal bowel sounds Extremities: Normal pulses, Other (chronicleg edema, long toe nails, 2+ pitting edema to pretibial, tr to pedal) Skin: No breakdown, No significant lesion Labs LABS Laboratory Tests Test 07/05/17 15:07 07/05/17 16:47 07/05/17 20:32 07/06/17 07:09 Glucose (Fingerstick) 128 mg/dL (70-99) 134 mg/dL (70-99) 144 mg/dL (70-99) 58 mg/dL (70-99) Test 07/06/17 07:31 07/06/17 08:07 07/06/17 09:05 07/06/17 11:33 Glucose (Fingerstick) 59 mg/dL (70-99) 96 mg/dL (70-99) 94 mg/dL (70-99) White Blood Count 7.8 x10^3/uL (4.0-11.0) Red Blood Count 3.96 x10^6/uL (4.30-5.70) Hemoglobin 12.2 g/dL (13.0-17.5) Hematocrit 37.1 % (39.0-53.0) Mean Corpuscular Volume 94 fL (79-100) Mean Corpuscular Hemoglobin 31 pg (25-35) Mean Corpuscular Hemoglobin Concent 33 g/dL (31-37) Red Cell Distribution Width 13.5 % (11.5-14.5) Platelet Count 243 x10^3/uL (140-400) Neutrophils (%) (Auto) 49 % (31-73) Lymphocytes (%) (Auto) 36 % (24-48) Monocytes (%) (Auto) 10 % (0-9) Eosinophils (%) (Auto) 4 % (0-3) Basophils (%) (Auto) 1 % (0-3) Neutrophils # (Auto) 3.9 x10^3uL (1.8-7.7) Lymphocytes # (Auto) 2.9 x10^3/uL (1.0-4.8) Monocytes # (Auto) 0.7 x10^3/uL (0.0-1.1) Eosinophils # (Auto) 0.3 x10^3/uL (0.0-0.7) Basophils # (Auto) 0.0 x10^3/uL (0.0-0.2) Sodium Level 141 mmol/L (136-145) Potassium Level 4.5 mmol/L (3.5-5.1) Chloride Level 102 mmol/L (98-107) Carbon Dioxide Level 36 mmol/L (21-32) Anion Gap 3 (6-14) Blood Urea Nitrogen 36 mg/dL (8-26) Creatinine 1.2 mg/dL (0.7-1.3) Estimated GFR (Cockcroft-Gault) 60.8 Glucose Level 88 mg/dL (70-99) Calcium Level 9.1 mg/dL (8.5-10.1) Review of Systems Review of Systems feels near bsaeline, some weakness no n,v,d Assessment and Plan Assessmemt and Plan Problems Medical Problems: (1) Congestive heart failure Status: Acute (2) Pulmonary edema Status: Acute (3) Seizure Status: Acute Problems: Comment Review of Relevant I have reviewed the following items tere (where applicable) has been applied. Labs Laboratory Tests Test 07/04/17 12:33 07/04/17 13:04 07/04/17 13:31 07/04/17 16:03 Glucose (Fingerstick) 40 mg/dL (70-99) 110 mg/dL (70-99) 80 mg/dL (70-99) 138 mg/dL (70-99) Test 07/04/17 20:57 07/05/17 04:30 07/05/17 07:49 07/05/17 11:46 Glucose (Fingerstick) 130 mg/dL (70-99) 97 mg/dL (70-99) 176 mg/dL (70-99) White Blood Count 9.2 x10^3/uL (4.0-11.0) Red Blood Count 3.60 x10^6/uL (4.30-5.70) Hemoglobin 11.4 g/dL (13.0-17.5) Hematocrit 33.5 % (39.0-53.0) Mean Corpuscular Volume 93 fL (79-100) Mean Corpuscular Hemoglobin 32 pg (25-35) Mean Corpuscular Hemoglobin Concent 34 g/dL (31-37) Red Cell Distribution Width 13.3 % (11.5-14.5) Platelet Count 229 x10^3/uL (140-400) Neutrophils (%) (Auto) 54 % (31-73) Lymphocytes (%) (Auto) 33 % (24-48) Monocytes (%) (Auto) 8 % (0-9) Eosinophils (%) (Auto) 4 % (0-3) Basophils (%) (Auto) 1 % (0-3) Neutrophils # (Auto) 5.0 x10^3uL (1.8-7.7) Lymphocytes # (Auto) 3.1 x10^3/uL (1.0-4.8) Monocytes # (Auto) 0.7 x10^3/uL (0.0-1.1) Eosinophils # (Auto) 0.4 x10^3/uL (0.0-0.7) Basophils # (Auto) 0.0 x10^3/uL (0.0-0.2) Sodium Level 139 mmol/L (136-145) Potassium Level 4.5 mmol/L (3.5-5.1) Chloride Level 101 mmol/L (98-107) Carbon Dioxide Level 34 mmol/L (21-32) Anion Gap 4 (6-14) Blood Urea Nitrogen 42 mg/dL (8-26) Creatinine 1.7 mg/dL (0.7-1.3) Estimated GFR (Cockcroft-Gault) 40.7 Glucose Level 108 mg/dL (70-99) Calcium Level 8.7 mg/dL (8.5-10.1) Test 07/05/17 15:07 07/05/17 16:47 07/05/17 20:32 07/06/17 07:09 Glucose (Fingerstick) 128 mg/dL (70-99) 134 mg/dL (70-99) 144 mg/dL (70-99) 58 mg/dL (70-99) Test 07/06/17 07:31 07/06/17 08:07 07/06/17 09:05 07/06/17 11:33 Glucose (Fingerstick) 59 mg/dL (70-99) 96 mg/dL (70-99) 94 mg/dL (70-99) White Blood Count 7.8 x10^3/uL (4.0-11.0) Red Blood Count 3.96 x10^6/uL (4.30-5.70) Hemoglobin 12.2 g/dL (13.0-17.5) Hematocrit 37.1 % (39.0-53.0) Mean Corpuscular Volume 94 fL (79-100) Mean Corpuscular Hemoglobin 31 pg (25-35) Mean Corpuscular Hemoglobin Concent 33 g/dL (31-37) Red Cell Distribution Width 13.5 % (11.5-14.5) Platelet Count 243 x10^3/uL (140-400) Neutrophils (%) (Auto) 49 % (31-73) Lymphocytes (%) (Auto) 36 % (24-48) Monocytes (%) (Auto) 10 % (0-9) Eosinophils (%) (Auto) 4 % (0-3) Basophils (%) (Auto) 1 % (0-3) Neutrophils # (Auto) 3.9 x10^3uL (1.8-7.7) Lymphocytes # (Auto) 2.9 x10^3/uL (1.0-4.8) Monocytes # (Auto) 0.7 x10^3/uL (0.0-1.1) Eosinophils # (Auto) 0.3 x10^3/uL (0.0-0.7) Basophils # (Auto) 0.0 x10^3/uL (0.0-0.2) Sodium Level 141 mmol/L (136-145) Potassium Level 4.5 mmol/L (3.5-5.1) Chloride Level 102 mmol/L (98-107) Carbon Dioxide Level 36 mmol/L (21-32) Anion Gap 3 (6-14) Blood Urea Nitrogen 36 mg/dL (8-26) Creatinine 1.2 mg/dL (0.7-1.3) Estimated GFR (Cockcroft-Gault) 60.8 Glucose Level 88 mg/dL (70-99) Calcium Level 9.1 mg/dL (8.5-10.1) Laboratory Tests Test 07/05/17 15:07 07/05/17 16:47 07/05/17 20:32 07/06/17 07:09 Glucose (Fingerstick) 128 mg/dL (70-99) 134 mg/dL (70-99) 144 mg/dL (70-99) 58 mg/dL (70-99) Test 07/06/17 07:31 07/06/17 08:07 07/06/17 09:05 07/06/17 11:33 Glucose (Fingerstick) 59 mg/dL (70-99) 96 mg/dL (70-99) 94 mg/dL (70-99) White Blood Count 7.8 x10^3/uL (4.0-11.0) Red Blood Count 3.96 x10^6/uL (4.30-5.70) Hemoglobin 12.2 g/dL (13.0-17.5) Hematocrit 37.1 % (39.0-53.0) Mean Corpuscular Volume 94 fL (79-100) Mean Corpuscular Hemoglobin 31 pg (25-35) Mean Corpuscular Hemoglobin Concent 33 g/dL (31-37) Red Cell Distribution Width 13.5 % (11.5-14.5) Platelet Count 243 x10^3/uL (140-400) Neutrophils (%) (Auto) 49 % (31-73) Lymphocytes (%) (Auto) 36 % (24-48) Monocytes (%) (Auto) 10 % (0-9) Eosinophils (%) (Auto) 4 % (0-3) Basophils (%) (Auto) 1 % (0-3) Neutrophils # (Auto) 3.9 x10^3uL (1.8-7.7) Lymphocytes # (Auto) 2.9 x10^3/uL (1.0-4.8) Monocytes # (Auto) 0.7 x10^3/uL (0.0-1.1) Eosinophils # (Auto) 0.3 x10^3/uL (0.0-0.7) Basophils # (Auto) 0.0 x10^3/uL (0.0-0.2) Sodium Level 141 mmol/L (136-145) Potassium Level 4.5 mmol/L (3.5-5.1) Chloride Level 102 mmol/L (98-107) Carbon Dioxide Level 36 mmol/L (21-32) Anion Gap 3 (6-14) Blood Urea Nitrogen 36 mg/dL (8-26) Creatinine 1.2 mg/dL (0.7-1.3) Estimated GFR (Cockcroft-Gault) 60.8 Glucose Level 88 mg/dL (70-99) Calcium Level 9.1 mg/dL (8.5-10.1) Medications Current Medications Lorazepam (Ativan) 2 mg PRN Q4HRS PRN IV ANXIETY / AGITATION; Start 07/03/17 at 16:00 Hydralazine HCl (Apresoline Inj) 10 mg PRN Q4HRS PRN IVP ELEVATED BP, SEE COMMENTS; Start 07/03/17 at 16:00 Morphine Sulfate 2 mg PRN Q2HR PRN IV PAIN; Start 07/03/17 at 16:00 Ondansetron HCl (Zofran) 4 mg PRN Q6HRS PRN IV NAUSEA/VOMITING; Start at 16:00 Ondansetron HCl (Zofran Odt) 4 mg PRN Q6HRS PRN PO NAUSEA/VOMITING; Start 06/09 at 16:00 Acetaminophen (Tylenol) 500 mg PRN Q6HRS PRN PO MILD PAIN / TEMP; Start at 16:00 Acetaminophen/ Hydrocodone Bitart (Lortab 5/325) 1 tab PRN Q4HRS PRN PO PAIN Last administered on 07/04/17t 05:06; Start 07/03/17 at 16:00 Insulin Aspart (NovoLOG) 0-9 UNITS TIDWMEALS SQ Last administered on 13:37; Start 07/03/17 at 17:00 Dextrose (Dextrose 50%-Water Syringe) 12.5 gm PRN Q15MIN PRN IV SEE COMMENTS Last administered on 07/04/17 12:35; Start 07/03/17 at 16:00 Acetaminophen/ Codeine Phosphate (Tylenol #3) 1 tab PRN Q6HRS PRN PO PAIN; Start 07/03/17 at 16:00 Amlodipine Besylate (Norvasc) 10 mg HS PO Last administered on 07/03/17 20:44 ; Start 07/03/17 at 21:00; Stop 07/04/17 at 09:49; Status DC Aspirin (Ecotrin) 81 mg DAILY PO Last administered on 07/06/17 08:58; Start 07/04/17 at 09:00; Stop 07/06/17 at 10:45; Status DC Benzonatate (Tessalon Perle) 100 mg DAILY PO Last administered on 07/06/17 08 :58; Start 07/04/17 at 09:00 Clonidine HCl (Catapres) 0.2 mg PRN TID PRN PO tid; Start 07/03/17 at 16:00 Clopidogrel Bisulfate (Plavix) 75 mg DAILY PO Last administered on 07/06/17 08:59; Start 07/04/17 at 09:00 Diphenhydramine HCl (Benadryl) 25 mg QHS PO Last administered on 07/05/17 20: 38; Start 07/03/17 at 21:00 Docusate Sodium (Colace) 100 mg BID PO Last administered on 07/06/17 08:59; Start 07/03/17 at 21:00 Furosemide (Lasix) 40 mg DAILY PO ; Start 07/04/17 at 09:00; Stop 07/04/17 at 09:00; Status DC Acetaminophen/ Hydrocodone Bitart (Lortab 5/325) 1 tab PRN Q8HRS PRN PO PAIN; Start 07/03/17 at 16:00 Insulin Aspart (NovoLOG) 18 units DAILYAC SQ Last administered on 07/04/17 09 :52; Start 07/04/17 at 07:30; Stop 07/04/17 at 17:15; Status DC Insulin Aspart (NovoLOG) 24 units DAILYBFRSUP SQ ; Start 07/03/17 at 17:00; Stop 07/04/17 at 17:15; Status DC Levetiracetam (Keppra) 500 mg BID PO Last administered on 07/06/17 08:59; Start 07/03/17 at 21:00 Meloxicam (Mobic) 7.5 mg DAILY PO Last administered on 07/05/17 09:29; Start 07/04/17 at 09:00; Stop 07/06/17 at 08:18; Status DC Metformin HCl (Glucophage) 1,000 mg BIDWMEALS PO Last administered on 17:36; Start 07/03/17 at 18:00; Stop 07/06/17 at 08:18; Status DC Methocarbamol (Robaxin) 500 mg PRN QID PRN PO MUSCLE SPASMS Last administered on 07/05/17 15:50; Start 07/03/17 at 16:00 Pantoprazole Sodium (Protonix) 40 mg DAILY PO Last administered on 07/06/17 08:59; Start 07/04/17 at 09:00 Phenytoin Sodium (Dilantin) 200 mg BID PO Last administered on 07/04/17 09:24 ; Start 07/03/17 at 21:00; Stop 07/04/17 at 13:15; Status DC Polyethylene Glycol (miraLAX PACKET) 17 gm DAILY PO Last administered on 09:28; Start 07/04/17 at 09:00 Trazodone HCl (Desyrel) 50 mg PRN QHS PRN PO INSOMNIA; Start 07/03/17 at 16:00 Triamcinolone Acetonide (Kenalog) 1 uma PRN TID PRN TP RASH; Start 07/03/17 at 16:00 Non-Formulary Medication 1 puff PRN Q4HRS PRN INH SHORTNESS OF BREATH; Start 07/03/17 at 16:00; Stop 07/03/17 at 17:52; Status DC Non-Formulary Medication 2 puff BID IH ; Start 07/03/17 at 21:00; Stop at 21:00; Status DC Carvedilol (Coreg) 25 mg BIDWMEALS PO Last administered on 07/06/17 09:00; Start 07/03/17 at 18:00 Gabapentin (Neurontin) 300 mg TID PO Last administered on 07/06/17 09:00; Start 07/03/17 at 21:00 Insulin Detemir (Levemir) 75 units QHS SQ Last administered on 07/05/17 20:42 ; Start 07/03/17 at 21:00; Stop 07/06/17 at 11:55; Status DC Losartan Potassium (Cozaar) 100 mg DAILY PO Last administered on 07/06/17 09: 01; Start 07/04/17 at 09:00 Magnesium Oxide (Magnesium Oxide) 400 mg DAILY PO Last administered on 08:59; Start 07/04/17 at 09:00 Multivitamins (Thera M Plus) 1 tab DAILY PO Last administered on 07/06/17 08: 59; Start 07/04/17 at 09:00 Potassium Chloride (Klor-Con) 20 meq DAILYWBKFT PO Last administered on 08:00; Start 07/04/17 at 08:00 Magnesium Sulfate/ Dextrose 50 ml @ 25 mls/hr 1X ONCE IV Last administered on 07/03/17 16:21; Start 07/03/17 at 16:15; Stop 07/03/17 at 18:14; Status DC Furosemide (Lasix) 40 mg 1X ONCE IVP Last administered on 07/03/17 16:30; Start 07/03/17 at 16:15; Stop 07/03/17 at 16:16; Status DC Albuterol Sulfate (Ventolin Neb Soln) 2.5 mg PRN Q4HRS PRN NEB SHORTNESS OF BREATH; Start 07/03/17 at 17:45 Albuterol Sulfate (Ventolin Neb Soln) 2.5 mg Q6HRS NEB Last administered on 07:49; Start 07/03/17 at 18:00 Budesonide (Pulmicort) 0.5 mg RTBID NEB Last administered on 07/06/17 07:49; Start 07/03/17 at 20:00 Furosemide (Lasix) 40 mg DAILY IVP Last administered on 07/05/17 09:30; Start 07/04/17 at 09:00; Stop 07/06/17 at 08:18; Status DC Magnesium Sulfate/ Dextrose 50 ml @ 25 mls/hr 1X ONCE IV Last administered on 07/04/17 09:56; Start 07/04/17 at 08:00; Stop 07/04/17 at 09:59; Status DC Amlodipine Besylate (Norvasc) 5 mg HS PO Last administered on 07/05/17 20:38 ; Start 07/04/17 at 21:00; Stop 07/06/17 at 08:18; Status DC Isosorbide Mononitrate (Imdur) 30 mg DAILY PO Last administered on 07/05/17 09:29; Start 07/04/17 at 10:30; Stop 07/06/17 at 08:18; Status DC Amlodipine Besylate (Norvasc) 10 mg DAILY PO Last administered on 07/06/17 09 :01; Start 07/06/17 at 09:00 Isosorbide Mononitrate (Imdur) 60 mg DAILY PO Last administered on 07/06/17 08:59; Start 07/06/17 at 09:00 Aspirin (Ecotrin) 325 mg DAILY PO ; Start 07/07/17 at 09:00 Insulin Detemir (Levemir) 68 units QHS SQ ; Start 07/06/17 at 21:00 Active Scripts Active Dilantin (Phenytoin Sodium Extended) 100 Mg Capsule 2 Cap PO BID Keppra (Levetiracetam) 500 Mg Tablet 1 Tab PO BID Keppra (Levetiracetam) 500 Mg Tablet 1 Tab PO BID Reported Triamcinolone Acetonide 0.1% Cream (Triamcinolone Acetonide) 15 Gm Cream..g. 1 Uma TP PRN TID PRN Magnesium 200 Mg Tablet 400 Mg PO DAILY Potassium Chloride 20 Meq Tablet.er 20 Meq PO DAILY Polyethylene Glycol 3350 255 Gm Powder 17 Gm PO DAILY Pantoprazole Sodium 40 Mg Tablet.dr 40 Mg PO DAILY Multi-Day Vitamins (Multivitamin) 1 Each Tablet 1 Tab PO DAILY Robaxin (Methocarbamol) 500 Mg Tablet 500 Mg PO PRN QID PRN Levofloxacin 500 Mg Tablet 500 Mg PO DAILY Novolog Flexpen (Insulin Aspart) 100 Unit/1 Ml Insuln.pen 24 Unit SQ DAILYBFRSUP Novolog Flexpen (Insulin Aspart) 100 Unit/1 Ml Insuln.pen 18 Unit SQ DAILYAC Cook 5-325 Tablet (Acetaminophen/Hydrocodone Bitart) 1 Each Tablet 1-2 Tab PO PRN Q8HRS PRN Furosemide 40 Mg Tablet 1 Tab PO DAILY Doxycycline Hyclate 100 Mg Tablet 100 Mg PO BID Colace (Docusate Sodium) 100 Mg Capsule 1 Cap PO BID Clopidogrel (Clopidogrel Bisulfate) 75 Mg Tablet 75 Mg PO DAILY Benzonatate 100 Mg Capsule 1 Cap PO DAILY Amlodipine Besylate 10 Mg Tablet 10 Mg PO HS Tylenol (Acetaminophen) 325 Mg Tablet 650 Mg PO QID Trazodone Hcl 50 Mg Tablet 50 Mg PO PRN QHS PRN Carvedilol 25 Mg Tablet 25 Mg PO BIDWMEALS Acetaminophen-Cod #3 Tablet (Acetaminophen/Codeine Phosphate) 1 Each Tablet 1 Tab PO PRN Q6HRS PRN Losartan Potassium 100 Mg Tablet 100 Mg PO DAILY Benadryl (Diphenhydramine Hcl) 25 Mg Capsule 1 Cap PO QHS Meloxicam 7.5 Mg Tablet 7.5 Mg PO DAILY Gabapentin 300 Mg Capsule 300 Mg PO TID Metformin Hcl 1,000 Mg Tablet 1,000 Mg PO BIDWMEALS Lantus Solostar (Insulin Glargine,Hum.rec.anlog) 100 Unit/1 Ml Insuln.pen 75 Unit SQ HS Proair Hfa Inhaler (Albuterol Sulfate) 8.5 Gm Hfa.aer.ad 1 Puff INH PRN Q4HRS PRN Symbicort 160-4.5 Mcg Inhaler (Budesonide/Formoterol Fumarate) 10.2 Gm Hfa.aer.ad 2 Puff IH BID Clonidine Hcl 0.2 Mg Tablet 0.2 Mg PO PRN TID PRN if sbp > 180 and dbp>105 Aspir 81 (Aspirin) 81 Mg Tablet. 1 Tab PO DAILY Vitals/I & O Vital Sign - Last 24 Hours 07/05/17 07/05/17 07/05/17 07/05/17 13:04 14:50 17:36 19:15 Temp 98.2 98.2 98.2 98.2 Pulse 70 70 74 Resp 20 20 B/P (MAP) 131/59 (83) 131/59 119/65 (83) Pulse Ox 94 94 95 O2 Delivery BiPAP/CPAP Nasal Cannula Room Air O2 Flow Rate 2.0 07/05/17 07/05/17 07/05/17 07/05/17 19:35 20:38 21:27 21:28 Pulse 74 B/P (MAP) 119/65 Pulse Ox 94 94 O2 Delivery Nasal Cannula Room Air Room Air O2 Flow Rate 2.0 07/05/17 07/06/17 07/06/17 07/06/17 22:50 03:00 07:10 07:52 Temp 97.4 97.7 97.6 97.4 97.7 97.6 Pulse 70 67 69 Resp 20 18 18 B/P (MAP) 126/46 (72) 149/71 (97) 165/76 (105) Pulse Ox 100 97 94 95 O2 Delivery BiPAP/CPAP BiPAP/CPAP BiPAP/CPAP Room Air 07/06/17 07/06/17 07/06/17 07/06/17 07:57 08:05 08:59 09:00 Pulse 80 80 Pulse Ox 95 O2 Delivery Room Air Nasal Cannula O2 Flow Rate 2.0 07/06/17 07/06/17 07/06/17 09:01 09:01 10:30 Temp 97.7 97.7 Pulse 80 80 66 Resp 20 B/P (MAP) 115/64 (81) Pulse Ox 94 O2 Delivery BiPAP/CPAP Intake and Output 07/05/17 07/05/17 07/06/17 14:59 22:59 06:59 Intake Total 500 ml 360 ml Output Total 300 ml 1250 ml 475 ml Balance -300 ml -750 ml -115 ml GATITO LESLIE MD Jul 06, 2017 12:14
--- NOTE | 2017-07-06 15:03 | PDOC ---
PROGRESS NOTES Assessment Assessment IMPRESSION: Seizure and non epileptic seizure like episodes. CHF. GERA Cellulitis, LE. Obesity. RECOMMENDATIONS/PLAN: EEG Continue Keppra 500 g bid. Treat medical diseases. lab: see orders. OT/PT. PAST MEDICAL HISTORY Past Medical History Cardiovascular: Other (pericarditis likely from infection per pt prompting pericardial window; chronic lymphedema), CAD, HTN, HLP Pulmonary: COPD, Other (GERA) CENTRAL NERVOUS SYSTEM: CVA, Dementia GI: Other (ventral hernia) Heme/Onc: No pertinent hx Hepatobiliary: No pertinent hx Psych: No pertinent hx Musculoskeletal: Osteoarthritis, Other (morbid obesity) Rheumatologic: No pertinent hx Infectious disease: No pertinent hx ENT: No pertinent hx Renal/: No pertinent hx Endocrine: Diabetes (2) Dermatology: Other (foot venous stasis blisters) PAST SURGICAL HISTORY Past Surgical History PCI/stent 3 weeks ago Appendectomy, Hernia Repair (9 ventral repairs), Tonsillectomy, Other (pericardial window; LHC) FAMILY HISTORY Family History: Heart Disease (mother) SOCIAL HISTORY Social History Smoke: No (quit >30 pk yr) ALCOHOL: none Drugs: None Lives: with Family ALLERGY: Reviewed. MEDICATIONS: Refer to [facility] REVIEW OF SYSTEMS: Constitutional: No malnutrition, weight loss, cachexia. Head: No traumatic brain or head injury. Skin: No edema, or rash. Ear: No infection. Eyes: No vision loss, or diplopia. Nose: No bleeding or purulent discharges. Hearing: No hearing decrease. Neck: No injury. Breast: No history of cancer, masses, or discharges. Cardiac: CHF Pulmonary: GERA. GI: No GI Ulcer, GI bleeding Urinary/genital: UTI. Endocrine: Obesity. Skeletomuscular: No muscular atrophy, deformity. Neurological: see HP. Psychiatric: Denies drug use/abuse. Otherwise, not [id number] review of systems. PHYSICAL EXAMINATION: General appearance in no acute distress. HEENT: Normocephalic and nontraumatic. Eyes, nose, ears, and throat are unremarkable. Neck is supple. No lymphadenopathy. No bruits are heard over the carotid artery. No Crepitus. Cardiovascular: S1, S2, regular rate and rhythm. Pulmonary: Clear to auscultation bilaterally. Abdomen: Bowel sounds are positive. Extremities: No rash, lesions, or edema. No restriction of range of motion NEUROLOGICAL EXAMINATION: Alert. Oriented to time, place and person. PERRL. EOMI. CN: no focal findings. Muscle tone: within normal. Muscle strength: 5- UE, 4 LE DTR: 2 Plantar reflex: Flexor response bilaterally Gait: not examined in bed. Sensory exam: no abnormal findings. No cerebellar signs elicited. F-T-N test accurate. Objective Objective Vital Signs Date Time Temp Pulse Resp B/P (MAP) Pulse Ox O2 Delivery O2 Flow Rate FiO2 07/06/17 13:32 Room Air 07/06/17 10:30 97.7 66 20 115/64 (81) 94 97.7 07/06/17 08:05 2.0 Intake and Output 07/06/17 07:00 Intake Total 860 ml Output Total 2025 ml Balance -1165 ml Intake Oral 860 ml Output Urine Total 2025 ml Vitals Signs Vitals VS - Last 72 Hours, by Label Date Time Temp Pulse Resp B/P (MAP) Pulse Ox O2 Delivery O2 Flow Rate FiO2 07/06/17 13:32 Room Air 07/06/17 10:30 97.7 66 20 115/64 (81) 94 BiPAP/CPAP 97.7 07/06/17 09:01 80 07/06/17 09:01 80 07/06/17 09:00 80 07/06/17 08:59 80 07/06/17 08:05 Nasal Cannula 2.0 07/06/17 07:57 95 Room Air 07/06/17 07:52 95 Room Air 07/06/17 07:10 97.6 69 18 165/76 (105) 94 BiPAP/CPAP 97.6 07/06/17 03:00 97.7 67 18 149/71 (97) 97 BiPAP/CPAP 97.7 07/05/17 22:50 97.4 70 20 126/46 (72) 100 BiPAP/CPAP 97.4 07/05/17 21:28 94 Room Air 07/05/17 21:27 94 Room Air 07/05/17 20:38 74 119/65 07/05/17 19:35 Nasal Cannula 2.0 07/05/17 19:15 98.2 74 20 119/65 (83) 95 Room Air 98.2 07/05/17 17:36 70 131/59 07/05/17 14:50 98.2 70 20 131/59 (83) 94 Nasal Cannula 2.0 98.2 07/05/17 13:04 94 BiPAP/CPAP 07/05/17 11:00 98.4 70 20 153/81 (105) 94 Nasal Cannula 2.0 98.4 07/05/17 09:29 73 146/71 07/05/17 09:29 73 146/71 07/05/17 08:46 73 146/71 07/05/17 08:00 Nasal Cannula 2.0 07/05/17 07:45 98.4 73 20 146/71 (96) 92 BiPAP/CPAP 98.4 07/05/17 07:32 92 BiPAP/CPAP Laboratory Laboratory Laboratory Tests Test 07/05/17 15:07 07/05/17 16:47 07/05/17 20:32 07/06/17 07:09 Glucose (Fingerstick) 128 mg/dL (70-99) 134 mg/dL (70-99) 144 mg/dL (70-99) 58 mg/dL (70-99) Test 07/06/17 07:31 07/06/17 08:07 07/06/17 09:05 07/06/17 11:33 Glucose (Fingerstick) 59 mg/dL (70-99) 96 mg/dL (70-99) 94 mg/dL (70-99) White Blood Count 7.8 x10^3/uL (4.0-11.0) Red Blood Count 3.96 x10^6/uL (4.30-5.70) Hemoglobin 12.2 g/dL (13.0-17.5) Hematocrit 37.1 % (39.0-53.0) Mean Corpuscular Volume 94 fL (79-100) Mean Corpuscular Hemoglobin 31 pg (25-35) Mean Corpuscular Hemoglobin Concent 33 g/dL (31-37) Red Cell Distribution Width 13.5 % (11.5-14.5) Platelet Count 243 x10^3/uL (140-400) Neutrophils (%) (Auto) 49 % (31-73) Lymphocytes (%) (Auto) 36 % (24-48) Monocytes (%) (Auto) 10 % (0-9) Eosinophils (%) (Auto) 4 % (0-3) Basophils (%) (Auto) 1 % (0-3) Neutrophils # (Auto) 3.9 x10^3uL (1.8-7.7) Lymphocytes # (Auto) 2.9 x10^3/uL (1.0-4.8) Monocytes # (Auto) 0.7 x10^3/uL (0.0-1.1) Eosinophils # (Auto) 0.3 x10^3/uL (0.0-0.7) Basophils # (Auto) 0.0 x10^3/uL (0.0-0.2) Sodium Level 141 mmol/L (136-145) Potassium Level 4.5 mmol/L (3.5-5.1) Chloride Level 102 mmol/L (98-107) Carbon Dioxide Level 36 mmol/L (21-32) Anion Gap 3 (6-14) Blood Urea Nitrogen 36 mg/dL (8-26) Creatinine 1.2 mg/dL (0.7-1.3) Estimated GFR (Cockcroft-Gault) 60.8 Glucose Level 88 mg/dL (70-99) Calcium Level 9.1 mg/dL (8.5-10.1) Medication Medications Current Medications Amlodipine Besylate (Norvasc) 10 mg DAILY PO Last administered on 07/06/17 09 :01; Start 07/06/17 at 09:00 Aspirin (Ecotrin) 325 mg DAILY PO ; Start 07/07/17 at 09:00 Insulin Detemir (Levemir) 68 units QHS SQ ; Start 07/06/17 at 21:00 Isosorbide Mononitrate (Imdur) 60 mg DAILY PO Last administered on 07/06/17 08:59; Start 07/06/17 at 09:00 Comment Review of Relevant I have reviewed the following items tere (where applicable) has been applied. MEL VILLATORO MD Jul 06, 2017 15:03
--- NOTE | 2017-07-06 15:03 | PDOC ---
CARDIO Progress Notes Date and Time Date of Service 07/06/2017 Time of Evaluation 1500 Subjective Subjective: No Chest Pain, No shortness of breath, No Palpitations Vitals Vitals Vital Signs Date Time Temp Pulse Resp B/P (MAP) Pulse Ox O2 Delivery O2 Flow Rate FiO2 07/06/17 13:32 Room Air 07/06/17 10:30 97.7 66 20 115/64 (81) 94 97.7 07/06/17 08:05 2.0 Weight Weight [ ] Input and Output Intake and Output Intake and Output 07/06/17 07:00 Intake Total 860 ml Output Total 2025 ml Balance -1165 ml Intake Oral 860 ml Output Urine Total 2025 ml Laboratory Labs Laboratory Tests Test 07/05/17 15:07 07/05/17 16:47 07/05/17 20:32 07/06/17 07:09 Glucose (Fingerstick) 128 mg/dL (70-99) 134 mg/dL (70-99) 144 mg/dL (70-99) 58 mg/dL (70-99) Test 07/06/17 07:31 07/06/17 08:07 07/06/17 09:05 07/06/17 11:33 Glucose (Fingerstick) 59 mg/dL (70-99) 96 mg/dL (70-99) 94 mg/dL (70-99) White Blood Count 7.8 x10^3/uL (4.0-11.0) Red Blood Count 3.96 x10^6/uL (4.30-5.70) Hemoglobin 12.2 g/dL (13.0-17.5) Hematocrit 37.1 % (39.0-53.0) Mean Corpuscular Volume 94 fL (79-100) Mean Corpuscular Hemoglobin 31 pg (25-35) Mean Corpuscular Hemoglobin Concent 33 g/dL (31-37) Red Cell Distribution Width 13.5 % (11.5-14.5) Platelet Count 243 x10^3/uL (140-400) Neutrophils (%) (Auto) 49 % (31-73) Lymphocytes (%) (Auto) 36 % (24-48) Monocytes (%) (Auto) 10 % (0-9) Eosinophils (%) (Auto) 4 % (0-3) Basophils (%) (Auto) 1 % (0-3) Neutrophils # (Auto) 3.9 x10^3uL (1.8-7.7) Lymphocytes # (Auto) 2.9 x10^3/uL (1.0-4.8) Monocytes # (Auto) 0.7 x10^3/uL (0.0-1.1) Eosinophils # (Auto) 0.3 x10^3/uL (0.0-0.7) Basophils # (Auto) 0.0 x10^3/uL (0.0-0.2) Sodium Level 141 mmol/L (136-145) Potassium Level 4.5 mmol/L (3.5-5.1) Chloride Level 102 mmol/L (98-107) Carbon Dioxide Level 36 mmol/L (21-32) Anion Gap 3 (6-14) Blood Urea Nitrogen 36 mg/dL (8-26) Creatinine 1.2 mg/dL (0.7-1.3) Estimated GFR (Cockcroft-Gault) 60.8 Glucose Level 88 mg/dL (70-99) Calcium Level 9.1 mg/dL (8.5-10.1) Physical Exam HEENT: Neck Supple W Full Motion Chest: Symmetric LUNGS: Other (diminished bases) Heart: S1S2, RRR (SR) Abdomen: Soft N/T, Other (obese) Extremities: No Calf Tenderness Neurology: alert, oriented, follow commands Assessment Assessment 1. Acute on chronic CHF with possible diastolic dysfunction: compensated 2. Atypical CP: Doubt ACS. possible vasopasm and from uncontrolled HTN. trop normal initial, no acute EKG changes 3. HTN: labile 4. CAD: recent PCI/JUSTINA to RCA 06/12/2017 with EF of 55% 5. Hx of seizures: possible seizure en route to ED, neurology following 6. Morbid obesity 7. Dementia 8. COPD/GERA: CPAP compliant 9. LINDSAY: improved. Defer to PCP Recommendations 1. DC meloxicam and metformin for now. Consider alternative. 2. Change lasix to PO. Increase imdur and norvasc. 3. Home BP monitoring 4. Continue with DAPT and secondary prevention measures. Allergy to statin, may consider praluent 5. Possible DC this afternoon. Follow up in our office in 4 weeks. MARIE CAGLE APRN Jul 06, 2017 15:03
[2017-07-06 15:13] VITALS: BP 125/45
[2017-07-06] MEDS: FUROSEMIDE 40 MG TABLET. PO SCH (15:36)
[2017-07-06 19:15] VITALS: BP 148/62
[2017-07-06 20:11] LABS: BARBITURATES NEG (NEG); BENZODIAZEPINES NEG (NEG); CANNABINOIDS NEG (NEG); COCAINE NEG (NEG); METHADONE NEG (NEG); OPIATES NEG (NEG); PHENCYCLIDINE NEG (NEG)
[2017-07-06] MEDS ORDERED: INSULIN DETEMIR 300 UNITS/3 ML INSULN.PEN. SQ SCH (21:00)
[2017-07-06] MEDS: diphenhydrAMINE HCL 25 MG CAPSULE PO SCH (21:06)
[2017-07-06 22:56] VITALS: BP 150/69
[2017-07-07 03:00] VITALS: BP 149/72
[2017-07-07 05:14] LABS: BASO # 0.1 x10^3/uL (0.0-0.2); BASO % 1 % (0-3); EOS % 4 % (0-3); HEMATOCRIT 37.8 % (39.0-53.0); HEMOGLOBIN 12.8 g/dL (13.0-17.5); LYMPH # 3.8 x10^3/uL (1.0-4.8); LYMPH % 39 % (24-48); MEAN CORPUSCULAR HEMOGLOBIN 31 pg (25-35); MEAN CORPUSCULAR HGB CONC 34 g/dL (31-37); MEAN CORPUSCULAR VOLUME 92 fL (79-100); MONO % 10 % (0-9); NEUT % 47 % (31-73); PLATELET COUNT 276 x10^3/uL (140-400); RED BLOOD COUNT 4.13 x10^6/uL (4.30-5.70); RED CELL DISTRIBUTION WIDTH 13.4 % (11.5-14.5); WHITE BLOOD COUNT 9.9 x10^3/uL (4.0-11.0)
[2017-07-07 05:45] LABS: CALCIUM 9.6 mg/dL (8.5-10.1); CREATININE 1.1 mg/dL (0.7-1.3); GFR 67.2
[2017-07-07] MEDS ORDERED: FUROSEMIDE 20 MG/2 ML VIAL. IVP ONE (06:30)
[2017-07-07 07:00] VITALS: BP 122/71
[2017-07-07] MEDS: BUDESONIDE 0.5 MG/2 ML NEBU. NEB SCH ×2 (07:45→18:29)
[2017-07-07] MEDS: ALBUTEROL SULFATE 2.5 MG/3 ML NEBU. NEB SCH ×3 (07:45→18:29)
[2017-07-07] MEDS: INSULIN ASPART 300 UNITS/3 ML INSULN.PEN SQ SCH ×3 (08:00→17:23)
[2017-07-07] MEDS: BENZONATATE 100 MG CAPSULE. PO SCH (08:15)
[2017-07-07] MEDS: LOSARTAN POTASSIUM 50 MG TABLET. PO SCH (08:15)
[2017-07-07] MEDS: MULTIVITAMIN with MINERAL TABLET. PO SCH (08:16)
[2017-07-07] MEDS: MAGNESIUM OXIDE 400 MG TABLET PO SCH (08:16)
[2017-07-07] MEDS: GABAPENTIN 300 MG CAPSULE. PO SCH ×3 (08:16→20:39)
[2017-07-07] MEDS: CLOPIDOGREL BISULFATE 75 MG TABLET PO SCH (08:16)
[2017-07-07] MEDS: ISOSORBIDE MONONITRATE ER 30 MG TAB.ER.24H PO SCH (08:16)
[2017-07-07] MEDS: FUROSEMIDE 40 MG TABLET. PO SCH (08:16)
[2017-07-07] MEDS: DOCUSATE SODIUM 100 MG CAPSULE. PO SCH ×2 (08:17→20:38)
[2017-07-07] MEDS: PANTOPRAZOLE 40 MG TABLET.DR. PO SCH (08:17)
[2017-07-07] MEDS: amLODIPine BESYLATE 10 MG TABLET PO SCH (08:17)
[2017-07-07] MEDS: CARVEDILOL 12.5 MG TABLET. PO SCH ×2 (08:17→16:49)
[2017-07-07] MEDS: POTASSIUM CHLORIDE 20 MEQ TABLET.ER. PO SCH (08:17)
[2017-07-07] MEDS: ASPIRIN ENTERIC COATED 325 MG TABLET.DR. PO SCH (08:18)
[2017-07-07] MEDS: levETIRAcetam 500 MG TABLET PO SCH ×2 (08:22→20:39)
[2017-07-07] MEDS: POLYETHYLENE GLYCOL 3350 17 GM PACKET. PO SCH (08:23)
[2017-07-07] MEDS ORDERED: FUROSEMIDE 40 MG TABLET. PO SCH (09:00)
[2017-07-07] MEDS ORDERED: ASPIRIN ENTERIC COATED 81 MG TABLET.DR. PO SCH (09:00)
[2017-07-07 11:00] VITALS: BP_SYST 108; BP_SYST 122; BP_SYST 128; BP_DIAS 37; BP_DIAS 41; BP_DIAS 69
[2017-07-07] MEDS ORDERED: INSU100I17 SQ (13:45)
[2017-07-07] MEDS ORDERED: INSU100I13 SQ (13:45)
[2017-07-07] MEDS ORDERED: ACET1TAB33 PO (13:45)
--- NOTE | 2017-07-07 14:41 | PDOC ---
PROGRESS NOTES Chief Complaint Chief Complaint Chest pain recent Pericarditis and recent pericardial window; chronic lymphedema CAD HTN HLP COPD GERA CVA Dementia Ventral hernia Osteoarthritis Morbid obesity, BMI 54 DM 2, poor control at home, on large doses insulin, hypoglycemia here weakness and debility, acquired History of Present Illness History of Present Illness can ambulate with walker SNU today he feels well, LE edema ok, still some weakness hypoglycemia on his home dose of insulin, he admits to eatign more carbs at home He was resting comfortably in bed and was not in acute distress. F Vitals Vitals Vital Signs Date Time Temp Pulse Resp B/P (MAP) Pulse Ox O2 Delivery O2 Flow Rate FiO2 07/07/17 13:45 Room Air 07/07/17 11:00 122/41 (68) 07/07/17 11:00 97.6 54 20 96 97.6 07/07/17 08:00 2.0 Physical Exam General: Alert, Oriented X3, Cooperative, mild distress Heart: Regular rate, Normal S1, Normal S2 Lungs: Other (fine rales, no wheeze, mod volume) Abdomen: Normal bowel sounds Extremities: Normal pulses, Other (chronicleg edema, long toe nails, 2+ pitting edema to pretibial, tr to pedal) Skin: No breakdown, No significant lesion Labs LABS Laboratory Tests Test 07/06/17 16:55 07/06/17 19:40 07/06/17 19:43 07/07/17 04:18 Glucose (Fingerstick) 151 mg/dL (70-99) 204 mg/dL (70-99) 59 mg/dL (70-99) Urine Opiates Screen Neg (NEG) Urine Methadone Screen Neg (NEG) Urine Barbiturates Neg (NEG) Urine Phencyclidine Screen Neg (NEG) Urine Amphetamine/Methamphetamine Neg (NEG) Urine Benzodiazepines Screen Neg (NEG) Urine Cocaine Screen Neg (NEG) Urine Cannabinoids Screen Neg (NEG) Urine Ethyl Alcohol Neg (NEG) Test 07/07/17 04:25 07/07/17 04:39 07/07/17 06:04 07/07/17 06:23 White Blood Count 9.9 x10^3/uL (4.0-11.0) Red Blood Count 4.13 x10^6/uL (4.30-5.70) Hemoglobin 12.8 g/dL (13.0-17.5) Hematocrit 37.8 % (39.0-53.0) Mean Corpuscular Volume 92 fL (79-100) Mean Corpuscular Hemoglobin 31 pg (25-35) Mean Corpuscular Hemoglobin Concent 34 g/dL (31-37) Red Cell Distribution Width 13.4 % (11.5-14.5) Platelet Count 276 x10^3/uL (140-400) Neutrophils (%) (Auto) 47 % (31-73) Lymphocytes (%) (Auto) 39 % (24-48) Monocytes (%) (Auto) 10 % (0-9) Eosinophils (%) (Auto) 4 % (0-3) Basophils (%) (Auto) 1 % (0-3) Neutrophils # (Auto) 4.6 x10^3uL (1.8-7.7) Lymphocytes # (Auto) 3.8 x10^3/uL (1.0-4.8) Monocytes # (Auto) 1.0 x10^3/uL (0.0-1.1) Eosinophils # (Auto) 0.4 x10^3/uL (0.0-0.7) Basophils # (Auto) 0.1 x10^3/uL (0.0-0.2) Sodium Level 140 mmol/L (136-145) Potassium Level 4.0 mmol/L (3.5-5.1) Chloride Level 102 mmol/L (98-107) Carbon Dioxide Level 33 mmol/L (21-32) Anion Gap 5 (6-14) Blood Urea Nitrogen 30 mg/dL (8-26) Creatinine 1.1 mg/dL (0.7-1.3) Estimated GFR (Cockcroft-Gault) 67.2 Glucose Level 63 mg/dL (70-99) Calcium Level 9.6 mg/dL (8.5-10.1) Glucose (Fingerstick) 91 mg/dL (70-99) 59 mg/dL (70-99) 89 mg/dL (70-99) Assessment and Plan Assessmemt and Plan Problems Medical Problems: (1) Congestive heart failure Status: Acute (2) Pulmonary edema Status: Acute (3) Seizure Status: Acute Problems: Comment Review of Relevant I have reviewed the following items tere (where applicable) has been applied. Labs Laboratory Tests Test 07/05/17 15:07 07/05/17 16:47 07/05/17 20:32 07/06/17 07:09 Glucose (Fingerstick) 128 mg/dL (70-99) 134 mg/dL (70-99) 144 mg/dL (70-99) 58 mg/dL (70-99) Test 07/06/17 07:31 07/06/17 08:07 07/06/17 09:05 07/06/17 11:33 Glucose (Fingerstick) 59 mg/dL (70-99) 96 mg/dL (70-99) 94 mg/dL (70-99) White Blood Count 7.8 x10^3/uL (4.0-11.0) Red Blood Count 3.96 x10^6/uL (4.30-5.70) Hemoglobin 12.2 g/dL (13.0-17.5) Hematocrit 37.1 % (39.0-53.0) Mean Corpuscular Volume 94 fL (79-100) Mean Corpuscular Hemoglobin 31 pg (25-35) Mean Corpuscular Hemoglobin Concent 33 g/dL (31-37) Red Cell Distribution Width 13.5 % (11.5-14.5) Platelet Count 243 x10^3/uL (140-400) Neutrophils (%) (Auto) 49 % (31-73) Lymphocytes (%) (Auto) 36 % (24-48) Monocytes (%) (Auto) 10 % (0-9) Eosinophils (%) (Auto) 4 % (0-3) Basophils (%) (Auto) 1 % (0-3) Neutrophils # (Auto) 3.9 x10^3uL (1.8-7.7) Lymphocytes # (Auto) 2.9 x10^3/uL (1.0-4.8) Monocytes # (Auto) 0.7 x10^3/uL (0.0-1.1) Eosinophils # (Auto) 0.3 x10^3/uL (0.0-0.7) Basophils # (Auto) 0.0 x10^3/uL (0.0-0.2) Sodium Level 141 mmol/L (136-145) Potassium Level 4.5 mmol/L (3.5-5.1) Chloride Level 102 mmol/L (98-107) Carbon Dioxide Level 36 mmol/L (21-32) Anion Gap 3 (6-14) Blood Urea Nitrogen 36 mg/dL (8-26) Creatinine 1.2 mg/dL (0.7-1.3) Estimated GFR (Cockcroft-Gault) 60.8 Glucose Level 88 mg/dL (70-99) Calcium Level 9.1 mg/dL (8.5-10.1) Test 07/06/17 16:55 07/06/17 19:40 07/06/17 19:43 07/07/17 04:18 Glucose (Fingerstick) 151 mg/dL (70-99) 204 mg/dL (70-99) 59 mg/dL (70-99) Urine Opiates Screen Neg (NEG) Urine Methadone Screen Neg (NEG) Urine Barbiturates Neg (NEG) Urine Phencyclidine Screen Neg (NEG) Urine Amphetamine/Methamphetamine Neg (NEG) Urine Benzodiazepines Screen Neg (NEG) Urine Cocaine Screen Neg (NEG) Urine Cannabinoids Screen Neg (NEG) Urine Ethyl Alcohol Neg (NEG) Test 07/07/17 04:25 07/07/17 04:39 07/07/17 06:04 07/07/17 06:23 White Blood Count 9.9 x10^3/uL (4.0-11.0) Red Blood Count 4.13 x10^6/uL (4.30-5.70) Hemoglobin 12.8 g/dL (13.0-17.5) Hematocrit 37.8 % (39.0-53.0) Mean Corpuscular Volume 92 fL (79-100) Mean Corpuscular Hemoglobin 31 pg (25-35) Mean Corpuscular Hemoglobin Concent 34 g/dL (31-37) Red Cell Distribution Width 13.4 % (11.5-14.5) Platelet Count 276 x10^3/uL (140-400) Neutrophils (%) (Auto) 47 % (31-73) Lymphocytes (%) (Auto) 39 % (24-48) Monocytes (%) (Auto) 10 % (0-9) Eosinophils (%) (Auto) 4 % (0-3) Basophils (%) (Auto) 1 % (0-3) Neutrophils # (Auto) 4.6 x10^3uL (1.8-7.7) Lymphocytes # (Auto) 3.8 x10^3/uL (1.0-4.8) Monocytes # (Auto) 1.0 x10^3/uL (0.0-1.1) Eosinophils # (Auto) 0.4 x10^3/uL (0.0-0.7) Basophils # (Auto) 0.1 x10^3/uL (0.0-0.2) Sodium Level 140 mmol/L (136-145) Potassium Level 4.0 mmol/L (3.5-5.1) Chloride Level 102 mmol/L (98-107) Carbon Dioxide Level 33 mmol/L (21-32) Anion Gap 5 (6-14) Blood Urea Nitrogen 30 mg/dL (8-26) Creatinine 1.1 mg/dL (0.7-1.3) Estimated GFR (Cockcroft-Gault) 67.2 Glucose Level 63 mg/dL (70-99) Calcium Level 9.6 mg/dL (8.5-10.1) Glucose (Fingerstick) 91 mg/dL (70-99) 59 mg/dL (70-99) 89 mg/dL (70-99) Laboratory Tests Test 07/06/17 16:55 07/06/17 19:40 07/06/17 19:43 07/07/17 04:18 Glucose (Fingerstick) 151 mg/dL (70-99) 204 mg/dL (70-99) 59 mg/dL (70-99) Urine Opiates Screen Neg (NEG) Urine Methadone Screen Neg (NEG) Urine Barbiturates Neg (NEG) Urine Phencyclidine Screen Neg (NEG) Urine Amphetamine/Methamphetamine Neg (NEG) Urine Benzodiazepines Screen Neg (NEG) Urine Cocaine Screen Neg (NEG) Urine Cannabinoids Screen Neg (NEG) Urine Ethyl Alcohol Neg (NEG) Test 07/07/17 04:25 07/07/17 04:39 07/07/17 06:04 07/07/17 06:23 White Blood Count 9.9 x10^3/uL (4.0-11.0) Red Blood Count 4.13 x10^6/uL (4.30-5.70) Hemoglobin 12.8 g/dL (13.0-17.5) Hematocrit 37.8 % (39.0-53.0) Mean Corpuscular Volume 92 fL (79-100) Mean Corpuscular Hemoglobin 31 pg (25-35) Mean Corpuscular Hemoglobin Concent 34 g/dL (31-37) Red Cell Distribution Width 13.4 % (11.5-14.5) Platelet Count 276 x10^3/uL (140-400) Neutrophils (%) (Auto) 47 % (31-73) Lymphocytes (%) (Auto) 39 % (24-48) Monocytes (%) (Auto) 10 % (0-9) Eosinophils (%) (Auto) 4 % (0-3) Basophils (%) (Auto) 1 % (0-3) Neutrophils # (Auto) 4.6 x10^3uL (1.8-7.7) Lymphocytes # (Auto) 3.8 x10^3/uL (1.0-4.8) Monocytes # (Auto) 1.0 x10^3/uL (0.0-1.1) Eosinophils # (Auto) 0.4 x10^3/uL (0.0-0.7) Basophils # (Auto) 0.1 x10^3/uL (0.0-0.2) Sodium Level 140 mmol/L (136-145) Potassium Level 4.0 mmol/L (3.5-5.1) Chloride Level 102 mmol/L (98-107) Carbon Dioxide Level 33 mmol/L (21-32) Anion Gap 5 (6-14) Blood Urea Nitrogen 30 mg/dL (8-26) Creatinine 1.1 mg/dL (0.7-1.3) Estimated GFR (Cockcroft-Gault) 67.2 Glucose Level 63 mg/dL (70-99) Calcium Level 9.6 mg/dL (8.5-10.1) Glucose (Fingerstick) 91 mg/dL (70-99) 59 mg/dL (70-99) 89 mg/dL (70-99) Medications Current Medications Lorazepam (Ativan) 2 mg PRN Q4HRS PRN IV ANXIETY / AGITATION; Start 07/03/17 at 16:00 Hydralazine HCl (Apresoline Inj) 10 mg PRN Q4HRS PRN IVP ELEVATED BP, SEE COMMENTS; Start 07/03/17 at 16:00 Morphine Sulfate 2 mg PRN Q2HR PRN IV SEVERE PAIN; Start 07/03/17 at 16:00 Ondansetron HCl (Zofran) 4 mg PRN Q6HRS PRN IV NAUSEA/VOMITING; Start at 16:00 Ondansetron HCl (Zofran Odt) 4 mg PRN Q6HRS PRN PO NAUSEA/VOMITING; Start 06/09 at 16:00 Acetaminophen (Tylenol) 500 mg PRN Q6HRS PRN PO MILD PAIN / TEMP; Start at 16:00 Acetaminophen/ Hydrocodone Bitart (Lortab 5/325) 1 tab PRN Q4HRS PRN PO MODERATE PAIN Last administered on 07/04/17 05:06; Start 07/03/17 at 16:00 Insulin Aspart (NovoLOG) 0-9 UNITS TIDWMEALS SQ Last administered on 17:57; Start 07/03/17 at 17:00 Dextrose (Dextrose 50%-Water Syringe) 12.5 gm PRN Q15MIN PRN IV SEE COMMENTS Last administered on 07/04/17 12:35; Start 07/03/17 at 16:00 Acetaminophen/ Codeine Phosphate (Tylenol #3) 1 tab PRN Q6HRS PRN PO MILD PAIN ; Start 07/03/17 at 16:00 Amlodipine Besylate (Norvasc) 10 mg HS PO Last administered on 07/03/17 20:44 ; Start 07/03/17 at 21:00; Stop 07/04/17 at 09:49; Status DC Aspirin (Ecotrin) 81 mg DAILY PO Last administered on 07/06/17 08:58; Start 07/04/17 at 09:00; Stop 07/06/17 at 10:45; Status DC Benzonatate (Tessalon Perle) 100 mg DAILY PO Last administered on 07/07/17 08 :15; Start 07/04/17 at 09:00 Clonidine HCl (Catapres) 0.2 mg PRN TID PRN PO tid; Start 07/03/17 at 16:00 Clopidogrel Bisulfate (Plavix) 75 mg DAILY PO Last administered on 07/07/17 08:16; Start 07/04/17 at 09:00 Diphenhydramine HCl (Benadryl) 25 mg QHS PO Last administered on 07/06/17 21: 06; Start 07/03/17 at 21:00 Docusate Sodium (Colace) 100 mg BID PO Last administered on 07/07/17 08:17; Start 07/03/17 at 21:00 Furosemide (Lasix) 40 mg DAILY PO ; Start 07/04/17 at 09:00; Stop 07/04/17 at 09:00; Status DC Acetaminophen/ Hydrocodone Bitart (Lortab 5/325) 1 tab PRN Q8HRS PRN PO PAIN; Start 07/03/17 at 16:00; Stop 07/07/17 at 14:19; Status DC Insulin Aspart (NovoLOG) 18 units DAILYAC SQ Last administered on 07/04/17 09 :52; Start 07/04/17 at 07:30; Stop 07/04/17 at 17:15; Status DC Insulin Aspart (NovoLOG) 24 units DAILYBFRSUP SQ ; Start 07/03/17 at 17:00; Stop 07/04/17 at 17:15; Status DC Levetiracetam (Keppra) 500 mg BID PO Last administered on 07/07/17 08:22; Start 07/03/17 at 21:00 Meloxicam (Mobic) 7.5 mg DAILY PO Last administered on 07/05/17 09:29; Start 07/04/17 at 09:00; Stop 07/06/17 at 08:18; Status DC Metformin HCl (Glucophage) 1,000 mg BIDWMEALS PO Last administered on 17:36; Start 07/03/17 at 18:00; Stop 07/06/17 at 08:18; Status DC Methocarbamol (Robaxin) 500 mg PRN QID PRN PO MUSCLE SPASMS Last administered on 07/05/17 15:50; Start 07/03/17 at 16:00 Pantoprazole Sodium (Protonix) 40 mg DAILY PO Last administered on 07/07/17 08:17; Start 07/04/17 at 09:00 Phenytoin Sodium (Dilantin) 200 mg BID PO Last administered on 07/04/17 09:24 ; Start 07/03/17 at 21:00; Stop 07/04/17 at 13:15; Status DC Polyethylene Glycol (miraLAX PACKET) 17 gm DAILY PO Last administered on 09:28; Start 07/04/17 at 09:00 Trazodone HCl (Desyrel) 50 mg PRN QHS PRN PO INSOMNIA; Start 07/03/17 at 16:00 Triamcinolone Acetonide (Kenalog) 1 uma PRN TID PRN TP RASH; Start 07/03/17 at 16:00 Non-Formulary Medication 1 puff PRN Q4HRS PRN INH SHORTNESS OF BREATH; Start 07/03/17 at 16:00; Stop 07/03/17 at 17:52; Status DC Non-Formulary Medication 2 puff BID IH ; Start 07/03/17 at 21:00; Stop at 21:00; Status DC Carvedilol (Coreg) 25 mg BIDWMEALS PO Last administered on 07/07/17 08:17; Start 07/03/17 at 18:00 Gabapentin (Neurontin) 300 mg TID PO Last administered on 07/07/17 08:16; Start 07/03/17 at 21:00 Insulin Detemir (Levemir) 75 units QHS SQ Last administered on 07/05/17 20:42 ; Start 07/03/17 at 21:00; Stop 07/06/17 at 11:55; Status DC Losartan Potassium (Cozaar) 100 mg DAILY PO Last administered on 07/07/17 08: 15; Start 07/04/17 at 09:00 Magnesium Oxide (Magnesium Oxide) 400 mg DAILY PO Last administered on 08:16; Start 07/04/17 at 09:00 Multivitamins (Thera M Plus) 1 tab DAILY PO Last administered on 07/07/17 08: 16; Start 07/04/17 at 09:00 Potassium Chloride (Klor-Con) 20 meq DAILYWBKFT PO Last administered on 08:17; Start 07/04/17 at 08:00 Magnesium Sulfate/ Dextrose 50 ml @ 25 mls/hr 1X ONCE IV Last administered on 07/03/17 16:21; Start 07/03/17 at 16:15; Stop 07/03/17 at 18:14; Status DC Furosemide (Lasix) 40 mg 1X ONCE IVP Last administered on 07/03/17 16:30; Start 07/03/17 at 16:15; Stop 07/03/17 at 16:16; Status DC Albuterol Sulfate (Ventolin Neb Soln) 2.5 mg PRN Q4HRS PRN NEB SHORTNESS OF BREATH; Start 07/03/17 at 17:45 Albuterol Sulfate (Ventolin Neb Soln) 2.5 mg Q6HRS NEB Last administered on 13:44; Start 07/03/17 at 18:00 Budesonide (Pulmicort) 0.5 mg RTBID NEB Last administered on 07/07/17 07:45; Start 07/03/17 at 20:00 Furosemide (Lasix) 40 mg DAILY IVP Last administered on 07/05/17 09:30; Start 07/04/17 at 09:00; Stop 07/06/17 at 08:18; Status DC Magnesium Sulfate/ Dextrose 50 ml @ 25 mls/hr 1X ONCE IV Last administered on 07/04/17 09:56; Start 07/04/17 at 08:00; Stop 07/04/17 at 09:59; Status DC Amlodipine Besylate (Norvasc) 5 mg HS PO Last administered on 07/05/17 20:38 ; Start 07/04/17 at 21:00; Stop 07/06/17 at 08:18; Status DC Isosorbide Mononitrate (Imdur) 30 mg DAILY PO Last administered on 07/05/17 09:29; Start 07/04/17 at 10:30; Stop 07/06/17 at 08:18; Status DC Amlodipine Besylate (Norvasc) 10 mg DAILY PO Last administered on 07/07/17 08 :17; Start 07/06/17 at 09:00 Isosorbide Mononitrate (Imdur) 60 mg DAILY PO Last administered on 07/07/17 08:16; Start 07/06/17 at 09:00 Aspirin (Ecotrin) 325 mg DAILY PO ; Start 07/07/17 at 09:00; Status Cancel Insulin Detemir (Levemir) 68 units QHS SQ Last administered on 07/06/17 21:09 ; Start 07/06/17 at 21:00 Furosemide (Lasix) 40 mg DAILY PO ; Start 07/07/17 at 09:00; Stop 07/07/17 at 09:00; Status DC Furosemide (Lasix) 40 mg DAILY PO Last administered on 07/07/17 08:16; Start 07/06/17 at 15:30 Furosemide (Lasix) 20 mg 1X ONCE IVP ; Start 07/07/17 at 06:30; Stop at 06:31; Status Cancel Aspirin (Ecotrin) 325 mg DAILYWBKFT PO Last administered on 07/07/17 08:18; Start 07/07/17 at 08:00 Active Scripts Active Acetaminophen-Cod #3 Tablet (Acetaminophen/Codeine Phosphate) 1 Each Tablet 1 Tab PO PRN Q6HRS PRN Dilantin (Phenytoin Sodium Extended) 100 Mg Capsule 2 Cap PO BID Keppra (Levetiracetam) 500 Mg Tablet 1 Tab PO BID Keppra (Levetiracetam) 500 Mg Tablet 1 Tab PO BID Reported Triamcinolone Acetonide 0.1% Cream (Triamcinolone Acetonide) 15 Gm Cream..g. 1 Uma TP PRN TID PRN Magnesium 200 Mg Tablet 400 Mg PO DAILY Potassium Chloride 20 Meq Tablet.er 20 Meq PO DAILY Polyethylene Glycol 3350 255 Gm Powder 17 Gm PO DAILY Pantoprazole Sodium 40 Mg Tablet.dr 40 Mg PO DAILY Multi-Day Vitamins (Multivitamin) 1 Each Tablet 1 Tab PO DAILY Robaxin (Methocarbamol) 500 Mg Tablet 500 Mg PO PRN QID PRN Levofloxacin 500 Mg Tablet 500 Mg PO DAILY Novolog Flexpen (Insulin Aspart) 100 Unit/1 Ml Insuln.pen 24 Unit SQ DAILYBFRSUP Novolog Flexpen (Insulin Aspart) 100 Unit/1 Ml Insuln.pen 18 Unit SQ DAILYAC [place] 5-325 Tablet (Acetaminophen/Hydrocodone Bitart) 1 Each Tablet 1-2 Tab PO PRN Q8HRS PRN Furosemide 40 Mg Tablet 1 Tab PO DAILY Doxycycline Hyclate 100 Mg Tablet 100 Mg PO BID Colace (Docusate Sodium) 100 Mg Capsule 1 Cap PO BID Clopidogrel (Clopidogrel Bisulfate) 75 Mg Tablet 75 Mg PO DAILY Benzonatate 100 Mg Capsule 1 Cap PO DAILY Amlodipine Besylate 10 Mg Tablet 10 Mg PO HS Tylenol (Acetaminophen) 325 Mg Tablet 650 Mg PO QID Trazodone Hcl 50 Mg Tablet 50 Mg PO PRN QHS PRN Carvedilol 25 Mg Tablet 25 Mg PO BIDWMEALS Losartan Potassium 100 Mg Tablet 100 Mg PO DAILY Benadryl (Diphenhydramine Hcl) 25 Mg Capsule 1 Cap PO QHS Meloxicam 7.5 Mg Tablet 7.5 Mg PO DAILY Gabapentin 300 Mg Capsule 300 Mg PO TID Metformin Hcl 1,000 Mg Tablet 1,000 Mg PO BIDWMEALS Lantus Solostar (Insulin Glargine,Hum.rec.anlog) 100 Unit/1 Ml Insuln.pen 75 Unit SQ HS Proair Hfa Inhaler (Albuterol Sulfate) 8.5 Gm Hfa.aer.ad 1 Puff INH PRN Q4HRS PRN Symbicort 160-4.5 Mcg Inhaler (Budesonide/Formoterol Fumarate) 10.2 Gm Hfa.aer.ad 2 Puff IH BID Clonidine Hcl 0.2 Mg Tablet 0.2 Mg PO PRN TID PRN if sbp > 180 and dbp>105 Aspir 81 (Aspirin) 81 Mg Tablet. 1 Tab PO DAILY Vitals/I & O Vital Sign - Last 24 Hours 07/06/17 07/06/17 07/06/17 07/06/17 15:13 17:53 19:15 19:30 Temp 97.7 98.4 97.7 98.4 Pulse 67 80 71 Resp 20 18 B/P (MAP) 125/45 (71) 148/62 (90) Pulse Ox 95 94 O2 Delivery BiPAP/CPAP Room Air Room Air 07/06/17 07/07/17 07/07/17 07/07/17 22:56 03:00 07:00 07:45 Temp 97.8 98.6 97.8 97.8 98.6 97.8 Pulse 69 67 63 Resp 18 18 20 B/P (MAP) 150/69 (96) 149/72 (97) 122/71 (88) Pulse Ox 100 94 92 98 O2 Delivery Room Air BiPAP/CPAP BiPAP/CPAP Room Air 07/07/17 07/07/17 07/07/17 07/07/17 08:00 08:15 08:16 08:17 Pulse 70 70 70 O2 Delivery Nasal Cannula O2 Flow Rate 2.0 07/07/17 07/07/17 07/07/17 07/07/17 08:17 11:00 11:00 11:00 Temp 97.6 97.6 Pulse 70 54 Resp 20 B/P (MAP) 108/37 (60) 128/69 (88) 122/41 (68) Pulse Ox 96 O2 Delivery BiPAP/CPAP 07/07/17 13:45 O2 Delivery Room Air Intake and Output 07/06/17 07/06/17 07/07/17 15:00 23:00 07:00 Intake Total 720 ml 400 ml 480 ml Output Total 1900 ml 750 ml 975 ml Balance -1180 ml -350 ml -495 ml GATITO LESLIE MD Jul 07, 2017 14:41
[2017-07-07 15:00] VITALS: BP 126/72
--- NOTE | 2017-07-07 17:37 | PDOC ---
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 CHF. GERA Cellulitis, LE. Obesity. RECOMMENDATIONS/PLAN: Continue Keppra 500 mg bid. Treat medical diseases. OT/PT. PAST MEDICAL HISTORY Past Medical History Cardiovascular: Other (pericarditis likely from infection per pt prompting pericardial window; chronic lymphedema), CAD, HTN, HLP Pulmonary: COPD, Other (GERA) CENTRAL NERVOUS SYSTEM: CVA, Dementia GI: Other (ventral hernia) Heme/Onc: No pertinent hx Hepatobiliary: No pertinent hx Psych: No pertinent hx Musculoskeletal: Osteoarthritis, Other (morbid obesity) Rheumatologic: No pertinent hx Infectious disease: No pertinent hx ENT: No pertinent hx Renal/: No pertinent hx Endocrine: Diabetes (2) Dermatology: Other (foot venous stasis blisters) PAST SURGICAL HISTORY Past Surgical History PCI/stent 3 weeks ago Appendectomy, Hernia Repair (9 ventral repairs), Tonsillectomy, Other (pericardial window; LHC) FAMILY HISTORY Family History: Heart Disease (mother) SOCIAL HISTORY Social History Smoke: No (quit >30 pk yr) ALCOHOL: none Drugs: None Lives: with Family ALLERGY: Reviewed. MEDICATIONS: Refer to [facility] REVIEW OF SYSTEMS: Constitutional: No malnutrition, weight loss, cachexia. Head: No traumatic brain or head injury. Skin: No edema, or rash. Ear: No infection. Eyes: No vision loss, or diplopia. Nose: No bleeding or purulent discharges. Hearing: No hearing decrease. Neck: No injury. Breast: No history of cancer, masses, or discharges. Cardiac: CHF Pulmonary: GERA. GI: No GI Ulcer, GI bleeding Urinary/genital: UTI. Endocrine: Obesity. Skeletomuscular: No muscular atrophy, deformity. Neurological: see HP. Psychiatric: Denies drug use/abuse. Otherwise, not [id number] review of systems. PHYSICAL EXAMINATION: General appearance in no acute distress. HEENT: Normocephalic and nontraumatic. Eyes, nose, ears, and throat are unremarkable. Neck is supple. No lymphadenopathy. No bruits are heard over the carotid artery. No Crepitus. Cardiovascular: S1, S2, regular rate and rhythm. Pulmonary: Clear to auscultation bilaterally. Abdomen: Bowel sounds are positive. Extremities: No rash, lesions, or edema. No restriction of range of motion NEUROLOGICAL EXAMINATION: Alert. Oriented to time, place and person. PERRL. EOMI. CN: no focal findings. Muscle tone: within normal. Muscle strength: 5- UE, 4 LE DTR: 2 Plantar reflex: Flexor response bilaterally Gait: not examined in bed. Sensory exam: no abnormal findings. No cerebellar signs elicited. F-T-N test accurate. Objective Objective Vital Signs Date Time Temp Pulse Resp B/P (MAP) Pulse Ox O2 Delivery O2 Flow Rate FiO2 07/07/17 16:49 70 07/07/17 13:45 Room Air 07/07/17 11:00 122/41 (68) 07/07/17 11:00 97.6 20 96 97.6 07/07/17 08:00 2.0 Intake and Output 07/07/17 07:00 Intake Total 1600 ml Output Total 3625 ml Balance -2025 ml Intake Oral 1600 ml Output Urine Total 3625 ml Vitals Signs Vitals VS - Last 72 Hours, by Label Date Time Temp Pulse Resp B/P (MAP) Pulse Ox O2 Delivery O2 Flow Rate FiO2 07/07/17 16:49 70 07/07/17 13:45 Room Air 07/07/17 11:00 122/41 (68) 07/07/17 11:00 128/69 (88) 07/07/17 11:00 97.6 54 20 108/37 (60) 96 BiPAP/CPAP 97.6 07/07/17 08:17 70 07/07/17 08:17 70 07/07/17 08:16 70 07/07/17 08:15 70 07/07/17 08:00 Nasal Cannula 2.0 07/07/17 07:45 98 Room Air 07/07/17 07:00 97.8 63 20 122/71 (88) 92 BiPAP/CPAP 97.8 07/07/17 03:00 98.6 67 18 149/72 (97) 94 BiPAP/CPAP 98.6 07/06/17 22:56 97.8 69 18 150/69 (96) 100 Room Air 97.8 07/06/17 19:30 Room Air 07/06/17 19:15 98.4 71 18 148/62 (90) 94 Room Air 98.4 07/06/17 17:53 80 07/06/17 15:13 97.7 67 20 125/45 (71) 95 BiPAP/CPAP 97.7 07/06/17 13:32 Room Air 07/06/17 10:30 97.7 66 20 115/64 (81) 94 BiPAP/CPAP 97.7 07/06/17 09:01 80 07/06/17 09:01 80 07/06/17 09:00 80 07/06/17 08:59 80 07/06/17 08:05 Nasal Cannula 2.0 07/06/17 07:57 95 Room Air 07/06/17 07:52 95 Room Air 07/06/17 07:10 97.6 69 18 165/76 (105) 94 BiPAP/CPAP 97.6 Laboratory Laboratory Laboratory Tests Test 07/06/17 19:40 07/06/17 19:43 07/07/17 04:18 07/07/17 04:25 Urine Opiates Screen Neg (NEG) Urine Methadone Screen Neg (NEG) Urine Barbiturates Neg (NEG) Urine Phencyclidine Screen Neg (NEG) Urine Amphetamine/Methamphetamine Neg (NEG) Urine Benzodiazepines Screen Neg (NEG) Urine Cocaine Screen Neg (NEG) Urine Cannabinoids Screen Neg (NEG) Urine Ethyl Alcohol Neg (NEG) Glucose (Fingerstick) 204 mg/dL (70-99) 59 mg/dL (70-99) White Blood Count 9.9 x10^3/uL (4.0-11.0) Red Blood Count 4.13 x10^6/uL (4.30-5.70) Hemoglobin 12.8 g/dL (13.0-17.5) Hematocrit 37.8 % (39.0-53.0) Mean Corpuscular Volume 92 fL (79-100) Mean Corpuscular Hemoglobin 31 pg (25-35) Mean Corpuscular Hemoglobin Concent 34 g/dL (31-37) Red Cell Distribution Width 13.4 % (11.5-14.5) Platelet Count 276 x10^3/uL (140-400) Neutrophils (%) (Auto) 47 % (31-73) Lymphocytes (%) (Auto) 39 % (24-48) Monocytes (%) (Auto) 10 % (0-9) Eosinophils (%) (Auto) 4 % (0-3) Basophils (%) (Auto) 1 % (0-3) Neutrophils # (Auto) 4.6 x10^3uL (1.8-7.7) Lymphocytes # (Auto) 3.8 x10^3/uL (1.0-4.8) Monocytes # (Auto) 1.0 x10^3/uL (0.0-1.1) Eosinophils # (Auto) 0.4 x10^3/uL (0.0-0.7) Basophils # (Auto) 0.1 x10^3/uL (0.0-0.2) Sodium Level 140 mmol/L (136-145) Potassium Level 4.0 mmol/L (3.5-5.1) Chloride Level 102 mmol/L (98-107) Carbon Dioxide Level 33 mmol/L (21-32) Anion Gap 5 (6-14) Blood Urea Nitrogen 30 mg/dL (8-26) Creatinine 1.1 mg/dL (0.7-1.3) Estimated GFR (Cockcroft-Gault) 67.2 Glucose Level 63 mg/dL (70-99) Calcium Level 9.6 mg/dL (8.5-10.1) Test 07/07/17 04:39 07/07/17 06:04 07/07/17 06:23 07/07/17 14:56 Glucose (Fingerstick) 91 mg/dL (70-99) 59 mg/dL (70-99) 89 mg/dL (70-99) 214 mg/dL (70-99) Test 07/07/17 16:52 Glucose (Fingerstick) 161 mg/dL (70-99) Medication Medications Current Medications Aspirin (Ecotrin) 325 mg DAILY PO ; Start 07/07/17 at 09:00; Status Cancel Aspirin (Ecotrin) 325 mg DAILYWBKFT PO Last administered on 07/07/17t 08:18; Start 07/07/17 at 08:00 Furosemide (Lasix) 20 mg 1X ONCE IVP ; Start 07/07/17 at 06:30; Stop at 06:31; Status Cancel Furosemide (Lasix) 40 mg DAILY PO ; Start 07/07/17 at 09:00; Stop 07/07/17 at 09:00; Status DC Insulin Detemir (Levemir) 55 units QHS SQ ; Start 07/07/17 at 21:00 Insulin Detemir (Levemir) 68 units QHS SQ Last administered on 07/06/17 21:09 ; Start 07/06/17 at 21:00; Stop 07/07/17 at 16:58; Status DC Metformin HCl (Glucophage) 1,000 mg BIDWMEALS PO Last administered on 17:21; Start 07/07/17 at 17:30 Comment Review of Relevant I have reviewed the following items tere (where applicable) has been applied. MEL VILLATORO MD Jul 07, 2017 17:37
[2017-07-07 19:50] VITALS: BP 137/46
[2017-07-07] MEDS: diphenhydrAMINE HCL 25 MG CAPSULE PO SCH (20:39)
[2017-07-07] MEDS ORDERED: INSULIN DETEMIR 300 UNITS/3 ML INSULN.PEN. SQ SCH (21:00)
--- NOTE | 2017-07-07 21:03 | EEG ---
DATE OF SERVICE: 07/06/2017 ELECTROENCEPHALOGRAM NUMBER: [id number]. SUBJECTIVE: This is a 66-year-old male patient with history of seizure and non-epileptic seizure episodes. EEG was requested to evaluate seizure activity. METHODS: Twenty electrodes were applied according to the international 10-20 electrode placement system. EKG monitoring, hyperventilation, intermittent photic stimulation, monopolar and bipolar montages are routinely utilized. The record was obtained on a digital system with video monitoring. FINDINGS: 1. Background: The patient was recorded in the awake and drowsy states. No actual sleep state was recorded. The overall background amplitude is 5-10 microvolts. A posterior dominant rhythm of 8 Hz is observed. 2. Abnormalities: No specific epileptiform discharge or electrographic seizure is seen. EKG artifact noted. 3. Activation: Hyperventilation was performed with good efforts and normal response. Intermittent photic stimulation was performed with photic driving. No specific epileptiform discharge or electrographic seizure induced by hyperventilation or intermittent photic stimulation. IMPRESSION: This electroencephalogram is within the broad normal limits of the study for the awake and drowsy states. No actual sleep state was recorded. No focal, lateralizing, specific epileptiform discharge or electrographic seizure is seen. MEL VILLATORO MD DR: ELENA/lino JOB#: [id number] / [id number] LIANG
[2017-07-07 22:50] VITALS: BP 113/50
[2017-07-08 03:00] VITALS: BP 151/66
[2017-07-08 06:25] LABS: BASO # 0.1 x10^3/uL (0.0-0.2); BASO % 1 % (0-3); EOS % 4 % (0-3); HEMATOCRIT 36.1 % (39.0-53.0); HEMOGLOBIN 12.2 g/dL (13.0-17.5); LYMPH # 3.1 x10^3/uL (1.0-4.8); LYMPH % 37 % (24-48); MEAN CORPUSCULAR HEMOGLOBIN 31 pg (25-35); MEAN CORPUSCULAR HGB CONC 34 g/dL (31-37); MEAN CORPUSCULAR VOLUME 92 fL (79-100); MONO % 10 % (0-9); NEUT % 48 % (31-73); PLATELET COUNT 242 x10^3/uL (140-400); RED BLOOD COUNT 3.94 x10^6/uL (4.30-5.70); RED CELL DISTRIBUTION WIDTH 13.3 % (11.5-14.5); WHITE BLOOD COUNT 8.2 x10^3/uL (4.0-11.0)
[2017-07-08 06:34] LABS: CALCIUM 9.1 mg/dL (8.5-10.1); CREATININE 1.2 mg/dL (0.7-1.3); GFR 60.8; POTASSIUM 4.2 mmol/L (3.5-5.1)
[2017-07-08 07:26] VITALS: BP 171/79
[2017-07-08] MEDS: ALBUTEROL SULFATE 2.5 MG/3 ML NEBU. NEB SCH ×3 (08:21→11:50)
[2017-07-08] MEDS: BUDESONIDE 0.5 MG/2 ML NEBU. NEB SCH (08:21)
[2017-07-08] MEDS: GABAPENTIN 300 MG CAPSULE. PO SCH ×2 (08:52→14:08)
[2017-07-08] MEDS: PANTOPRAZOLE 40 MG TABLET.DR. PO SCH (08:52)
[2017-07-08] MEDS: levETIRAcetam 500 MG TABLET PO SCH (08:52)
[2017-07-08] MEDS: ASPIRIN ENTERIC COATED 325 MG TABLET.DR. PO SCH (08:53)
[2017-07-08] MEDS: FUROSEMIDE 40 MG TABLET. PO SCH (08:53)
[2017-07-08] MEDS: ISOSORBIDE MONONITRATE ER 30 MG TAB.ER.24H PO SCH (08:53)
[2017-07-08] MEDS: POTASSIUM CHLORIDE 20 MEQ TABLET.ER. PO SCH (08:53)
[2017-07-08] MEDS: CARVEDILOL 12.5 MG TABLET. PO SCH (08:54)
[2017-07-08] MEDS: amLODIPine BESYLATE 10 MG TABLET PO SCH (08:54)
[2017-07-08] MEDS: DOCUSATE SODIUM 100 MG CAPSULE. PO SCH (08:54)
[2017-07-08] MEDS: POLYETHYLENE GLYCOL 3350 17 GM PACKET. PO SCH (08:55)
[2017-07-08] MEDS: MULTIVITAMIN with MINERAL TABLET. PO SCH (08:55)
[2017-07-08] MEDS: LOSARTAN POTASSIUM 50 MG TABLET. PO SCH (08:55)
[2017-07-08] MEDS: MAGNESIUM OXIDE 400 MG TABLET PO SCH (08:55)
[2017-07-08] MEDS: BENZONATATE 100 MG CAPSULE. PO SCH (09:00)
[2017-07-08] MEDS: INSULIN ASPART 300 UNITS/3 ML INSULN.PEN SQ SCH ×2 (09:00→11:38)
[2017-07-08] MEDS: CLOPIDOGREL BISULFATE 75 MG TABLET PO SCH (09:00)
[2017-07-08 10:30] VITALS: BP 134/61
--- NOTE | 2017-07-08 11:20 | PDOC ---
PROGRESS NOTES Chief Complaint Chief Complaint Chest pain, atypical recent Pericarditis and recent pericardial window; chronic lymphedema CAD, known HTN HLP COPD stable GERA w/ CPAP CVA hx with weakess Dementia, vascular, chronic mild cognitive defect Ventral hernia Osteoarthritis Morbid obesity, BMI 54 DM 2, have greatly decreased dosed of insulin her on regulated diet , hypoglycemia here weakness and debility, acquired History of Present Illness History of Present Illness try to DC to [facility] LE edema ok, still some weakness hypoglycemia now resolved, cont 55 levemir, diet mods have helped greatly looks better daily Vitals Vitals Vital Signs Date Time Temp Pulse Resp B/P (MAP) Pulse Ox O2 Delivery O2 Flow Rate FiO2 07/08/17 10:30 98.2 68 21 134/61 (85) 98 BiPAP/CPAP 98.2 07/08/17 08:00 2.0 Physical Exam General: Alert, Oriented X3, Cooperative, mild distress Heart: Regular rate, Normal S1, Normal S2 Lungs: Other (fine rales, no wheeze, mod volume) Abdomen: Normal bowel sounds Extremities: Normal pulses, Other (chronicleg edema, long toe nails, 2+ pitting edema to pretibial, tr to pedal) Skin: No breakdown, No significant lesion Labs LABS Laboratory Tests Test 07/07/17 14:56 07/07/17 16:52 07/07/17 20:43 07/08/17 05:18 Glucose (Fingerstick) 214 mg/dL (70-99) 161 mg/dL (70-99) 198 mg/dL (70-99) White Blood Count 8.2 x10^3/uL (4.0-11.0) Red Blood Count 3.94 x10^6/uL (4.30-5.70) Hemoglobin 12.2 g/dL (13.0-17.5) Hematocrit 36.1 % (39.0-53.0) Mean Corpuscular Volume 92 fL (79-100) Mean Corpuscular Hemoglobin 31 pg (25-35) Mean Corpuscular Hemoglobin Concent 34 g/dL (31-37) Red Cell Distribution Width 13.3 % (11.5-14.5) Platelet Count 242 x10^3/uL (140-400) Neutrophils (%) (Auto) 48 % (31-73) Lymphocytes (%) (Auto) 37 % (24-48) Monocytes (%) (Auto) 10 % (0-9) Eosinophils (%) (Auto) 4 % (0-3) Basophils (%) (Auto) 1 % (0-3) Neutrophils # (Auto) 4.0 x10^3uL (1.8-7.7) Lymphocytes # (Auto) 3.1 x10^3/uL (1.0-4.8) Monocytes # (Auto) 0.8 x10^3/uL (0.0-1.1) Eosinophils # (Auto) 0.3 x10^3/uL (0.0-0.7) Basophils # (Auto) 0.1 x10^3/uL (0.0-0.2) Sodium Level 139 mmol/L (136-145) Potassium Level 4.2 mmol/L (3.5-5.1) Chloride Level 102 mmol/L (98-107) Carbon Dioxide Level 33 mmol/L (21-32) Anion Gap 4 (6-14) Blood Urea Nitrogen 31 mg/dL (8-26) Creatinine 1.2 mg/dL (0.7-1.3) Estimated GFR (Cockcroft-Gault) 60.8 Glucose Level 128 mg/dL (70-99) Calcium Level 9.1 mg/dL (8.5-10.1) Test 07/08/17 07:29 Glucose (Fingerstick) 163 mg/dL (70-99) Review of Systems Review of Systems no n.v/d Assessment and Plan Assessmemt and Plan Problems Medical Problems: (1) Congestive heart failure Status: Acute (2) Pulmonary edema Status: Acute (3) Seizure Status: Acute Problems: Comment Review of Relevant I have reviewed the following items tere (where applicable) has been applied. Labs Laboratory Tests Test 07/06/17 11:33 07/06/17 16:55 07/06/17 19:40 07/06/17 19:43 Glucose (Fingerstick) 94 mg/dL (70-99) 151 mg/dL (70-99) 204 mg/dL (70-99) Urine Opiates Screen Neg (NEG) Urine Methadone Screen Neg (NEG) Urine Barbiturates Neg (NEG) Urine Phencyclidine Screen Neg (NEG) Urine Amphetamine/Methamphetamine Neg (NEG) Urine Benzodiazepines Screen Neg (NEG) Urine Cocaine Screen Neg (NEG) Urine Cannabinoids Screen Neg (NEG) Urine Ethyl Alcohol Neg (NEG) Test 07/07/17 04:18 07/07/17 04:25 07/07/17 04:39 07/07/17 06:04 Glucose (Fingerstick) 59 mg/dL (70-99) 91 mg/dL (70-99) 59 mg/dL (70-99) White Blood Count 9.9 x10^3/uL (4.0-11.0) Red Blood Count 4.13 x10^6/uL (4.30-5.70) Hemoglobin 12.8 g/dL (13.0-17.5) Hematocrit 37.8 % (39.0-53.0) Mean Corpuscular Volume 92 fL (79-100) Mean Corpuscular Hemoglobin 31 pg (25-35) Mean Corpuscular Hemoglobin Concent 34 g/dL (31-37) Red Cell Distribution Width 13.4 % (11.5-14.5) Platelet Count 276 x10^3/uL (140-400) Neutrophils (%) (Auto) 47 % (31-73) Lymphocytes (%) (Auto) 39 % (24-48) Monocytes (%) (Auto) 10 % (0-9) Eosinophils (%) (Auto) 4 % (0-3) Basophils (%) (Auto) 1 % (0-3) Neutrophils # (Auto) 4.6 x10^3uL (1.8-7.7) Lymphocytes # (Auto) 3.8 x10^3/uL (1.0-4.8) Monocytes # (Auto) 1.0 x10^3/uL (0.0-1.1) Eosinophils # (Auto) 0.4 x10^3/uL (0.0-0.7) Basophils # (Auto) 0.1 x10^3/uL (0.0-0.2) Sodium Level 140 mmol/L (136-145) Potassium Level 4.0 mmol/L (3.5-5.1) Chloride Level 102 mmol/L (98-107) Carbon Dioxide Level 33 mmol/L (21-32) Anion Gap 5 (6-14) Blood Urea Nitrogen 30 mg/dL (8-26) Creatinine 1.1 mg/dL (0.7-1.3) Estimated GFR (Cockcroft-Gault) 67.2 Glucose Level 63 mg/dL (70-99) Calcium Level 9.6 mg/dL (8.5-10.1) Test 07/07/17 06:23 07/07/17 07:18 07/07/17 10:30 07/07/17 14:56 Glucose (Fingerstick) 89 mg/dL (70-99) 77 mg/dL (70-99) 141 mg/dL (70-99) 214 mg/dL (70-99) Test 07/07/17 16:52 07/07/17 20:43 07/08/17 05:18 07/08/17 07:29 Glucose (Fingerstick) 161 mg/dL (70-99) 198 mg/dL (70-99) 163 mg/dL (70-99) White Blood Count 8.2 x10^3/uL (4.0-11.0) Red Blood Count 3.94 x10^6/uL (4.30-5.70) Hemoglobin 12.2 g/dL (13.0-17.5) Hematocrit 36.1 % (39.0-53.0) Mean Corpuscular Volume 92 fL (79-100) Mean Corpuscular Hemoglobin 31 pg (25-35) Mean Corpuscular Hemoglobin Concent 34 g/dL (31-37) Red Cell Distribution Width 13.3 % (11.5-14.5) Platelet Count 242 x10^3/uL (140-400) Neutrophils (%) (Auto) 48 % (31-73) Lymphocytes (%) (Auto) 37 % (24-48) Monocytes (%) (Auto) 10 % (0-9) Eosinophils (%) (Auto) 4 % (0-3) Basophils (%) (Auto) 1 % (0-3) Neutrophils # (Auto) 4.0 x10^3uL (1.8-7.7) Lymphocytes # (Auto) 3.1 x10^3/uL (1.0-4.8) Monocytes # (Auto) 0.8 x10^3/uL (0.0-1.1) Eosinophils # (Auto) 0.3 x10^3/uL (0.0-0.7) Basophils # (Auto) 0.1 x10^3/uL (0.0-0.2) Sodium Level 139 mmol/L (136-145) Potassium Level 4.2 mmol/L (3.5-5.1) Chloride Level 102 mmol/L (98-107) Carbon Dioxide Level 33 mmol/L (21-32) Anion Gap 4 (6-14) Blood Urea Nitrogen 31 mg/dL (8-26) Creatinine 1.2 mg/dL (0.7-1.3) Estimated GFR (Cockcroft-Gault) 60.8 Glucose Level 128 mg/dL (70-99) Calcium Level 9.1 mg/dL (8.5-10.1) Laboratory Tests Test 07/07/17 14:56 07/07/17 16:52 07/07/17 20:43 07/08/17 05:18 Glucose (Fingerstick) 214 mg/dL (70-99) 161 mg/dL (70-99) 198 mg/dL (70-99) White Blood Count 8.2 x10^3/uL (4.0-11.0) Red Blood Count 3.94 x10^6/uL (4.30-5.70) Hemoglobin 12.2 g/dL (13.0-17.5) Hematocrit 36.1 % (39.0-53.0) Mean Corpuscular Volume 92 fL (79-100) Mean Corpuscular Hemoglobin 31 pg (25-35) Mean Corpuscular Hemoglobin Concent 34 g/dL (31-37) Red Cell Distribution Width 13.3 % (11.5-14.5) Platelet Count 242 x10^3/uL (140-400) Neutrophils (%) (Auto) 48 % (31-73) Lymphocytes (%) (Auto) 37 % (24-48) Monocytes (%) (Auto) 10 % (0-9) Eosinophils (%) (Auto) 4 % (0-3) Basophils (%) (Auto) 1 % (0-3) Neutrophils # (Auto) 4.0 x10^3uL (1.8-7.7) Lymphocytes # (Auto) 3.1 x10^3/uL (1.0-4.8) Monocytes # (Auto) 0.8 x10^3/uL (0.0-1.1) Eosinophils # (Auto) 0.3 x10^3/uL (0.0-0.7) Basophils # (Auto) 0.1 x10^3/uL (0.0-0.2) Sodium Level 139 mmol/L (136-145) Potassium Level 4.2 mmol/L (3.5-5.1) Chloride Level 102 mmol/L (98-107) Carbon Dioxide Level 33 mmol/L (21-32) Anion Gap 4 (6-14) Blood Urea Nitrogen 31 mg/dL (8-26) Creatinine 1.2 mg/dL (0.7-1.3) Estimated GFR (Cockcroft-Gault) 60.8 Glucose Level 128 mg/dL (70-99) Calcium Level 9.1 mg/dL (8.5-10.1) Test 07/08/17 07:29 Glucose (Fingerstick) 163 mg/dL (70-99) Medications Current Medications Lorazepam (Ativan) 2 mg PRN Q4HRS PRN IV ANXIETY / AGITATION; Start 07/03/17 at 16:00 Hydralazine HCl (Apresoline Inj) 10 mg PRN Q4HRS PRN IVP ELEVATED BP, SEE COMMENTS; Start 07/03/17 at 16:00 Morphine Sulfate 2 mg PRN Q2HR PRN IV SEVERE PAIN; Start 07/03/17 at 16:00 Ondansetron HCl (Zofran) 4 mg PRN Q6HRS PRN IV NAUSEA/VOMITING; Start at 16:00 Ondansetron HCl (Zofran Odt) 4 mg PRN Q6HRS PRN PO NAUSEA/VOMITING; Start 06/09 at 16:00 Acetaminophen (Tylenol) 500 mg PRN Q6HRS PRN PO MILD PAIN / TEMP; Start at 16:00 Acetaminophen/ Hydrocodone Bitart (Lortab 5/325) 1 tab PRN Q4HRS PRN PO MODERATE PAIN Last administered on 07/04/17 05:06; Start 07/03/17 at 16:00 Insulin Aspart (NovoLOG) 0-9 UNITS TIDWMEALS SQ Last administered on 09:00; Start 07/03/17 at 17:00 Dextrose (Dextrose 50%-Water Syringe) 12.5 gm PRN Q15MIN PRN IV SEE COMMENTS Last administered on 07/04/17 12:35; Start 07/03/17 at 16:00 Acetaminophen/ Codeine Phosphate (Tylenol #3) 1 tab PRN Q6HRS PRN PO MILD PAIN ; Start 07/03/17 at 16:00 Amlodipine Besylate (Norvasc) 10 mg HS PO Last administered on 07/03/17 20:44 ; Start 07/03/17 at 21:00; Stop 07/04/17 at 09:49; Status DC Aspirin (Ecotrin) 81 mg DAILY PO Last administered on 07/06/17 08:58; Start 07/04/17 at 09:00; Stop 07/06/17 at 10:45; Status DC Benzonatate (Tessalon Perle) 100 mg DAILY PO Last administered on 07/08/17 09 :00; Start 07/04/17 at 09:00 Clonidine HCl (Catapres) 0.2 mg PRN TID PRN PO tid; Start 07/03/17 at 16:00 Clopidogrel Bisulfate (Plavix) 75 mg DAILY PO Last administered on 07/08/17 09:00; Start 07/04/17 at 09:00 Diphenhydramine HCl (Benadryl) 25 mg QHS PO Last administered on 07/07/17 20: 39; Start 07/03/17 at 21:00 Docusate Sodium (Colace) 100 mg BID PO Last administered on 07/08/17 08:54; Start 07/03/17 at 21:00 Furosemide (Lasix) 40 mg DAILY PO ; Start 07/04/17 at 09:00; Stop 07/04/17 at 09:00; Status DC Acetaminophen/ Hydrocodone Bitart (Lortab 5/325) 1 tab PRN Q8HRS PRN PO PAIN; Start 07/03/17 at 16:00; Stop 07/07/17 at 14:19; Status DC Insulin Aspart (NovoLOG) 18 units DAILYAC SQ Last administered on 07/04/17 09 :52; Start 07/04/17 at 07:30; Stop 07/04/17 at 17:15; Status DC Insulin Aspart (NovoLOG) 24 units DAILYBFRSUP SQ ; Start 07/03/17 at 17:00; Stop 07/04/17 at 17:15; Status DC Levetiracetam (Keppra) 500 mg BID PO Last administered on 07/08/17 08:52; Start 07/03/17 at 21:00 Meloxicam (Mobic) 7.5 mg DAILY PO Last administered on 07/05/17 09:29; Start 07/04/17 at 09:00; Stop 07/06/17 at 08:18; Status DC Metformin HCl (Glucophage) 1,000 mg BIDWMEALS PO Last administered on 17:36; Start 07/03/17 at 18:00; Stop 07/06/17 at 08:18; Status DC Methocarbamol (Robaxin) 500 mg PRN QID PRN PO MUSCLE SPASMS Last administered on 07/05/17 15:50; Start 07/03/17 at 16:00 Pantoprazole Sodium (Protonix) 40 mg DAILY PO Last administered on 07/08/17 08:52; Start 07/04/17 at 09:00 Phenytoin Sodium (Dilantin) 200 mg BID PO Last administered on 07/04/17 09:24 ; Start 07/03/17 at 21:00; Stop 07/04/17 at 13:15; Status DC Polyethylene Glycol (miraLAX PACKET) 17 gm DAILY PO Last administered on 08:55; Start 07/04/17 at 09:00 Trazodone HCl (Desyrel) 50 mg PRN QHS PRN PO INSOMNIA; Start 07/03/17 at 16:00 Triamcinolone Acetonide (Kenalog) 1 uma PRN TID PRN TP RASH; Start 07/03/17 at 16:00 Non-Formulary Medication 1 puff PRN Q4HRS PRN INH SHORTNESS OF BREATH; Start 07/03/17 at 16:00; Stop 07/03/17 at 17:52; Status DC Non-Formulary Medication 2 puff BID IH ; Start 07/03/17 at 21:00; Stop at 21:00; Status DC Carvedilol (Coreg) 25 mg BIDWMEALS PO Last administered on 07/08/17 08:54; Start 07/03/17 at 18:00 Gabapentin (Neurontin) 300 mg TID PO Last administered on 07/08/17 08:52; Start 07/03/17 at 21:00 Insulin Detemir (Levemir) 75 units QHS SQ Last administered on 07/05/17 20:42 ; Start 07/03/17 at 21:00; Stop 07/06/17 at 11:55; Status DC Losartan Potassium (Cozaar) 100 mg DAILY PO Last administered on 07/08/17 08: 55; Start 07/04/17 at 09:00 Magnesium Oxide (Magnesium Oxide) 400 mg DAILY PO Last administered on 08:55; Start 07/04/17 at 09:00 Multivitamins (Thera M Plus) 1 tab DAILY PO Last administered on 07/08/17 08: 55; Start 07/04/17 at 09:00 Potassium Chloride (Klor-Con) 20 meq DAILYWBKFT PO Last administered on 08:53; Start 07/04/17 at 08:00 Magnesium Sulfate/ Dextrose 50 ml @ 25 mls/hr 1X ONCE IV Last administered on 07/03/17 16:21; Start 07/03/17 at 16:15; Stop 07/03/17 at 18:14; Status DC Furosemide (Lasix) 40 mg 1X ONCE IVP Last administered on 07/03/17 16:30; Start 07/03/17 at 16:15; Stop 07/03/17 at 16:16; Status DC Albuterol Sulfate (Ventolin Neb Soln) 2.5 mg PRN Q4HRS PRN NEB SHORTNESS OF BREATH; Start 07/03/17 at 17:45 Albuterol Sulfate (Ventolin Neb Soln) 2.5 mg Q6HRS NEB Last administered on 08:21; Start 07/03/17 at 18:00 Budesonide (Pulmicort) 0.5 mg RTBID NEB Last administered on 07/08/17 08:21; Start 07/03/17 at 20:00 Furosemide (Lasix) 40 mg DAILY IVP Last administered on 07/05/17 09:30; Start 07/04/17 at 09:00; Stop 07/06/17 at 08:18; Status DC Magnesium Sulfate/ Dextrose 50 ml @ 25 mls/hr 1X ONCE IV Last administered on 07/04/17 09:56; Start 07/04/17 at 08:00; Stop 07/04/17 at 09:59; Status DC Amlodipine Besylate (Norvasc) 5 mg HS PO Last administered on 07/05/17 20:38 ; Start 07/04/17 at 21:00; Stop 07/06/17 at 08:18; Status DC Isosorbide Mononitrate (Imdur) 30 mg DAILY PO Last administered on 07/05/17 09:29; Start 07/04/17 at 10:30; Stop 07/06/17 at 08:18; Status DC Amlodipine Besylate (Norvasc) 10 mg DAILY PO Last administered on 07/08/17 08 :54; Start 07/06/17 at 09:00 Isosorbide Mononitrate (Imdur) 60 mg DAILY PO Last administered on 07/08/17 08:53; Start 07/06/17 at 09:00 Aspirin (Ecotrin) 325 mg DAILY PO ; Start 07/07/17 at 09:00; Status Cancel Insulin Detemir (Levemir) 68 units QHS SQ Last administered on 07/06/17 21:09 ; Start 07/06/17 at 21:00; Stop 07/07/17 at 16:58; Status DC Furosemide (Lasix) 40 mg DAILY PO ; Start 07/07/17 at 09:00; Stop 07/07/17 at 09:00; Status DC Furosemide (Lasix) 40 mg DAILY PO Last administered on 07/08/17 08:53; Start 07/06/17 at 15:30 Furosemide (Lasix) 20 mg 1X ONCE IVP ; Start 07/07/17 at 06:30; Stop at 06:31; Status Cancel Aspirin (Ecotrin) 325 mg DAILYWBKFT PO Last administered on 07/08/17 08:53; Start 07/07/17 at 08:00 Insulin Detemir (Levemir) 55 units QHS SQ Last administered on 07/07/17 21:50 ; Start 07/07/17 at 21:00 Metformin HCl (Glucophage) 1,000 mg BIDWMEALS PO Last administered on 08:54; Start 07/07/17 at 17:30 Active Scripts Active Acetaminophen-Cod #3 Tablet (Acetaminophen/Codeine Phosphate) 1 Each Tablet 1 Tab PO PRN Q6HRS PRN Dilantin (Phenytoin Sodium Extended) 100 Mg Capsule 2 Cap PO BID Keppra (Levetiracetam) 500 Mg Tablet 1 Tab PO BID Keppra (Levetiracetam) 500 Mg Tablet 1 Tab PO BID Reported Triamcinolone Acetonide 0.1% Cream (Triamcinolone Acetonide) 15 Gm Cream..g. 1 Uma TP PRN TID PRN Magnesium 200 Mg Tablet 400 Mg PO DAILY Potassium Chloride 20 Meq Tablet.er 20 Meq PO DAILY Polyethylene Glycol 3350 255 Gm Powder 17 Gm PO DAILY Pantoprazole Sodium 40 Mg Tablet.dr 40 Mg PO DAILY Multi-Day Vitamins (Multivitamin) 1 Each Tablet 1 Tab PO DAILY Robaxin (Methocarbamol) 500 Mg Tablet 500 Mg PO PRN QID PRN Levofloxacin 500 Mg Tablet 500 Mg PO DAILY Novolog Flexpen (Insulin Aspart) 100 Unit/1 Ml Insuln.pen 24 Unit SQ DAILYBFRSUP Novolog Flexpen (Insulin Aspart) 100 Unit/1 Ml Insuln.pen 18 Unit SQ DAILYAC [place] 5-325 Tablet (Acetaminophen/Hydrocodone Bitart) 1 Each Tablet 1-2 Tab PO PRN Q8HRS PRN Furosemide 40 Mg Tablet 1 Tab PO DAILY Doxycycline Hyclate 100 Mg Tablet 100 Mg PO BID Colace (Docusate Sodium) 100 Mg Capsule 1 Cap PO BID Clopidogrel (Clopidogrel Bisulfate) 75 Mg Tablet 75 Mg PO DAILY Benzonatate 100 Mg Capsule 1 Cap PO DAILY Amlodipine Besylate 10 Mg Tablet 10 Mg PO HS Tylenol (Acetaminophen) 325 Mg Tablet 650 Mg PO QID Trazodone Hcl 50 Mg Tablet 50 Mg PO PRN QHS PRN Carvedilol 25 Mg Tablet 25 Mg PO BIDWMEALS Losartan Potassium 100 Mg Tablet 100 Mg PO DAILY Benadryl (Diphenhydramine Hcl) 25 Mg Capsule 1 Cap PO QHS Meloxicam 7.5 Mg Tablet 7.5 Mg PO DAILY Gabapentin 300 Mg Capsule 300 Mg PO TID Metformin Hcl 1,000 Mg Tablet 1,000 Mg PO BIDWMEALS Lantus Solostar (Insulin Glargine,Hum.rec.anlog) 100 Unit/1 Ml Insuln.pen 75 Unit SQ HS Proair Hfa Inhaler (Albuterol Sulfate) 8.5 Gm Hfa.aer.ad 1 Puff INH PRN Q4HRS PRN Symbicort 160-4.5 Mcg Inhaler (Budesonide/Formoterol Fumarate) 10.2 Gm Hfa.aer.ad 2 Puff IH BID Clonidine Hcl 0.2 Mg Tablet 0.2 Mg PO PRN TID PRN if sbp > 180 and dbp>105 Aspir 81 (Aspirin) 81 Mg Tablet. 1 Tab PO DAILY Vitals/I & O Vital Sign - Last 24 Hours 07/07/17 07/07/17 07/07/17 07/07/17 13:45 15:00 16:49 18:26 Temp 98.1 98.1 Pulse 67 70 Resp 20 B/P (MAP) 126/72 (90) Pulse Ox 97 O2 Delivery Room Air BiPAP/CPAP Room Air 07/07/17 07/07/17 07/07/17 07/08/17 19:50 20:00 22:50 03:00 Temp 98.2 97.7 97.8 98.2 97.7 97.8 Pulse 69 74 70 Resp 20 18 20 B/P (MAP) 137/46 (76) 113/50 (71) 151/66 (94) Pulse Ox 97 94 94 O2 Delivery Room Air Nasal Cannula BiPAP/CPAP Room Air O2 Flow Rate 2.0 07/08/17 07/08/17 07/08/17 07/08/17 07:26 08:00 08:22 08:53 Temp 98.1 98.1 Pulse 73 72 Resp 21 B/P (MAP) 171/79 (109) 171/79 Pulse Ox 95 96 O2 Delivery Room Air Nasal Cannula Room Air O2 Flow Rate 2.0 07/08/17 07/08/17 07/08/17 07/08/17 08:54 08:54 08:55 10:30 Temp 98.2 98.2 Pulse 72 74 68 Resp 21 B/P (MAP) 171/79 171/79 171/79 134/61 (85) Pulse Ox 98 O2 Delivery BiPAP/CPAP Intake and Output 07/07/17 07/07/17 07/08/17 14:59 22:59 06:59 Intake Total 500 ml 1850 ml 820 ml Output Total 250 ml 1525 ml 300 ml Balance 250 ml 325 ml 520 ml GATITO LESLIE MD Jul 08, 2017 11:20
--- NOTE | 2017-07-08 15:36 | PDOC ---
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 CHF. GERA Cellulitis, LE. Obesity. RECOMMENDATIONS/PLAN: Continue Keppra 500 mg bid. Treat medical diseases. OT/PT. EEG on 07/06/17 was without seizure activity. PAST MEDICAL HISTORY Past Medical History Cardiovascular: Other (pericarditis likely from infection per pt prompting pericardial window; chronic lymphedema), CAD, HTN, HLP Pulmonary: COPD, Other (GERA) CENTRAL NERVOUS SYSTEM: CVA, Dementia GI: Other (ventral hernia) Heme/Onc: No pertinent hx Hepatobiliary: No pertinent hx Psych: No pertinent hx Musculoskeletal: Osteoarthritis, Other (morbid obesity) Rheumatologic: No pertinent hx Infectious disease: No pertinent hx ENT: No pertinent hx Renal/: No pertinent hx Endocrine: Diabetes (2) Dermatology: Other (foot venous stasis blisters) PAST SURGICAL HISTORY Past Surgical History PCI/stent 3 weeks ago Appendectomy, Hernia Repair (9 ventral repairs), Tonsillectomy, Other (pericardial window; LHC) FAMILY HISTORY Family History: Heart Disease (mother) SOCIAL HISTORY Social History Smoke: No (quit >30 pk yr) ALCOHOL: none Drugs: None Lives: with Family ALLERGY: Reviewed. MEDICATIONS: Refer to [facility] REVIEW OF SYSTEMS: Constitutional: No malnutrition, weight loss, cachexia. Head: No traumatic brain or head injury. Skin: No edema, or rash. Ear: No infection. Eyes: No vision loss, or diplopia. Nose: No bleeding or purulent discharges. Hearing: No hearing decrease. Neck: No injury. Breast: No history of cancer, masses, or discharges. Cardiac: CHF Pulmonary: GERA. GI: No GI Ulcer, GI bleeding Urinary/genital: UTI. Endocrine: Obesity. Skeletomuscular: No muscular atrophy, deformity. Neurological: see HP. Psychiatric: Denies drug use/abuse. Otherwise, not [id number] review of systems. PHYSICAL EXAMINATION: General appearance in no acute distress. HEENT: Normocephalic and nontraumatic. Eyes, nose, ears, and throat are unremarkable. Neck is supple. No lymphadenopathy. No bruits are heard over the carotid artery. No Crepitus. Cardiovascular: S1, S2, regular rate and rhythm. Pulmonary: Clear to auscultation bilaterally. Abdomen: Bowel sounds are positive. Extremities: No rash, lesions, or edema. No restriction of range of motion NEUROLOGICAL EXAMINATION: Alert. Oriented to time, place and person. PERRL. EOMI. CN: no focal findings. Muscle tone: within normal. Muscle strength: 5- UE, 4 LE DTR: 2 Plantar reflex: Flexor response bilaterally Gait: not examined in bed. Sensory exam: no abnormal findings. No cerebellar signs elicited. F-T-N test accurate. Objective Objective Vital Signs Date Time Temp Pulse Resp B/P (MAP) Pulse Ox O2 Delivery O2 Flow Rate FiO2 07/08/17 11:50 94 Room Air 07/08/17 10:30 98.2 68 21 134/61 (85) 98.2 07/08/17 08:00 2.0 Intake and Output 07/08/17 07:00 Intake Total 3170 ml Output Total 2075 ml Balance 1095 ml Intake Oral 3170 ml Output Urine Total 2075 ml Vitals Signs Vitals VS - Last 72 Hours, by Label Date Time Temp Pulse Resp B/P (MAP) Pulse Ox O2 Delivery O2 Flow Rate FiO2 07/08/17 11:50 94 Room Air 07/08/17 10:30 98.2 68 21 134/61 (85) 98 BiPAP/CPAP 98.2 07/08/17 08:55 74 171/79 07/08/17 08:54 171/79 07/08/17 08:54 72 171/79 07/08/17 08:53 72 171/79 07/08/17 08:22 96 Room Air 07/08/17 08:00 Nasal Cannula 2.0 07/08/17 07:26 98.1 73 21 171/79 (109) 95 Room Air 98.1 07/08/17 03:00 97.8 70 20 151/66 (94) 94 Room Air 97.8 07/07/17 22:50 97.7 74 18 113/50 (71) 94 BiPAP/CPAP 97.7 07/07/17 20:00 Nasal Cannula 2.0 07/07/17 19:50 98.2 69 20 137/46 (76) 97 Room Air 98.2 07/07/17 18:26 Room Air 07/07/17 16:49 70 07/07/17 15:00 98.1 67 20 126/72 (90) 97 BiPAP/CPAP 98.1 07/07/17 13:45 Room Air 07/07/17 11:00 122/41 (68) 07/07/17 11:00 128/69 (88) 07/07/17 11:00 97.6 54 20 108/37 (60) 96 BiPAP/CPAP 97.6 07/07/17 08:17 70 07/07/17 08:17 70 07/07/17 08:16 70 07/07/17 08:15 70 07/07/17 08:00 Nasal Cannula 2.0 07/07/17 07:45 98 Room Air 07/07/17 07:00 97.8 63 20 122/71 (88) 92 BiPAP/CPAP 97.8 Laboratory Laboratory Laboratory Tests Test 07/07/17 16:52 07/07/17 20:43 07/08/17 05:18 07/08/17 07:29 Glucose (Fingerstick) 161 mg/dL (70-99) 198 mg/dL (70-99) 163 mg/dL (70-99) White Blood Count 8.2 x10^3/uL (4.0-11.0) Red Blood Count 3.94 x10^6/uL (4.30-5.70) Hemoglobin 12.2 g/dL (13.0-17.5) Hematocrit 36.1 % (39.0-53.0) Mean Corpuscular Volume 92 fL (79-100) Mean Corpuscular Hemoglobin 31 pg (25-35) Mean Corpuscular Hemoglobin Concent 34 g/dL (31-37) Red Cell Distribution Width 13.3 % (11.5-14.5) Platelet Count 242 x10^3/uL (140-400) Neutrophils (%) (Auto) 48 % (31-73) Lymphocytes (%) (Auto) 37 % (24-48) Monocytes (%) (Auto) 10 % (0-9) Eosinophils (%) (Auto) 4 % (0-3) Basophils (%) (Auto) 1 % (0-3) Neutrophils # (Auto) 4.0 x10^3uL (1.8-7.7) Lymphocytes # (Auto) 3.1 x10^3/uL (1.0-4.8) Monocytes # (Auto) 0.8 x10^3/uL (0.0-1.1) Eosinophils # (Auto) 0.3 x10^3/uL (0.0-0.7) Basophils # (Auto) 0.1 x10^3/uL (0.0-0.2) Sodium Level 139 mmol/L (136-145) Potassium Level 4.2 mmol/L (3.5-5.1) Chloride Level 102 mmol/L (98-107) Carbon Dioxide Level 33 mmol/L (21-32) Anion Gap 4 (6-14) Blood Urea Nitrogen 31 mg/dL (8-26) Creatinine 1.2 mg/dL (0.7-1.3) Estimated GFR (Cockcroft-Gault) 60.8 Glucose Level 128 mg/dL (70-99) Calcium Level 9.1 mg/dL (8.5-10.1) Test 07/08/17 11:21 Glucose (Fingerstick) 144 mg/dL (70-99) Medication Medications Current Medications Insulin Detemir (Levemir) 55 units QHS SQ Last administered on 07/07/17 21:50 ; Start 07/07/17 at 21:00 Metformin HCl (Glucophage) 1,000 mg BIDWMEALS PO Last administered on 08:54; Start 07/07/17 at 17:30 Comment Review of Relevant I have reviewed the following items tere (where applicable) has been applied. MEL VILLATORO MD Jul 08, 2017 15:36
--- NOTE | 2017-08-05 23:23 | PDOC3 ---
Discharge Summary Visit Information Date of Admission: Jul 03, 2017 Date of Discharge: Jul 08, 2017 Admitting Diagnosis: seizure Final Diagnosis Chest pain, atypical recent Pericarditis and recent pericardial window; chronic lymphedema CAD, known HTN HLP COPD stable GERA w/ CPAP CVA hx with weakess Dementia, vascular, chronic mild cognitive defect Ventral hernia Osteoarthritis Morbid obesity, BMI 54 DM 2, have greatly decreased dosed of insulin her on regulated diet , hypoglycemia here weakness and debility, acquired Problems Medical Problems: (1) Congestive heart failure Status: Acute (2) Pulmonary edema Status: Acute (3) Seizure Status: Acute Brief Hospital Course Allergies Allergies Coded Allergies Type Severity Reaction Last Updated Verified Hfn[place]-Pmp-Tkn Reductase Inhibitor Allergy Intermediate 04/03/17 Yes erythromycin base Allergy Intermediate 04/03/17 Yes iodine Allergy Intermediate 04/03/17 Yes niacin Allergy Intermediate 04/03/17 Yes simvastatin Allergy Intermediate 04/03/17 Yes Brief Hospital Course Mr. Melchor is a 66 old s/p seizufrer, w/ weakness and chest pain recent PCI, edema, LE edema ok, still some weakness hypoglycemia resolved, cont 55 levemir, diet mods have helped greatly Discharge Information Condition at Discharge: Improved Follow Up: Weeks Disposition/Orders: D/C to Another Facility ([facility]) Scheduled Amlodipine Besylate (Amlodipine Besylate), 10 MG PO HS, (Reported) Aspirin (Aspirin Ec), 325 MG PO DAILY, (Reported) Benzonatate (Tessalon Perle), 100 MG PO DAILY, (Reported) Budesonide (Pulmicort), 0.5 MG IH RTBID, (Reported) Carvedilol (Carvedilol), 25 MG PO BIDWMEALS, (Reported) Clopidogrel Bisulfate (Clopidogrel), 75 MG PO DAILY, (Reported) Diphenhydramine Hcl (Benadryl), 1 CAP PO QHS, (Reported) Docusate Sodium (Colace), 1 CAP PO BID, (Reported) Furosemide (Furosemide), 1 TAB PO DAILY, (Reported) Gabapentin (Gabapentin), 300 MG PO TID, (Reported) Insulin Aspart (Novolog Flexpen), 10 UNIT SQ [id number] Insulin Detemir (Levemir), 55 UNIT SQ HS, (Reported) Isosorbide Mononitrate (Isosorbide Mononitrate Er), 60 MG PO DAILY, (Reported) Levetiracetam (Keppra), 1 TAB PO BID Losartan Potassium (Losartan Potassium), 100 MG PO DAILY, (Reported) Magnesium (Magnesium), 400 MG PO DAILY, (Reported) Metformin Hcl (Metformin Hcl), 1,000 MG PO BIDWMEALS, (Reported) Multivitamin (Multi-Day Vitamins), 1 TAB PO DAILY, (Reported) Omeprazole (Omeprazole), 20 MG PO DAILY, (Reported) Polyethylene Glycol 3350 (Polyethylene Glycol 3350), 17 GM PO DAILY, (Reported) Potassium Chloride (Potassium Chloride), 20 MEQ PO DAILY, (Reported) Scheduled PRN Acetaminophen (Acetaminophen), 500 MG PO PRN Q6HRS PRN for PAIN, (Reported) Acetaminophen With Codeine (Acetaminophen-Cod #3 Tablet), 1 TAB PO PRN Q6HRS PRN for PAIN Albuterol Sulfate (Albuterol Sulfate Conc Neb Soln), 2.5 MG NEB Q6HRS PRN for SHORTNESS OF BREATH, (Reported) Albuterol Sulfate (Albuterol Sulfate Neb Soln), 2.5 MG NEB PRN Q4HRS PRN for SHORTNESS OF BREATH, (Reported) Clonidine Hcl (Clonidine Hcl), 0.2 MG PO PRN TID PRN for tid, (Reported) Methocarbamol (Robaxin), 500 MG PO PRN Q6HRS PRN for MUSCLE SPASMS, (Reported) Ondansetron Hcl (Ondansetron Hcl), 4 MG PO PRN Q6HRS PRN for NAUSEA/VOMITING, ( Reported) Trazodone Hcl (Trazodone Hcl), 50 MG PO PRN QHS PRN for INSOMNIA, (Reported) Triamcinolone Acetonide (Triamcinolone Acetonide 0.1% Cream), 1 WENDIE TP PRN TID PRN for RASH, (Reported) Patient Instructions Patient Instructions > 30 min face to face GATITO Zimmerman MD Aug 05, 2017 23:23
== END 2017-07-08 15:34 | DRG 100 ==
LOC: ER 14:03 → 2 SOUTH 15:33
PROVIDERS: ADMIT Internal Medicine; ATTEND Internal Medicine
PROC: 5A09357 Assistance with Respiratory Ventilation, Less than 24 Consecutive Hours, Continuous Positive Airway Pressure (ICD-10-PCS; principal; 2017-07-03)
PROC: 5A09357 Assistance with Respiratory Ventilation, Less than 24 Consecutive Hours, Continuous Positive Airway Pressure (ICD-10-PCS; 2017-07-04)
PROC: 5A09357 Assistance with Respiratory Ventilation, Less than 24 Consecutive Hours, Continuous Positive Airway Pressure (ICD-10-PCS; 2017-07-05)
PROC: 5A09357 Assistance with Respiratory Ventilation, Less than 24 Consecutive Hours, Continuous Positive Airway Pressure (ICD-10-PCS; 2017-07-06)
PROC: 5A09357 Assistance with Respiratory Ventilation, Less than 24 Consecutive Hours, Continuous Positive Airway Pressure (ICD-10-PCS; 2017-07-07)
PROC: 5A09357 Assistance with Respiratory Ventilation, Less than 24 Consecutive Hours, Continuous Positive Airway Pressure (ICD-10-PCS; 2017-07-08)
DX: G40.89 Other seizures (principal); I50.33 Acute on chronic diastolic (congestive) heart failure; N17.9 Acute kidney failure, unspecified; E11.42 Type 2 diabetes mellitus with diabetic polyneuropathy; E11.649 Type 2 diabetes mellitus with hypoglycemia without coma; E66.01 Morbid (severe) obesity due to excess calories; L03.116 Cellulitis of left lower limb; Z68.43 Body mass index [BMI] 50.0-59.9, adult; I11.0 Hypertensive heart disease with heart failure; F01.50 Vascular dementia, unspecified severity, without behavioral disturbance, psychotic disturbance, mood disturbance, and anxiety; E78.00 Pure hypercholesterolemia, unspecified; E78.5 Hyperlipidemia, unspecified; R07.89 Other chest pain; F32.9 Major depressive disorder, single episode, unspecified; F41.9 Anxiety disorder, unspecified; G47.33 Obstructive sleep apnea (adult) (pediatric); I25.10 Atherosclerotic heart disease of native coronary artery without angina pectoris; I87.8 Other specified disorders of veins; I89.0 Lymphedema, not elsewhere classified; J44.9 Chronic obstructive pulmonary disease, unspecified; K43.9 Ventral hernia without obstruction or gangrene; M19.90 Unspecified osteoarthritis, unspecified site; Z79.899 Other long term (current) drug therapy; Z82.49 Family history of ischemic heart disease and other diseases of the circulatory system; Z79.4 Long term (current) use of insulin; Z86.73 Personal history of transient ischemic attack (TIA), and cerebral infarction without residual deficits; Z95.5 Presence of coronary angioplasty implant and graft; Z88.1 Allergy status to other antibiotic agents; Z88.8 Allergy status to other drugs, medicaments and biological substances; Z91.14 Patient's other noncompliance with medication regimen
CPT/HCPCS: 36415; 71010; 80048; 80053; 80061; 80177; 80185; 80307; 81001; 82553; 82962; 83735; 83880; 84484; 85025; 85610; 85730; 93005; 94250; 94640; 94760; 95816; J1815; J1940; J7042; J7060; J7613; J7626; Q0163; 97110; 97116; 99285-25; G0479

== ENCOUNTER 2017-07-11 09:27 | Inpatient (IN) | payer MEDICARE ==
[~2017-07-11] VITALS: Ht 182.9 cm; Wt 177.4 kg
[~2017-07-11 09:27] MED LIST changes: -BENZ-8 PO; +BENZ100C15 PO
--- NOTE | 2017-07-11 09:34 | PHYS DOC ---
Past Medical History Past Medical History: CHF, COPD, High Cholesterol, Heart Disease, Hypertension , Seizure, Stroke Past Surgical History: Angioplasty, Appendectomy, Other Additional Past Surgical Histo: HERNIA,PERICARDIAL WINDOW Alcohol Use: None Drug Use: None Adult General Chief Complaint Chief Complaint: CHEST PAIN [facility] HPI Patient is a 66 year old male who presents with left-sided chest pain that radiated down his left arm and his left hand turn numb. This started around 8:30 this morning it lasted 30 minutes and then resolved on its own. He states he felt short of breath and had his CPAP on when this occurred and he became diaphoretic with this. He denied any nausea associated with this. He states earlier this morning around 6:30 got up and at 7 AM his sugar was in the 60s systolic took him to the cafeteria and he had some orange juice and then ate and then he started shaking and then decided to go back to bed, sleep with his CPAP on. He states it wasn't too long after this that he developed this chest pain. States he has had a stent in the past approximately a month ago when he was in [place]. He states he was in the hospital at [place] recently and then just transferred to [facility]. He states he has chronic lower edema that is unchanged from his baseline. Currently he denies any chest pain abdominal pain. He states his belly feels "larger than normal" but he states his been having normal bowel movements. Patient received 325 aspirin by EMS prior to arrival. Review of Systems Review of Systems Constitutional: Denies fever or chills [] Eyes: Denies change in visual acuity, redness, or eye pain [] HENT: Denies nasal congestion or sore throat [] Respiratory: Denies cough or shortness of breath [] Cardiovascular: No additional information not addressed in HPI [] GI: Denies abdominal pain, nausea, vomiting, bloody stools or diarrhea [] : Denies dysuria or hematuria [] Musculoskeletal: Denies back pain or joint pain [] Integument: Denies rash or skin lesions [] Neurologic: Denies headache, focal weakness or sensory changes [] Endocrine: Denies polyuria or polydipsia [] All other systems were reviewed and found to be within normal limits, except as documented in this note. Allergies Allergies Allergies Coded Allergies Type Severity Reaction Last Updated Verified Etzkgnj-Hxa-Dwl Reductase Inhibitor Allergy Intermediate 04/03/17 Yes erythromycin base Allergy Intermediate 04/03/17 Yes iodine Allergy Intermediate 04/03/17 Yes niacin Allergy Intermediate 04/03/17 Yes simvastatin Allergy Intermediate 04/03/17 Yes Physical Exam Physical Exam Constitutional: Well developed, well nourished, no acute distress, non-toxic appearance. [] HENT: Normocephalic, atraumatic, bilateral external ears normal, oropharynx moist, no oral exudates, nose normal. [] Eyes: PERRLA, EOMI, conjunctiva normal, no discharge. [] Neck: Normal range of motion, no tenderness, supple, no stridor. [] Cardiovascular:Heart rate regular rhythm, no murmur [] Lungs & Thorax: Bilateral breath sounds clear to auscultation [] Abdomen: Bowel sounds normal, soft, no tenderness, no masses, no pulsatile masses. Well-healed midline scar in addition to a scar in the right lower quadrant Skin: Warm, dry, no erythema, no rash. [] Back: No tenderness, no CVA tenderness. [] Extremities: No tenderness, no cyanosis, no clubbing, ROM intact, no edema. [] Neurologic: Alert and oriented X 3, normal motor function, normal sensory function, no focal deficits noted. [] Psychologic: Affect normal, judgement normal, mood normal. [] Current Patient Data Vital Signs Vital Signs Date Time Temp Pulse Resp B/P (MAP) Pulse Ox O2 Delivery O2 Flow Rate FiO2 07/11/17 09:27 98.0 83 24 186/88 (120) 97 Room Air 98.0 Lab Values Laboratory Tests Test 07/11/17 09:30 07/11/17 09:35 07/11/17 09:45 White Blood Count 7.4 x10^3/uL (4.0-11.0) Red Blood Count 4.14 x10^6/uL (4.30-5.70) L Hemoglobin 12.5 g/dL (13.0-17.5) L Hematocrit 38.7 % (39.0-53.0) L Mean Corpuscular Volume 93 fL (79-100) Mean Corpuscular Hemoglobin 30 pg (25-35) Mean Corpuscular Hemoglobin Concent 32 g/dL (31-37) Red Cell Distribution Width 13.6 % (11.5-14.5) Platelet Count 253 x10^3/uL (140-400) Neutrophils (%) (Auto) 49 % (31-73) Lymphocytes (%) (Auto) 36 % (24-48) Monocytes (%) (Auto) 11 % (0-9) H Eosinophils (%) (Auto) 4 % (0-3) H Basophils (%) (Auto) 1 % (0-3) Neutrophils # (Auto) 3.6 x10^3uL (1.8-7.7) Lymphocytes # (Auto) 2.7 x10^3/uL (1.0-4.8) Monocytes # (Auto) 0.8 x10^3/uL (0.0-1.1) Eosinophils # (Auto) 0.3 x10^3/uL (0.0-0.7) Basophils # (Auto) 0.1 x10^3/uL (0.0-0.2) Prothrombin Time 12.9 SEC (11.7-14.0) Prothrombin Time INR 1.0 (0.8-1.1) Sodium Level 141 mmol/L (136-145) Potassium Level 4.2 mmol/L (3.5-5.1) Chloride Level 103 mmol/L (98-107) Carbon Dioxide Level 30 mmol/L (21-32) Anion Gap 8 (6-14) Blood Urea Nitrogen 26 mg/dL (8-26) Creatinine 1.1 mg/dL (0.7-1.3) Estimated GFR (Cockcroft-Gault) 67.2 Glucose Level 93 mg/dL (70-99) Calcium Level 9.2 mg/dL (8.5-10.1) Magnesium Level 1.8 mg/dL (1.8-2.4) Total Bilirubin 0.2 mg/dL (0.2-1.0) Direct Bilirubin 0.1 mg/dL (0.0-0.2) Aspartate Amino Transferase (AST) 14 U/L (15-37) L Alanine Aminotransferase (ALT) 20 U/L (16-63) Alkaline Phosphatase 87 U/L (46-116) Creatine Kinase 29 U/L (39-308) L Creatine Kinase MB (Mass) < 0.5 ng/mL (0.0-3.6) Creatine Kinase MB Relative Index % (0-4) Troponin I Quantitative < 0.017 ng/mL (0.000-0.055) HH-Kvi-X-Type Natriuretic Peptide 482 pg/mL (0-124) H Total Protein 7.4 g/dL (6.4-8.2) Albumin 3.4 g/dL (3.4-5.0) Lipase 105 U/L (73-393) Thyroid Stimulating Hormone (TSH) 0.992 uIU/mL (0.358-3.74) Glucose (Fingerstick) 80 mg/dL (70-99) Urine Collection Type Unknown Urine Color Yellow Urine Clarity Clear Urine pH 5.5 Urine Specific [place] 1.010 Urine Protein Negative mg/dL (NEG-TRACE) Urine Glucose (UA) Negative mg/dL (NEG) Urine Ketones (Stick) Negative mg/dL (NEG) Urine Blood Negative (NEG) Urine Nitrite Negative (NEG) Urine Bilirubin Negative (NEG) Urine Urobilinogen Dipstick 0.2 mg/dL (0.2 mg/dL) Urine Leukocyte Esterase Negative (NEG) Urine RBC 0 /HPF (0-2) Urine WBC 0 /HPF (0-4) Urine Squamous Epithelial Cells Few /LPF Urine Bacteria 0 /HPF (0-FEW) Urine Opiates Screen Pos (NEG) Urine Methadone Screen Neg (NEG) Urine Barbiturates Neg (NEG) Urine Phencyclidine Screen Neg (NEG) Urine Amphetamine/Methamphetamine Neg (NEG) Urine Benzodiazepines Screen Neg (NEG) Urine Cocaine Screen Neg (NEG) Urine Cannabinoids Screen Neg (NEG) Urine Ethyl Alcohol Neg (NEG) Laboratory Tests 07/11/17 09:30 Laboratory Tests 07/11/17 09:30 EKG EKG EKG shows sinus rhythm with rate of [address] elevations, T-wave inversion in lead 3, left axis deviation noted, QTC 405 ms, as interpreted by me. Radiology/Procedures Radiology/Procedures [facility] [address] [place] [address] IMAGING REPORT Signed PATIENT: DOM RODRÍGUEZ ACCOUNT: [id number] : 1950 LOCATION: ER AGE: 66 SEX: M EXAM STATUS: PRE ER ORD. PHYSICIAN: ADITYA WALLER MD REASON: chest pain PROCEDURE: PORTABLE CHEST 1V AP PORTABLE CHEST Clinical Indication: chest pain. Comparison: AP chest 07/04/2017. Findings: Stable cardiomegaly. There is pulmonary vascular congestion. No focal airspace disease. There is no pneumothorax. No pleural effusion is appreciated. There is no acute bone abnormality. IMPRESSION: Unchanged pulmonary vascular congestion. DICTATED and SIGNED BY: AASHISH WARNER MD DATE: 07/11/17 0959 CC: ADITYA WALLER MD; LEIGHA KAUFMAN NP ~ Impressions: Chest pain-resolved Coronary artery disease Seizure disorder Course & Med Decision Making Course & Med Decision Making Pertinent Labs and Imaging studies reviewed. (See chart for details) Patient presents with chest pain that has subsided. His EKG is similar one performed in July 03, 2017. His initial troponins are negative. We will admit for rule out. We'll consult cardiology. Spoke with Dr. crockett regarding the patient's EKG, physical exam findings labs. Patient's in stable condition at this time and being admitted to hospital. Dragon Disclaimer Dragon Disclaimer This electronic medical record was generated, in whole or in part, using a voice recognition dictation system. Departure Departure Impression: Primary Impression: Chest pain Disposition: ADMITTED INPATIENT Admitting Physician: Alea Crockett Condition: STABLE Referrals: LEIGHA KAUFMAN NP (PCP) ADITYA WALLER MD Jul 11, 2017 09:34
[2017-07-11 09:50] LABS: BASO # 0.1 x10^3/uL (0.0-0.2); BASO % 1 % (0-3); EOS % 4 % (0-3); HEMATOCRIT 38.7 % (39.0-53.0); HEMOGLOBIN 12.5 g/dL (13.0-17.5); LYMPH # 2.7 x10^3/uL (1.0-4.8); LYMPH % 36 % (24-48); MEAN CORPUSCULAR HEMOGLOBIN 30 pg (25-35); MEAN CORPUSCULAR HGB CONC 32 g/dL (31-37); MEAN CORPUSCULAR VOLUME 93 fL (79-100); MONO % 11 % (0-9); NEUT % 49 % (31-73); PLATELET COUNT 253 x10^3/uL (140-400); RED BLOOD COUNT 4.14 x10^6/uL (4.30-5.70); RED CELL DISTRIBUTION WIDTH 13.6 % (11.5-14.5); WHITE BLOOD COUNT 7.4 x10^3/uL (4.0-11.0)
[2017-07-11 09:59] LABS: CALCIUM 9.2 mg/dL (8.5-10.1); CREATININE 1.1 mg/dL (0.7-1.3); GFR 67.2; POTASSIUM 4.2 mmol/L (3.5-5.1)
[2017-07-11 10:04] LABS: BILIRUBIN,URINE NEGATIVE (NEG); GLUCOSE,URINE NEGATIVE (NEG); NITRITE,URINE NEGATIVE (NEG); PH,URINE 5.5; PROTEIN,URINE NEGATIVE (NEG-TRACE); UROBILINOGEN,URINE 0.2 mg/dL (0.2 mg/dL)
[2017-07-11 10:05] LABS: ALBUMIN 3.4 g/dL (3.4-5.0); DIRECT BILIRUBIN 0.1 mg/dL (0.0-0.2); MAGNESIUM 1.8 mg/dL (1.8-2.4); TOTAL BILIRUBIN 0.2 mg/dL (0.2-1.0); TOTAL PROTEIN 7.4 g/dL (6.4-8.2)
--- NOTE | 2017-07-11 10:05 | RAD ---
AP PORTABLE CHEST Clinical Indication: chest pain. Comparison: AP chest 07/04/2017. Findings: Stable cardiomegaly. There is pulmonary vascular congestion. No focal airspace disease. There is no pneumothorax. No pleural effusion is appreciated. There is no acute bone abnormality. IMPRESSION: Unchanged pulmonary vascular congestion.
[2017-07-11 10:06] LABS: BARBITURATES NEG (NEG); BENZODIAZEPINES NEG (NEG); CANNABINOIDS NEG (NEG); COCAINE NEG (NEG); METHADONE NEG (NEG); OPIATES POS (NEG); PHENCYCLIDINE NEG (NEG)
[2017-07-11 10:09] LABS: PROTHROMBIN TIME PATIENT 12.9 SEC (11.7-14.0)
[2017-07-11 10:19] LABS: BACTERIA,URINE 0 /HPF (0-FEW); RBC,URINE 0 /HPF (0-2); SQUAMOUS EPITHELIAL CELL,UR FEW /LPF; WBC,URINE 0 /HPF (0-4)
[2017-07-11 10:22] LABS: CKMB MASS < 0.5 ng/mL (0.0-3.6); CREATINE KINASE 29 U/L (39-308)
[2017-07-11] MEDS ORDERED: ONDANSETRON PF 4 MG/2 ML VIAL. IV PRN (11:45)
--- NOTE | 2017-07-11 13:09 | EKG ---
[facility] [address] [place] [address] Test Date: 2017-07-11 Test Time: 09:34:56 Pat Name: DOM RODRÍGUEZ Department: Room: 560 1 Gender: M Acute Specialist: : 1950 Requested By: ADITYA WALLER Order Number: [id number] Reading MD: Jovany Pennington MD Measurements Intervals [place] Rate: 80 P: 42 VT: 214 QRS: -46 QRSD: 80 T: 34 QT: 348 QTc: 405 Interpretive Statements SINUS RHYTHM PROLONGED VT INTERVAL ABNORMAL LEFT AXIS DEVIATION CONSISTENT WITH INFERIOR INFARCT, PROBABLY OLD ABNORMAL ECG Electronically Signed On 07-14-2017 11:40:50 MATERIALS RECYCLER by Jovany Pennington MD
[2017-07-11 13:19] VITALS: BP 134/67
[2017-07-11 15:18] VITALS: BP 134/56
[2017-07-11] MEDS ORDERED: ASPI325T11 PO (15:24)
[2017-07-11] MEDS ORDERED: BENZ100C PO (15:24)
[2017-07-11] MEDS ORDERED: INSU100V13 SQ (15:24)
[2017-07-11] MEDS ORDERED: BUDE0.5A3 IH (15:24)
[2017-07-11] MEDS ORDERED: OMEP20TA8 PO (15:24)
[2017-07-11] MEDS ORDERED: ACET500T68 PO (15:24)
[2017-07-11] MEDS ORDERED: ALBU2.5V14 NEB (15:24)
[2017-07-11] MEDS ORDERED: METH-37 PO (15:24)
[2017-07-11] MEDS ORDERED: ISOS60TA2 PO (15:24)
[2017-07-11] MEDS ORDERED: ALBU2.5V5 NEB (15:25)
[2017-07-11] MEDS ORDERED: ONDA4TAB11 PO (15:25)
[2017-07-11] MEDS ORDERED: ACETAMINOPHEN 500 MG TABLET PO PRN (16:00)
[2017-07-11] MEDS ORDERED: ACETAMINOPHEN/CODEINE 300/30MG TABLET. PO PRN (16:00)
[2017-07-11] MEDS ORDERED: NON FORMULARY ITEM (Albuterol Sulfate (Albuterol Sulfate Conc Neb Soln) 2.5 MG) NEB PRN (16:00)
[2017-07-11] MEDS ORDERED: METHOCARBAMOL 500 MG TABLET PO PRN (16:00)
[2017-07-11] MEDS ORDERED: TRIAMCINOLONE ACETONIDE 0.1% TOPICAL CREAM 15GM TUBE. TP PRN (16:00)
[2017-07-11] MEDS ORDERED: ALBUTEROL SULFATE 2.5 MG/3 ML NEBU. NEB PRN (16:00)
[2017-07-11] MEDS ORDERED: traZODone 50 MG TABLET. PO PRN (16:00)
[2017-07-11] MEDS ORDERED: cloNIDine HCL 0.2 MG TABLET PO PRN (16:00)
[2017-07-11] MEDS ORDERED: ONDANSETRON ODT 4 MG TAB.RAPDIS. PO PRN (16:15)
[2017-07-11] MEDS: CARVEDILOL 12.5 MG TABLET. PO SCH (17:08)
[2017-07-11] MEDS: INSULIN ASPART 300 UNITS/3 ML INSULN.PEN SQ SCH (17:30)
--- NOTE | 2017-07-11 18:16 | PDOC1 ---
History and Physical Date of Admission Date of Admission DATE: 07/11/17 TIME: 18:12 Identification/Chief Complaint Chief Complaint chest pain Problems: Source Source: Chart review, Patient History of Present Illness History of Present Illness Mr. Melchor, is a 66 year old male, just sent to SNU for rehab 2 days ago. Admit here with left-sided chest pain that radiated down his left arm and his left hand turn numb. sudden onset this AM, was not given at [facility] at SNU, nitro here in the ER helped recent prior admit included CV eval for chestpain Dm2, recent decrease in insulin doses he has felt well otherwise Past Medical History Cardiovascular: Other Pulmonary: COPD, Other CENTRAL NERVOUS SYSTEM: CVA, Dementia GI: Other Heme/Onc: No pertinent hx Hepatobiliary: No pertinent hx Psych: No pertinent hx Musculoskeletal: Osteoarthritis, Other Rheumatologic: No pertinent hx Infectious disease: No pertinent hx Renal/: No pertinent hx Endocrine: Diabetes Past Surgical History Past Surgical History: Appendectomy, Hernia Repair, Tonsillectomy, Other Family History Family History: Heart Disease Social History Smoke: No ALCOHOL: none Drugs: None Current Medications Current Medications Current Medications Ondansetron HCl (Zofran) 4 mg PRN Q8HRS PRN IV NAUSEA/VOMITING; Start at 11:45; Stop 07/12/17 at 11:44 Acetaminophen (Tylenol) 500 mg PRN Q6HRS PRN PO PAIN; Start 07/11/17 at 16:00 Acetaminophen/ Codeine Phosphate (Tylenol #3) 1 tab PRN Q6HRS PRN PO PAIN; Start 07/11/17 at 16:00 Albuterol Sulfate (Ventolin Neb Soln) 2.5 mg PRN Q4HRS PRN NEB SHORTNESS OF BREATH; Start 07/11/17 at 16:00 Amlodipine Besylate (Norvasc) 10 mg HS PO ; Start 07/11/17 at 21:00 Aspirin (Ecotrin) 325 mg DAILY PO ; Start 07/12/17 at 09:00 Benzonatate (Tessalon Perle) 100 mg DAILY PO ; Start 07/12/17 at 09:00 Budesonide (Pulmicort) 0.5 mg RTBID NEB ; Start 07/11/17 at 20:00 Clonidine HCl (Catapres) 0.2 mg PRN TID PRN PO HTN; Start 07/11/17 at 16:00 Clopidogrel Bisulfate (Plavix) 75 mg DAILY PO ; Start 07/12/17 at 09:00 Diphenhydramine HCl (Benadryl) 25 mg QHS PO ; Start 07/11/17 at 21:00 Docusate Sodium (Colace) 100 mg BID PO ; Start 07/11/17 at 21:00 Furosemide (Lasix) 40 mg DAILY PO ; Start 07/12/17 at 09:00 Insulin Aspart (NovoLOG) 10 units TIDWMEALS SQ Last administered on 07/11/17 17:30; Start 07/11/17 at 17:00 Levetiracetam (Keppra) 500 mg BID PO ; Start 07/11/17 at 21:00 Metformin HCl (Glucophage) 1,000 mg BIDWMEALS PO Last administered on 17:08; Start 07/11/17 at 17:00 Methocarbamol (Robaxin) 500 mg PRN Q6HRS PRN PO MUSCLE SPASMS; Start 07/11/17 at 16:00 Polyethylene Glycol (miraLAX PACKET) 17 gm DAILY PO ; Start 07/12/17 at 09:00 Trazodone HCl (Desyrel) 50 mg PRN QHS PRN PO INSOMNIA; Start 07/11/17 at 16:00 Triamcinolone Acetonide (Kenalog) 1 uma PRN TID PRN TP RASH; Start 07/11/17 at 16:00 Non-Formulary Medication 2.5 mg Q6HRS PRN NEB SHORTNESS OF BREATH; Start 07/11 at 16:00; Stop 07/11/17 at 16:13; Status DC Carvedilol (Coreg) 25 mg BIDWMEALS PO Last administered on 07/11/17 17:08; Start 07/11/17 at 17:00 Gabapentin (Neurontin) 300 mg TID PO ; Start 07/11/17 at 21:00 Insulin Detemir (Levemir) 55 units HS SQ ; Start 07/11/17 at 21:00 Isosorbide Mononitrate (Imdur) 60 mg DAILY PO ; Start 07/12/17 at 09:00 Losartan Potassium (Cozaar) 100 mg DAILY PO ; Start 07/12/17 at 09:00 Magnesium Oxide (Magnesium Oxide) 400 mg DAILY PO ; Start 07/12/17 at 09:00 Multivitamins (Thera M Plus) 1 tab DAILY PO ; Start 07/12/17 at 09:00 Pantoprazole Sodium (Protonix) 40 mg DAILYAC PO ; Start 07/12/17 at 07:30 Ondansetron HCl (Zofran Odt) 4 mg PRN Q6HRS PRN PO NAUSEA/VOMITING; Start at 16:15 Potassium Chloride (Klor-Con) 20 meq DAILYWBKFT PO ; Start 07/12/17 at 08:00 Active Scripts Active Novolog Flexpen (Insulin Aspart) 100 Unit/1 Ml Insuln.pen 10 Unit SQ [id number] Acetaminophen-Cod #3 Tablet (Acetaminophen/Codeine Phosphate) 1 Each Tablet 1 Tab PO PRN Q6HRS PRN Keppra (Levetiracetam) 500 Mg Tablet 1 Tab PO BID Reported Albuterol Sulfate Neb Soln (Albuterol Sulfate) 2.5 Mg/3 Ml Vial.neb 2.5 Mg NEB PRN Q4HRS PRN Ondansetron Hcl 4 Mg Tablet 4 Mg PO PRN Q6HRS PRN Robaxin (Methocarbamol) 500 Mg Tablet 500 Mg PO PRN Q6HRS PRN Albuterol Sulfate Conc Neb Soln (Albuterol Sulfate) 2.5 Mg/0.5 Ml Vial.neb 2.5 Mg NEB Q6HRS PRN Pulmicort (Budesonide) 0.5 Mg/2 Ml Ampul.neb 0.5 Mg IH RTBID Levemir (Insulin Detemir) 100 Unit/1 Ml Vial 55 Unit SQ HS Acetaminophen 500 Mg Tablet 500 Mg PO PRN Q6HRS PRN Isosorbide Mononitrate Er (Isosorbide Mononitrate) 60 Mg Tab.er.24h 60 Mg PO DAILY Aspirin Ec (Aspirin) 325 Mg Tablet. 325 Mg PO DAILY Tessalon Perle (Benzonatate) 100 Mg Capsule 100 Mg PO DAILY Omeprazole 20 Mg Tablet.dr 20 Mg PO DAILY Triamcinolone Acetonide 0.1% Cream (Triamcinolone Acetonide) 15 Gm Cream..g. 1 Uma TP PRN TID PRN Magnesium 200 Mg Tablet 400 Mg PO DAILY Potassium Chloride 20 Meq Tablet.er 20 Meq PO DAILY Polyethylene Glycol 3350 255 Gm Powder 17 Gm PO DAILY Multi-Day Vitamins (Multivitamin) 1 Each Tablet 1 Tab PO DAILY Furosemide 40 Mg Tablet 1 Tab PO DAILY Colace (Docusate Sodium) 100 Mg Capsule 1 Cap PO BID Clopidogrel (Clopidogrel Bisulfate) 75 Mg Tablet 75 Mg PO DAILY Amlodipine Besylate 10 Mg Tablet 10 Mg PO HS Trazodone Hcl 50 Mg Tablet 50 Mg PO PRN QHS PRN Carvedilol 25 Mg Tablet 25 Mg PO BIDWMEALS Losartan Potassium 100 Mg Tablet 100 Mg PO DAILY Benadryl (Diphenhydramine Hcl) 25 Mg Capsule 1 Cap PO QHS Gabapentin 300 Mg Capsule 300 Mg PO TID Metformin Hcl 1,000 Mg Tablet 1,000 Mg PO BIDWMEALS Clonidine Hcl 0.2 Mg Tablet 0.2 Mg PO PRN TID PRN For BP >150/70 Allergies Allergies: Coded Allergies: Hbaeelc-Jqb-Yjy Reductase Inhibitor (Verified Allergy, Intermediate, ) erythromycin base (Verified Allergy, Intermediate, 04/03/17) iodine (Verified Allergy, Intermediate, 04/03/17) niacin (Verified Allergy, Intermediate, 04/03/17) simvastatin (Verified Allergy, Intermediate, 04/03/17) ROS General: No: Chills, Night Sweats, Fatigue, Malaise, Appetite, Other PSYCHOLOGICAL ROS: No: Anxiety, Behavioral Disorder, Concentration difficultie , Decreased libido, Depression, Disorientation, Hallucinations, Hostility, Irritablity, Memory difficulties, Mood Swings, Obsessive thoughts, Other Eyes: No Blurry vision, No Decreased vision, No Double vision, No Dry eyes, No Excessive tearing, No Eye Pain, No Itchy Eyes, No Loss of vision, No Photophobia , No Scotomata, No Uses contacts, No Uses glasses, No Other HEENT: No: Heacaches, Visual Changes, Hearing change, Nasal congestion, Nasal discharge, Oral lesions, Sinus pain, Sore Throat, Epistaxis, Sneezing, Snoring, Tinnitus, Vertigo, Vocal changes, Other Respiratory: No: Cough, Hemoptysis, Orthopnea, Pleuritic Pain, Shortness of breath, SOB with excertion, Sputum Changes, Stridor, Tachypnea, Wheezing, Other Cardiovascular: yes Chest Pain, No Palpitations, No Orthopnea, No Paroxysmal Noc. Dyspnea, No Edema, No Lt Headedness, No Other Gastrointestinal: No Nausea, No Vomiting, No Abdominal Pain, No Diarrhea, No Constipation, No Melena, No Hematochezia, No Other Genitourinary: No Dysuria, No Frequency, No Incontinence, No Hematuria, No Retention, No Discharge, No Urgency, No Pain, No Flank Pain, No Other, No , No , No , No , No , No , No Musculoskeletal: No Gait Disturbance, No Joint Pain, No Joint Stiffness, No Joint Swelling, No Muscle Pain, No Muscular Weakness, No Pain In:, No Swelling In:, No Other Neurological: No Behavorial Changes, No Bowel/Bladder ControlChng, No Confusion , No Dizziness, No Gait Disturbance, No Headaches, No Impaired Coord/balance, No Memory Loss, No Numbness/Tingling, No Seizures, No Speech Problems, No Tremors, No Visual Changes, No Weakness, No Other Skin: No Dry Skin, No Eczema, No Hair Changes, No Lumps, No Mole Changes, No Mottling, No Nail Changes, No Pruritus, No Rash, No Skin Lesion Changes, No Other, No Acne Physical Exam General: Alert, Cooperative, No acute distress HEENT: PERRLA Lungs: Clear to auscultation Heart: RRR, no gallops, no murmurs Extremities: No clubbing, No cyanosis, Other (2+ LE edema) Skin: No rashes Neuro: Normal speech, Sensation intact Psych/Mental Status: Mental status NL, Mood NL Vitals Vitals Vital Signs Date Time Temp Pulse Resp B/P (MAP) Pulse Ox O2 Delivery O2 Flow Rate FiO2 07/11/17 17:08 71 134/56 07/11/17 15:18 97.5 18 94 Room Air 97.5 Labs Labs Laboratory Tests Test 07/11/17 09:30 07/11/17 09:35 07/11/17 09:45 07/11/17 13:10 White Blood Count 7.4 x10^3/uL (4.0-11.0) Red Blood Count 4.14 x10^6/uL (4.30-5.70) Hemoglobin 12.5 g/dL (13.0-17.5) Hematocrit 38.7 % (39.0-53.0) Mean Corpuscular Volume 93 fL (79-100) Mean Corpuscular Hemoglobin 30 pg (25-35) Mean Corpuscular Hemoglobin Concent 32 g/dL (31-37) Red Cell Distribution Width 13.6 % (11.5-14.5) Platelet Count 253 x10^3/uL (140-400) Neutrophils (%) (Auto) 49 % (31-73) Lymphocytes (%) (Auto) 36 % (24-48) Monocytes (%) (Auto) 11 % (0-9) Eosinophils (%) (Auto) 4 % (0-3) Basophils (%) (Auto) 1 % (0-3) Neutrophils # (Auto) 3.6 x10^3uL (1.8-7.7) Lymphocytes # (Auto) 2.7 x10^3/uL (1.0-4.8) Monocytes # (Auto) 0.8 x10^3/uL (0.0-1.1) Eosinophils # (Auto) 0.3 x10^3/uL (0.0-0.7) Basophils # (Auto) 0.1 x10^3/uL (0.0-0.2) Prothrombin Time 12.9 SEC (11.7-14.0) Prothromb Time International Ratio 1.0 (0.8-1.1) Sodium Level 141 mmol/L (136-145) Potassium Level 4.2 mmol/L (3.5-5.1) Chloride Level 103 mmol/L (98-107) Carbon Dioxide Level 30 mmol/L (21-32) Anion Gap 8 (6-14) Blood Urea Nitrogen 26 mg/dL (8-26) Creatinine 1.1 mg/dL (0.7-1.3) Estimated GFR (Cockcroft-Gault) 67.2 Glucose Level 93 mg/dL (70-99) Calcium Level 9.2 mg/dL (8.5-10.1) Magnesium Level 1.8 mg/dL (1.8-2.4) Total Bilirubin 0.2 mg/dL (0.2-1.0) Direct Bilirubin 0.1 mg/dL (0.0-0.2) Aspartate Amino Transf (AST/SGOT) 14 U/L (15-37) Alanine Aminotransferase (ALT/SGPT) 20 U/L (16-63) Alkaline Phosphatase 87 U/L (46-116) Creatine Kinase 29 U/L (39-308) Creatine Kinase MB (Mass) < 0.5 ng/mL (0.0-3.6) Creatine Kinase MB Relative Index % (0-4) Troponin I Quantitative < 0.017 ng/mL (0.000-0.055) PF-Zah-G-Type Natriuretic Peptide 482 pg/mL (0-124) Total Protein 7.4 g/dL (6.4-8.2) Albumin 3.4 g/dL (3.4-5.0) Lipase 105 U/L (73-393) Thyroid Stimulating Hormone (TSH) 0.992 uIU/mL (0.358-3.74) Glucose (Fingerstick) 80 mg/dL (70-99) 80 mg/dL (70-99) Urine Collection Type Unknown Urine Color Yellow Urine Clarity Clear Urine pH 5.5 Urine Specific [place] 1.010 Urine Protein Negative mg/dL (NEG-TRACE) Urine Glucose (UA) Negative mg/dL (NEG) Urine Ketones (Stick) Negative mg/dL (NEG) Urine Blood Negative (NEG) Urine Nitrite Negative (NEG) Urine Bilirubin Negative (NEG) Urine Urobilinogen Dipstick 0.2 mg/dL (0.2 mg/dL) Urine Leukocyte Esterase Negative (NEG) Urine RBC 0 /HPF (0-2) Urine WBC 0 /HPF (0-4) Urine Squamous Epithelial Cells Few /LPF Urine Bacteria 0 /HPF (0-FEW) Urine Opiates Screen Pos (NEG) Urine Methadone Screen Neg (NEG) Urine Barbiturates Neg (NEG) Urine Phencyclidine Screen Neg (NEG) Urine Amphetamine/Methamphetamine Neg (NEG) Urine Benzodiazepines Screen Neg (NEG) Urine Cocaine Screen Neg (NEG) Urine Cannabinoids Screen Neg (NEG) Urine Ethyl Alcohol Neg (NEG) Test 07/11/17 16:52 07/11/17 17:20 Glucose (Fingerstick) 126 mg/dL (70-99) Troponin I Quantitative < 0.017 ng/mL (0.000-0.055) Laboratory Tests Test 07/11/17 09:30 07/11/17 09:35 07/11/17 09:45 07/11/17 13:10 White Blood Count 7.4 x10^3/uL (4.0-11.0) Red Blood Count 4.14 x10^6/uL (4.30-5.70) Hemoglobin 12.5 g/dL (13.0-17.5) Hematocrit 38.7 % (39.0-53.0) Mean Corpuscular Volume 93 fL (79-100) Mean Corpuscular Hemoglobin 30 pg (25-35) Mean Corpuscular Hemoglobin Concent 32 g/dL (31-37) Red Cell Distribution Width 13.6 % (11.5-14.5) Platelet Count 253 x10^3/uL (140-400) Neutrophils (%) (Auto) 49 % (31-73) Lymphocytes (%) (Auto) 36 % (24-48) Monocytes (%) (Auto) 11 % (0-9) Eosinophils (%) (Auto) 4 % (0-3) Basophils (%) (Auto) 1 % (0-3) Neutrophils # (Auto) 3.6 x10^3uL (1.8-7.7) Lymphocytes # (Auto) 2.7 x10^3/uL (1.0-4.8) Monocytes # (Auto) 0.8 x10^3/uL (0.0-1.1) Eosinophils # (Auto) 0.3 x10^3/uL (0.0-0.7) Basophils # (Auto) 0.1 x10^3/uL (0.0-0.2) Prothrombin Time 12.9 SEC (11.7-14.0) Prothromb Time International Ratio 1.0 (0.8-1.1) Sodium Level 141 mmol/L (136-145) Potassium Level 4.2 mmol/L (3.5-5.1) Chloride Level 103 mmol/L (98-107) Carbon Dioxide Level 30 mmol/L (21-32) Anion Gap 8 (6-14) Blood Urea Nitrogen 26 mg/dL (8-26) Creatinine 1.1 mg/dL (0.7-1.3) Estimated GFR (Cockcroft-Gault) 67.2 Glucose Level 93 mg/dL (70-99) Calcium Level 9.2 mg/dL (8.5-10.1) Magnesium Level 1.8 mg/dL (1.8-2.4) Total Bilirubin 0.2 mg/dL (0.2-1.0) Direct Bilirubin 0.1 mg/dL (0.0-0.2) Aspartate Amino Transf (AST/SGOT) 14 U/L (15-37) Alanine Aminotransferase (ALT/SGPT) 20 U/L (16-63) Alkaline Phosphatase 87 U/L (46-116) Creatine Kinase 29 U/L (39-308) Creatine Kinase MB (Mass) < 0.5 ng/mL (0.0-3.6) Creatine Kinase MB Relative Index % (0-4) Troponin I Quantitative < 0.017 ng/mL (0.000-0.055) VL-Ahj-A-Type Natriuretic Peptide 482 pg/mL (0-124) Total Protein 7.4 g/dL (6.4-8.2) Albumin 3.4 g/dL (3.4-5.0) Lipase 105 U/L (73-393) Thyroid Stimulating Hormone (TSH) 0.992 uIU/mL (0.358-3.74) Glucose (Fingerstick) 80 mg/dL (70-99) 80 mg/dL (70-99) Urine Collection Type Unknown Urine Color Yellow Urine Clarity Clear Urine pH 5.5 Urine Specific [place] 1.010 Urine Protein Negative mg/dL (NEG-TRACE) Urine Glucose (UA) Negative mg/dL (NEG) Urine Ketones (Stick) Negative mg/dL (NEG) Urine Blood Negative (NEG) Urine Nitrite Negative (NEG) Urine Bilirubin Negative (NEG) Urine Urobilinogen Dipstick 0.2 mg/dL (0.2 mg/dL) Urine Leukocyte Esterase Negative (NEG) Urine RBC 0 /HPF (0-2) Urine WBC 0 /HPF (0-4) Urine Squamous Epithelial Cells Few /LPF Urine Bacteria 0 /HPF (0-FEW) Urine Opiates Screen Pos (NEG) Urine Methadone Screen Neg (NEG) Urine Barbiturates Neg (NEG) Urine Phencyclidine Screen Neg (NEG) Urine Amphetamine/Methamphetamine Neg (NEG) Urine Benzodiazepines Screen Neg (NEG) Urine Cocaine Screen Neg (NEG) Urine Cannabinoids Screen Neg (NEG) Urine Ethyl Alcohol Neg (NEG) Test 07/11/17 16:52 07/11/17 17:20 Glucose (Fingerstick) 126 mg/dL (70-99) Troponin I Quantitative < 0.017 ng/mL (0.000-0.055) VTE Prophylaxis Ordered VTE Prophylaxis Devices: No VTE Pharmacological Prophylaxi: Yes Assessment/Plan Assessment/Plan angina, recent prior same, may be stable admit for r/o ACS, consutl CV asthma, COPD morbid obesity, BMI 53 DM2 GATITO LESLIE MD Jul 11, 2017 18:16
[2017-07-11 19:00] VITALS: BP 126/49
[2017-07-11] MEDS: BUDESONIDE 0.5 MG/2 ML NEBU. NEB SCH (20:00)
[2017-07-11] MEDS: DOCUSATE SODIUM 100 MG CAPSULE. PO SCH (21:47)
[2017-07-11] MEDS: diphenhydrAMINE HCL 25 MG CAPSULE PO SCH (21:48)
[2017-07-11] MEDS: GABAPENTIN 300 MG CAPSULE. PO SCH (21:48)
[2017-07-11] MEDS: amLODIPine BESYLATE 10 MG TABLET PO SCH (21:48)
[2017-07-11] MEDS: levETIRAcetam 500 MG TABLET PO SCH (21:49)
[2017-07-11] MEDS: INSULIN DETEMIR 300 UNITS/3 ML INSULN.PEN. SQ SCH (21:52)
[2017-07-11 23:00] VITALS: BP 124/51
[2017-07-12 03:00] VITALS: BP 131/100
[2017-07-12 05:29] LABS: BASO # 0.1 x10^3/uL (0.0-0.2); BASO % 1 % (0-3); EOS % 4 % (0-3); HEMATOCRIT 35.8 % (39.0-53.0); LYMPH # 2.4 x10^3/uL (1.0-4.8); LYMPH % 36 % (24-48); MEAN CORPUSCULAR HEMOGLOBIN 31 pg (25-35); MEAN CORPUSCULAR HGB CONC 34 g/dL (31-37); MEAN CORPUSCULAR VOLUME 92 fL (79-100); MONO % 10 % (0-9); NEUT % 48 % (31-73); PLATELET COUNT 241 x10^3/uL (140-400); RED BLOOD COUNT 3.87 x10^6/uL (4.30-5.70); RED CELL DISTRIBUTION WIDTH 13.6 % (11.5-14.5); WHITE BLOOD COUNT 6.6 x10^3/uL (4.0-11.0)
[2017-07-12 06:01] LABS: CREATININE 1.3 mg/dL (0.7-1.3); GFR 55.4; POTASSIUM 4.4 mmol/L (3.5-5.1)
[2017-07-12] MEDS: BUDESONIDE 0.5 MG/2 ML NEBU. NEB SCH ×2 (07:35→20:48)
[2017-07-12 07:40] VITALS: BP 160/63
[2017-07-12] MEDS: PANTOPRAZOLE 40 MG TABLET.DR. PO SCH (07:45)
[2017-07-12] MEDS: INSULIN ASPART 300 UNITS/3 ML INSULN.PEN SQ SCH ×3 (07:56→17:36)
[2017-07-12] MEDS: DOCUSATE SODIUM 100 MG CAPSULE. PO SCH ×2 (08:57→20:29)
[2017-07-12] MEDS: POTASSIUM CHLORIDE 20 MEQ TABLET.ER. PO SCH (08:58)
[2017-07-12] MEDS: GABAPENTIN 300 MG CAPSULE. PO SCH ×3 (08:58→20:29)
[2017-07-12] MEDS: CLOPIDOGREL BISULFATE 75 MG TABLET PO SCH (08:58)
[2017-07-12] MEDS: levETIRAcetam 500 MG TABLET PO SCH ×2 (08:59→20:29)
[2017-07-12] MEDS: POLYETHYLENE GLYCOL 3350 17 GM PACKET. PO SCH (09:00)
[2017-07-12] MEDS: LOSARTAN POTASSIUM 50 MG TABLET. PO SCH (09:23)
[2017-07-12] MEDS: BENZONATATE 100 MG CAPSULE. PO SCH (09:23)
[2017-07-12] MEDS: FUROSEMIDE 40 MG TABLET. PO SCH (09:24)
[2017-07-12] MEDS: ISOSORBIDE MONONITRATE ER 30 MG TAB.ER.24H PO SCH (09:24)
[2017-07-12] MEDS: CARVEDILOL 12.5 MG TABLET. PO SCH ×2 (09:24→17:35)
[2017-07-12] MEDS: ASPIRIN ENTERIC COATED 325 MG TABLET.DR. PO SCH (09:25)
[2017-07-12] MEDS: MULTIVITAMIN with MINERAL TABLET. PO SCH (09:25)
[2017-07-12] MEDS: MAGNESIUM OXIDE 400 MG TABLET PO SCH (09:25)
[2017-07-12 10:37] VITALS: BP 157/69
--- NOTE | 2017-07-12 12:49 | PDOC ---
PROGRESS NOTES Chief Complaint Chief Complaint Chest pain ASSESSMENT AND PLAN: 1. CP: ruled out for ACS by serial enzymes. cardiology 2. CAD: recent stent placement. cont 2ary prevention meds 3. COPD: no acute issues. cont nebs/inh 4. DM2: well controlled on home regimen 5. Morbid obesity: needs diet teaching 6. Dispo: home when cleared by cardiology History of Present Illness History of Present Illness CP resolved, feels good Vitals Vitals Vital Signs Date Time Temp Pulse Resp B/P (MAP) Pulse Ox O2 Delivery O2 Flow Rate FiO2 07/12/17 10:37 97.6 75 20 157/69 (98) 94 Room Air 97.6 Physical Exam General: Alert, Cooperative, No acute distress Heart: Regular rate Lungs: Clear, Other Extremities: Other (2+ LE edema) Skin: No rashes Labs LABS Laboratory Tests Test 07/11/17 13:10 07/11/17 16:52 07/11/17 17:20 07/11/17 20:18 Glucose (Fingerstick) 80 mg/dL (70-99) 126 mg/dL (70-99) 170 mg/dL (70-99) Troponin I Quantitative < 0.017 ng/mL (0.000-0.055) Test 07/11/17 23:00 07/12/17 03:00 07/12/17 07:20 07/12/17 10:59 Troponin I Quantitative < 0.017 ng/mL (0.000-0.055) White Blood Count 6.6 x10^3/uL (4.0-11.0) Red Blood Count 3.87 x10^6/uL (4.30-5.70) Hemoglobin 12.0 g/dL (13.0-17.5) Hematocrit 35.8 % (39.0-53.0) Mean Corpuscular Volume 92 fL (79-100) Mean Corpuscular Hemoglobin 31 pg (25-35) Mean Corpuscular Hemoglobin Concent 34 g/dL (31-37) Red Cell Distribution Width 13.6 % (11.5-14.5) Platelet Count 241 x10^3/uL (140-400) Neutrophils (%) (Auto) 48 % (31-73) Lymphocytes (%) (Auto) 36 % (24-48) Monocytes (%) (Auto) 10 % (0-9) Eosinophils (%) (Auto) 4 % (0-3) Basophils (%) (Auto) 1 % (0-3) Neutrophils # (Auto) 3.2 x10^3uL (1.8-7.7) Lymphocytes # (Auto) 2.4 x10^3/uL (1.0-4.8) Monocytes # (Auto) 0.7 x10^3/uL (0.0-1.1) Eosinophils # (Auto) 0.3 x10^3/uL (0.0-0.7) Basophils # (Auto) 0.1 x10^3/uL (0.0-0.2) Sodium Level 141 mmol/L (136-145) Potassium Level 4.4 mmol/L (3.5-5.1) Chloride Level 105 mmol/L (98-107) Carbon Dioxide Level 29 mmol/L (21-32) Anion Gap 7 (6-14) Blood Urea Nitrogen 28 mg/dL (8-26) Creatinine 1.3 mg/dL (0.7-1.3) Estimated GFR (Cockcroft-Gault) 55.4 Glucose Level 103 mg/dL (70-99) Calcium Level 9.0 mg/dL (8.5-10.1) Glucose (Fingerstick) 63 mg/dL (70-99) 138 mg/dL (70-99) KAROL WOO MD Jul 12, 2017 12:49
--- NOTE | 2017-07-12 14:18 | PDOC2 ---
CONSULT Date of Consult Date of Consult DATE: 07/12/17 TIME: 14:17 Reason for Consult Reason for Consult: chest pain Referring Physician Referring Physician: Dr. Crockett Identification/Chief Complaint Chief Complaint Chest pain Problems: Source Source: Chart review, Patient History of Present Illness Reason for Visit: 66-year-old male who was undergoing PT/OT at [facility] apparently had an episode of left-sided chest pain radiating down left arm that he described as stabbing in nature not related to exertion or food intake. He denied any orthopnea/PND, palpitations or syncope. Past Medical History Cardiovascular: CAD (s/p PCI/stent to RCA in [place] May 2017), Other Pulmonary: COPD, Other CENTRAL NERVOUS SYSTEM: CVA, Dementia GI: Other Heme/Onc: No pertinent hx Hepatobiliary: No pertinent hx Psych: No pertinent hx Musculoskeletal: Osteoarthritis, Other Rheumatologic: No pertinent hx Infectious disease: No pertinent hx Renal/: No pertinent hx Endocrine: Diabetes Past Surgical History Past Surgical History: Appendectomy, Hernia Repair, Tonsillectomy, Other Family History Family History: Heart Disease Social History No ALCOHOL: none Drugs: None Lives: with Family Current Medications Current Medications Current Medications Ondansetron HCl (Zofran) 4 mg PRN Q8HRS PRN IV NAUSEA/VOMITING; Start at 11:45; Stop 07/12/17 at 11:44; Status DC Acetaminophen (Tylenol) 500 mg PRN Q6HRS PRN PO PAIN; Start 07/11/17 at 16:00 Acetaminophen/ Codeine Phosphate (Tylenol #3) 1 tab PRN Q6HRS PRN PO PAIN; Start 07/11/17 at 16:00 Albuterol Sulfate (Ventolin Neb Soln) 2.5 mg PRN Q4HRS PRN NEB SHORTNESS OF BREATH; Start 07/11/17 at 16:00 Amlodipine Besylate (Norvasc) 10 mg HS PO Last administered on 07/11/17 21:48 ; Start 07/11/17 at 21:00 Aspirin (Ecotrin) 325 mg DAILY PO Last administered on 07/12/17 09:25; Start 07/12/17 at 09:00 Benzonatate (Tessalon Perle) 100 mg DAILY PO Last administered on 07/12/17 09 :23; Start 07/12/17 at 09:00 Budesonide (Pulmicort) 0.5 mg RTBID NEB Last administered on 07/12/17 07:35; Start 07/11/17 at 20:00 Clonidine HCl (Catapres) 0.2 mg PRN TID PRN PO HTN; Start 07/11/17 at 16:00 Clopidogrel Bisulfate (Plavix) 75 mg DAILY PO Last administered on 07/12/17 08:58; Start 07/12/17 at 09:00 Diphenhydramine HCl (Benadryl) 25 mg QHS PO Last administered on 07/11/17 21: 48; Start 07/11/17 at 21:00 Docusate Sodium (Colace) 100 mg BID PO Last administered on 07/12/17 08:57; Start 07/11/17 at 21:00 Furosemide (Lasix) 40 mg DAILY PO Last administered on 07/12/17 09:24; Start 07/12/17 at 09:00 Insulin Aspart (NovoLOG) 10 units TIDWMEALS SQ Last administered on 07/12/17 12:12; Start 07/11/17 at 17:00 Levetiracetam (Keppra) 500 mg BID PO Last administered on 07/12/17 08:59; Start 07/11/17 at 21:00 Metformin HCl (Glucophage) 1,000 mg BIDWMEALS PO Last administered on 08:58; Start 07/11/17 at 17:00 Methocarbamol (Robaxin) 500 mg PRN Q6HRS PRN PO MUSCLE SPASMS; Start 07/11/17 at 16:00 Polyethylene Glycol (miraLAX PACKET) 17 gm DAILY PO ; Start 07/12/17 at 09:00 Trazodone HCl (Desyrel) 50 mg PRN QHS PRN PO INSOMNIA Last administered on 21:48; Start 07/11/17 at 16:00 Triamcinolone Acetonide (Kenalog) 1 uma PRN TID PRN TP RASH; Start 07/11/17 at 16:00 Non-Formulary Medication 2.5 mg Q6HRS PRN NEB SHORTNESS OF BREATH; Start 07/11 at 16:00; Stop 07/11/17 at 16:13; Status DC Carvedilol (Coreg) 25 mg BIDWMEALS PO Last administered on 07/12/17 09:24; Start 07/11/17 at 17:00 Gabapentin (Neurontin) 300 mg TID PO Last administered on 07/12/17 14:09; Start 07/11/17 at 21:00 Insulin Detemir (Levemir) 55 units HS SQ Last administered on 07/11/17 21:52 ; Start 07/11/17 at 21:00 Isosorbide Mononitrate (Imdur) 60 mg DAILY PO Last administered on 07/12/17 09:24; Start 07/12/17 at 09:00 Losartan Potassium (Cozaar) 100 mg DAILY PO Last administered on 07/12/17 09: 23; Start 07/12/17 at 09:00 Magnesium Oxide (Magnesium Oxide) 400 mg DAILY PO Last administered on 09:25; Start 07/12/17 at 09:00 Multivitamins (Thera M Plus) 1 tab DAILY PO Last administered on 07/12/17 09: 25; Start 07/12/17 at 09:00 Pantoprazole Sodium (Protonix) 40 mg DAILYAC PO Last administered on 07:45; Start 07/12/17 at 07:30 Ondansetron HCl (Zofran Odt) 4 mg PRN Q6HRS PRN PO NAUSEA/VOMITING; Start at 16:15 Potassium Chloride (Klor-Con) 20 meq DAILYWBKFT PO Last administered on 08:58; Start 07/12/17 at 08:00 Active Scripts Active Novolog Flexpen (Insulin Aspart) 100 Unit/1 Ml Insuln.pen 10 Unit SQ [id number] Acetaminophen-Cod #3 Tablet (Acetaminophen/Codeine Phosphate) 1 Each Tablet 1 Tab PO PRN Q6HRS PRN Keppra (Levetiracetam) 500 Mg Tablet 1 Tab PO BID Reported Albuterol Sulfate Neb Soln (Albuterol Sulfate) 2.5 Mg/3 Ml Vial.neb 2.5 Mg NEB PRN Q4HRS PRN Ondansetron Hcl 4 Mg Tablet 4 Mg PO PRN Q6HRS PRN Robaxin (Methocarbamol) 500 Mg Tablet 500 Mg PO PRN Q6HRS PRN Albuterol Sulfate Conc Neb Soln (Albuterol Sulfate) 2.5 Mg/0.5 Ml Vial.neb 2.5 Mg NEB Q6HRS PRN Pulmicort (Budesonide) 0.5 Mg/2 Ml Ampul.neb 0.5 Mg IH RTBID Levemir (Insulin Detemir) 100 Unit/1 Ml Vial 55 Unit SQ HS Acetaminophen 500 Mg Tablet 500 Mg PO PRN Q6HRS PRN Isosorbide Mononitrate Er (Isosorbide Mononitrate) 60 Mg Tab.er.24h 60 Mg PO DAILY Aspirin Ec (Aspirin) 325 Mg Tablet.dr 325 Mg PO DAILY Tessalon Perle (Benzonatate) 100 Mg Capsule 100 Mg PO DAILY Omeprazole 20 Mg Tablet.dr 20 Mg PO DAILY Triamcinolone Acetonide 0.1% Cream (Triamcinolone Acetonide) 15 Gm Cream..g. 1 Uma TP PRN TID PRN Magnesium 200 Mg Tablet 400 Mg PO DAILY Potassium Chloride 20 Meq Tablet.er 20 Meq PO DAILY Polyethylene Glycol 3350 255 Gm Powder 17 Gm PO DAILY Multi-Day Vitamins (Multivitamin) 1 Each Tablet 1 Tab PO DAILY Furosemide 40 Mg Tablet 1 Tab PO DAILY Colace (Docusate Sodium) 100 Mg Capsule 1 Cap PO BID Clopidogrel (Clopidogrel Bisulfate) 75 Mg Tablet 75 Mg PO DAILY Amlodipine Besylate 10 Mg Tablet 10 Mg PO HS Trazodone Hcl 50 Mg Tablet 50 Mg PO PRN QHS PRN Carvedilol 25 Mg Tablet 25 Mg PO BIDWMEALS Losartan Potassium 100 Mg Tablet 100 Mg PO DAILY Benadryl (Diphenhydramine Hcl) 25 Mg Capsule 1 Cap PO QHS Gabapentin 300 Mg Capsule 300 Mg PO TID Metformin Hcl 1,000 Mg Tablet 1,000 Mg PO BIDWMEALS Clonidine Hcl 0.2 Mg Tablet 0.2 Mg PO PRN TID PRN For BP >150/70 Allergies Allergies: Coded Allergies: Hnujoae-Nsh-Wkg Reductase Inhibitor (Verified Allergy, Intermediate, ) erythromycin base (Verified Allergy, Intermediate, 04/03/17) iodine (Verified Allergy, Intermediate, 04/03/17) niacin (Verified Allergy, Intermediate, 04/03/17) simvastatin (Verified Allergy, Intermediate, 04/03/17) ROS PSYCHOLOGICAL ROS: No: Hallucinations Eyes: No Loss of vision HEENT: No: Epistaxis ENDOCRINE: No: Palpitations Respiratory: No: Hemoptysis Cardiovascular: yes Chest Pain Gastrointestinal: No Vomiting, No Diarrhea Genitourinary: No Hematuria Neurological: No Seizures Skin: No Rash Physical Exam General: Alert, Oriented X3 HEENT: Atraumatic, PERRLA Lungs: Clear to auscultation Heart: Regular rate Abdomen: Soft, No tenderness Extremities: No edema Psych/Mental Status: Mood NL Vitals VITALS Vital Signs Date Time Temp Pulse Resp B/P (MAP) Pulse Ox O2 Delivery O2 Flow Rate FiO2 07/12/17 10:37 97.6 75 20 157/69 (98) 94 Room Air 97.6 Labs Labs Laboratory Tests Test 07/11/17 09:30 07/11/17 09:35 07/11/17 09:45 07/11/17 13:10 White Blood Count 7.4 x10^3/uL (4.0-11.0) Red Blood Count 4.14 x10^6/uL (4.30-5.70) Hemoglobin 12.5 g/dL (13.0-17.5) Hematocrit 38.7 % (39.0-53.0) Mean Corpuscular Volume 93 fL (79-100) Mean Corpuscular Hemoglobin 30 pg (25-35) Mean Corpuscular Hemoglobin Concent 32 g/dL (31-37) Red Cell Distribution Width 13.6 % (11.5-14.5) Platelet Count 253 x10^3/uL (140-400) Neutrophils (%) (Auto) 49 % (31-73) Lymphocytes (%) (Auto) 36 % (24-48) Monocytes (%) (Auto) 11 % (0-9) Eosinophils (%) (Auto) 4 % (0-3) Basophils (%) (Auto) 1 % (0-3) Neutrophils # (Auto) 3.6 x10^3uL (1.8-7.7) Lymphocytes # (Auto) 2.7 x10^3/uL (1.0-4.8) Monocytes # (Auto) 0.8 x10^3/uL (0.0-1.1) Eosinophils # (Auto) 0.3 x10^3/uL (0.0-0.7) Basophils # (Auto) 0.1 x10^3/uL (0.0-0.2) Prothrombin Time 12.9 SEC (11.7-14.0) Prothromb Time International Ratio 1.0 (0.8-1.1) Sodium Level 141 mmol/L (136-145) Potassium Level 4.2 mmol/L (3.5-5.1) Chloride Level 103 mmol/L (98-107) Carbon Dioxide Level 30 mmol/L (21-32) Anion Gap 8 (6-14) Blood Urea Nitrogen 26 mg/dL (8-26) Creatinine 1.1 mg/dL (0.7-1.3) Estimated GFR (Cockcroft-Gault) 67.2 Glucose Level 93 mg/dL (70-99) Calcium Level 9.2 mg/dL (8.5-10.1) Magnesium Level 1.8 mg/dL (1.8-2.4) Total Bilirubin 0.2 mg/dL (0.2-1.0) Direct Bilirubin 0.1 mg/dL (0.0-0.2) Aspartate Amino Transf (AST/SGOT) 14 U/L (15-37) Alanine Aminotransferase (ALT/SGPT) 20 U/L (16-63) Alkaline Phosphatase 87 U/L (46-116) Creatine Kinase 29 U/L (39-308) Creatine Kinase MB (Mass) < 0.5 ng/mL (0.0-3.6) Creatine Kinase MB Relative Index % (0-4) Troponin I Quantitative < 0.017 ng/mL (0.000-0.055) ZS-Cnd-Z-Type Natriuretic Peptide 482 pg/mL (0-124) Total Protein 7.4 g/dL (6.4-8.2) Albumin 3.4 g/dL (3.4-5.0) Lipase 105 U/L (73-393) Thyroid Stimulating Hormone (TSH) 0.992 uIU/mL (0.358-3.74) Glucose (Fingerstick) 80 mg/dL (70-99) 80 mg/dL (70-99) Urine Collection Type Unknown Urine Color Yellow Urine Clarity Clear Urine pH 5.5 Urine Specific [place] 1.010 Urine Protein Negative mg/dL (NEG-TRACE) Urine Glucose (UA) Negative mg/dL (NEG) Urine Ketones (Stick) Negative mg/dL (NEG) Urine Blood Negative (NEG) Urine Nitrite Negative (NEG) Urine Bilirubin Negative (NEG) Urine Urobilinogen Dipstick 0.2 mg/dL (0.2 mg/dL) Urine Leukocyte Esterase Negative (NEG) Urine RBC 0 /HPF (0-2) Urine WBC 0 /HPF (0-4) Urine Squamous Epithelial Cells Few /LPF Urine Bacteria 0 /HPF (0-FEW) Urine Opiates Screen Pos (NEG) Urine Methadone Screen Neg (NEG) Urine Barbiturates Neg (NEG) Urine Phencyclidine Screen Neg (NEG) Urine Amphetamine/Methamphetamine Neg (NEG) Urine Benzodiazepines Screen Neg (NEG) Urine Cocaine Screen Neg (NEG) Urine Cannabinoids Screen Neg (NEG) Urine Ethyl Alcohol Neg (NEG) Test 07/11/17 16:52 07/11/17 17:20 07/11/17 20:18 07/11/17 23:00 Glucose (Fingerstick) 126 mg/dL (70-99) 170 mg/dL (70-99) Troponin I Quantitative < 0.017 ng/mL (0.000-0.055) < 0.017 ng/mL (0.000-0.055) Test 07/12/17 03:00 07/12/17 07:20 07/12/17 10:59 White Blood Count 6.6 x10^3/uL (4.0-11.0) Red Blood Count 3.87 x10^6/uL (4.30-5.70) Hemoglobin 12.0 g/dL (13.0-17.5) Hematocrit 35.8 % (39.0-53.0) Mean Corpuscular Volume 92 fL (79-100) Mean Corpuscular Hemoglobin 31 pg (25-35) Mean Corpuscular Hemoglobin Concent 34 g/dL (31-37) Red Cell Distribution Width 13.6 % (11.5-14.5) Platelet Count 241 x10^3/uL (140-400) Neutrophils (%) (Auto) 48 % (31-73) Lymphocytes (%) (Auto) 36 % (24-48) Monocytes (%) (Auto) 10 % (0-9) Eosinophils (%) (Auto) 4 % (0-3) Basophils (%) (Auto) 1 % (0-3) Neutrophils # (Auto) 3.2 x10^3uL (1.8-7.7) Lymphocytes # (Auto) 2.4 x10^3/uL (1.0-4.8) Monocytes # (Auto) 0.7 x10^3/uL (0.0-1.1) Eosinophils # (Auto) 0.3 x10^3/uL (0.0-0.7) Basophils # (Auto) 0.1 x10^3/uL (0.0-0.2) Sodium Level 141 mmol/L (136-145) Potassium Level 4.4 mmol/L (3.5-5.1) Chloride Level 105 mmol/L (98-107) Carbon Dioxide Level 29 mmol/L (21-32) Anion Gap 7 (6-14) Blood Urea Nitrogen 28 mg/dL (8-26) Creatinine 1.3 mg/dL (0.7-1.3) Estimated GFR (Cockcroft-Gault) 55.4 Glucose Level 103 mg/dL (70-99) Calcium Level 9.0 mg/dL (8.5-10.1) Glucose (Fingerstick) 63 mg/dL (70-99) 138 mg/dL (70-99) Laboratory Tests Test 07/11/17 16:52 07/11/17 17:20 07/11/17 20:18 07/11/17 23:00 Glucose (Fingerstick) 126 mg/dL (70-99) 170 mg/dL (70-99) Troponin I Quantitative < 0.017 ng/mL (0.000-0.055) < 0.017 ng/mL (0.000-0.055) Test 07/12/17 03:00 07/12/17 07:20 07/12/17 10:59 White Blood Count 6.6 x10^3/uL (4.0-11.0) Red Blood Count 3.87 x10^6/uL (4.30-5.70) Hemoglobin 12.0 g/dL (13.0-17.5) Hematocrit 35.8 % (39.0-53.0) Mean Corpuscular Volume 92 fL (79-100) Mean Corpuscular Hemoglobin 31 pg (25-35) Mean Corpuscular Hemoglobin Concent 34 g/dL (31-37) Red Cell Distribution Width 13.6 % (11.5-14.5) Platelet Count 241 x10^3/uL (140-400) Neutrophils (%) (Auto) 48 % (31-73) Lymphocytes (%) (Auto) 36 % (24-48) Monocytes (%) (Auto) 10 % (0-9) Eosinophils (%) (Auto) 4 % (0-3) Basophils (%) (Auto) 1 % (0-3) Neutrophils # (Auto) 3.2 x10^3uL (1.8-7.7) Lymphocytes # (Auto) 2.4 x10^3/uL (1.0-4.8) Monocytes # (Auto) 0.7 x10^3/uL (0.0-1.1) Eosinophils # (Auto) 0.3 x10^3/uL (0.0-0.7) Basophils # (Auto) 0.1 x10^3/uL (0.0-0.2) Sodium Level 141 mmol/L (136-145) Potassium Level 4.4 mmol/L (3.5-5.1) Chloride Level 105 mmol/L (98-107) Carbon Dioxide Level 29 mmol/L (21-32) Anion Gap 7 (6-14) Blood Urea Nitrogen 28 mg/dL (8-26) Creatinine 1.3 mg/dL (0.7-1.3) Estimated GFR (Cockcroft-Gault) 55.4 Glucose Level 103 mg/dL (70-99) Calcium Level 9.0 mg/dL (8.5-10.1) Glucose (Fingerstick) 63 mg/dL (70-99) 138 mg/dL (70-99) Assessment/Plan Assessment/Plan 1. Chest pain with atypical features in a patient with known history of coronary artery disease s/p recent PCI/stent placement to RCA in [place] in May 2017. Myocardial infarction ruled out. He claimed compliance with his medications including Plavix. LVEF 55%. He is presently chest pain-free. No further cardiac workup is indicated at this time. 2. Hypertension: Blood pressure elevated on admission but presently better controlled. 3. Hyperlipidemia: Continue statin therapy 4. COPD: Clinically stable 5. Diabetes mellitus type 2: Treat per IM Thank you for your consultation ALICE ANDRADE MD Jul 12, 2017 14:17
[2017-07-12 14:46] VITALS: BP 112/62
[2017-07-12 19:00] VITALS: BP 125/63
[2017-07-12] MEDS: diphenhydrAMINE HCL 25 MG CAPSULE PO SCH (20:29)
[2017-07-12] MEDS: amLODIPine BESYLATE 10 MG TABLET PO SCH (20:30)
[2017-07-12] MEDS: INSULIN DETEMIR 300 UNITS/3 ML INSULN.PEN. SQ SCH (20:39)
[2017-07-12 23:00] VITALS: BP 156/65
[2017-07-13 03:00] VITALS: BP 144/67
[2017-07-13] MEDS: PANTOPRAZOLE 40 MG TABLET.DR. PO SCH (06:37)
[2017-07-13 07:00] VITALS: BP 148/65
[2017-07-13] MEDS: BUDESONIDE 0.5 MG/2 ML NEBU. NEB SCH (07:43)
[2017-07-13] MEDS: POTASSIUM CHLORIDE 20 MEQ TABLET.ER. PO SCH (09:19)
[2017-07-13] MEDS: DOCUSATE SODIUM 100 MG CAPSULE. PO SCH (09:20)
[2017-07-13] MEDS: LOSARTAN POTASSIUM 50 MG TABLET. PO SCH (09:21)
[2017-07-13] MEDS: ASPIRIN ENTERIC COATED 325 MG TABLET.DR. PO SCH (09:21)
[2017-07-13] MEDS: levETIRAcetam 500 MG TABLET PO SCH (09:22)
[2017-07-13] MEDS: FUROSEMIDE 40 MG TABLET. PO SCH (09:22)
[2017-07-13] MEDS: MAGNESIUM OXIDE 400 MG TABLET PO SCH (09:23)
[2017-07-13] MEDS: BENZONATATE 100 MG CAPSULE. PO SCH (09:23)
[2017-07-13] MEDS: GABAPENTIN 300 MG CAPSULE. PO SCH ×2 (09:23→14:00)
[2017-07-13] MEDS: POLYETHYLENE GLYCOL 3350 17 GM PACKET. PO SCH (09:23)
[2017-07-13] MEDS: CLOPIDOGREL BISULFATE 75 MG TABLET PO SCH (09:23)
[2017-07-13] MEDS: MULTIVITAMIN with MINERAL TABLET. PO SCH (09:24)
[2017-07-13] MEDS: INSULIN ASPART 300 UNITS/3 ML INSULN.PEN SQ SCH ×2 (09:32→12:00)
[2017-07-13] MEDS: CARVEDILOL 12.5 MG TABLET. PO SCH (09:33)
[2017-07-13] MEDS: ISOSORBIDE MONONITRATE ER 30 MG TAB.ER.24H PO SCH (09:34)
--- NOTE | 2017-07-13 09:57 | PDOC3 ---
Discharge Summary Visit Information Date of Admission: Jul 11, 2017 Date of Discharge: Jul 13, 2017 Admitting Diagnosis Comment: Assessment/Plan 1. Chest pain with atypical features in a patient with known history of coronary artery disease s/p recent PCI/stent placement to RCA in [place] in May 2017. Myocardial infarction ruled out. He claimed compliance with his medications including Plavix. LVEF 55%. He is presently chest pain-free. No further cardiac workup is indicated at this time. 2. Hypertension: Blood pressure elevated on admission but presently better controlled. 3. Hyperlipidemia: Continue statin therapy 4. COPD: Clinically stable 5. Diabetes mellitus type 2: Treat per IM Brief Hospital Course Allergies Allergies Coded Allergies Type Severity Reaction Last Updated Verified Fdvtazd-Gja-Dvm Reductase Inhibitor Allergy Intermediate 04/03/17 Yes erythromycin base Allergy Intermediate 04/03/17 Yes iodine Allergy Intermediate 04/03/17 Yes niacin Allergy Intermediate 04/03/17 Yes simvastatin Allergy Intermediate 04/03/17 Yes Vital Signs Vital Signs Date Time Temp Pulse Resp B/P (MAP) Pulse Ox O2 Delivery O2 Flow Rate FiO2 07/13/17 09:34 76 148/65 07/13/17 07:43 98 Room Air 07/13/17 07:00 97.8 20 97.8 Lab Results Laboratory Tests Test 07/11/17 13:10 07/11/17 16:52 07/11/17 17:20 07/11/17 20:18 Glucose (Fingerstick) 80 mg/dL (70-99) 126 mg/dL (70-99) 170 mg/dL (70-99) Troponin I Quantitative < 0.017 ng/mL (0.000-0.055) Test 07/11/17 21:45 07/11/17 23:00 07/12/17 03:00 07/12/17 07:20 Nasal Screen MRSA (PCR) Negative (Negative) Troponin I Quantitative < 0.017 ng/mL (0.000-0.055) White Blood Count 6.6 x10^3/uL (4.0-11.0) Red Blood Count 3.87 x10^6/uL (4.30-5.70) Hemoglobin 12.0 g/dL (13.0-17.5) Hematocrit 35.8 % (39.0-53.0) Mean Corpuscular Volume 92 fL (79-100) Mean Corpuscular Hemoglobin 31 pg (25-35) Mean Corpuscular Hemoglobin Concent 34 g/dL (31-37) Red Cell Distribution Width 13.6 % (11.5-14.5) Platelet Count 241 x10^3/uL (140-400) Neutrophils (%) (Auto) 48 % (31-73) Lymphocytes (%) (Auto) 36 % (24-48) Monocytes (%) (Auto) 10 % (0-9) Eosinophils (%) (Auto) 4 % (0-3) Basophils (%) (Auto) 1 % (0-3) Neutrophils # (Auto) 3.2 x10^3uL (1.8-7.7) Lymphocytes # (Auto) 2.4 x10^3/uL (1.0-4.8) Monocytes # (Auto) 0.7 x10^3/uL (0.0-1.1) Eosinophils # (Auto) 0.3 x10^3/uL (0.0-0.7) Basophils # (Auto) 0.1 x10^3/uL (0.0-0.2) Sodium Level 141 mmol/L (136-145) Potassium Level 4.4 mmol/L (3.5-5.1) Chloride Level 105 mmol/L (98-107) Carbon Dioxide Level 29 mmol/L (21-32) Anion Gap 7 (6-14) Blood Urea Nitrogen 28 mg/dL (8-26) Creatinine 1.3 mg/dL (0.7-1.3) Estimated GFR (Cockcroft-Gault) 55.4 Glucose Level 103 mg/dL (70-99) Calcium Level 9.0 mg/dL (8.5-10.1) Glucose (Fingerstick) 63 mg/dL (70-99) Test 07/12/17 10:59 07/12/17 16:35 07/12/17 20:33 Glucose (Fingerstick) 138 mg/dL (70-99) 76 mg/dL (70-99) 97 mg/dL (70-99) Laboratory Tests Test 07/12/17 10:59 07/12/17 16:35 07/12/17 20:33 Glucose (Fingerstick) 138 mg/dL (70-99) 76 mg/dL (70-99) 97 mg/dL (70-99) [facility] Course Mr. Melchor is a 66 old male who was admitted for CP, has some cardiac hx, SNU rsident, Seen by cards, all work up neg, no need for further cadiac eval, BAck to SNU with no change in ,meds Valeria nd examined consults; cards Discharge Information Condition at Discharge: Improved, Stable Disposition/Orders: Other (snf) Scheduled Amlodipine Besylate (Amlodipine Besylate), 10 MG PO HS, (Reported) Aspirin (Aspirin Ec), 325 MG PO DAILY, (Reported) Benzonatate (Tessalon Perle), 100 MG PO DAILY, (Reported) Budesonide (Pulmicort), 0.5 MG IH RTBID, (Reported) Carvedilol (Carvedilol), 25 MG PO BIDWMEALS, (Reported) Clopidogrel Bisulfate (Clopidogrel), 75 MG PO DAILY, (Reported) Diphenhydramine Hcl (Benadryl), 1 CAP PO QHS, (Reported) Docusate Sodium (Colace), 1 CAP PO BID, (Reported) Furosemide (Furosemide), 1 TAB PO DAILY, (Reported) Gabapentin (Gabapentin), 300 MG PO TID, (Reported) Insulin Aspart (Novolog Flexpen), 10 UNIT SQ [id number] Insulin Detemir (Levemir), 55 UNIT SQ HS, (Reported) Isosorbide Mononitrate (Isosorbide Mononitrate Er), 60 MG PO DAILY, (Reported) Levetiracetam (Keppra), 1 TAB PO BID Losartan Potassium (Losartan Potassium), 100 MG PO DAILY, (Reported) Magnesium (Magnesium), 400 MG PO DAILY, (Reported) Metformin Hcl (Metformin Hcl), 1,000 MG PO BIDWMEALS, (Reported) Multivitamin (Multi-Day Vitamins), 1 TAB PO DAILY, (Reported) Omeprazole (Omeprazole), 20 MG PO DAILY, (Reported) Polyethylene Glycol 3350 (Polyethylene Glycol 3350), 17 GM PO DAILY, (Reported) Potassium Chloride (Potassium Chloride), 20 MEQ PO DAILY, (Reported) Scheduled PRN Acetaminophen (Acetaminophen), 500 MG PO PRN Q6HRS PRN for PAIN, (Reported) Acetaminophen With Codeine (Acetaminophen-Cod #3 Tablet), 1 TAB PO PRN Q6HRS PRN for PAIN Albuterol Sulfate (Albuterol Sulfate Conc Neb Soln), 2.5 MG NEB Q6HRS PRN for SHORTNESS OF BREATH, (Reported) Albuterol Sulfate (Albuterol Sulfate Neb Soln), 2.5 MG NEB PRN Q4HRS PRN for SHORTNESS OF BREATH, (Reported) Clonidine Hcl (Clonidine Hcl), 0.2 MG PO PRN TID PRN for tid, (Reported) Methocarbamol (Robaxin), 500 MG PO PRN Q6HRS PRN for MUSCLE SPASMS, (Reported) Ondansetron Hcl (Ondansetron Hcl), 4 MG PO PRN Q6HRS PRN for NAUSEA/VOMITING, ( Reported) Trazodone Hcl (Trazodone Hcl), 50 MG PO PRN QHS PRN for INSOMNIA, (Reported) Triamcinolone Acetonide (Triamcinolone Acetonide 0.1% Cream), 1 WENDIE TP PRN TID PRN for RASH, (Reported) Discontinued Medications Acetaminophen (Tylenol), 650 MG PO QID, (Reported) Aspirin (Aspir 81), 1 TAB PO DAILY, (Reported) Doxycycline Hyclate (Doxycycline Hyclate), 100 MG PO BID, (Reported) Insulin Aspart (Novolog Flexpen), 24 UNIT SQ DAILYBFRSUP, (Reported) Insulin Glargine,Hum.rec.anlog (Lantus Solostar), 75 UNIT SQ HS, (Reported) Discontinued Reason: Prescription changed Levetiracetam (Keppra), 1 TAB PO BID Levofloxacin (Levofloxacin), 500 MG PO DAILY, (Reported) Meloxicam (Meloxicam), 7.5 MG PO DAILY, (Reported) Pantoprazole Sodium (Pantoprazole Sodium), 40 MG PO DAILY, (Reported) VENUS DALAL MD Jul 13, 2017 09:57
[2017-07-13 11:00] VITALS: BP 129/60
== END 2017-07-13 15:00 | DRG 292 ==
LOC: ER 09:27 → 5 SOUTH 10:55
PROVIDERS: ADMIT Internal Medicine; ATTEND Internal Medicine
DX: I11.0 Hypertensive heart disease with heart failure (principal); Z68.43 Body mass index [BMI] 50.0-59.9, adult; E66.01 Morbid (severe) obesity due to excess calories; F03.90 Unspecified dementia, unspecified severity, without behavioral disturbance, psychotic disturbance, mood disturbance, and anxiety; J44.9 Chronic obstructive pulmonary disease, unspecified; K21.9 Gastro-esophageal reflux disease without esophagitis; I50.9 Heart failure, unspecified; I25.119 Atherosclerotic heart disease of native coronary artery with unspecified angina pectoris; E11.9 Type 2 diabetes mellitus without complications; E78.00 Pure hypercholesterolemia, unspecified; E78.5 Hyperlipidemia, unspecified; G47.00 Insomnia, unspecified; M19.90 Unspecified osteoarthritis, unspecified site; Z79.4 Long term (current) use of insulin; Z79.82 Long term (current) use of aspirin; Z86.73 Personal history of transient ischemic attack (TIA), and cerebral infarction without residual deficits; Z95.5 Presence of coronary angioplasty implant and graft; Z88.8 Allergy status to other drugs, medicaments and biological substances; Z88.1 Allergy status to other antibiotic agents; Z91.041 Radiographic dye allergy status; Z82.49 Family history of ischemic heart disease and other diseases of the circulatory system
CPT/HCPCS: 36415; 71010; 80048; 80076; 80307; 81001; 82553; 82962; 83690; 83735; 83880; 84443; 84484; 85025; 85610; 87641; 93005; 94640; 94760; J1815; J7626; Q0163; 99285-25; G0479

== ENCOUNTER 2017-10-12 09:22 | Inpatient (IN) | payer MEDICARE ==
[2017-10-12] MEDS ORDERED: NITROGLYCERIN SUBLINGUAL 0.4 MG BOTTLE OF 25. SL ×2 (09:30→11:30)
[2017-10-12 09:42] LABS: ADD MAN DIFF? NO
[2017-10-12 09:53] LABS: BASO # 0.1 x10^3/uL (0.0-0.2); BASO % 1 % (0-3); EOS # 0.3 x10^3/uL (0.0-0.7); EOS % 3 % (0-3); HEMATOCRIT 34.6 % (39.0-53.0); HEMOGLOBIN 11.7 g/dL (13.0-17.5); LYMPH # 3.2 x10^3/uL (1.0-4.8); LYMPH % 32 % (24-48); MEAN CORPUSCULAR HEMOGLOBIN 31 pg (25-35); MEAN CORPUSCULAR HGB CONC 34 g/dL (31-37); MEAN CORPUSCULAR VOLUME 92 fL (79-100); MONO # 0.9 x10^3/uL (0.0-1.1); MONO % 9 % (0-9); NEUT # 5.6 x10^3uL (1.8-7.7); NEUT % 55 % (31-73); PLATELET COUNT 303 x10^3/uL (140-400); RED BLOOD COUNT 3.78 x10^6/uL (4.30-5.70); RED CELL DISTRIBUTION WIDTH 14.6 % (11.5-14.5); WHITE BLOOD COUNT 10.1 x10^3/uL (4.0-11.0)
[2017-10-12 10:01] LABS: ANION GAP 5 (6-14); BLOOD UREA NITROGEN 37 mg/dL (8-26); CALCIUM 8.6 mg/dL (8.5-10.1); CARBON DIOXIDE 34 mmol/L (21-32); CHLORIDE 99 mmol/L (98-107); CREATININE 1.5 mg/dL (0.7-1.3); GLUCOSE 229 mg/dL (70-99); POTASSIUM 3.6 mmol/L (3.5-5.1); SODIUM 138 mmol/L (136-145)
[2017-10-12 10:05] LABS: ALBUMIN 2.6 g/dL (3.4-5.0); ALK PHOS 398 U/L (46-116); ALT (SGPT) 225 U/L (16-63); AST (SGOT) 97 U/L (15-37); DIRECT BILIRUBIN 1.6 mg/dL (0.0-0.2); LIPASE 221 U/L (73-393); MAGNESIUM 1.5 mg/dL (1.8-2.4); TOTAL BILIRUBIN 1.9 mg/dL (0.2-1.0)
[2017-10-12 10:06] LABS: INR 0.9 (0.8-1.1); PROTHROMBIN TIME PATIENT 11.5 SEC (11.7-14.0)
[2017-10-12 10:06] LABS: TROPONINI < 0.017 ng/mL (0.000-0.055)
[2017-10-12 10:14] LABS: THYROID STIM HORMONE (TSH) 1.333 uIU/mL (0.358-3.74)
[2017-10-12 10:38] LABS: NT-PRO BNP 239 pg/mL (0-124)
[2017-10-12 10:38] LABS: CKMB MASS < 0.5 ng/mL (0.0-3.6); CREATINE KINASE 19 U/L (39-308)
[2017-10-12] MEDS ORDERED: ONDANSETRON PF 4 MG/2 ML VIAL. IV (11:30)
[2017-10-12 12:07] LABS: POC GLUCOSE 190 mg/dL (70-99)
[2017-10-12] MEDS: MAGNESIUM SULFATE 2GM 50 ML IV ×2 (13:29→18:00)
[2017-10-12 14:42] LABS: LACTIC ACID 1.4 mmol/L (0.4-2.0)
[2017-10-12 14:50] LABS: TROPONINI < 0.017 ng/mL (0.000-0.055)
[2017-10-12 17:25] LABS: POC GLUCOSE 235 mg/dL (70-99)
[2017-10-12] MEDS ORDERED: TRIAMCINOLONE ACETONIDE 0.1% TOPICAL CREAM 15GM TUBE. TP (17:30)
[2017-10-12] MEDS ORDERED: METHOCARBAMOL 500 MG TABLET PO (17:30)
[2017-10-12] MEDS ORDERED: DEXTROSE 50% 25 GM / 50ML DISP.SYRIN. IV (17:30)
[2017-10-12] MEDS ORDERED: traZODone 50 MG TABLET. PO (17:30)
[2017-10-12 17:50] LABS: TROPONINI < 0.017 ng/mL (0.000-0.055)
[2017-10-12 18:24] LABS: CHOLESTEROL 310 mg/dL (0-200); CHOLESTEROL/HDL RATIO 16.3; HDLC 19 mg/dL (40-60); LDLC 262 mg/dL (0-100); NON-HDL CHOLESTEROL 291 mg/dL (0-129); TRIGLYCERIDES 147 mg/dL (0-150); VLDLC 29 mg/dL (0-40)
[2017-10-12] MEDS: FUROSEMIDE 80 MG TABLET. PO (20:39)
[2017-10-12] MEDS: levETIRAcetam 500 MG TABLET PO (20:40)
[2017-10-12] MEDS: hydrALAZINE 25 MG TABLET PO (20:40)
[2017-10-12] MEDS: diphenhydrAMINE HCL 25 MG CAPSULE PO (20:40)
[2017-10-12] MEDS: DOCUSATE SODIUM 100 MG CAPSULE. PO (20:40)
[2017-10-12] MEDS: amLODIPine BESYLATE 10 MG TABLET PO (20:40)
[2017-10-12] MEDS: INSULIN ASPART 300 UNITS/3 ML INSULN.PEN SQ (20:42)
[2017-10-12] MEDS: INSULIN DETEMIR 300 UNITS/3 ML INSULN.PEN. SQ (20:43)
[2017-10-12 20:45] LABS: POC GLUCOSE 237 mg/dL (70-99)
[2017-10-12] MEDS: BUDESONIDE 0.5 MG/2 ML NEBU. NEB (21:20)
[2017-10-12] MEDS: ALBUTEROL SULFATE 2.5 MG/3 ML NEBU. NEB (21:20)
[2017-10-13 04:36] LABS: ADD MAN DIFF? NO
[2017-10-13 04:47] LABS: BASO # 0.1 x10^3/uL (0.0-0.2); BASO % 1 % (0-3); EOS # 0.3 x10^3/uL (0.0-0.7); EOS % 3 % (0-3); HEMATOCRIT 35.6 % (39.0-53.0); LYMPH # 2.8 x10^3/uL (1.0-4.8); LYMPH % 31 % (24-48); MEAN CORPUSCULAR HEMOGLOBIN 31 pg (25-35); MEAN CORPUSCULAR HGB CONC 34 g/dL (31-37); MEAN CORPUSCULAR VOLUME 92 fL (79-100); MONO # 0.7 x10^3/uL (0.0-1.1); MONO % 8 % (0-9); NEUT # 5.2 x10^3uL (1.8-7.7); NEUT % 57 % (31-73); PLATELET COUNT 313 x10^3/uL (140-400); RED BLOOD COUNT 3.89 x10^6/uL (4.30-5.70); RED CELL DISTRIBUTION WIDTH 14.6 % (11.5-14.5); WHITE BLOOD COUNT 9.2 x10^3/uL (4.0-11.0)
[2017-10-13 05:19] LABS: ALBUMIN 2.6 g/dL (3.4-5.0); ALK PHOS 391 U/L (46-116); ALT (SGPT) 193 U/L (16-63); ANION GAP 5 (6-14); AST (SGOT) 66 U/L (15-37); BLOOD UREA NITROGEN 33 mg/dL (8-26); CALCIUM 8.8 mg/dL (8.5-10.1); CARBON DIOXIDE 34 mmol/L (21-32); CHLORIDE 98 mmol/L (98-107); CREATININE 1.2 mg/dL (0.7-1.3); DIRECT BILIRUBIN 1.5 mg/dL (0.0-0.2); GFR 60.8; GLUCOSE 252 mg/dL (70-99); POTASSIUM 3.6 mmol/L (3.5-5.1); SODIUM 137 mmol/L (136-145); TOTAL BILIRUBIN 1.7 mg/dL (0.2-1.0)
[2017-10-13] MEDS: BUDESONIDE 0.5 MG/2 ML NEBU. NEB ×2 (08:23→18:52)
[2017-10-13] MEDS: CLOPIDOGREL BISULFATE 75 MG TABLET PO (08:39)
[2017-10-13] MEDS: DOCUSATE SODIUM 100 MG CAPSULE. PO ×2 (08:39→20:34)
[2017-10-13] MEDS: CYANOCOBALAMIN (VITAMIN B-12) 1,000 MCG TABLET. PO (08:39)
[2017-10-13] MEDS: ASPIRIN CHEWABLE 81 MG TABLET. PO (08:39)
[2017-10-13] MEDS: EZETIMIBE 10 MG TABLET. PO (08:39)
[2017-10-13] MEDS: hydrALAZINE 25 MG TABLET PO ×3 (08:39→20:34)
[2017-10-13] MEDS: levETIRAcetam 500 MG TABLET PO ×2 (08:40→20:34)
[2017-10-13] MEDS: BENZONATATE 100 MG CAPSULE. PO (08:40)
[2017-10-13] MEDS: SPIRONOLACTONE 25 MG TABLET PO (08:40)
[2017-10-13] MEDS: FUROSEMIDE 80 MG TABLET. PO ×2 (08:40→20:34)
[2017-10-13] MEDS: POLYETHYLENE GLYCOL 3350 17 GM PACKET. PO (08:40)
[2017-10-13] MEDS: INSULIN ASPART 300 UNITS/3 ML INSULN.PEN SQ ×6 (08:46→17:35)
[2017-10-13 12:05] LABS: POC GLUCOSE 192 mg/dL (70-99)
[2017-10-13 12:15] LABS: HCV ANTIBODY <0.1 s/co ratio (0.0-0.9); HEP A IGM ABDY Positive (Negative); HEP B SURFACE AG Negative (Negative)
[2017-10-13 17:23] LABS: POC GLUCOSE 218 mg/dL (70-99)
[2017-10-13] MEDS: diphenhydrAMINE HCL 25 MG CAPSULE PO (20:34)
[2017-10-13] MEDS: amLODIPine BESYLATE 10 MG TABLET PO (20:34)
[2017-10-13] MEDS: INSULIN DETEMIR 300 UNITS/3 ML INSULN.PEN. SQ (20:40)
[2017-10-13 20:41] LABS: POC GLUCOSE 153 mg/dL (70-99)
[2017-10-14 05:14] LABS: ADD MAN DIFF? NO
[2017-10-14 05:27] LABS: BASO # 0.1 x10^3/uL (0.0-0.2); BASO % 1 % (0-3); EOS # 0.3 x10^3/uL (0.0-0.7); EOS % 3 % (0-3); HEMATOCRIT 36.5 % (39.0-53.0); HEMOGLOBIN 12.1 g/dL (13.0-17.5); LYMPH # 3.4 x10^3/uL (1.0-4.8); LYMPH % 34 % (24-48); MEAN CORPUSCULAR HEMOGLOBIN 30 pg (25-35); MEAN CORPUSCULAR HGB CONC 33 g/dL (31-37); MEAN CORPUSCULAR VOLUME 91 fL (79-100); MONO # 0.9 x10^3/uL (0.0-1.1); MONO % 9 % (0-9); NEUT # 5.4 x10^3uL (1.8-7.7); NEUT % 53 % (31-73); PLATELET COUNT 348 x10^3/uL (140-400)
[2017-10-14 05:40] LABS: ALBUMIN 2.7 g/dL (3.4-5.0); ALBUMIN/GLOBULIN RATIO 0.6 (1.0-1.7); ALK PHOS 368 U/L (46-116); ALT (SGPT) 161 U/L (16-63); ANION GAP 6 (6-14); AST (SGOT) 56 U/L (15-37); BLOOD UREA NITROGEN 29 mg/dL (8-26); BUN/CREATININE RATIO 24 (6-20); CALCIUM 8.9 mg/dL (8.5-10.1); CARBON DIOXIDE 35 mmol/L (21-32); CHLORIDE 99 mmol/L (98-107); CREATININE 1.2 mg/dL (0.7-1.3); GFR 60.8; GLUCOSE 106 mg/dL (70-99); MAGNESIUM 1.8 mg/dL (1.8-2.4); POTASSIUM 3.6 mmol/L (3.5-5.1); SODIUM 140 mmol/L (136-145); TOTAL BILIRUBIN 1.6 mg/dL (0.2-1.0); TOTAL PROTEIN 7.2 g/dL (6.4-8.2)
[2017-10-14 06:16] LABS: INR 0.9 (0.8-1.1); PROTHROMBIN TIME PATIENT 11.8 SEC (11.7-14.0)
[2017-10-14 06:34] LABS: POC GLUCOSE 185 mg/dL (70-99)
[2017-10-14] MEDS: INSULIN ASPART 300 UNITS/3 ML INSULN.PEN SQ ×6 (08:00→18:18)
[2017-10-14] MEDS: CYANOCOBALAMIN (VITAMIN B-12) 1,000 MCG TABLET. PO (08:32)
[2017-10-14] MEDS: EZETIMIBE 10 MG TABLET. PO (08:32)
[2017-10-14] MEDS: CLOPIDOGREL BISULFATE 75 MG TABLET PO (08:32)
[2017-10-14] MEDS: ASPIRIN CHEWABLE 81 MG TABLET. PO (08:32)
[2017-10-14] MEDS: BENZONATATE 100 MG CAPSULE. PO (08:32)
[2017-10-14] MEDS: FUROSEMIDE 80 MG TABLET. PO ×2 (08:33→20:37)
[2017-10-14] MEDS: DOCUSATE SODIUM 100 MG CAPSULE. PO ×2 (08:33→20:37)
[2017-10-14] MEDS: hydrALAZINE 25 MG TABLET PO ×3 (08:33→20:38)
[2017-10-14] MEDS: SPIRONOLACTONE 25 MG TABLET PO (08:33)
[2017-10-14] MEDS: levETIRAcetam 500 MG TABLET PO ×2 (08:33→20:37)
[2017-10-14] MEDS: POLYETHYLENE GLYCOL 3350 17 GM PACKET. PO (08:33)
[2017-10-14] MEDS: BUDESONIDE 0.5 MG/2 ML NEBU. NEB ×2 (08:45→20:04)
[2017-10-14 08:47] LABS: POC GLUCOSE 88 mg/dL (70-99)
[2017-10-14 11:54] LABS: POC GLUCOSE 181 mg/dL (70-99)
[2017-10-14 16:41] LABS: POC GLUCOSE 108 mg/dL (70-99)
[2017-10-14] MEDS: diphenhydrAMINE HCL 25 MG CAPSULE PO (20:37)
[2017-10-14] MEDS: amLODIPine BESYLATE 10 MG TABLET PO (20:38)
[2017-10-14 20:42] LABS: POC GLUCOSE 196 mg/dL (70-99)
[2017-10-14] MEDS: INSULIN DETEMIR 300 UNITS/3 ML INSULN.PEN. SQ (20:42)
[2017-10-15 00:16] LABS: HEMOGLOBIN A1C 8.1 % (4.8-5.6)
[2017-10-15] MEDS: cloNIDine HCL 0.2 MG TABLET PO (03:55)
[2017-10-15 05:25] LABS: ADD MAN DIFF? NO
[2017-10-15 05:34] LABS: BASO # 0.1 x10^3/uL (0.0-0.2); BASO % 1 % (0-3); EOS # 0.2 x10^3/uL (0.0-0.7); EOS % 3 % (0-3); HEMATOCRIT 36.7 % (39.0-53.0); HEMOGLOBIN 12.4 g/dL (13.0-17.5); LYMPH # 2.7 x10^3/uL (1.0-4.8); LYMPH % 33 % (24-48); MEAN CORPUSCULAR HEMOGLOBIN 31 pg (25-35); MEAN CORPUSCULAR HGB CONC 34 g/dL (31-37); MEAN CORPUSCULAR VOLUME 91 fL (79-100); MONO # 0.8 x10^3/uL (0.0-1.1); MONO % 9 % (0-9); NEUT # 4.5 x10^3uL (1.8-7.7); NEUT % 54 % (31-73); PLATELET COUNT 301 x10^3/uL (140-400); RED BLOOD COUNT 4.02 x10^6/uL (4.30-5.70); RED CELL DISTRIBUTION WIDTH 14.9 % (11.5-14.5); WHITE BLOOD COUNT 8.3 x10^3/uL (4.0-11.0)
[2017-10-15 06:17] LABS: ALBUMIN 2.8 g/dL (3.4-5.0); ALBUMIN/GLOBULIN RATIO 0.7 (1.0-1.7); ALK PHOS 392 U/L (46-116); ALT (SGPT) 150 U/L (16-63); ANION GAP 10 (6-14); AST (SGOT) 57 U/L (15-37); BLOOD UREA NITROGEN 32 mg/dL (8-26); BUN/CREATININE RATIO 27 (6-20); CALCIUM 9.2 mg/dL (8.5-10.1); CARBON DIOXIDE 30 mmol/L (21-32); CHLORIDE 97 mmol/L (98-107); CREATININE 1.2 mg/dL (0.7-1.3); GFR 60.8; GLUCOSE 215 mg/dL (70-99); POTASSIUM 4.3 mmol/L (3.5-5.1); SODIUM 137 mmol/L (136-145); TOTAL BILIRUBIN 1.5 mg/dL (0.2-1.0); TOTAL PROTEIN 6.8 g/dL (6.4-8.2)
[2017-10-15 07:55] LABS: POC GLUCOSE 272 mg/dL (70-99)
[2017-10-15] MEDS: BUDESONIDE 0.5 MG/2 ML NEBU. NEB (08:17)
[2017-10-15] MEDS: levETIRAcetam 500 MG TABLET PO (09:00)
[2017-10-15] MEDS: BENZONATATE 100 MG CAPSULE. PO (09:00)
[2017-10-15] MEDS: DOCUSATE SODIUM 100 MG CAPSULE. PO (09:00)
[2017-10-15] MEDS: EZETIMIBE 10 MG TABLET. PO (09:00)
[2017-10-15] MEDS: ASPIRIN CHEWABLE 81 MG TABLET. PO (09:00)
[2017-10-15] MEDS: POLYETHYLENE GLYCOL 3350 17 GM PACKET. PO (09:00)
[2017-10-15] MEDS: CLOPIDOGREL BISULFATE 75 MG TABLET PO (09:01)
[2017-10-15] MEDS: FUROSEMIDE 80 MG TABLET. PO (09:01)
[2017-10-15] MEDS: SPIRONOLACTONE 25 MG TABLET PO (09:01)
[2017-10-15] MEDS: CYANOCOBALAMIN (VITAMIN B-12) 1,000 MCG TABLET. PO (09:01)
[2017-10-15] MEDS: hydrALAZINE 25 MG TABLET PO ×2 (09:01→15:17)
[2017-10-15] MEDS: INSULIN ASPART 300 UNITS/3 ML INSULN.PEN SQ ×4 (09:08→12:20)
[2017-10-15 11:38] LABS: POC GLUCOSE 230 mg/dL (70-99)
[2017-10-15 17:19] LABS: POC GLUCOSE 122 mg/dL (70-99)
== END 2017-10-15 18:35 | disposition home health service (06) | DRG 441 ==
LOC: ER 09:22 → 2 SOUTH 10:47
DX: B15.9 Hepatitis A without hepatic coma (principal); N17.0 Acute kidney failure with tubular necrosis; I13.0 Hypertensive heart and chronic kidney disease with heart failure and stage 1 through stage 4 chronic kidney disease, or unspecified chronic kidney disease; E44.1 Mild protein-calorie malnutrition; Z68.43 Body mass index [BMI] 50.0-59.9, adult; I25.10 Atherosclerotic heart disease of native coronary artery without angina pectoris; R07.89 Other chest pain; E11.22 Type 2 diabetes mellitus with diabetic chronic kidney disease; E11.40 Type 2 diabetes mellitus with diabetic neuropathy, unspecified; I50.9 Heart failure, unspecified; J44.9 Chronic obstructive pulmonary disease, unspecified; E78.00 Pure hypercholesterolemia, unspecified; E66.01 Morbid (severe) obesity due to excess calories; F03.90 Unspecified dementia, unspecified severity, without behavioral disturbance, psychotic disturbance, mood disturbance, and anxiety; E78.5 Hyperlipidemia, unspecified; G47.33 Obstructive sleep apnea (adult) (pediatric); E83.42 Hypomagnesemia; N18.3 Chronic kidney disease, stage 3 (moderate); K76.0 Fatty (change of) liver, not elsewhere classified; M19.90 Unspecified osteoarthritis, unspecified site; Z79.82 Long term (current) use of aspirin; Z86.73 Personal history of transient ischemic attack (TIA), and cerebral infarction without residual deficits; Z95.5 Presence of coronary angioplasty implant and graft; Z88.0 Allergy status to penicillin; Z88.8 Allergy status to other drugs, medicaments and biological substances; Z88.1 Allergy status to other antibiotic agents; Z91.041 Radiographic dye allergy status; Z82.49 Family history of ischemic heart disease and other diseases of the circulatory system
CPT/HCPCS: 36415; 71045; 76705; 80048; 80053; 80061; 80074; 80076; 82553; 82962; 83036; 83605; 83690; 83735; 83880; 84443; 84484; 85025; 85610; 93005; 94640; 94760; 99285; 99285-25; J1650; J1815; J3475; J7613; J7626; Q0163

== ENCOUNTER 2017-10-18 15:43 | Inpatient (IN) | payer MEDICARE, OTHER ==
[2017-10-18] MEDS ORDERED: cloNIDine HCL 0.2 MG TABLET PO (16:00)
[2017-10-18] MEDS ORDERED: DEXTROSE 50% 25 GM / 50ML DISP.SYRIN. IV (16:00)
[2017-10-18] MEDS ORDERED: TRIAMCINOLONE ACETONIDE 0.1% TOPICAL CREAM 15GM TUBE. TP (16:00)
[2017-10-18] MEDS ORDERED: NITROGLYCERIN SUBLINGUAL 0.4 MG BOTTLE OF 25. SL (16:00)
[2017-10-18] MEDS ORDERED: diphenhydrAMINE HCL 25 MG CAPSULE PO ×2 (16:00)
[2017-10-18] MEDS: ONDANSETRON PF 4 MG/2 ML VIAL. IV (16:33)
[2017-10-18] MEDS: MORPHINE SULFATE 2 MG/ML DISP.SYRIN. IV ×3 (16:33→19:26)
[2017-10-18] MEDS: FUROSEMIDE 80 MG TABLET. PO (17:15)
[2017-10-18] MEDS: CARVEDILOL 12.5 MG TABLET. PO (17:15)
[2017-10-18] MEDS: INSULIN ASPART 300 UNITS/3 ML INSULN.PEN SQ ×2 (17:18)
[2017-10-18] MEDS: BUDESONIDE 0.5 MG/2 ML NEBU. NEB (18:12)
[2017-10-18] MEDS: ALBUTEROL SULFATE 2.5 MG/3 ML NEBU. NEB (18:12)
[2017-10-18] MEDS: DOCUSATE SODIUM 100 MG CAPSULE. PO (21:21)
[2017-10-18] MEDS: levETIRAcetam 500 MG TABLET PO (21:21)
[2017-10-18] MEDS: amLODIPine BESYLATE 10 MG TABLET PO (21:21)
[2017-10-18] MEDS: predniSONE 10 MG TABLET PO (21:22)
[2017-10-18] MEDS: FAMOTIDINE 20 MG TABLET. PO (21:22)
[2017-10-18] MEDS: diphenhydrAMINE HCL 25 MG CAPSULE PO (21:22)
[2017-10-18] MEDS: INSULIN DETEMIR 300 UNITS/3 ML INSULN.PEN. SQ (21:29)
[2017-10-18 21:30] LABS: POC GLUCOSE 171 mg/dL (70-99)
[2017-10-19] MEDS: predniSONE 10 MG TABLET PO ×2 (03:24→10:07)
[2017-10-19 07:26] LABS: POC GLUCOSE 249 mg/dL (70-99)
[2017-10-19 07:54] LABS: POC GLUCOSE 249 mg/dL (70-99)
[2017-10-19] MEDS: INSULIN ASPART 300 UNITS/3 ML INSULN.PEN SQ ×7 (08:00→18:06)
[2017-10-19] MEDS: BUDESONIDE 0.5 MG/2 ML NEBU. NEB ×2 (08:00→20:16)
[2017-10-19] MEDS: levETIRAcetam 500 MG TABLET PO ×2 (08:50→20:53)
[2017-10-19] MEDS: ISOSORBIDE MONONITRATE ER 30 MG TAB.ER.24H PO (08:51)
[2017-10-19] MEDS: diphenhydrAMINE HCL 25 MG CAPSULE PO (08:52)
[2017-10-19] MEDS: CARVEDILOL 12.5 MG TABLET. PO ×2 (08:52→17:53)
[2017-10-19] MEDS: ASPIRIN ENTERIC COATED 81 MG TABLET.DR. PO (10:06)
[2017-10-19] MEDS: CLOPIDOGREL BISULFATE 75 MG TABLET PO (10:06)
[2017-10-19 10:53] LABS: POC GLUCOSE 294 mg/dL (70-99)
[2017-10-19] MEDS ORDERED: HEPARIN for IV BOLUS 10,000 UNIT/10 ML VIAL. (10:59)
[2017-10-19] MEDS ORDERED: VERAPAMIL 5 MG/2 ML VIAL. (10:59)
[2017-10-19] MEDS ORDERED: diphenhydrAMINE HCL 25 MG CAPSULE PO (11:00)
[2017-10-19] MEDS ORDERED: FAMOTIDINE 20 MG TABLET. PO (11:00)
[2017-10-19] MEDS ORDERED: NITROGLYCERIN 200 MCG/2 ML SYRINGE FOR CATH/VASC LAB. (11:01)
[2017-10-19] MEDS ORDERED: LIDOCAINE 1% Multi-Dose 20 ML VIAL. (11:23)
[2017-10-19] MEDS ORDERED: IODIXANOL 320 MG/ML 100 ML VIAL. (11:23)
[2017-10-19] MEDS ORDERED: MIDAZOLAM HCL/PF 2 MG/2 ML VIAL. (11:36)
[2017-10-19] MEDS: VERAPAMIL 5 MG/2 ML VIAL. IART (11:45)
[2017-10-19] MEDS: LIDOCAINE 2% 20 ML VIAL. IJ (11:46)
[2017-10-19] MEDS: IODIXANOL 320 MG/ML 100 ML VIAL. IART (12:02)
[2017-10-19] MEDS: NITROGLYCERIN 200 MCG/2 ML SYRINGE FOR CATH/VASC LAB. IART (12:02)
[2017-10-19] MEDS: HEPARIN for IV BOLUS 10,000 UNIT/10 ML VIAL. IART (12:03)
[2017-10-19] MEDS: MIDAZOLAM HCL/PF 2 MG/2 ML VIAL. IV (12:03)
[2017-10-19] MEDS ORDERED: NITROGLYCERIN SUBLINGUAL 0.4 MG BOTTLE OF 25. SL (12:15)
[2017-10-19] MEDS ORDERED: 0.9 % SODIUM CHLORIDE 10 ML DISP.SYRIN. IV (12:15)
[2017-10-19] MEDS: FUROSEMIDE 80 MG TABLET. PO ×3 (12:30→17:53)
[2017-10-19] MEDS: DOCUSATE SODIUM 100 MG CAPSULE. PO ×2 (12:56→20:53)
[2017-10-19] MEDS: POTASSIUM CHLORIDE 20 MEQ TABLET.ER. PO (12:56)
[2017-10-19] MEDS: SPIRONOLACTONE 25 MG TABLET PO (12:56)
[2017-10-19 17:02] LABS: POC GLUCOSE 394 mg/dL (70-99)
[2017-10-19 20:19] LABS: POC GLUCOSE 478 mg/dL (70-99)
[2017-10-19] MEDS: amLODIPine BESYLATE 10 MG TABLET PO (20:53)
[2017-10-19] MEDS: INSULIN DETEMIR 300 UNITS/3 ML INSULN.PEN. SQ (20:59)
[2017-10-19 21:49] LABS: BILIRUBIN,URINE NEGATIVE (NEG); CLARITY,URINE CLEAR; COLOR,URINE YELLOW; GLUCOSE,URINE >=1000 mg/dL (NEG); NITRITE,URINE NEGATIVE (NEG); PROTEIN,URINE NEGATIVE (NEG-TRACE)
[2017-10-19 21:56] LABS: AMORPHOUS SEDIMENT,UR PRESENT /HPF; BACTERIA,URINE 0 /HPF (0-FEW); HYALINE CASTS, URINE FEW /HPF; RBC,URINE OCC /HPF (0-2); SQUAMOUS EPITHELIAL CELL,UR FEW /LPF; WBC,URINE 0 /HPF (0-4)
[2017-10-20 07:12] LABS: HEMATOCRIT 32.6 % (39.0-53.0); HEMOGLOBIN 10.9 g/dL (13.0-17.5); MEAN CORPUSCULAR HEMOGLOBIN 31 pg (25-35); MEAN CORPUSCULAR HGB CONC 34 g/dL (31-37); MEAN CORPUSCULAR VOLUME 92 fL (79-100); PLATELET COUNT 285 x10^3/uL (140-400); RED BLOOD COUNT 3.53 x10^6/uL (4.30-5.70); RED CELL DISTRIBUTION WIDTH 13.8 % (11.5-14.5); WHITE BLOOD COUNT 19.3 x10^3/uL (4.0-11.0)
[2017-10-20 07:34] LABS: ALBUMIN 2.5 g/dL (3.4-5.0); ALBUMIN/GLOBULIN RATIO 0.5 (1.0-1.7); ALK PHOS 250 U/L (46-116); ALT (SGPT) 80 U/L (16-63); ANION GAP 8 (6-14); AST (SGOT) 23 U/L (15-37); BLOOD UREA NITROGEN 54 mg/dL (8-26); BUN/CREATININE RATIO 32 (6-20); CALCIUM 9.2 mg/dL (8.5-10.1); CARBON DIOXIDE 28 mmol/L (21-32); CHLORIDE 94 mmol/L (98-107); CREATININE 1.7 mg/dL (0.7-1.3); GFR 40.7; GLUCOSE 389 mg/dL (70-99); POTASSIUM 4.3 mmol/L (3.5-5.1); SODIUM 130 mmol/L (136-145); TOTAL BILIRUBIN 0.9 mg/dL (0.2-1.0); TOTAL PROTEIN 7.3 g/dL (6.4-8.2)
[2017-10-20 07:55] LABS: POC GLUCOSE 338 mg/dL (70-99)
[2017-10-20] MEDS: BUDESONIDE 0.5 MG/2 ML NEBU. NEB (08:28)
[2017-10-20] MEDS: FUROSEMIDE 80 MG TABLET. PO (08:43)
[2017-10-20] MEDS: CLOPIDOGREL BISULFATE 75 MG TABLET PO (08:44)
[2017-10-20] MEDS: ASPIRIN ENTERIC COATED 81 MG TABLET.DR. PO (08:44)
[2017-10-20] MEDS: POTASSIUM CHLORIDE 20 MEQ TABLET.ER. PO (08:44)
[2017-10-20] MEDS: levETIRAcetam 500 MG TABLET PO (08:44)
[2017-10-20] MEDS: SPIRONOLACTONE 25 MG TABLET PO (08:44)
[2017-10-20] MEDS: CARVEDILOL 12.5 MG TABLET. PO (08:45)
[2017-10-20] MEDS: DOCUSATE SODIUM 100 MG CAPSULE. PO (08:46)
[2017-10-20] MEDS: ISOSORBIDE MONONITRATE ER 30 MG TAB.ER.24H PO (08:46)
[2017-10-20] MEDS: INSULIN ASPART 300 UNITS/3 ML INSULN.PEN SQ ×2 (08:49→08:50)
[2017-10-20 11:29] LABS: POC GLUCOSE 249 mg/dL (70-99)
== END 2017-10-20 14:36 | disposition home or self-care (01) | DRG 286 ==
LOC: 2 NORTH 15:43
PROVIDERS: Internal Medicine
PROC: 4A023N7 Measurement of Cardiac Sampling and Pressure, Left Heart, Percutaneous Approach (ICD-10-PCS; principal; 2017-10-19)
PROC: B2111ZZ Fluoroscopy of Multiple Coronary Arteries using Low Osmolar Contrast (ICD-10-PCS; 2017-10-19)
PROC: B2151ZZ Fluoroscopy of Left Heart using Low Osmolar Contrast (ICD-10-PCS; 2017-10-19)
DX: R07.9 Chest pain, unspecified (principal); N17.0 Acute kidney failure with tubular necrosis; E87.1 Hypo-osmolality and hyponatremia; B15.9 Hepatitis A without hepatic coma; E11.65 Type 2 diabetes mellitus with hyperglycemia; J44.9 Chronic obstructive pulmonary disease, unspecified; D72.829 Elevated white blood cell count, unspecified; E78.5 Hyperlipidemia, unspecified; I25.10 Atherosclerotic heart disease of native coronary artery without angina pectoris; I10 Essential (primary) hypertension; T38.0X5A Adverse effect of glucocorticoids and synthetic analogues, initial encounter; Z91.041 Radiographic dye allergy status; Z86.73 Personal history of transient ischemic attack (TIA), and cerebral infarction without residual deficits; Z82.49 Family history of ischemic heart disease and other diseases of the circulatory system; Z88.0 Allergy status to penicillin; Z88.8 Allergy status to other drugs, medicaments and biological substances; Z98.61 Coronary angioplasty status; Z71.3 Dietary counseling and surveillance
CPT/HCPCS: 36415; 80053; 81001; 82962; 85027; 93458; 94640; 94760; 99152; 99153; C1769; C1892; J1644; J1815; J2250; J2270; J2405; J3490; J7512; J7613; J7626; Q0163

== ENCOUNTER 2018-01-02 22:33 | Inpatient (IN) | payer MEDICARE, OTHER ==
[2018-01-02 23:14] LABS: ADD MAN DIFF? NO
[2018-01-02 23:15] LABS: BASO % 0 % (0-3); EOS # 0.2 x10^3/uL (0.0-0.7); EOS % 2 % (0-3); HEMATOCRIT 36.6 % (39.0-53.0); HEMOGLOBIN 12.5 g/dL (13.0-17.5); LYMPH # 5.4 x10^3/uL (1.0-4.8); LYMPH % 44 % (24-48); MEAN CORPUSCULAR HEMOGLOBIN 30 pg (25-35); MEAN CORPUSCULAR HGB CONC 34 g/dL (31-37); MEAN CORPUSCULAR VOLUME 88 fL (79-100); MONO % 8 % (0-9); NEUT # 5.6 x10^3uL (1.8-7.7); NEUT % 46 % (31-73); PLATELET COUNT 239 x10^3/uL (140-400); RED BLOOD COUNT 4.18 x10^6/uL (4.30-5.70); RED CELL DISTRIBUTION WIDTH 14.4 % (11.5-14.5); WHITE BLOOD COUNT 12.3 x10^3/uL (4.0-11.0)
[2018-01-02 23:26] LABS: ANION GAP 6 (6-14); BLOOD UREA NITROGEN 17 mg/dL (8-26); BUN/CREATININE RATIO 14 (6-20); CALCIUM 9.4 mg/dL (8.5-10.1); CARBON DIOXIDE 30 mmol/L (21-32); CHLORIDE 98 mmol/L (98-107); CREATININE 1.2 mg/dL (0.7-1.3); GFR 60.6; GLUCOSE 334 mg/dL (70-99); POTASSIUM 3.8 mmol/L (3.5-5.1); SODIUM 134 mmol/L (136-145)
[2018-01-02 23:32] LABS: ALBUMIN 3.1 g/dL (3.4-5.0); ALBUMIN/GLOBULIN RATIO 0.9 (1.0-1.7); ALK PHOS 232 U/L (46-116); ALT (SGPT) 123 U/L (16-63); AST (SGOT) 222 U/L (15-37); TOTAL BILIRUBIN 1.3 mg/dL (0.2-1.0); TOTAL PROTEIN 6.7 g/dL (6.4-8.2)
[2018-01-02 23:34] LABS: TROPONINI < 0.017 ng/mL (0.000-0.055)
[2018-01-02] MEDS: ASPIRIN CHEWABLE 81 MG TABLET. PO (23:40)
[2018-01-03] MEDS: LABETALOL 20 MG/4 ML DISP.SYRIN. IVP ×2 (00:36→02:53)
[2018-01-03 03:12] LABS: BILIRUBIN,URINE SMALL (NEG); CLARITY,URINE CLEAR; COLOR,URINE AMBER; GLUCOSE,URINE >=1000 mg/dL (NEG); NITRITE,URINE NEGATIVE (NEG); PROTEIN,URINE 100 mg/dL (NEG-TRACE)
[2018-01-03 03:32] LABS: BACTERIA,URINE FEW /HPF (0-FEW); RBC,URINE OCC /HPF (0-2); SQUAMOUS EPITHELIAL CELL,UR FEW /LPF
[2018-01-03 03:33] LABS: GRANULAR CASTS,URINE OCCASIONAL /HPF; HYALINE CASTS, URINE OCCASIONAL /HPF
[2018-01-03] MEDS: FUROSEMIDE 40 MG/4 ML VIAL. IVP (03:52)
[2018-01-03 04:14] LABS: NT-PRO BNP 201 pg/mL (0-124)
[2018-01-03] MEDS: cloNIDine HCL 0.2 MG TABLET PO (05:18)
[2018-01-03 09:48] LABS: LIPASE 157 U/L (73-393)
[2018-01-03 13:12] LABS: POC GLUCOSE 300 mg/dL (70-99)
[2018-01-03] MEDS: CLOPIDOGREL BISULFATE 75 MG TABLET PO (13:30)
[2018-01-03] MEDS: PARoxetine 20 MG TABLET PO (14:00)
[2018-01-03] MEDS ORDERED: BENZONATATE 100 MG CAPSULE. PO (14:00)
[2018-01-03] MEDS: levETIRAcetam 500 MG TABLET PO ×2 (14:00→20:51)
[2018-01-03] MEDS: CYANOCOBALAMIN (VITAMIN B-12) 1,000 MCG TABLET. PO (14:00)
[2018-01-03] MEDS: CETIRIZINE HCL 10 MG TABLET. PO (14:00)
[2018-01-03] MEDS: PANTOPRAZOLE 40 MG TABLET.DR. PO (14:00)
[2018-01-03] MEDS: METHOCARBAMOL 500 MG TABLET PO ×3 (14:00→20:50)
[2018-01-03] MEDS: ASPIRIN CHEWABLE 81 MG TABLET. PO (14:00)
[2018-01-03] MEDS: EZETIMIBE 10 MG TABLET. PO (14:00)
[2018-01-03] MEDS: SPIRONOLACTONE 25 MG TABLET PO (14:00)
[2018-01-03] MEDS: INSULIN LISPRO 300 UNITS/3 ML INSULN.PEN. SQ ×3 (17:00→20:57)
[2018-01-03 18:22] LABS: POC GLUCOSE 160 mg/dL (70-99)
[2018-01-03] MEDS: BUDESONIDE 0.5 MG/2 ML NEBU. NEB (20:00)
[2018-01-03] MEDS: CARVEDILOL 12.5 MG TABLET. PO (20:50)
[2018-01-03] MEDS: amLODIPine BESYLATE 10 MG TABLET PO (20:51)
[2018-01-03 21:05] LABS: POC GLUCOSE 185 mg/dL (70-99)
[2018-01-03] MEDS: INSULIN GLARGINE 300 UNITS/3 ML INSULN.PEN. SQ (23:22)
[2018-01-03 23:27] LABS: POC GLUCOSE 163 mg/dL (70-99)
[2018-01-04 04:36] LABS: ADD MAN DIFF? NO
[2018-01-04 04:53] LABS: BASO % 0 % (0-3); EOS # 0.3 x10^3/uL (0.0-0.7); EOS % 3 % (0-3); HEMOGLOBIN 11.4 g/dL (13.0-17.5); LYMPH # 4.2 x10^3/uL (1.0-4.8); LYMPH % 40 % (24-48); MEAN CORPUSCULAR HEMOGLOBIN 31 pg (25-35); MEAN CORPUSCULAR HGB CONC 35 g/dL (31-37); MEAN CORPUSCULAR VOLUME 88 fL (79-100); MONO # 0.9 x10^3/uL (0.0-1.1); MONO % 8 % (0-9); NEUT # 5.2 x10^3uL (1.8-7.7); NEUT % 49 % (31-73); PLATELET COUNT 223 x10^3/uL (140-400); RED BLOOD COUNT 3.74 x10^6/uL (4.30-5.70); RED CELL DISTRIBUTION WIDTH 14.8 % (11.5-14.5); WHITE BLOOD COUNT 10.6 x10^3/uL (4.0-11.0)
[2018-01-04 05:39] LABS: ALBUMIN 2.4 g/dL (3.4-5.0); ALBUMIN/GLOBULIN RATIO 0.6 (1.0-1.7); ALK PHOS 238 U/L (46-116); ALT (SGPT) 234 U/L (16-63); ANION GAP 11 (6-14); AST (SGOT) 198 U/L (15-37); BLOOD UREA NITROGEN 18 mg/dL (8-26); BUN/CREATININE RATIO 15 (6-20); CALCIUM 8.3 mg/dL (8.5-10.1); CARBON DIOXIDE 25 mmol/L (21-32); CHLORIDE 103 mmol/L (98-107); CREATININE 1.2 mg/dL (0.7-1.3); GFR 60.6; GLUCOSE 163 mg/dL (70-99); LIPASE 330 U/L (73-393); POTASSIUM 3.4 mmol/L (3.5-5.1); SODIUM 139 mmol/L (136-145); TOTAL BILIRUBIN 2.8 mg/dL (0.2-1.0); TOTAL PROTEIN 6.2 g/dL (6.4-8.2)
[2018-01-04] MEDS: INSULIN LISPRO 300 UNITS/3 ML INSULN.PEN. SQ ×2 (07:42→11:30)
[2018-01-04] MEDS: INSULIN GLARGINE 300 UNITS/3 ML INSULN.PEN. SQ ×2 (07:43→21:16)
[2018-01-04] MEDS: CLOPIDOGREL BISULFATE 75 MG TABLET PO (07:44)
[2018-01-04] MEDS: ASPIRIN CHEWABLE 81 MG TABLET. PO (07:45)
[2018-01-04] MEDS: PANTOPRAZOLE 40 MG TABLET.DR. PO (07:45)
[2018-01-04] MEDS: CARVEDILOL 12.5 MG TABLET. PO ×2 (07:45→17:23)
[2018-01-04] MEDS: SPIRONOLACTONE 25 MG TABLET PO (07:46)
[2018-01-04] MEDS: CYANOCOBALAMIN (VITAMIN B-12) 1,000 MCG TABLET. PO (07:46)
[2018-01-04] MEDS: EZETIMIBE 10 MG TABLET. PO (07:46)
[2018-01-04] MEDS: PARoxetine 20 MG TABLET PO (07:46)
[2018-01-04] MEDS: levETIRAcetam 500 MG TABLET PO ×2 (07:46→21:11)
[2018-01-04] MEDS: CETIRIZINE HCL 10 MG TABLET. PO (07:46)
[2018-01-04] MEDS: METHOCARBAMOL 500 MG TABLET PO ×4 (07:46→21:11)
[2018-01-04] MEDS: BUDESONIDE 0.5 MG/2 ML NEBU. NEB ×2 (08:00→20:00)
[2018-01-04 12:01] LABS: POC GLUCOSE 115 mg/dL (70-99)
[2018-01-04 12:01] LABS: POC GLUCOSE 164 mg/dL (70-99)
[2018-01-04 17:16] LABS: POC GLUCOSE 123 mg/dL (70-99)
[2018-01-04 20:48] LABS: POC GLUCOSE 159 mg/dL (70-99)
[2018-01-04] MEDS: amLODIPine BESYLATE 10 MG TABLET PO (21:11)
[2018-01-04 21:15] LABS: MRSA BY PCR Negative (Negative)
[2018-01-04 21:32] LABS: POC GLUCOSE 164 mg/dL (70-99)
[2018-01-05 05:20] LABS: HEMATOCRIT 34.2 % (39.0-53.0); HEMOGLOBIN 11.7 g/dL (13.0-17.5); MEAN CORPUSCULAR HEMOGLOBIN 31 pg (25-35); MEAN CORPUSCULAR HGB CONC 34 g/dL (31-37); MEAN CORPUSCULAR VOLUME 89 fL (79-100); PLATELET COUNT 226 x10^3/uL (140-400); RED BLOOD COUNT 3.85 x10^6/uL (4.30-5.70); WHITE BLOOD COUNT 9.5 x10^3/uL (4.0-11.0)
[2018-01-05 05:43] LABS: ALBUMIN 2.4 g/dL (3.4-5.0); ALBUMIN/GLOBULIN RATIO 0.6 (1.0-1.7); ALK PHOS 261 U/L (46-116); ALT (SGPT) 159 U/L (16-63); ANION GAP 7 (6-14); AST (SGOT) 73 U/L (15-37); BLOOD UREA NITROGEN 21 mg/dL (8-26); BUN/CREATININE RATIO 16 (6-20); CALCIUM 8.2 mg/dL (8.5-10.1); CARBON DIOXIDE 28 mmol/L (21-32); CHLORIDE 105 mmol/L (98-107); CREATININE 1.3 mg/dL (0.7-1.3); GFR 55.2; GLUCOSE 109 mg/dL (70-99); POTASSIUM 3.9 mmol/L (3.5-5.1); SODIUM 140 mmol/L (136-145); TOTAL BILIRUBIN 1.1 mg/dL (0.2-1.0); TOTAL PROTEIN 6.4 g/dL (6.4-8.2)
[2018-01-05] MEDS: CLOPIDOGREL BISULFATE 75 MG TABLET PO (06:18)
[2018-01-05 06:56] LABS: POC GLUCOSE 71 mg/dL (70-99)
[2018-01-05] MEDS: BUDESONIDE 0.5 MG/2 ML NEBU. NEB ×2 (08:00→19:50)
[2018-01-05 08:20] LABS: POC GLUCOSE 122 mg/dL (70-99)
[2018-01-05 08:25] LABS: HCV ANTIBODY <0.1 s/co ratio (0.0-0.9); HEP A IGM ABDY Positive (Negative); HEP B SURFACE AG Negative (Negative)
[2018-01-05] MEDS: PANTOPRAZOLE 40 MG TABLET.DR. PO (08:27)
[2018-01-05] MEDS: ASPIRIN CHEWABLE 81 MG TABLET. PO (08:28)
[2018-01-05] MEDS: CARVEDILOL 12.5 MG TABLET. PO ×2 (08:29→17:22)
[2018-01-05] MEDS: levETIRAcetam 500 MG TABLET PO ×2 (08:30→21:46)
[2018-01-05] MEDS: SPIRONOLACTONE 25 MG TABLET PO (08:30)
[2018-01-05] MEDS: PARoxetine 20 MG TABLET PO (08:30)
[2018-01-05] MEDS: CYANOCOBALAMIN (VITAMIN B-12) 1,000 MCG TABLET. PO (08:31)
[2018-01-05] MEDS: EZETIMIBE 10 MG TABLET. PO (08:31)
[2018-01-05] MEDS: METHOCARBAMOL 500 MG TABLET PO ×4 (08:31→21:46)
[2018-01-05] MEDS: CETIRIZINE HCL 10 MG TABLET. PO (08:31)
[2018-01-05] MEDS: INSULIN LISPRO 300 UNITS/3 ML INSULN.PEN. SQ ×3 (08:37→17:00)
[2018-01-05] MEDS: INSULIN GLARGINE 300 UNITS/3 ML INSULN.PEN. SQ ×3 (08:37→21:49)
[2018-01-05 14:56] LABS: POC GLUCOSE 62 mg/dL (70-99)
[2018-01-05] MEDS ORDERED: DEXTROSE 50% 25 GM / 50ML DISP.SYRIN. IV (14:56)
[2018-01-05 15:27] LABS: POC GLUCOSE 183 mg/dL (70-99)
[2018-01-05 15:30] LABS: POC GLUCOSE 67 mg/dL (70-99)
[2018-01-05 15:39] LABS: CHOLESTEROL 162 mg/dL (0-200); HDLC 48 mg/dL (40-60); LDLC 102 mg/dL (0-100); NON-HDL CHOLESTEROL 114 mg/dL (0-129); TRIGLYCERIDES 61 mg/dL (0-150); VLDLC 12 mg/dL (0-40)
[2018-01-05 15:54] LABS: CHOLESTEROL/HDL RATIO 3.4
[2018-01-05 16:42] LABS: POC GLUCOSE 71 mg/dL (70-99)
[2018-01-05 17:16] LABS: POC GLUCOSE 90 mg/dL (70-99)
[2018-01-05 20:55] LABS: POC GLUCOSE 213 mg/dL (70-99)
[2018-01-05] MEDS: amLODIPine BESYLATE 10 MG TABLET PO (21:00)
[2018-01-06 05:10] LABS: ALBUMIN 2.4 g/dL (3.4-5.0); ALBUMIN/GLOBULIN RATIO 0.6 (1.0-1.7); ALK PHOS 273 U/L (46-116); ALT (SGPT) 113 U/L (16-63); ANION GAP 7 (6-14); AST (SGOT) 38 U/L (15-37); BLOOD UREA NITROGEN 25 mg/dL (8-26); BUN/CREATININE RATIO 19 (6-20); CALCIUM 8.5 mg/dL (8.5-10.1); CARBON DIOXIDE 28 mmol/L (21-32); CHLORIDE 105 mmol/L (98-107); CREATININE 1.3 mg/dL (0.7-1.3); GFR 55.2; GLUCOSE 175 mg/dL (70-99); POTASSIUM 3.8 mmol/L (3.5-5.1); SODIUM 140 mmol/L (136-145); TOTAL BILIRUBIN 0.7 mg/dL (0.2-1.0); TOTAL PROTEIN 6.3 g/dL (6.4-8.2)
[2018-01-06 05:24] LABS: C DIFF BY PCR Negative (Negative)
[2018-01-06] MEDS: CLOPIDOGREL BISULFATE 75 MG TABLET PO (06:03)
[2018-01-06] MEDS: INSULIN LISPRO 300 UNITS/3 ML INSULN.PEN. SQ ×2 (07:30→11:54)
[2018-01-06] MEDS: BUDESONIDE 0.5 MG/2 ML NEBU. NEB (07:34)
[2018-01-06] MEDS: levETIRAcetam 500 MG TABLET PO (08:15)
[2018-01-06] MEDS: EZETIMIBE 10 MG TABLET. PO (08:16)
[2018-01-06] MEDS: CYANOCOBALAMIN (VITAMIN B-12) 1,000 MCG TABLET. PO (08:16)
[2018-01-06] MEDS: PANTOPRAZOLE 40 MG TABLET.DR. PO (08:16)
[2018-01-06] MEDS: ASPIRIN CHEWABLE 81 MG TABLET. PO (08:16)
[2018-01-06] MEDS: SPIRONOLACTONE 25 MG TABLET PO (08:16)
[2018-01-06] MEDS: METHOCARBAMOL 500 MG TABLET PO ×2 (08:16→13:00)
[2018-01-06] MEDS: CETIRIZINE HCL 10 MG TABLET. PO (08:16)
[2018-01-06] MEDS: CARVEDILOL 12.5 MG TABLET. PO (08:17)
[2018-01-06] MEDS: PARoxetine 20 MG TABLET PO (08:17)
[2018-01-06 08:20] LABS: POC GLUCOSE 119 mg/dL (70-99)
[2018-01-06] MEDS: INSULIN GLARGINE 300 UNITS/3 ML INSULN.PEN. SQ (08:24)
[2018-01-06 18:29] LABS: POC GLUCOSE 173 mg/dL (70-99)
== END 2018-01-06 13:18 | disposition home health service (06) | DRG 442 ==
LOC: ER 22:33 → 5 NORTH 01-04 09:50 → 4 NORTH 01-03 02:11 → 1 WEST ICU 01-03 03:55 → 5 NORTH 01-04 12:46
PROC: 5A09357 Assistance with Respiratory Ventilation, Less than 24 Consecutive Hours, Continuous Positive Airway Pressure (ICD-10-PCS; principal; 2018-01-04)
PROC: 5A09357 Assistance with Respiratory Ventilation, Less than 24 Consecutive Hours, Continuous Positive Airway Pressure (ICD-10-PCS; 2018-01-05)
DX: B15.9 Hepatitis A without hepatic coma (principal); Z68.41 Body mass index [BMI] 40.0-44.9, adult; E11.40 Type 2 diabetes mellitus with diabetic neuropathy, unspecified; E11.649 Type 2 diabetes mellitus with hypoglycemia without coma; R07.9 Chest pain, unspecified; I25.10 Atherosclerotic heart disease of native coronary artery without angina pectoris; I11.0 Hypertensive heart disease with heart failure; I50.9 Heart failure, unspecified; E66.01 Morbid (severe) obesity due to excess calories; F03.90 Unspecified dementia, unspecified severity, without behavioral disturbance, psychotic disturbance, mood disturbance, and anxiety; E78.00 Pure hypercholesterolemia, unspecified; E78.5 Hyperlipidemia, unspecified; G47.33 Obstructive sleep apnea (adult) (pediatric); J44.9 Chronic obstructive pulmonary disease, unspecified; Z82.49 Family history of ischemic heart disease and other diseases of the circulatory system; Z86.73 Personal history of transient ischemic attack (TIA), and cerebral infarction without residual deficits; Z95.5 Presence of coronary angioplasty implant and graft; M19.90 Unspecified osteoarthritis, unspecified site; I25.2 Old myocardial infarction; Z88.1 Allergy status to other antibiotic agents; Z88.5 Allergy status to narcotic agent; Z88.8 Allergy status to other drugs, medicaments and biological substances; Z88.0 Allergy status to penicillin; K76.0 Fatty (change of) liver, not elsewhere classified; Z90.49 Acquired absence of other specified parts of digestive tract
CPT/HCPCS: 36415; 71045; 76700; 80053; 80061; 80074; 81001; 82962; 83690; 83880; 84484; 85025; 85027; 86644; 86645; 87324; 87641; 93005; 94640; 94760; 96374; 96376; 97110-GP; 97116-GP; 97162-GP; 97166-GO; 97535-GO; 99285; 99285-25; J1815; J1940; J3490; J7050; J7626

== ENCOUNTER 2018-01-22 08:30 | Inpatient (IN) | payer MEDICARE, OTHER ==
[2018-01-22] MEDS: NITROGLYCERIN SUBLINGUAL 0.4 MG BOTTLE OF 25. SL (09:24)
[2018-01-22] MEDS ORDERED: MORPHINE SULFATE 4 MG/ML DISP.SYRIN. IV (09:30)
[2018-01-22 09:45] LABS: ADD MAN DIFF? NO
[2018-01-22 09:59] LABS: ANION GAP 6 (6-14); BLOOD UREA NITROGEN 28 mg/dL (8-26); CALCIUM 8.7 mg/dL (8.5-10.1); CARBON DIOXIDE 33 mmol/L (21-32); CHLORIDE 95 mmol/L (98-107); CREATININE 1.2 mg/dL (0.7-1.3); GFR 60.6; GLUCOSE 374 mg/dL (70-99); POTASSIUM 3.8 mmol/L (3.5-5.1); SODIUM 134 mmol/L (136-145)
[2018-01-22 10:03] LABS: BASO # 0.1 x10^3/uL (0.0-0.2); BASO % 1 % (0-3); EOS # 0.4 x10^3/uL (0.0-0.7); EOS % 3 % (0-3); HEMATOCRIT 37.3 % (39.0-53.0); HEMOGLOBIN 12.7 g/dL (13.0-17.5); LYMPH # 4.2 x10^3/uL (1.0-4.8); LYMPH % 38 % (24-48); MEAN CORPUSCULAR HEMOGLOBIN 30 pg (25-35); MEAN CORPUSCULAR HGB CONC 34 g/dL (31-37); MEAN CORPUSCULAR VOLUME 88 fL (79-100); MONO # 0.8 x10^3/uL (0.0-1.1); MONO % 8 % (0-9); NEUT # 5.6 x10^3uL (1.8-7.7); NEUT % 51 % (31-73); PLATELET COUNT 295 x10^3/uL (140-400); RED BLOOD COUNT 4.24 x10^6/uL (4.30-5.70); RED CELL DISTRIBUTION WIDTH 14.6 % (11.5-14.5); WHITE BLOOD COUNT 11.1 x10^3/uL (4.0-11.0)
[2018-01-22 10:04] LABS: ALBUMIN 3.1 g/dL (3.4-5.0); ALK PHOS 150 U/L (46-116); ALT (SGPT) 27 U/L (16-63); AST (SGOT) 17 U/L (15-37); DIRECT BILIRUBIN 0.2 mg/dL (0.0-0.2); LIPASE 155 U/L (73-393); TOTAL BILIRUBIN 0.3 mg/dL (0.2-1.0); TOTAL PROTEIN 6.7 g/dL (6.4-8.2)
[2018-01-22 10:08] LABS: TROPONINI < 0.017 ng/mL (0.000-0.055)
[2018-01-22 10:10] LABS: NT-PRO BNP 121 pg/mL (0-124)
[2018-01-22 10:25] LABS: PARTIAL THROMBOPLASTIN TIME 29 SEC (24-38); PROTHROMBIN TIME PATIENT 12.4 SEC (11.7-14.0)
[2018-01-22] MEDS: IV NORMAL SALINE 1000ML BAG 1,000 ML IV ×2 (10:28→20:43)
[2018-01-22] MEDS ORDERED: ONDANSETRON PF 4 MG/2 ML VIAL. IV (10:30)
[2018-01-22 10:46] LABS: POC GLUCOSE 346 mg/dL (70-99)
[2018-01-22 13:22] LABS: POC GLUCOSE 327 mg/dL (70-99)
[2018-01-22 14:11] LABS: TROPONINI < 0.017 ng/mL (0.000-0.055)
[2018-01-22] MEDS ORDERED: ALBUTEROL SULFATE 3 MG NEB (15:00)
[2018-01-22] MEDS ORDERED: METHOCARBAMOL 500 MG TABLET PO (15:00)
[2018-01-22] MEDS ORDERED: CETIRIZINE HCL 10 MG TABLET. PO (15:00)
[2018-01-22] MEDS ORDERED: NITROGLYCERIN SUBLINGUAL 0.4 MG BOTTLE OF 25. SL (15:00)
[2018-01-22] MEDS ORDERED: ALBUTEROL SULFATE 2.5 MG/3 ML NEBU. NEB (15:00)
[2018-01-22 16:42] LABS: TROPONINI < 0.017 ng/mL (0.000-0.055)
[2018-01-22 16:43] LABS: POC GLUCOSE 377 mg/dL (70-99)
[2018-01-22] MEDS: CARVEDILOL 12.5 MG TABLET. PO (17:24)
[2018-01-22] MEDS: INSULIN LISPRO 300 UNITS/3 ML INSULN.PEN. SQ (17:25)
[2018-01-22] MEDS: levETIRAcetam 500 MG TABLET PO (20:43)
[2018-01-22] MEDS: amLODIPine BESYLATE 10 MG TABLET PO (20:43)
[2018-01-22] MEDS: INSULIN GLARGINE 300 UNITS/3 ML INSULN.PEN. SQ (20:43)
[2018-01-22 20:44] LABS: POC GLUCOSE 105 mg/dL (70-99)
[2018-01-22] MEDS ORDERED: BENZONATATE 100 MG CAPSULE. PO (21:00)
[2018-01-23 05:14] LABS: ADD MAN DIFF? NO
[2018-01-23 05:28] LABS: BASO # 0.1 x10^3/uL (0.0-0.2); BASO % 1 % (0-3); EOS # 0.4 x10^3/uL (0.0-0.7); EOS % 3 % (0-3); HEMATOCRIT 36.5 % (39.0-53.0); HEMOGLOBIN 12.5 g/dL (13.0-17.5); LYMPH # 4.5 x10^3/uL (1.0-4.8); LYMPH % 37 % (24-48); MEAN CORPUSCULAR HEMOGLOBIN 30 pg (25-35); MEAN CORPUSCULAR HGB CONC 34 g/dL (31-37); MEAN CORPUSCULAR VOLUME 88 fL (79-100); MONO # 0.9 x10^3/uL (0.0-1.1); MONO % 8 % (0-9); NEUT # 6.3 x10^3uL (1.8-7.7); NEUT % 52 % (31-73); PLATELET COUNT 271 x10^3/uL (140-400); RED BLOOD COUNT 4.14 x10^6/uL (4.30-5.70); RED CELL DISTRIBUTION WIDTH 14.5 % (11.5-14.5); WHITE BLOOD COUNT 12.1 x10^3/uL (4.0-11.0)
[2018-01-23 05:59] LABS: ANION GAP 7 (6-14); BLOOD UREA NITROGEN 34 mg/dL (8-26); CARBON DIOXIDE 29 mmol/L (21-32); CHLORIDE 101 mmol/L (98-107); GFR 74.8; GLUCOSE 243 mg/dL (70-99); POTASSIUM 3.5 mmol/L (3.5-5.1); SODIUM 137 mmol/L (136-145)
[2018-01-23] MEDS: IV NORMAL SALINE 1000ML BAG 1,000 ML IV (06:28)
[2018-01-23 08:07] LABS: POC GLUCOSE 229 mg/dL (70-99)
[2018-01-23] MEDS: EZETIMIBE 10 MG TABLET. PO (08:56)
[2018-01-23] MEDS: SPIRONOLACTONE 25 MG TABLET PO (08:57)
[2018-01-23] MEDS: PANTOPRAZOLE 40 MG TABLET.DR. PO (08:57)
[2018-01-23] MEDS: levETIRAcetam 500 MG TABLET PO (08:57)
[2018-01-23] MEDS: FUROSEMIDE 80 MG TABLET. PO (08:57)
[2018-01-23] MEDS: CARVEDILOL 12.5 MG TABLET. PO (08:57)
[2018-01-23] MEDS: CLOPIDOGREL BISULFATE 75 MG TABLET PO (08:57)
[2018-01-23] MEDS: ASPIRIN ENTERIC COATED 81 MG TABLET.DR. PO (08:57)
[2018-01-23] MEDS: CYANOCOBALAMIN (VITAMIN B-12) 1,000 MCG TABLET. PO (08:58)
[2018-01-23] MEDS: INSULIN GLARGINE 300 UNITS/3 ML INSULN.PEN. SQ (08:59)
[2018-01-23] MEDS: PARoxetine 20 MG TABLET PO (09:04)
[2018-01-23] MEDS: INSULIN LISPRO 300 UNITS/3 ML INSULN.PEN. SQ ×2 (09:21→12:13)
[2018-01-23 09:23] LABS: POC GLUCOSE 347 mg/dL (70-99)
[2018-01-23 11:35] LABS: POC GLUCOSE 222 mg/dL (70-99)
== END 2018-01-23 13:04 | disposition home or self-care (01) | DRG 206 ==
LOC: ER 08:30 → 5 NORTH 10:27
PROVIDERS: Internal Medicine
DX: M94.0 Chondrocostal junction syndrome [Tietze] (principal); I25.10 Atherosclerotic heart disease of native coronary artery without angina pectoris; I50.9 Heart failure, unspecified; I11.0 Hypertensive heart disease with heart failure; F03.90 Unspecified dementia, unspecified severity, without behavioral disturbance, psychotic disturbance, mood disturbance, and anxiety; E66.01 Morbid (severe) obesity due to excess calories; Z86.73 Personal history of transient ischemic attack (TIA), and cerebral infarction without residual deficits; J44.9 Chronic obstructive pulmonary disease, unspecified; E78.00 Pure hypercholesterolemia, unspecified; E11.9 Type 2 diabetes mellitus without complications; Z82.49 Family history of ischemic heart disease and other diseases of the circulatory system; G47.33 Obstructive sleep apnea (adult) (pediatric); E78.5 Hyperlipidemia, unspecified; Z95.5 Presence of coronary angioplasty implant and graft; M19.90 Unspecified osteoarthritis, unspecified site; Z88.0 Allergy status to penicillin; Z88.8 Allergy status to other drugs, medicaments and biological substances; Z88.1 Allergy status to other antibiotic agents; Z91.041 Radiographic dye allergy status; I25.2 Old myocardial infarction
CPT/HCPCS: 36415; 71045; 80048; 80076; 82962; 83690; 83880; 84484; 85025; 85610; 85730; 93005; 94640; 94660; 99285; 99285-25; J1815; J7030

== ENCOUNTER → 2018-02-04 | Outpatient (CLI) | payer MEDICARE ==
[2018-02-04 17:00] LABS: ADD MAN DIFF? NO
[2018-02-04 17:45] LABS: BASO # 0.1 x10^3/uL (0.0-0.2); BASO % 1 % (0-3); EOS # 0.3 x10^3/uL (0.0-0.7); EOS % 3 % (0-3); HEMATOCRIT 39.4 % (39.0-53.0); HEMOGLOBIN 13.5 g/dL (13.0-17.5); LYMPH # 3.9 x10^3/uL (1.0-4.8); LYMPH % 36 % (24-48); MEAN CORPUSCULAR HEMOGLOBIN 30 pg (25-35); MEAN CORPUSCULAR HGB CONC 34 g/dL (31-37); MEAN CORPUSCULAR VOLUME 88 fL (79-100); MONO # 0.7 x10^3/uL (0.0-1.1); MONO % 7 % (0-9); NEUT # 5.8 x10^3uL (1.8-7.7); NEUT % 53 % (31-73); PLATELET COUNT 247 x10^3/uL (140-400); RED BLOOD COUNT 4.49 x10^6/uL (4.30-5.70); RED CELL DISTRIBUTION WIDTH 14.3 % (11.5-14.5); WHITE BLOOD COUNT 10.8 x10^3/uL (4.0-11.0)
[2018-02-04 17:48] LABS: ALBUMIN 3.4 g/dL (3.4-5.0); ALBUMIN/GLOBULIN RATIO 0.8 (1.0-1.7); ALK PHOS 166 U/L (46-116); ALT (SGPT) 26 U/L (16-63); ANION GAP 9 (6-14); AST (SGOT) 12 U/L (15-37); BLOOD UREA NITROGEN 23 mg/dL (8-26); BUN/CREATININE RATIO 21 (6-20); CALCIUM 9.2 mg/dL (8.5-10.1); CARBON DIOXIDE 30 mmol/L (21-32); CHLORIDE 97 mmol/L (98-107); CREATINE KINASE 20 U/L (39-308); CREATININE 1.1 mg/dL (0.7-1.3); GLUCOSE 393 mg/dL (70-99); SODIUM 136 mmol/L (136-145); TOTAL BILIRUBIN 0.3 mg/dL (0.2-1.0); TOTAL PROTEIN 7.9 g/dL (6.4-8.2)
[2018-02-04 17:59] LABS: BARBITURATES NEG (NEG); BENZODIAZEPINES NEG (NEG); CANNABINOIDS NEG (NEG); COCAINE NEG (NEG); METHADONE NEG (NEG); OPIATES NEG (NEG); PHENCYCLIDINE NEG (NEG)
[2018-02-04 18:02] LABS: AMPHETAMINE/METHAMPHETAMINE NEG (NEG); ETHANOL, URINE NEG (NEG)
[2018-02-04 18:02] LABS: THYROID STIM HORMONE (TSH) 1.363 uIU/mL (0.358-3.74)
[2018-02-05 07:25] LABS: VITAMIN-B12 441 pg/mL (247-911)
== END | disposition home or self-care (01) ==
LOC: LAB 16:29
DX: R56.9 Unspecified convulsions (principal); I13.0 Hypertensive heart and chronic kidney disease with heart failure and stage 1 through stage 4 chronic kidney disease, or unspecified chronic kidney disease; E11.22 Type 2 diabetes mellitus with diabetic chronic kidney disease; I50.32 Chronic diastolic (congestive) heart failure; N18.3 Chronic kidney disease, stage 3 (moderate); J44.9 Chronic obstructive pulmonary disease, unspecified
CPT/HCPCS: 36415; 80053; 80307; 82550; 82607; 84443; 85025